=== PATIENT | female | born 1965 | race Caucasian/White ===

== ENCOUNTER 2017-05-29 13:12 | Inpatient (IN) | payer MEDICAID ==
[~2017-05-29] VITALS: Ht 162.6 cm; Wt 69.4 kg
[~2017-05-29 13:12] MED LIST: ALBUTEROL SULF8.5 GM INH; ALBUTEROL0.63 MG/3 INH; AZITHROMYCIN250 MG PO; BACTRIM DS TAB1 EACH PO; BUSPIRONE HCL5 MG PO; IBUPROFEN400 MG PO; LEVAQUIN500 MG PO; LOSARTAN-HCTZ1 EAC2 PO; NICODERM CQ1 EAC1 TOP; NICOTINE PATCH1 EAC5 SUBD; NORCO 10MG-325MG1 EA PO; NORVASC5 MG PO; PANTOPRAZOLE SO40 MG PO; PREDNISONE10 MG PO; PREDNISONE20 MG PO; PREDNISONE5 MG PO; SERTRALINE HCL50 MG PO; THEOPHYLLINE600 MG PO; ULTRAM 50MG50 MG PO
[2017-05-29] MEDS ORDERED: ALBUTEROL SULF 0.083% NEB SOLN 3 ML NEB ONE (13:43)
[2017-05-29] MEDS ORDERED: IPRATROPIUM BROMIDE 0.02% 2.5 ML NEB ONE (13:44)
[2017-05-29] MEDS ORDERED: IPRATROPIUM BROMIDE 0.02% 2.5 ML NEB NEB STA (13:45)
[2017-05-29] MEDS ORDERED: ALBUTEROL/IPRATROPIUM 3 ML NEB NEB ONE (13:45)
[2017-05-29] MEDS ORDERED: ALBUTEROL SULF 0.083% NEB SOLN 3 ML NEB NEB STA (13:45)
[2017-05-29] MEDS ORDERED: CLONIDINE HCL 0.2 MG TAB PO STA (13:45)
[2017-05-29 14:02] LABS: BASOPHILS % 0.2 % (0.0-1.0); EOSINOPHILS % 0.1 % (0.0-6.0); HEMATOCRIT 39.5 % (34.2-44.1); HEMOGLOBIN 11.8 g/dL (12.0-16.0); LYMPHOCYTES # (AUTO) 0.8 (1.0-3.2); LYMPHOCYTES % 4.6 % (18.0-39.1); MEAN CORPUSCULAR HEMOGLOBIN 27.1 pg (28-32); MEAN CORPUSCULAR HGB CONC 29.9 g/dL (31-35); MEAN CORPUSCULAR VOLUME 90.6 fL (81-99); MONOCYTES # (AUTO) 0.2 (0.2-0.8); MONOCYTES % 1.3 % (4.4-11.3); NEUTROPHILS # (AUTO) 15.1 (2.1-6.9); NEUTROPHILS % 92.8 % (38.7-80.0); PLATELET COUNT 388 x10e3/uL (140-360); RED BLOOD COUNT 4.36 x10e6/uL (3.6-5.1)
[2017-05-29 14:06] LABS: INR 0.96; PROTHROMBIN TIME 13.3 seconds (11.9-14.5)
[2017-05-29 14:15] LABS: ALANINE AMINOTRANSFERASE 12 IU/L (0-55); ALBUMIN 3.5 g/dL (3.5-5.0); ALBUMIN/GLOBULIN RATIO 0.8 (0.8-2.0); ALKALINE PHOSPHATASE 103 IU/L (40-150); ANION GAP 12.6 mmol/L (8-16); BLOOD UREA NITROGEN 14 mg/dL (7-26); BUN/CREATININE RATIO 27 (6-25); CALCIUM 9.4 mg/dL (8.4-10.2); CHLORIDE 86 mmol/L (98-107); CREATINE KINASE 32 IU/L (29-168); CREATININE, SERUM 0.51 mg/dL (0.57-1.11); EST GLOMERULAR FILTRATION RATE > 60 ML/MIN (60-); GLUCOSE 161 mg/dL (74-118); POTASSIUM 4.6 mmol/L (3.5-5.1); SODIUM 136 mmol/L (136-145)
[2017-05-29 14:18] LABS: CARBON DIOXIDE 42 mmol/L (22-29)
[2017-05-29 14:20] LABS: TROPONIN I 0.008 ng/mL (0-0.300)
--- NOTE | 2017-05-29 15:17 | Diagnostic Imaging Report ---
PROCEDURE: A single AP view of the chest. COMPARISON: Patients [facility], DX, CHEST 2 VIEWS, 05/02/2016, 18:29. INDICATIONS: COPD, SOB FINDINGS: Lines/tubes: None. Lungs: Mild prominence of the pulmonary vasculature bilaterally. Bibasilar dependent atelectasis. The There is no evidence of pneumonia or pulmonary edema. Pleura: There is no pleural effusion or pneumothorax. Heart and mediastinum: The cardiac silhouette is mildly enlarged. Bones: No acute bony abnormality. IMPRESSION: 1. Mild prominence of the cardiac silhouette and pulmonary vascular bilaterally may be in part related to portable technique. otherwise no acute thoracic abnormality. Anaid Diaz M.D. Dictated by: Anaid Diaz M.D. on 05/29/2017 at 15:25 Electronically approved by: Anaid Diaz M.D. on 05/29/2017 at 15:25
[2017-05-29] MEDS ORDERED: PROPOFOL IV EMULSION 10MG/ML 100 ML ONE ×2 (15:44→23:49)
[2017-05-29] MEDS ORDERED: SODIUM CHLORIDE 0.9% 1000ML 1,000 ML ONE (16:09)
[2017-05-29] MEDS ORDERED: PANTOPRAZOLE INJ 40 MG in SODIUM CHLORIDE 0.9% 50ML 50 ML IV SCH (16:15)
--- NOTE | 2017-05-29 16:20 | Diagnostic Imaging Report ---
PROCEDURE: A single AP view of the chest. COMPARISON: Patients [facility], DX, CHEST SINGLE (PORTABLE), 05/29/2017, 14:42. INDICATIONS: POST INTUBATION FINDINGS: Lines/tubes: ET tube with the distal tip in adequate position well above the stalin at the level of the sternoclavicular junctions. NG/orogastric tube with distal portion extending below the diaphragm, however, with the distal tip not included. Lungs: The lungs are clear. There is no evidence of pneumonia or pulmonary edema. Pleura: There is no pleural effusion or pneumothorax. Heart and mediastinum: The heart and the mediastinum are unremarkable. Bones: No acute bony abnormality. IMPRESSION: 1. ET tube in adequate position. Anaid Diaz M.D. Dictated by: Anaid Diaz M.D. on 05/29/2017 at 16:29 Electronically approved by: Anaid Diaz M.D. on 05/29/2017 at 16:29
[2017-05-29] MEDS: SODIUM CHLORIDE 0.9% 250ML IRRIG IR SCH ×3 (16:30→23:58)
[2017-05-29] MEDS ORDERED: LEVOFLOXACIN 750MG/DEXTROSE PREMIX BAG 150ML IV SCH (17:00)
[2017-05-29] MEDS ORDERED: DEXTROSE 50% SYRINGE 50 ML IV PRN ×3 (17:15→18:00)
[2017-05-29] MEDS: MIDAZOLAM HCL 25 MG in SODIUM CHLORIDE 0.9% 50ML 45 ML IV PRN ×4 (17:20→20:18)
[2017-05-29] MEDS: PANTOPRAZOLE INJ 40 MG in SODIUM CHLORIDE 0.9% 50ML 50 ML IV SCH ×2 (17:22→22:27)
[2017-05-29] MEDS ORDERED: PROPOFOL IV EMULSION 10 MG/ML 20 ML VIAL IV ONE (17:30)
[2017-05-29 17:59] LABS: ABG PH 7.31 (7.31-7.41)
[2017-05-29 18:00] LABS: ABG HCO3 44 mmol/L (23-28); ABG PCO2 87 mmHg (41-51); ABG PO2 85 mmHg (80-105)
[2017-05-29 18:14] LABS: BILIRUBIN,URINE NEGATIVE (NEGATIVE); CLARITY,URINE CLEAR (CLEAR); COLOR,URINE YELLOW (YELLOW); KETONES,URINE TRACE (NEGATIVE); LEUKOCYTE ESTERASE ,URINE NEGATIVE (NEGATIVE); NITRITE,URINE NEGATIVE (NEGATIVE); PROTEIN,URINE DIPSTICK 3+ (NEGATIVE); URINE UROBILINOGEN 0.2 mg/dL (0.2 - 1)
[2017-05-29 18:34] LABS: EPITHELIAL CELLS,URINE FEW /LPF
[2017-05-29] MEDS: NICOTINE 7 MG PATCH TOP SCH (18:34)
[2017-05-29] MEDS: METHYLPREDNISOLONE SOD SUCC 40 MG/ML VIAL IV SCH ×2 (18:34→20:48)
[2017-05-29 18:37] LABS: RBC,URINE 21-50 /HPF (0-5)
[2017-05-29] MEDS: SODIUM CHLORIDE 0.9% 1000ML 1,000 ML IV SCH (18:37)
[2017-05-29 18:41] LABS: BACTERIA,URINE FEW /HPF
--- NOTE | 2017-05-29 18:43 | Consultation ---
DATE OF CONSULTATION: May 29, 2017 The patient is well known to pulmonary service. The patient is an unfortunate 51-year-old woman with a history of end-stage COPD, a long smoking history. She has continued to smoke despite the admonition from physicians. On this occasion, she ran out of her medication. She was admitted through the emergency room with extreme dyspnea. She is awake, but found to have significant CO2 retention in excess of 130. She was in progressive distress and was intubated by . Apparently, this was a difficult intubation, difficult to pass a 7.5 or 7 tube and a 6.5 endotracheal tube was placed. Apparently there was some bleeding at this time. It is uncertain whether it was gastric or from the throat. She has history of chronic pain, history of hypertension. Family history is positive for hypertension and diabetes mellitus. She has had C-sections in the past. She is somewhat Cushingoid. Pulmonary functions in May 2015 revealed very severe obstructive pulmonary disease with an FEV1 of only 0.57 meters, 20% of predicted. FVC of 1.13 liters, 31% of predicted and FEV1/FVC ratio of 57%. There was some improvement. Significant improvement following inhalation of bronchodilators at 12%. PHYSICAL EXAMINATION GENERAL: She is currently intubated and awake. She is intubated orally with a small endotracheal tube 6.5. VITAL SIGNS: Temperature 97, pulse 100, respirations 16, blood pressure 139/95. LUNGS: Diminished breath sounds. HEART: Regular rhythm. ABDOMEN: Obese. EXTREMITIES: Not edematous. . The plan is to begin cortical steroids in moderate doses. Monitor blood sugars. Nebulized bronchodilators. Continue her theophylline. Check theophylline every day. Consider changing endotracheal tube as tube is small size. Obtain sputum cultures. White count was elevated at 16. Monitor blood sugars. Begin cortical steroids. The home medications apparently have included albuterol, amlodipine, Buspar, nicotine patch, Protonix, prednisone 10 mg daily, Sertraline, theophylline and Ultram. Thank you for this kind referral. Job#: [id number]
[2017-05-29 18:52] LABS: RENAL EPITHELIAL CELLS,URINE FEW
[2017-05-29] MEDS ORDERED: SUCCINYLCHOLINE CHLORIDE 20 MG/ML 10ML VIAL ONE (18:59)
[2017-05-29] MEDS ORDERED: ETOMIDATE 2 MG/ML 10 ML INJ IV ONE (18:59)
[2017-05-29] MEDS: LEVOFLOXACIN 750MG/D5W 150ML 150 ML IV SCH (19:27)
[2017-05-29] MEDS: ALBUTEROL/IPRATROPIUM 3 ML NEB NEB SCH ×2 (19:45→23:30)
[2017-05-29] MEDS: HEPARIN SOD (PORCINE) 5,000 UNIT/ML VIAL SC SCH (20:59)
[2017-05-29] MEDS ORDERED: INSULIN REGULAR, HUMAN 100 UNIT/1 ML 3ML VIAL SQ SCH (21:00)
[2017-05-29] MEDS: INSULIN LISPRO 100 UNIT/1 ML 3ML VIAL SQ SCH (21:00)
[2017-05-29 22:10] LABS: CREATINE KINASE MB 3.1 ng/mL (0.00-5.00); TROPONIN I 0.011 ng/mL (0-0.300)
--- NOTE | 2017-05-29 22:30 | History and Physical ---
TIME: 1730 The patient presented to the emergency room short of breath. CO2 was markedly elevated and the patient required intubation. Blood pressure has been labile since arrival. PAST HISTORY: Has included COPD and heavy tobacco use, chronic morbid obesity and hypertension. FAMILY HISTORY: Positive for diabetes in the patient's grandmother. Organic heart disease in the patient's mother. ALLERGIES: THE PATIENT IS ALLERGIC TO PENICILLIN. Patient has not in the past used alcohol according to her past history. Of course, she is intubated and is unable to give a history. History is obtained from review of prior records. Patient was last here 14 months ago, and that is when I last saw this patient. She has not been keeping office supplements to my office. History has included chronic low back pain. The patient has used analgesics in the past. REVIEW OF SYSTEMS: The patient is intubated and on Diprivan, and unable to convey any significant history. Prior to admission meds as above. Patient unable to relate at this time. PHYSICAL EXAMINATION GENERAL: Currently, the patient has an orotracheal and orogastric tube. She is on the ventilator. VITALS: Pulse 98 and regular, respiratory rate 23, blood pressure 136/77 now, and O2 saturation 99%. HEENT: Pupils round and reactive. No icterus or pallor. Throat intubated. NECK: Flexes. Carotids weak. PULMONARY: Auscultation reveals reduced breath sounds, left. CARDIAC: Sounds S1 and S2 soft. ABDOMEN: Morbidly obese and soft. Bowel sounds normal. Some perineal erythema. EXTREMITIES: Without edema. DTRs depressed. Babinski's negative. Pulses dampened. White count 16,280 on arrival with hemoglobin 11.8 and platelet count 388,000. CO2 42, BUN 14, creatinine 0.51, glucose 161. Naturetic peptide 33. Blood cultures pending. ER chest x-ray taken at 1357 today with mild prominence of the cardiac silhouette and pulmonary vascular bilaterally. May be in part related to portable technique. No acute thoracic abnormality otherwise per Dr. Diaz, radiologist. Followup film similar with post intubation study. IMPRESSION 1. Chronic obstructive pulmonary disease. 2. History of asthma. 3. Acute and chronic respiratory failure, now intubated. 4. History of hypertension. 5. Chronic low back pain with morbid chronic obesity and degenerative joint disease, mild. 6. Hyperglycemia at this time. Current plans are to support the patient medically. Continue ventilator as needed. Clinic Lpn has been asked to follow with us. Case discussed with the ER physician and ER nurses. Blood gas is pending. See also initial and followup orders. Orders have been entered under my name, including theophylline and nicotine, but have not given any orders for this patient to date. Appreciate orders per Dr. Mckoy, including steroids. This will elevate her blood sugars further and will need treatment. The patient is on Levaquin here now. Needs to be screened for flu. See initial followup orders. Job#: [id number] [place]
[2017-05-29] MEDS ORDERED: ROCURONIUM BROMIDE 1 ML ONE (23:50)
[2017-05-30] VITALS (20 sets, daily range): BP systolic 114–156; BP diastolic 73–96
[2017-05-30] MEDS ORDERED: ROCURONIUM BROMIDE 10 MG/ML 5ML VIAL IV ONE
[2017-05-30] MEDS: PROPOFOL IV EMULSION 10MG/ML 100 ML IV SCH ×4 (00:52→22:00)
[2017-05-30] MEDS: PANTOPRAZOLE INJ 40 MG in SODIUM CHLORIDE 0.9% 50ML 50 ML IV SCH ×3 (02:06→12:27)
[2017-05-30 02:54] LABS: INFLUENZAE A&B ANTIGEN (RAPID) NEGATIVE (NEGATIVE); STREPTOCOCCUS GRP A ANTIGEN NEGATIVE (NEGATIVE)
[2017-05-30] MEDS: ALBUTEROL/IPRATROPIUM 3 ML NEB NEB SCH ×7 (03:12→23:20)
[2017-05-30] MEDS: SODIUM CHLORIDE 0.9% 250ML IRRIG IR SCH ×5 (04:21→21:00)
[2017-05-30] MEDS: MIDAZOLAM HCL 25 MG in SODIUM CHLORIDE 0.9% 50ML 45 ML IV PRN ×5 (04:30→15:34)
[2017-05-30 06:54] LABS: BASOPHILS % 0.1 % (0.0-1.0); HEMATOCRIT 33.4 % (34.2-44.1); HEMOGLOBIN 10.3 g/dL (12.0-16.0); LYMPHOCYTES # (AUTO) 0.9 (1.0-3.2); LYMPHOCYTES % 6.7 % (18.0-39.1); MEAN CORPUSCULAR HEMOGLOBIN 27.4 pg (28-32); MEAN CORPUSCULAR HGB CONC 30.8 g/dL (31-35); MEAN CORPUSCULAR VOLUME 88.8 fL (81-99); MONOCYTES # (AUTO) 0.8 (0.2-0.8); MONOCYTES % 6.1 % (4.4-11.3); NEUTROPHILS # (AUTO) 11.8 (2.1-6.9); NEUTROPHILS % 86.2 % (38.7-80.0); PLATELET COUNT 344 x10e3/uL (140-360); RED BLOOD COUNT 3.76 x10e6/uL (3.6-5.1)
[2017-05-30 07:09] LABS: ANION GAP 12.1 mmol/L (8-16); BLOOD UREA NITROGEN 12 mg/dL (7-26); BUN/CREATININE RATIO 21 (6-25); CARBON DIOXIDE 39 mmol/L (22-29); CHLORIDE 95 mmol/L (98-107); CREATINE KINASE 82 IU/L (29-168); CREATININE, SERUM 0.56 mg/dL (0.57-1.11); EST GLOMERULAR FILTRATION RATE > 60 ML/MIN (60-); GLUCOSE 120 mg/dL (74-118); POTASSIUM 4.1 mmol/L (3.5-5.1); SODIUM 142 mmol/L (136-145)
--- NOTE | 2017-05-30 07:10 | Diagnostic Imaging Report ---
EXAMINATION: CHEST SINGLE (PORTABLE) INDICATION: Respiratory failure COMPARISON: None FINDINGS: TUBES and LINES: Endotracheal tube and NG tube are in good position. LUNGS: Lungs are well inflated. There are bibasilar atelectasis. There is no evidence of pneumonia or pulmonary edema. PLEURA: No pleural effusion or pneumothorax. HEART AND MEDIASTINUM: The cardiomediastinal silhouette is unremarkable. BONES AND SOFT TISSUES: No acute osseous lesion. Soft tissues are unremarkable. UPPER ABDOMEN: No free air under the diaphragm. IMPRESSION: No acute thoracic abnormality. Signed by: Dr. Jay Miller M.D. on 05/30/2017 7:06 AM
[2017-05-30 07:15] LABS: TROPONIN I 0.004 ng/mL (0-0.300)
[2017-05-30] MEDS: INSULIN LISPRO 100 UNIT/1 ML 3ML VIAL SQ SCH ×3 (07:47→16:30)
[2017-05-30] MEDS ORDERED: THEOPHYLLINE ANHYDROUS 200 MG PO SCH (09:00)
[2017-05-30] MEDS ORDERED: NICOTINE 14 MG/EA PATCH TOP SCH (09:00)
[2017-05-30] MEDS ORDERED: THEOPHYLLINE 200 MG TABCR PO SCH (09:00)
[2017-05-30] MEDS: METHYLPREDNISOLONE SOD SUCC 40 MG/ML VIAL IV SCH ×2 (09:15→22:31)
[2017-05-30] MEDS: NICOTINE 7 MG PATCH TOP SCH (09:15)
[2017-05-30] MEDS: HEPARIN SOD (PORCINE) 5,000 UNIT/ML VIAL SC SCH ×2 (09:15→22:06)
[2017-05-30] MEDS: THEOPHYLLINE 80 MG/15 ML SYRP PO SCH ×2 (10:04→17:00)
[2017-05-30] MEDS ORDERED: FUROSEMIDE INJ 10 MG/ML 4 ML VIAL IV ONE (17:00)
[2017-05-30] MEDS: LEVOFLOXACIN 750MG/D5W 150ML 150 ML IV SCH (17:15)
--- NOTE | 2017-05-30 18:00 | Diagnostic Imaging Report ---
PROCEDURE: A single AP view of the chest. COMPARISON: Patients [facility], DX, CHEST SINGLE (PORTABLE), 05/30/2017, 6:09. INDICATIONS: PICC LINE PLACEMENT FINDINGS: See impression. IMPRESSION: 1. interval placement of right-sided PICC line, with distal tip projecting in the proximal SVC. Other supporting tubes are unchanged. 2. Otherwise, no significant interval change. Bo Hua M.D. Dictated by: Bo Hua M.D. on 05/30/2017 at 18:08 Electronically approved by: Bo Hua M.D. on 05/30/2017 at 18:08
[2017-05-30] MEDS ORDERED: ALBUTEROL SULF 0.083% NEB SOLN 3 ML NEB NEB SCH (19:00)
[2017-05-30] MEDS: ACETYLCYSTEINE 20% INHAL SOLN 30 ML VIAL INH SCH (19:17)
[2017-05-30] MEDS: SODIUM CHLORIDE 0.9% 1000ML 1,000 ML IV SCH (21:00)
[2017-05-31] VITALS (66 sets, daily range): BP systolic 113–203; BP diastolic 65–106
[2017-05-31] MEDS: SODIUM CHLORIDE 0.9% 250ML IRRIG IR SCH ×3 (00:15→08:15)
[2017-05-31] MEDS: INSULIN LISPRO 100 UNIT/1 ML 3ML VIAL SQ SCH ×5 (00:35→21:00)
[2017-05-31] MEDS: PROPOFOL IV EMULSION 10MG/ML 100 ML IV SCH (02:00)
[2017-05-31] MEDS: ALBUTEROL/IPRATROPIUM 3 ML NEB NEB SCH ×5 (02:56→19:06)
[2017-05-31] MEDS ORDERED: PANTOPRAZOLE 40 MG 10ML VIAL ONE ×3 (03:07→08:52)
[2017-05-31] MEDS ORDERED: SODIUM CHLORIDE 0.9% 50ML 0 ML ONE (03:10)
[2017-05-31] MEDS: PANTOPRAZOLE INJ 40 MG in SODIUM CHLORIDE 0.9% 50ML 50 ML IV SCH ×2 (03:13→07:43)
--- NOTE | 2017-05-31 06:54 | Diagnostic Imaging Report ---
EXAMINATION: CHEST SINGLE (PORTABLE) INDICATION: CHF exacerbation COMPARISON: None FINDINGS: TUBES and LINES: Endotracheal tube and NG tube are in good position. Interval placement of right upper extremity PICC line in good position with tip at the level of the atrial caval junction LUNGS: Lungs are well inflated. Right triangular opacity compatible with atelectasis. There is no evidence of pneumonia or pulmonary edema. PLEURA: No pleural effusion or pneumothorax. HEART AND MEDIASTINUM: The cardiomediastinal silhouette is unremarkable. BONES AND SOFT TISSUES: No acute osseous lesion. Soft tissues are unremarkable. UPPER ABDOMEN: No free air under the diaphragm. IMPRESSION: 1. No acute thoracic abnormality. 2. Good position of right PICC line. 3. New right basilar atelectasis Signed by: Dr. Jay Miller M.D. on 05/31/2017 6:51 AM
[2017-05-31] MEDS: ACETYLCYSTEINE 20% INHAL SOLN 30 ML VIAL INH SCH (07:38)
[2017-05-31] MEDS ORDERED: SODIUM CHLORIDE 0.9% 50ML 50 ML ONE ×2 (07:44→11:04)
[2017-05-31] MEDS: NICOTINE 7 MG PATCH TOP SCH (09:00)
[2017-05-31] MEDS: THEOPHYLLINE 80 MG/15 ML SYRP PO SCH ×2 (09:00→17:00)
[2017-05-31] MEDS: HEPARIN SOD (PORCINE) 5,000 UNIT/ML VIAL SC SCH ×2 (09:00→21:07)
[2017-05-31] MEDS: METHYLPREDNISOLONE SOD SUCC 40 MG/ML VIAL IV SCH ×2 (09:06→21:06)
[2017-05-31 11:18] LABS: ABG HCO3 40 mmol/L (23-28); ABG PCO2 58 mmHg (41-51); ABG PH 7.44 (7.31-7.41); ABG PO2 80 mmHg (80-105)
[2017-05-31 13:55] LABS: ABG HCO3 39 mmol/L (23-28); ABG PCO2 57 mmHg (41-51); ABG PH 7.45 (7.31-7.41); ABG PO2 57 mmHg (80-105)
[2017-05-31] MEDS: ACETAMINOPHEN 325 MG TAB PO PRN (16:45)
[2017-05-31] MEDS ORDERED: ACETAMINOPHEN 325 MG TAB ONE (16:48)
[2017-05-31] MEDS ORDERED: VANCOMYCIN 1GM/NS 250 ML 250 ML ONE (16:48)
[2017-05-31] MEDS: LEVOFLOXACIN 750MG/D5W 150ML 150 ML IV SCH (16:57)
[2017-05-31] MEDS ORDERED: VANCOMYCIN 1GM/NS 250 ML 250 ML IV ONE (17:30)
[2017-05-31] MEDS: SODIUM CHLORIDE 0.9% 1000ML 1,000 ML IV SCH (22:16)
[2017-06-01] VITALS (29 sets, daily range): BP systolic 131–161; BP diastolic 70–101
[2017-06-01] MEDS: ACETAMINOPHEN 325 MG TAB PO PRN (02:04)
[2017-06-01] MEDS: ALBUTEROL/IPRATROPIUM 3 ML NEB NEB SCH ×6 (03:20→22:50)
[2017-06-01 05:45] LABS: ALANINE AMINOTRANSFERASE 12 IU/L (0-55); ALBUMIN 3.2 g/dL (3.5-5.0); ALBUMIN/GLOBULIN RATIO 0.9 (0.8-2.0); ALKALINE PHOSPHATASE 70 IU/L (40-150); ANION GAP 12.1 mmol/L (8-16); BLOOD UREA NITROGEN 17 mg/dL (7-26); BUN/CREATININE RATIO 30 (6-25); CARBON DIOXIDE 35 mmol/L (22-29); CHLORIDE 99 mmol/L (98-107); CREATININE, SERUM 0.57 mg/dL (0.57-1.11); EST GLOMERULAR FILTRATION RATE > 60 ML/MIN (60-); GLUCOSE 131 mg/dL (74-118); POTASSIUM 3.1 mmol/L (3.5-5.1); SODIUM 143 mmol/L (136-145)
[2017-06-01] MEDS: INSULIN LISPRO 100 UNIT/1 ML 3ML VIAL SQ SCH (05:54)
[2017-06-01] MEDS: THEOPHYLLINE 80 MG/15 ML SYRP PO SCH ×2 (09:00→17:30)
[2017-06-01] MEDS: METHYLPREDNISOLONE SOD SUCC 40 MG/ML VIAL IV SCH ×2 (09:00→21:12)
[2017-06-01] MEDS: NICOTINE 7 MG PATCH TOP SCH ×2 (09:00→09:42)
[2017-06-01] MEDS: HEPARIN SOD (PORCINE) 5,000 UNIT/ML VIAL SC SCH ×2 (09:00→21:13)
[2017-06-01] MEDS: PANTOPRAZOLE SOD 40 MG TABEC PO SCH (09:15)
[2017-06-01] MEDS: VANCOMYCIN 1GM/NS 250 ML 250 ML IV SCH (13:00)
[2017-06-01] MEDS: LIDOCAINE 5% PATCH TP SCH (15:27)
[2017-06-01] MEDS: LEVOFLOXACIN 750MG/D5W 150ML 150 ML IV SCH (17:30)
[2017-06-02] VITALS (16 sets, daily range): BP systolic 112–178; BP diastolic 72–126
[2017-06-02] MEDS: VANCOMYCIN 1GM/NS 250 ML 250 ML IV SCH ×2 (00:44→12:25)
[2017-06-02] MEDS: ALBUTEROL/IPRATROPIUM 3 ML NEB NEB SCH ×6 (03:00→23:37)
[2017-06-02] MEDS: LIDOCAINE 5% PATCH TP SCH (07:35)
[2017-06-02] MEDS: PANTOPRAZOLE SOD 40 MG TABEC PO SCH (07:35)
[2017-06-02] MEDS: THEOPHYLLINE 80 MG/15 ML SYRP PO SCH ×2 (09:05→17:37)
[2017-06-02] MEDS: METHYLPREDNISOLONE SOD SUCC 40 MG/ML VIAL IV SCH (09:05)
[2017-06-02] MEDS: HEPARIN SOD (PORCINE) 5,000 UNIT/ML VIAL SC SCH ×2 (09:06→20:50)
[2017-06-02] MEDS ORDERED: SODIUM CHLORIDE 0.9% 250ML 250 ML ONE (11:36)
[2017-06-02] MEDS: LEVOFLOXACIN 750MG/D5W 150ML 150 ML IV SCH (17:37)
[2017-06-02] MEDS ORDERED: POTASSIUM CHLORIDE 10 MEQ TABCR PO NR (18:00)
[2017-06-03] VITALS (7 sets, daily range): BP systolic 135–155; BP diastolic 65–76
[2017-06-03] MEDS: ACETAMINOPHEN 325 MG TAB PO PRN ×2 (01:20→20:36)
[2017-06-03] MEDS: VANCOMYCIN 1GM/NS 250 ML 250 ML IV SCH ×2 (02:02→12:57)
[2017-06-03] MEDS: ALBUTEROL/IPRATROPIUM 3 ML NEB NEB SCH ×5 (02:45→19:40)
[2017-06-03 06:08] LABS: BASOPHILS % 0.1 % (0.0-1.0); EOSINOPHILS % 0.3 % (0.0-6.0); HEMATOCRIT 34.4 % (34.2-44.1); LYMPHOCYTES # (AUTO) 2.1 (1.0-3.2); LYMPHOCYTES % 17.4 % (18.0-39.1); MEAN CORPUSCULAR HEMOGLOBIN 26.7 pg (28-32); MEAN CORPUSCULAR HGB CONC 29.1 g/dL (31-35); MEAN CORPUSCULAR VOLUME 91.7 fL (81-99); MONOCYTES # (AUTO) 0.8 (0.2-0.8); MONOCYTES % 6.9 % (4.4-11.3); NEUTROPHILS % 74.6 % (38.7-80.0); PLATELET COUNT 279 x10e3/uL (140-360); RED BLOOD COUNT 3.75 x10e6/uL (3.6-5.1); RED CELL DISTRIBUTION WIDTH 13.2 % (11.7-14.4)
[2017-06-03 06:37] LABS: ANION GAP 10.6 mmol/L (8-16); BLOOD UREA NITROGEN 20 mg/dL (7-26); BUN/CREATININE RATIO 39 (6-25); CALCIUM 8.3 mg/dL (8.4-10.2); CARBON DIOXIDE 37 mmol/L (22-29); CHLORIDE 100 mmol/L (98-107); CREATININE, SERUM 0.51 mg/dL (0.57-1.11); EST GLOMERULAR FILTRATION RATE > 60 ML/MIN (60-); GLUCOSE 108 mg/dL (74-118); POTASSIUM 3.6 mmol/L (3.5-5.1); SODIUM 144 mmol/L (136-145)
[2017-06-03] MEDS: PANTOPRAZOLE SOD 40 MG TABEC PO SCH (08:39)
[2017-06-03] MEDS: HEPARIN SOD (PORCINE) 5,000 UNIT/ML VIAL SC SCH ×2 (08:39→22:14)
[2017-06-03] MEDS: METHYLPREDNISOLONE SOD SUCC 40 MG/ML VIAL IV SCH (08:39)
[2017-06-03] MEDS: NICOTINE 7 MG PATCH TOP SCH (08:54)
[2017-06-03] MEDS: LIDOCAINE 5% PATCH TP SCH (09:00)
[2017-06-03] MEDS: THEOPHYLLINE 80 MG/15 ML SYRP PO SCH ×2 (09:30→17:05)
[2017-06-03] MEDS ORDERED: LEVALBUTEROL HCL SOLN NEBU 0.63 MG/3 ML NEB INH PRN (12:45)
[2017-06-03] MEDS: ACETYLCYSTEINE 20% INHAL SOLN 30 ML VIAL INH SCH ×2 (15:05→19:40)
[2017-06-03] MEDS: LEVOFLOXACIN 750MG/D5W 150ML 150 ML IV SCH (17:05)
[2017-06-04] VITALS (8 sets, daily range): BP systolic 109–139; BP diastolic 51–86
[2017-06-04] MEDS: VANCOMYCIN 1GM/NS 250 ML 250 ML IV SCH ×2 (00:25→12:27)
[2017-06-04] MEDS: ALBUTEROL/IPRATROPIUM 3 ML NEB NEB SCH ×4 (01:07→20:10)
[2017-06-04] MEDS: ACETYLCYSTEINE 20% INHAL SOLN 30 ML VIAL INH SCH ×4 (01:07→20:10)
[2017-06-04] MEDS: PANTOPRAZOLE SOD 40 MG TABEC PO SCH (08:30)
[2017-06-04] MEDS: NICOTINE 7 MG PATCH TOP SCH (09:00)
[2017-06-04] MEDS: METHYLPREDNISOLONE SOD SUCC 40 MG/ML VIAL IV SCH (09:05)
[2017-06-04] MEDS: THEOPHYLLINE 80 MG/15 ML SYRP PO SCH ×2 (09:05→16:16)
[2017-06-04] MEDS: HEPARIN SOD (PORCINE) 5,000 UNIT/ML VIAL SC SCH ×2 (09:05→20:46)
[2017-06-04] MEDS: LIDOCAINE 5% PATCH TP SCH (09:10)
[2017-06-04] MEDS: LEVOFLOXACIN 750MG/D5W 150ML 150 ML IV SCH (16:16)
[2017-06-04] MEDS ORDERED: ALBUTEROL SULFATE HFA 8GM INHALATION AEROSOL INH PRN (19:00)
[2017-06-04] MEDS: ACETAMINOPHEN 325 MG TAB PO PRN (20:46)
[2017-06-05] VITALS: BP 117/65
[2017-06-05] MEDS: ACETYLCYSTEINE 20% INHAL SOLN 30 ML VIAL INH SCH ×3 (00:45→13:00)
[2017-06-05] MEDS: ALBUTEROL/IPRATROPIUM 3 ML NEB NEB SCH ×3 (00:45→13:00)
[2017-06-05 01:09] VITALS: BP 117/65
[2017-06-05] MEDS: VANCOMYCIN 1GM/NS 250 ML 250 ML IV SCH ×2 (01:39→13:26)
[2017-06-05 06:01] VITALS: BP 132/65
[2017-06-05] MEDS: PANTOPRAZOLE SOD 40 MG TABEC PO SCH (08:00)
[2017-06-05] MEDS: NICOTINE 7 MG PATCH TOP SCH (09:00)
[2017-06-05 09:10] VITALS: BP 135/71
[2017-06-05] MEDS: HEPARIN SOD (PORCINE) 5,000 UNIT/ML VIAL SC SCH (09:11)
[2017-06-05] MEDS: METHYLPREDNISOLONE SOD SUCC 40 MG/ML VIAL IV SCH (09:11)
[2017-06-05] MEDS: LIDOCAINE 5% PATCH TP SCH (09:11)
[2017-06-05] MEDS: THEOPHYLLINE 80 MG/15 ML SYRP PO SCH ×2 (09:11→16:37)
[2017-06-05] MEDS: ACETAMINOPHEN 325 MG TAB PO PRN (11:41)
--- NOTE | 2017-06-05 14:24 | Discharge Summary ---
The patient was hospitalized through the emergency room. She presented with respiratory failure. She required intubation and support with ventilator. History includes near end-stage COPD and heavy tobacco use, chronic obesity, hypertension, degenerative joint disease with chronic back pain. See also H\\T\\P and ER notes. The patient was supported with a ventilator. Database was obtained and monitored. The patient was kindly followed by petroleum inspector supervisor while here. See notes. Medicines included antibiotics, bronchodilators, prophylactic low-dose heparin and steroids. Patient had a course of slow improvement. She was extubated and continued to have some improvement thereafter. She was stable on the medical floor for several days prior to discharge. Chemistries were monitored, and transient hypokalemia was replenished. Ultimately the patient was stable for outpatient management. She had told the emergency room nurse on arrival that she had not taken her bronchodilators for several days prior to admission. May 29 white count 16,280 with hemoglobin 11.8, low MCH, low MCHC. Platelets 388,000. Left shift on white cells. White count fell to 12,000 on the . The patient was on high-dose steroids. INR 0.96, PTT 28. Microhematuria on urinalysis, cath specimen. Flu A-B antigens negative. Group A strep screen negative. IgE elevated. Drug levels monitored. The patient had mild hyperglycemia on steroids and transiently. Blood sugars were monitored with administration of low-dose short-acting insulin as needed. Blood gas May 29 revealed pH 7.31, PCO2 87, O2 85, HCO3 44, O2 sat 94%. May 31 pH 7.45, PCO2 57, pO2 57, O2 sat 89. Negative cultures included those of blood, urine and throat. The patient did experience transient fever after arrival, low-grade, and this resolved several days prior to discharge. ER chest x-ray, prominent cardiac silhouette, mild. Pulmonary vascular mild prominence, "may be in part related to portable technique." Serial chest x-rays monitored. The patient required PICC line insertion May 30. Chest x-ray May 31, right area of atelectasis. No pneumonia or pulmonary edema. Brain natriuretic peptide was 33.on. Normal here is 0 to 100. Hemoglobin A1c 5.2. Cardiac enzymes negative for NE. See also consultation per pulmonary medicine/petroleum inspector supervisor. Pulmonary function studies in May 2015 revealed severe obstructive pulmonary disease with FEV1 of 0.57 liters, 20% of predicted. FVC low. FVC 1.13 liters, 31% predicted, and FEV1:FVC ratio 57%. Improvement following inhalation of bronchodilators at 12% vent. FINAL IMPRESSIONS: Chronic obstructive pulmonary disease, acute exacerbation. Hyperglycemia secondary to steroids while here. Acute bronchitis. Past history of asthma. Respiratory failure. Primary hypertension. Monitored while here, and the patient did not need specific treatment while here. Hyperglycemia, intermittent and mild as mentioned. Patient was asked to follow up closely within a week. She has not been seen by myself since she was last here 14 months ago. See prior record. She has not been keeping office appointments. See also medicine reconciliation partial list. She will also continue albuterol handheld 2 inhalations q.4 hours p.r.n. She has a home nebulizer and will continue DuoNebs q.6 hours. Prednisone 20 mg daily for 1 week, then 10 mg daily. Theophylline 200 b.i.d. Cipro 500 b.i.d. for 5 days. The patient was counseled. AIDA ARAUZ MD Job#: [id number] EV
[2017-06-05 15:01] VITALS: BP 135/71
[2017-06-05] MEDS: LEVOFLOXACIN 750MG/D5W 150ML 150 ML IV SCH (16:37)
[2017-06-05 16:44] VITALS: BP 138/65
== END 2017-06-05 20:10 | disposition home or self-care (01) | DRG 208 ==
LOC: ER 13:12 → ERHOLD 17:34 → ICU 05-30 15:59 → MED/SURG2 06-02 10:02
PROVIDERS: ADMIT Internal Medicine; ATTEND Internal Medicine
PROC: 0BH17EZ Insertion of Endotracheal Airway into Trachea, Via Natural or Artificial Opening (ICD-10-PCS; principal; 2017-05-29)
PROC: 5A1945Z Respiratory Ventilation, 24-96 Consecutive Hours (ICD-10-PCS; 2017-05-29)
PROC: 02HV33Z Insertion of Infusion Device into Superior Vena Cava, Percutaneous Approach (ICD-10-PCS; 2017-05-30)
DX: J44.1 Chronic obstructive pulmonary disease with (acute) exacerbation (principal); J96.21 Acute and chronic respiratory failure with hypoxia; J96.22 Acute and chronic respiratory failure with hypercapnia; E24.2 Drug-induced Cushing's syndrome; E11.65 Type 2 diabetes mellitus with hyperglycemia; J44.0 Chronic obstructive pulmonary disease with (acute) lower respiratory infection; J20.9 Acute bronchitis, unspecified; Z87.891 Personal history of nicotine dependence; I10 Essential (primary) hypertension; T38.0X5A Adverse effect of glucocorticoids and synthetic analogues, initial encounter; E66.9 Obesity, unspecified; Z68.26 Body mass index [BMI] 26.0-26.9, adult; E87.6 Hypokalemia; M19.90 Unspecified osteoarthritis, unspecified site; M54.5 Low back pain; G89.29 Other chronic pain; Z91.19 Patient's noncompliance with other medical treatment and regimen; Z88.0 Allergy status to penicillin; Z91.013 Allergy to seafood
CPT/HCPCS: 36415; 36569; 36600; 71010; 80048; 80053; 80198; 80202; 81001; 82550; 82553; 82785; 82805; 82948; 83036; 83518; 83880; 84484; 85025; 85610; 85730; 87040; 87070; 87086; 87400; 93005; 94002; 94640; 96360; 96361; 96365; 96366; 96367; 96376; 97139; 99285; J0330; J1644; J2250; J2920; J3370; J7030; J7050

== ENCOUNTER 2017-10-07 13:48 | Inpatient (IN) | payer SELFPAY ==
[~2017-10-07] VITALS: Ht 162.6 cm; Wt 89.5 kg
[2017-10-07] VITALS (17 sets, daily range): BP systolic 76–134; BP diastolic 32–97
--- OUTSIDE RECORDS SUMMARY | 2017-10-07 13:51 | XMS REPORT ---
Author [facility] Address Unknown Phone Unavailable Care Team Providers Care [place]ble Supervisor Name Role Phone AIDA ARAUZ Unavailable Unavailable Problems This patient has no known problems. Allergies, Adverse Reactions, Alerts This patient has no known allergies or adverse reactions. Medications This patient has no known medications. Results Test Description Test Time Test Comments Text Results Atomic Results Result Comments CHEST SINGLE (PORTABLE) [place] [address] Patient Name: NICOLAS GOMEZ MR #: [id number] : 1965 Age/Sex: 51/F Req #: [id number] Adm Physician: AIDA ARAUZ MD Ordered by: CHAVA QUINN MD Report #: [id number] Location: ICU Room/Bed: ICU [facility] Procedure: [id number] DX/CHEST SINGLE (PORTABLE) Exam Date: Exam Time: 0555 REPORT STATUS: Signed EXAMINATION: CHEST SINGLE (PORTABLE) INDICATION: CHF exacerbation COMPARISON: None FINDINGS: TUBES and LINES: Endotracheal tube and NG tube are in good position. Interval placement of right upper extremity PICC line in good position with tip at the level of the atrial caval junction LUNGS: Lungs are well inflated. Right triangular opacity compatible with atelectasis. There is no evidence of pneumonia or pulmonary edema. PLEURA: No pleural effusion or pneumothorax. HEART AND MEDIASTINUM: The cardiomediastinal silhouette is unremarkable. BONES AND SOFT TISSUES: No acute osseous lesion. Soft tissues are unremarkable. UPPER ABDOMEN: No free air under the diaphragm. IMPRESSION: 1. No acute thoracic abnormality. 2. Good position of right PICC line. 3. New right basilar atelectasis Signed by: Dr. Jay Miller M.D. on 05/31/2017 6:51 AM Dictated By: JAY JEROME MD 0 Transcribed By: ROLANDO on 05/31/17650 COPY TO: CHAVA QUINN MD CHEST XRAY LINE PLACEMENT [place] [address] Patient Name: NICOLAS GOMEZ MR #: [id number] : 1965 Age/Sex: 51/F Req #: [id number] Adm Physician: AIDA ARAUZ MD Ordered by: AIDA ARAUZ MD Report #: [id number] Location: ICU Room/Bed: ICU [facility] Procedure: [id number] DX/CHEST XRAY LINE PLACEMENT Exam Date: 05/30 Exam Time: 1720 REPORT STATUS: Signed PROCEDURE: A single AP view of the chest. COMPARISON: [facility], DX, CHEST SINGLE (PORTABLE), 05/30/2017, 6:09. INDICATIONS: PICC LINE PLACEMENT FINDINGS: See impression. IMPRESSION: 1. interval placement of right-sided PICC line, with distal tip projecting in the proximal SVC. Other supporting tubes are unchanged. 2. Otherwise, no significant interval change. Cris Hua M.D. Dictated by: Cris Hua M.D. on 05/30/2017 at 18:08 Electronically approved by: Cris Hua M.D. on 05/30/2017 at 18:08 Dictated By: CRIS HUA MD 07 Transcribed By: SATNAM on 05/30/171807 COPY TO: AIDA ARAUZ MD CHEST SINGLE (PORTABLE) [place] [address] Patient Name: NICOLAS GOMEZ MR #: [id number] : 1965 Age/Sex: 51/F Req #: [id number] Adm Physician: AIDA ARAUZ MD Ordered by: AIDA ARAUZ MD Report #: [id number] Location: [facility] Room/Bed: [place] [address] Procedure: [id number] DX/CHEST SINGLE (PORTABLE) Exam Date: 05/30 Exam Time: 0609 REPORT STATUS: Signed EXAMINATION: CHEST SINGLE (PORTABLE) INDICATION: Respiratory failure COMPARISON: None FINDINGS: TUBES and LINES: Endotracheal tube and NG tube are in good position. LUNGS: Lungs are well inflated. There are bibasilar atelectasis. There is no evidence of pneumonia or pulmonary edema. PLEURA: No pleural effusion or pneumothorax. HEART AND MEDIASTINUM: The cardiomediastinal silhouette is unremarkable. BONES AND SOFT TISSUES: No acute osseous lesion. Soft tissues are unremarkable. UPPER ABDOMEN: No free air under the diaphragm. IMPRESSION: No acute thoracic abnormality. Signed by: Dr. Jay Miller M.D. on 05/30/2017 7:06 AM Dictated By: JAY JEROME MD 5 COPY TO: AIDA ARAUZ MD CHEST SINGLE (PORTABLE) [place] [address] Patient Name: NICOLAS GOMEZ MR #: [id number] : 1965 Age/Sex: 51/F Req #: [id number] Adm Physician: Ordered by: KELY GILMORE MD Report # : [id number] Location: ER Room/Bed: Procedure: [id number] DX/CHEST SINGLE (PORTABLE) Exam Date: 05/29/17 Exam Time: 1555 REPORT STATUS: Signed PROCEDURE: A single AP view of the chest. COMPARISON: [facility], DX, CHEST SINGLE ( PORTABLE), 05/29/2017, 14:42. INDICATIONS: POST INTUBATION FINDINGS: Lines/tubes: ET tube with the distal tip in adequate position well above the stalin at the level of the sternoclavicular junctions. NG/ orogastric tube with distal portion extending below the diaphragm, however, with the distal tip not included. Lungs: The lungs are clear. There is no evidence of pneumonia or pulmonary edema. Pleura: There is no pleural effusion or pneumothorax. Heart and mediastinum: The heart and the mediastinum are unremarkable. Bones: No acute bony abnormality. IMPRESSION: 1. ET tube in adequate position. Anaid Huynh M.D. Dictated by: Anaid Huynh M.D. on 05/29/2017 at 16: 29 Electronically approved by: Anaid Huynh M.D. on 05/29/2017 at 16:29 Dictated By: COMFORT HUYNH MD, MD 28 Transcribed By: SATNAM on 05/29 COPY TO: KELY GILMORE MD CHEST SINGLE (PORTABLE) [facility] [address] [address] Patient Name: NICOLAS GOMEZ MR #: [id number] : 1965 Age/Sex: 51/F Req #: [id number] Adm Physician: Ordered by: KELY GILMORE MD Report # : [id number] Location: ER Room/Bed: Procedure: [id number] DX/CHEST SINGLE (PORTABLE) Exam Date: 05/29/17 Exam Time: 1434 REPORT STATUS: Signed PROCEDURE: A single AP view of the chest. COMPARISON: [facility], DX, CHEST 2 VIEWS, , 18:29. INDICATIONS: COPD, SOB FINDINGS: Lines/ tubes: None. Lungs: Mild prominence of the pulmonary vasculature bilaterally. Bibasilar dependent atelectasis. The There is no evidence of pneumonia or pulmonary edema. Pleura: There is no pleural effusion or pneumothorax. Heart and mediastinum: The cardiac silhouette is mildly enlarged. Bones: No acute bony abnormality. IMPRESSION: 1. Mild prominence of the cardiac silhouette and pulmonary vascular bilaterally may be in part related to portable technique. otherwise no acute thoracic abnormality. Anaid Huynh M.D. Dictated by: Anaid Huynh M.D. on 05/29/2017 at 15:25 Electronically approved by: Anaid Huynh M.D. on 05/29/2017 at 15:25 Dictated By: COMFORT HUYNH MD, MD 1525 COPY TO: KELY GILMORE MD
[2017-10-07] MEDS ORDERED: ALBUTEROL/IPRATROPIUM 3 ML NEB NEB ONE (14:15)
[2017-10-07 14:32] LABS: BASOPHILS % 0.2 % (0.0-1.0); EOSINOPHILS % 0.1 % (0.0-6.0); HEMATOCRIT 39.3 % (34.2-44.1); HEMOGLOBIN 11.2 g/dL (12.0-16.0); LYMPHOCYTES # (AUTO) 1.3 (1.0-3.2); LYMPHOCYTES % 7.2 % (18.0-39.1); MEAN CORPUSCULAR HEMOGLOBIN 25.9 pg (28-32); MEAN CORPUSCULAR HGB CONC 28.5 g/dL (31-35); MONOCYTES # (AUTO) 0.8 (0.2-0.8); MONOCYTES % 4.4 % (4.4-11.3); NEUTROPHILS # (AUTO) 16.4 (2.1-6.9); NEUTROPHILS % 87.8 % (38.7-80.0); PLATELET COUNT 342 x10e3/uL (140-360); RED BLOOD COUNT 4.32 x10e6/uL (3.6-5.1); RED CELL DISTRIBUTION WIDTH 14.5 % (11.7-14.4)
[2017-10-07 14:51] LABS: ALANINE AMINOTRANSFERASE 13 IU/L (0-55); ALBUMIN 3.2 g/dL (3.5-5.0); ALBUMIN/GLOBULIN RATIO 0.8 (0.8-2.0); ALKALINE PHOSPHATASE 89 IU/L (40-150); ANION GAP 10.2 mmol/L (8-16); BLOOD UREA NITROGEN 22 mg/dL (7-26); BUN/CREATININE RATIO 50 (6-25); CHLORIDE 89 mmol/L (98-107); CREATINE KINASE 25 IU/L (29-168); CREATININE, SERUM 0.44 mg/dL (0.57-1.11); EST GLOMERULAR FILTRATION RATE > 60 ML/MIN (60-); GLUCOSE 143 mg/dL (74-118); POTASSIUM 4.2 mmol/L (3.5-5.1); SODIUM 144 mmol/L (136-145)
[2017-10-07 14:53] LABS: CARBON DIOXIDE 49 mmol/L (22-29)
--- NOTE | 2017-10-07 14:58 | Diagnostic Imaging Report ---
PROCEDURE: A single AP view of the chest. COMPARISON: Patients [facility], , CHEST SINGLE (PORTABLE), 05/31/2017, 6:16. INDICATIONS: SHORT OF BREATH FINDINGS: Lines/tubes: None. Lungs: The lungs are well inflated and grossly clear. There is no evidence of pneumonia or pulmonary edema. Pleura: There is no pleural effusion or pneumothorax. Heart and mediastinum: Stable prominence of the cardiac silhouette, which may partly due to portable AP projection. Pulmonary vasculature is grossly normal. Bones: No acute bony abnormality. IMPRESSION: 1. stable prominence of the cardiac silhouette, which may be partly due to portable AP projection. No acute cardiopulmonary disease. Bo Hua M.D. Dictated by: Bo Hua M.D. on 10/07/2017 at 15:01 Electronically approved by: Bo Hua M.D. on 10/07/2017 at 15:01
[2017-10-07] MEDS ORDERED: PROPOFOL IV EMULSION 10MG/ML 100 ML ONE ×2 (15:30→21:39)
--- NOTE | 2017-10-07 16:37 | Diagnostic Imaging Report ---
PROCEDURE: A single AP view of the chest. COMPARISON: Patients [facility], DX, CHEST SINGLE (PORTABLE), 10/07/2017, 14:37. INDICATIONS: STATUS POST INTUBATION FINDINGS: Lines/tubes: Interval placement of endotracheal tube, which has its distal tip projecting approximately 1 cm above the stalin. Enteric tube is seen under the left hemidiaphragm, with distal tip not visualized. Lungs: The lungs are well inflated and grossly clear. There is no evidence of pneumonia or pulmonary edema. Pleura: There is no pleural effusion or pneumothorax. Heart and mediastinum: Stable minimal prominence of the cardiac silhouette, likely due to portable AP projection.. Pulmonary vasculature is normal. Bones: No acute bony abnormality. IMPRESSION: 1. enteric tube has distal tip approximately 1 cm above the stalin. Enteric tube is noted under the left hemidiaphragm, however, tip is not visualized. 2. No consolidation or effusion. Bo Hua M.D. Dictated by: Bo Hua M.D. on 10/07/2017 at 16:39 Electronically approved by: Bo Hua M.D. on 10/07/2017 at 16:39
[2017-10-07 16:38] LABS: CREATINE KINASE 30 IU/L (29-168)
[2017-10-07 16:49] LABS: MICROCYTOSIS MODERATE; PLATELET ESTIMATE ADEQUATE; PLATELET MORPHOLOGY COMMENT NORMAL; POIKILOCYTOSIS MODERATE; RBC MORPHOLOGY COMMENT ABNORMAL; STOMATOCYTES MODERATE
[2017-10-07 16:55] LABS: ABG PCO2 130 mmHg (41-51); ABG PH 7.21 (7.31-7.41); ABG PO2 155 mmHg (80-105)
[2017-10-07 17:02] LABS: ABG PCO2 103 mmHg (41-51); ABG PH 7.35 (7.31-7.41); ABG PO2 143 mmHg (80-105)
[2017-10-07 17:03] LABS: ABG BASE EXCESS > 30.0 mmol/L (-2 - 3); ABG HCO3 57 mmol/L (23-28)
[2017-10-07] MEDS ORDERED: LEVOFLOXACIN 500MG/D5W 100ML 100 ML IV ONE (17:15)
[2017-10-07 17:16] LABS: CLARITY,URINE CLEAR (CLEAR); COLOR,URINE YELLOW (YELLOW); LEUKOCYTE ESTERASE ,URINE NEGATIVE (NEGATIVE)
[2017-10-07 17:17] LABS: BILIRUBIN,URINE NEGATIVE (NEGATIVE); KETONES,URINE NEGATIVE (NEGATIVE); NITRITE,URINE NEGATIVE (NEGATIVE); PROTEIN,URINE DIPSTICK 2+ (NEGATIVE); URINE UROBILINOGEN 0.2 mg/dL (0.2 - 1)
[2017-10-07 17:24] LABS: BACTERIA,URINE RARE /HPF; EPITHELIAL CELLS,URINE RARE /LPF
[2017-10-07] MEDS ORDERED: DEXTROSE 50% SYRINGE 50 ML IV PRN (17:45)
[2017-10-07] MEDS ORDERED: CLONIDINE HCL 0.1 MG/24 HR 1 EA PATCH TOP PRN (17:45)
[2017-10-07] MEDS ORDERED: ACETAZOLAMIDE SODIUM 500 MG/VIAL IV NR (18:00)
[2017-10-07] MEDS ORDERED: NOREPINEPHRINE 8 MG/D5W 250 ML 250 ML ONE (19:26)
--- NOTE | 2017-10-07 19:39 | History and Physical ---
HISTORY: The patient was brought to the emergency room by ambulance in respiratory failure. This is one of many, many admissions for this patient with near end-stage emphysema. See also similar presentation here in May. In May, the patient required intubation transiently also. Prior to May the patient had not come to my office for several months. She has not come to the office since she left here in May. She has history of heavy smoking. Chronic morbid obesity. Primary hypertension. Chronic degenerative joint disease with chronic back pain. Patient is now intubated and has been appropriately cared for by the ER physician. I have spoken to the pulmonary medicine software sales consultant, who is seeing the patient last admission and this admission. FAMILY HISTORY: Per old charts, positive for diabetes, patient's grandmother. Organic heart disease, patient's mother. ALLERGIES: ALLERGIC TO PENICILLIN. SURGICAL HISTORY: Not known. Patient unable to relate as she is intubated and on sedation with Diprivan. See also as mentioned multiple other prior admits here. EXAM GENERAL: Patient is not now in distress on ventilator. VITALS: Temperature 97.6. Pulse is 100 and regular. Respiratory rate 20. Blood pressure now is 130/88. HEENT: Pupils 2.5 mm, round, reactive. NECK: Flexes. Multiple facial hair over the chin. Carotids weak. No palpable goiter. Orotracheal tube intact. LUNGS: Bilateral breath sounds present. Do not hear rhonchi or rales at this time. Patient is unable to cooperate for exam. CARDIAC: Sounds are not audible. SKIN: Marked tinea corporis under the breasts and in the inguinal regions severe, weeping, bright red. ABDOMEN: Soft, obese. Bowel sounds normal. No palpable organomegaly or mass. EXTREMITIES: Without cyanosis, clubbing or edema, although lower extremities are pulseless. DTRs depressed. Babinski's negative. Patient moves 4 extremities. White count 18.62, hemoglobin 11.2, low MCH, low MCHC. Platelet count 342,000. Left shift on CBC. Patient has a Aguero. Urinalysis 6 to 10 red cells, 6 to 10 white cells per high power field. CO2 49. Glucose 143. Serial cardiac enzymes revealed no evidence of acute OR. Natriuretic peptide 36.5. LABS: Initial blood gas, pH 7.21, pCO2 130, pO2 155 on 100% FiO2. Follow up gases post intubation pH 7.35, CO2 103, O2 143, bicarbonate high at 57, O2 sat 99. Cultures of the urine and blood are pending as are sputum culture and Gram stain. Chest x-ray, prominent cardiac silhouette may be due to AP projection. No acute cardiopulmonary disease. Followup chest x-ray enteric tube under the left hemidiaphragm. Tube is not visualized. Endotracheal tube with distal tip 1 cm above the stalin. No evidence of pneumonia or pulmonary edema. CURRENT IMPRESSIONS 1. Near end-stage emphysema with respiratory failure and chronic respiratory acidosis. 2. Hypertension. 3. Morbid obesity. 4. Hyperglycemia with blood sugar 161 when here previously, on steroids. 5. Tinea corporis. 6. Blood sugar 143 this arrival. CURRENT PLANS 1. Continue to support the patient's ventilation. 2. Control blood pressure with history of primary hypertension. 3. Assure hydration. 4. Evaluate leukemoid reaction as above with cultures. 5. Empiric antibiotics. 6. Steroids. 7. Insulin as needed. 8. Treat tinea corporis. 9. See also initial and followup orders. Job#: [id number]
[2017-10-07] MEDS: CLOTRIMAZOLE 1% CR 15 GM TOP SCH (20:40)
[2017-10-07] MEDS ORDERED: INSULIN LISPRO 100 UNIT/1 ML 3ML VIAL SQ SCH (21:00)
[2017-10-07] MEDS: METHYLPREDNISOLONE SOD SUCC 125 MG/2ML VIAL IV SCH (21:47)
[2017-10-07] MEDS: HEPARIN SOD (PORCINE) 5,000 UNIT/ML VIAL SC SCH (21:49)
[2017-10-07] MEDS: PROPOFOL IV EMULSION 10MG/ML 100 ML IV PRN (22:45)
--- NOTE | 2017-10-07 22:57 | Consultation ---
DATE OF CONSULTATION: October 07, 2017 PULMONARY CONSULTATION HISTORY OF PRESENT ILLNESS: A patient of Dr. Sun, an unfortunate 52-year-old woman with a history of noncompliance, history of end-stage COPD and bronchial asthma on home oxygen. She has continue to smoke but apparently is now using nicotine patches in an attempt to quit. She is currently intubated for respiratory failure with a PaCO2 of 130. Apparently was short of breath for approximately 24 hours. Was unresponsive when found by EMS. She has a history of COPD and asthma, history of smoking. ALLERGIES: ALLERGIC TO PENICILLIN AND IODINE. Her medications have included Norvasc, albuterol, BuSpar, [place] for back pain, theophylline, NicoDerm patch, Protonix, prednisone, tramadol and Zoloft. PHYSICAL EXAMINATION GENERAL: A somewhat cushingoid white female, intubated, sedated. VITAL SIGNS: Temperature 97.6, pulse 95, respirations 20, blood pressure 130/110. HEAD: Normocephalic, atraumatic. She is somewhat hirsute. LUNGS: Markedly diminished breath sounds but equal. HEART: Regular rhythm. ABDOMEN: Obese. EXTREMITIES: Nonedematous. IMPRESSION: One of 1. Respiratory failure. 2. Presumed noncompliance. 3. End-stage chronic obstructive pulmonary disease on home oxygen. [place] is extremely poor. She has had a history of hypertension and diabetes. She has had C-sections in the past. Her pulmonary functions in May 2015 revealed very severe obstructive pulmonary disease with an FEV1 of only 0.57 liters, 20% predicted; FVC of 1.3 liters, 31% of predicted; FEV1:FVC ratio of 57%. Plan is to optimize bronchodilators, continue mechanical ventilator support. One dose of Diamox to improve respiratory drive. Check theophylline level. Anti-smoking help. Wean when more stable. Continue empiric antibiotics. Monitor blood sugar. Prophylactic Protonix. Monitor blood pressure as well. Thank you for this kind referral. Job#: [id number]
[2017-10-07] MEDS: ALBUTEROL/IPRATROPIUM 3 ML NEB NEB SCH (23:00)
[2017-10-07] MEDS: INSULIN LISPRO 100 UNIT/1 ML 3ML VIAL SQ SCH (23:07)
[2017-10-08] VITALS (43 sets, daily range): BP systolic 116–161; BP diastolic 64–113
[2017-10-08] MEDS: PROPOFOL IV EMULSION 10MG/ML 100 ML IV PRN ×6 (00:07→21:57)
[2017-10-08] MEDS: ALBUTEROL/IPRATROPIUM 3 ML NEB NEB SCH ×6 (03:20→22:49)
[2017-10-08 03:56] LABS: BASOPHILS % 0.2 % (0.0-1.0); HEMATOCRIT 36.6 % (34.2-44.1); HEMOGLOBIN 10.5 g/dL (12.0-16.0); LYMPHOCYTES # (AUTO) 0.7 (1.0-3.2); LYMPHOCYTES % 6.3 % (18.0-39.1); MEAN CORPUSCULAR HEMOGLOBIN 25.5 pg (28-32); MEAN CORPUSCULAR HGB CONC 28.7 g/dL (31-35); MEAN CORPUSCULAR VOLUME 88.8 fL (81-99); MONOCYTES # (AUTO) 0.2 (0.2-0.8); MONOCYTES % 1.7 % (4.4-11.3); NEUTROPHILS # (AUTO) 10.8 (2.1-6.9); NEUTROPHILS % 91.2 % (38.7-80.0); PLATELET COUNT 331 x10e3/uL (140-360); RED BLOOD COUNT 4.12 x10e6/uL (3.6-5.1); RED CELL DISTRIBUTION WIDTH 14.1 % (11.7-14.4)
[2017-10-08 04:19] LABS: ANION GAP 14.6 mmol/L (8-16); BLOOD UREA NITROGEN 18 mg/dL (7-26); BUN/CREATININE RATIO 30 (6-25); CALCIUM 10.1 mg/dL (8.4-10.2); CHLORIDE 90 mmol/L (98-107); EST GLOMERULAR FILTRATION RATE > 60 ML/MIN (60-); GLUCOSE 169 mg/dL (74-118); POTASSIUM 3.6 mmol/L (3.5-5.1); SODIUM 143 mmol/L (136-145)
[2017-10-08 04:26] LABS: CARBON DIOXIDE 42 mmol/L (22-29)
[2017-10-08] MEDS: INSULIN LISPRO 100 UNIT/1 ML 3ML VIAL SQ SCH ×3 (05:16→18:00)
[2017-10-08 05:27] LABS: CREATINE KINASE 19 IU/L (29-168)
--- NOTE | 2017-10-08 05:57 | Diagnostic Imaging Report ---
CHEST SINGLE (PORTABLE), 10/08/2017 7:00 AM Technique: CHEST SINGLE (PORTABLE) Comparison: 10/07/2017 Clinical history: Intubated Findings: Stable cardiomediastinal silhouette, bones, soft tissues. Impression: Limited portable view with motion artifact. 1. Lines/Tubes: Retracted ET tube, about 5 cm above the stalin. NG tube is poorly visualized distally. 2. Mild left basilar opacity which may reflect atelectasis, aspiration or infection. Signed by: Dr Ruba Caldwell MD on 10/08/2017 5:54 AM
[2017-10-08] MEDS: METHYLPREDNISOLONE SOD SUCC 125 MG/2ML VIAL IV SCH (09:29)
[2017-10-08] MEDS: PANTOPRAZOLE 40 MG 10ML VIAL IV SCH (09:29)
[2017-10-08] MEDS: CLOTRIMAZOLE 1% CR 15 GM TOP SCH ×2 (09:31→18:00)
[2017-10-08] MEDS: HEPARIN SOD (PORCINE) 5,000 UNIT/ML VIAL SC SCH ×2 (09:33→20:15)
[2017-10-08 12:27] LABS: CREATINE KINASE MB 0.3 ng/mL (0-5.0)
[2017-10-08] MEDS ORDERED: VANCOMYCIN 1GM/NS 250 ML 250 ML IV ONE (13:15)
[2017-10-08] MEDS ORDERED: FLUCONAZOLE 200 MG/100 ML 100 ML IV ONE (13:30)
[2017-10-08] MEDS ORDERED: SUCCINYLCHOLINE CHLORIDE 20 MG/ML 10ML VIAL ONE (15:02)
[2017-10-08] MEDS ORDERED: ETOMIDATE 2 MG/ML 10 ML INJ IV ONE (15:02)
[2017-10-08] MEDS: SODIUM CHLORIDE 0.45% 1,000 ML IV SCH (15:20)
--- NOTE | 2017-10-08 15:21 | Diagnostic Imaging Report ---
PROCEDURE: A single AP view of the chest. COMPARISON: Patients [facility], DX, CHEST SINGLE (PORTABLE), 10/08/2017, 5:17. INDICATIONS: CENTRAL LINE PLACEMENT FINDINGS: Lines/tubes: Interval placement of a right intrajugular central venous catheter with the distal tip in adequate position projected at the cavoatrial junction. ET tube in satisfactory position with distal tip well above the stalin. NG./orogastric tube is present, with distal portion not well-visualized. Lungs: Mild bibasilar subsegmental atelectasis. There is no evidence of pneumonia or pulmonary edema. Pleura: There is no pleural effusion or pneumothorax. Heart and mediastinum: The heart and the mediastinum are unchanged. Bones: No acute bony abnormality. IMPRESSION: 1. Interval placement of a right intrajugular central venous catheter with the distal tip in adequate position projected at the cavoatrial junction. 2. NG tube distal portion not well visualized. Consider KUB for further evaluation Anaid Diaz M.D. Dictated by: Anaid Diaz M.D. on 10/08/2017 at 15:24 Electronically approved by: Anaid Diaz M.D. on 10/08/2017 at 15:24
[2017-10-08] MEDS: LEVOFLOXACIN 500MG/D5W 100ML IV SCH (18:00)
[2017-10-08] MEDS: METHYLPREDNISOLONE SOD SUCC 40 MG/ML VIAL IV SCH (20:15)
[2017-10-08] MEDS ORDERED: METHYLPREDNISOLONE SOD SUCC 125 MG/2ML VIAL IV SCH (21:00)
[2017-10-09] VITALS (89 sets, daily range): BP systolic 103–194; BP diastolic 61–104
[2017-10-09] MEDS: PROPOFOL IV EMULSION 10MG/ML 100 ML IV PRN ×2 (01:19→04:19)
[2017-10-09] MEDS: ALBUTEROL/IPRATROPIUM 3 ML NEB NEB SCH ×6 (03:15→22:37)
[2017-10-09] MEDS: INSULIN LISPRO 100 UNIT/1 ML 3ML VIAL SQ SCH ×4 (05:33→18:45)
[2017-10-09 06:01] LABS: BASOPHILS % 0.1 % (0.0-1.0); HEMATOCRIT 31.5 % (34.2-44.1); HEMOGLOBIN 9.4 g/dL (12.0-16.0); LYMPHOCYTES # (AUTO) 0.7 (1.0-3.2); LYMPHOCYTES % 6.6 % (18.0-39.1); MEAN CORPUSCULAR HEMOGLOBIN 25.3 pg (28-32); MEAN CORPUSCULAR HGB CONC 29.8 g/dL (31-35); MEAN CORPUSCULAR VOLUME 84.7 fL (81-99); MONOCYTES # (AUTO) 0.7 (0.2-0.8); NEUTROPHILS # (AUTO) 9.5 (2.1-6.9); NEUTROPHILS % 86.3 % (38.7-80.0); PLATELET COUNT 306 x10e3/uL (140-360); RED BLOOD COUNT 3.72 x10e6/uL (3.6-5.1); RED CELL DISTRIBUTION WIDTH 14.6 % (11.7-14.4)
--- NOTE | 2017-10-09 06:02 | Diagnostic Imaging Report ---
CHEST SINGLE (PORTABLE), 10/09/2017 5:00 AM Technique: CHEST SINGLE (PORTABLE) Comparison: Previous day Clinical history: Intubated Findings: Stable cardiomediastinal silhouette, bones, soft tissues. Impression: Limited portable view with motion. 1. Lines/Tubes: ET tube about 6.4 cm above the stalin. NG tube is poorly visualized distally. Right IJ CVC near the cavoatrial junction. 2. Mild residual left basilar opacity which may reflect atelectasis or aspiration. Signed by: Dr Ruba Caldwell MD on 10/09/2017 5:59 AM
[2017-10-09 06:29] LABS: ANION GAP 12.9 mmol/L (8-16); BLOOD UREA NITROGEN 24 mg/dL (7-26); BUN/CREATININE RATIO 39 (6-25); CALCIUM 9.2 mg/dL (8.4-10.2); CARBON DIOXIDE 36 mmol/L (22-29); CHLORIDE 97 mmol/L (98-107); CREATININE, SERUM 0.61 mg/dL (0.57-1.11); EST GLOMERULAR FILTRATION RATE > 60 ML/MIN (60-); GLUCOSE 153 mg/dL (74-118); SODIUM 143 mmol/L (136-145)
[2017-10-09 06:32] LABS: POTASSIUM 2.9 mmol/L (3.5-5.1)
[2017-10-09] MEDS ORDERED: POTASSIUM CHLORIDE 20MEQ/100ML 100 ML IV STA (06:44)
[2017-10-09] MEDS ORDERED: POTASSIUM CHLORIDE 20MEQ/100ML 100 ML IV ONE (09:00)
[2017-10-09] MEDS: PANTOPRAZOLE 40 MG 10ML VIAL IV SCH (09:30)
[2017-10-09] MEDS: METHYLPREDNISOLONE SOD SUCC 40 MG/ML VIAL IV SCH ×2 (09:30→20:25)
[2017-10-09] MEDS: CLOTRIMAZOLE 1% CR 15 GM TOP SCH ×2 (09:31→17:00)
[2017-10-09] MEDS: HEPARIN SOD (PORCINE) 5,000 UNIT/ML VIAL SC SCH ×2 (09:32→20:26)
[2017-10-09 10:41] LABS: ANISOCYTOSIS SLIGHT; HYPOCHROMASIA SLIGHT; PLATELET ESTIMATE ADEQUATE; PLATELET MORPHOLOGY COMMENT NORMAL; POIKILOCYTOSIS SLIG; RBC MORPHOLOGY COMMENT NORMAL
[2017-10-09] MEDS: ACETAMINOPHEN/CODEINE 300MG - 30MG TAB PO PRN ×2 (11:56→20:52)
[2017-10-09] MEDS ORDERED: VANCOMYCIN 1GM/NS 250 ML 250 ML IV ONE (13:00)
[2017-10-09 16:12] LABS: ABG HCO3 41 mmol/L (23-28); ABG PCO2 49 mmHg (41-51); ABG PH 7.52 (7.31-7.41); ABG PO2 119 mmHg (80-105)
[2017-10-09] MEDS: SODIUM CHLORIDE 0.45% 1,000 ML IV SCH (19:04)
[2017-10-09] MEDS: LEVOFLOXACIN 500MG/D5W 100ML IV SCH (19:04)
[2017-10-10] VITALS (85 sets, daily range): BP systolic 118–178; BP diastolic 67–96
[2017-10-10] MEDS: ALBUTEROL/IPRATROPIUM 3 ML NEB NEB SCH ×6 (02:10→23:00)
[2017-10-10] MEDS: INSULIN LISPRO 100 UNIT/1 ML 3ML VIAL SQ SCH ×5 (05:47→20:57)
[2017-10-10 06:15] LABS: BASOPHILS % 0.1 % (0.0-1.0); HEMATOCRIT 31.5 % (34.2-44.1); HEMOGLOBIN 9.1 g/dL (12.0-16.0); LYMPHOCYTES # (AUTO) 0.6 (1.0-3.2); LYMPHOCYTES % 5.7 % (18.0-39.1); MEAN CORPUSCULAR HEMOGLOBIN 25.6 pg (28-32); MEAN CORPUSCULAR HGB CONC 28.9 g/dL (31-35); MEAN CORPUSCULAR VOLUME 88.7 fL (81-99); MONOCYTES # (AUTO) 0.5 (0.2-0.8); MONOCYTES % 4.8 % (4.4-11.3); NEUTROPHILS # (AUTO) 8.6 (2.1-6.9); NEUTROPHILS % 88.2 % (38.7-80.0); PLATELET COUNT 252 x10e3/uL (140-360); RED BLOOD COUNT 3.55 x10e6/uL (3.6-5.1); RED CELL DISTRIBUTION WIDTH 14.6 % (11.7-14.4)
[2017-10-10 06:35] LABS: ANION GAP 9.6 mmol/L (8-16); BLOOD UREA NITROGEN 28 mg/dL (7-26); BUN/CREATININE RATIO 61 (6-25); CALCIUM 8.7 mg/dL (8.4-10.2); CARBON DIOXIDE 39 mmol/L (22-29); CHLORIDE 97 mmol/L (98-107); CREATININE, SERUM 0.46 mg/dL (0.57-1.11); EST GLOMERULAR FILTRATION RATE > 60 ML/MIN (60-); GLUCOSE 135 mg/dL (74-118); POTASSIUM 3.6 mmol/L (3.5-5.1); SODIUM 142 mmol/L (136-145)
--- NOTE | 2017-10-10 06:57 | Diagnostic Imaging Report ---
CHEST SINGLE (PORTABLE), 10/10/2017 5:00 AM Technique: CHEST SINGLE (PORTABLE) Comparison: Previous day Clinical history: Follow-up Findings: Stable cardiomediastinal silhouette, bones, soft tissues. Impression: Limited portable view with motion and soft tissue attenuation. 1. Lines/Tubes: Removal of ET tube, NG tube. Stable right IJ CVC near the cavoatrial junction. 2. Suggestion of mild bibasilar opacity. Lung bases are poorly assessed due to the lordotic view and soft tissue attenuation. Signed by: Dr Ruba Caldwell MD on 10/10/2017 6:54 AM
--- NOTE | 2017-10-10 07:33 | Diagnostic Imaging Report ---
Date and Time: 10/08/2017 Procedure: Ultrasound-guided central line placement tool grinder set up operator gear: Dr. Kruse Pre-operative diagnosis: Emphysema, poor IV access Post-operative diagnosis: Emphysema, poor IV access Conscious Sedation: None The patient's heart rate and pulse oximetry were continuously monitored by the ICU nurse. Blood pressure was monitored per ICU protocol. Additional Medications: Lidocaine 1% for local anesthesia Estimated blood loss: Minimal Blood administered: None Specimens: None Implants: 7 [place] 16 cm triple-lumen central venous catheter DISCUSSION: Informed consent was obtained from the next of kin and documented in the medical record. Preliminary sonographic evaluation confirmed patency of the right internal jugular vein, evidenced by compressibility. The right cervical region was then prepped and draped in the standard sterile fashion. 1% lidocaine was infiltrated into the skin and subcutaneous tissues for local anesthesia. Then under continuous sonographic guidance an 18-gauge singlewall needle was used to access the right internal jugular vein. A permanent sonographic image was stored in the medical record. A 0.0 3 5-in. wire was then advanced centrally to a depth of approximately 20 cm with continuous cardiac rhythm monitoring. The needle was removed over the wire and the tract was dilated. Then a 7 [place], 16 cm triple-lumen central venous catheter was advanced over the wire to full depth. The wire was removed. All 3 ports showed adequate bidirectional flow and were flushed with sterile saline. The catheter was secured to the skin with monofilament nylon suture and a sterile dressing was applied. The patient tolerated the procedure well without immediate complication. FINDINGS: Patent right internal jugular vein. IMPRESSION: Successful placement of a 7 [place], 16 cm triple-lumen central venous catheter by a right internal jugular approach under sonographic guidance. Post procedure chest radiograph will be obtained to confirm line positioning prior to use. Signed by: Dr. Jerzy Kruse M.D. on 10/10/2017 7:29 AM
[2017-10-10] MEDS: ACETAMINOPHEN/CODEINE 300MG - 30MG TAB PO PRN ×3 (07:45→21:02)
[2017-10-10] MEDS: PANTOPRAZOLE 40 MG 10ML VIAL IV SCH (07:59)
[2017-10-10] MEDS: METHYLPREDNISOLONE SOD SUCC 40 MG/ML VIAL IV SCH ×2 (07:59→20:46)
[2017-10-10] MEDS: HEPARIN SOD (PORCINE) 5,000 UNIT/ML VIAL SC SCH ×2 (08:00→20:47)
[2017-10-10] MEDS: CLOTRIMAZOLE 1% CR 15 GM TOP SCH ×2 (08:02→17:16)
[2017-10-10] MEDS: SODIUM CHLORIDE 0.45% 1,000 ML IV SCH (13:19)
[2017-10-10] MEDS: LEVOFLOXACIN 500MG/D5W 100ML IV SCH (17:16)
[2017-10-10] MEDS: VANCOMYCIN 1GM/NS 250 ML 250 ML IV SCH (18:17)
[2017-10-11] VITALS (84 sets, daily range): BP systolic 100–198; BP diastolic 65–130
[2017-10-11] MEDS: ALBUTEROL/IPRATROPIUM 3 ML NEB NEB SCH ×6 (02:29→23:22)
[2017-10-11] MEDS: INSULIN LISPRO 100 UNIT/1 ML 3ML VIAL SQ SCH ×4 (07:30→20:49)
[2017-10-11] MEDS: HEPARIN SOD (PORCINE) 5,000 UNIT/ML VIAL SC SCH ×2 (08:38→21:00)
[2017-10-11] MEDS: PANTOPRAZOLE 40 MG 10ML VIAL IV SCH (08:38)
[2017-10-11] MEDS: METHYLPREDNISOLONE SOD SUCC 40 MG/ML VIAL IV SCH ×2 (08:38→20:57)
[2017-10-11] MEDS: CLOTRIMAZOLE 1% CR 15 GM TOP SCH ×2 (08:39→17:32)
[2017-10-11] MEDS ORDERED: FUROSEMIDE INJ 10 MG/ML 4 ML VIAL IV ONE (12:45)
[2017-10-11] MEDS: SODIUM CHLORIDE 0.45% 1,000 ML IV SCH (13:30)
[2017-10-11] MEDS: LEVOFLOXACIN 500MG/D5W 100ML IV SCH (17:32)
[2017-10-11] MEDS: VANCOMYCIN 1GM/NS 250 ML 250 ML IV SCH (17:54)
[2017-10-11] MEDS: LORAZEPAM INJ 2 MG/ML VIAL IV PRN (19:19)
[2017-10-12] VITALS (97 sets, daily range): BP systolic 102–219; BP diastolic 59–121
[2017-10-12] MEDS: ACETAMINOPHEN/CODEINE 300MG - 30MG TAB PO PRN ×2 (00:37→17:39)
[2017-10-12] MEDS: LORAZEPAM INJ 2 MG/ML VIAL IV PRN (02:00)
[2017-10-12] MEDS: ALBUTEROL/IPRATROPIUM 3 ML NEB NEB SCH ×7 (03:15→23:00)
[2017-10-12] MEDS: INSULIN LISPRO 100 UNIT/1 ML 3ML VIAL SQ SCH ×4 (07:30→20:36)
[2017-10-12 08:18] LABS: ABG PCO2 > 130 mmHg (41-51); ABG PH 7.26 (7.31-7.41); ABG PO2 167 mmHg (80-105)
[2017-10-12 08:21] LABS: ABG PCO2 > 130 mmHg (41-51); ABG PH 7.17 (7.31-7.41); ABG PO2 83 mmHg (80-105)
[2017-10-12] MEDS: CLOTRIMAZOLE 1% CR 15 GM TOP SCH ×2 (09:00→16:31)
[2017-10-12] MEDS: METHYLPREDNISOLONE SOD SUCC 40 MG/ML VIAL IV SCH ×2 (09:00→20:41)
[2017-10-12] MEDS: HEPARIN SOD (PORCINE) 5,000 UNIT/ML VIAL SC SCH ×2 (09:00→20:42)
[2017-10-12] MEDS: PANTOPRAZOLE 40 MG 10ML VIAL IV SCH (09:00)
[2017-10-12 09:25] LABS: ABG PH 7.27 (7.31-7.41)
[2017-10-12 09:26] LABS: ABG BASE EXCESS > 30.0 mmol/L (-2 - 3); ABG HCO3 58 mmol/L (23-28); ABG PCO2 128 mmHg (41-51); ABG PO2 96 mmHg (80-105)
[2017-10-12] MEDS: THEOPHYLLINE 200 MG TABCR PO SCH ×3 (11:00→16:32)
[2017-10-12] MEDS: VANCOMYCIN 1GM/NS 250 ML 250 ML IV SCH (17:17)
[2017-10-12] MEDS: LEVOFLOXACIN 500MG/D5W 100ML IV SCH (17:17)
[2017-10-12 23:01] LABS: ABG PH 7.34 (7.31-7.41)
[2017-10-12 23:02] LABS: ABG BASE EXCESS > 30.0 mmol/L (-2 - 3); ABG HCO3 57 mmol/L (23-28); ABG PCO2 106 mmHg (41-51); ABG PO2 111 mmHg (80-105)
[2017-10-13] VITALS (56 sets, daily range): BP systolic 134–188; BP diastolic 66–141
[2017-10-13] MEDS: ALBUTEROL/IPRATROPIUM 3 ML NEB NEB SCH ×6 (02:00→22:35)
[2017-10-13] MEDS: ACETAMINOPHEN/CODEINE 300MG - 30MG TAB PO PRN ×2 (02:01→18:00)
--- NOTE | 2017-10-13 05:10 | Diagnostic Imaging Report ---
CHEST SINGLE (PORTABLE), 10/13/2017 7:00 AM Technique: CHEST SINGLE (PORTABLE) Comparison: 10/10/2017, 05/31/2017 Clinical history: Shortness of breath Findings: Stable cardiomediastinal silhouette, bones, soft tissues. Impression: Limited portable view with motion and soft tissue attenuation. 1. Lines/Tubes: Stable right IJ CVC near the cavoatrial junction. 2. Suggestion of lucent right basilar opacity which could be projectional related lordotic view and prominent pericardial fat pad when correlated with prior CT 05/15/2015. Recommend follow-up upright PA and lateral when feasible. Signed by: Dr Ruba Caldwell MD on 10/13/2017 5:06 AM
[2017-10-13 05:48] LABS: BASOPHILS % 0.1 % (0.0-1.0); HEMATOCRIT 35.6 % (34.2-44.1); HEMOGLOBIN 10.4 g/dL (12.0-16.0); LYMPHOCYTES # (AUTO) 0.8 (1.0-3.2); MEAN CORPUSCULAR HEMOGLOBIN 26.2 pg (28-32); MEAN CORPUSCULAR HGB CONC 29.2 g/dL (31-35); MEAN CORPUSCULAR VOLUME 89.7 fL (81-99); MONOCYTES # (AUTO) 0.6 (0.2-0.8); MONOCYTES % 5.7 % (4.4-11.3); NEUTROPHILS # (AUTO) 9.4 (2.1-6.9); NEUTROPHILS % 86.2 % (38.7-80.0); PLATELET COUNT 265 x10e3/uL (140-360); RED BLOOD COUNT 3.97 x10e6/uL (3.6-5.1); RED CELL DISTRIBUTION WIDTH 14.4 % (11.7-14.4)
[2017-10-13 06:12] LABS: BLOOD UREA NITROGEN 18 mg/dL (7-26); BUN/CREATININE RATIO 39 (6-25); CALCIUM 9.5 mg/dL (8.4-10.2); CHLORIDE 86 mmol/L (98-107); CREATININE, SERUM 0.46 mg/dL (0.57-1.11); EST GLOMERULAR FILTRATION RATE > 60 ML/MIN (60-); GLUCOSE 121 mg/dL (74-118); SODIUM 142 mmol/L (136-145)
[2017-10-13 06:24] LABS: CARBON DIOXIDE > 50 mmol/L (22-29)
[2017-10-13] MEDS: INSULIN LISPRO 100 UNIT/1 ML 3ML VIAL SQ SCH ×4 (07:30→21:00)
[2017-10-13] MEDS: CLOTRIMAZOLE 1% CR 15 GM TOP SCH ×2 (09:00→17:00)
[2017-10-13] MEDS: PANTOPRAZOLE 40 MG 10ML VIAL IV SCH (09:00)
[2017-10-13] MEDS: SERTRALINE HCL 50 MG TAB PO SCH (09:00)
[2017-10-13 09:26] LABS: ABG PH 7.41 (7.31-7.41)
[2017-10-13 09:27] LABS: ABG BASE EXCESS > 30.0 mmol/L (-2 - 3); ABG HCO3 59 mmol/L (23-28); ABG PCO2 92 mmHg (41-51); ABG PO2 50 mmHg (80-105)
[2017-10-13] MEDS: THEOPHYLLINE 200 MG TABCR PO SCH ×2 (09:45→16:50)
[2017-10-13] MEDS: METHYLPREDNISOLONE SOD SUCC 40 MG/ML VIAL IV SCH ×2 (09:45→21:48)
[2017-10-13] MEDS: HEPARIN SOD (PORCINE) 5,000 UNIT/ML VIAL SC SCH ×2 (09:45→21:49)
[2017-10-13] MEDS: LEVOFLOXACIN 500MG/D5W 100ML IV SCH (16:50)
[2017-10-13] MEDS: VANCOMYCIN 1GM/NS 250 ML 250 ML IV SCH (17:15)
[2017-10-13] MEDS ORDERED: SODIUM CHLORIDE 0.9% 250ML 250 ML ONE (18:13)
[2017-10-13] MEDS: SODIUM CHLORIDE 0.9% 250ML 250 ML IV SCH (19:15)
[2017-10-14] VITALS (47 sets, daily range): BP systolic 143–202; BP diastolic 73–111
[2017-10-14] MEDS: ALBUTEROL/IPRATROPIUM 3 ML NEB NEB SCH ×6 (02:34→22:53)
[2017-10-14] MEDS: ACETAMINOPHEN/CODEINE 300MG - 30MG TAB PO PRN ×4 (03:11→17:12)
[2017-10-14] MEDS: INSULIN LISPRO 100 UNIT/1 ML 3ML VIAL SQ SCH ×4 (07:30→20:44)
[2017-10-14] MEDS: HEPARIN SOD (PORCINE) 5,000 UNIT/ML VIAL SC SCH (09:00)
[2017-10-14] MEDS: CLOTRIMAZOLE 1% CR 15 GM TOP SCH ×2 (09:00→16:34)
[2017-10-14] MEDS: SERTRALINE HCL 50 MG TAB PO SCH (09:00)
[2017-10-14] MEDS: PANTOPRAZOLE 40 MG 10ML VIAL IV SCH (09:00)
[2017-10-14] MEDS: METHYLPREDNISOLONE SOD SUCC 40 MG/ML VIAL IV SCH ×2 (09:00→23:08)
[2017-10-14] MEDS: THEOPHYLLINE 200 MG TABCR PO SCH ×2 (09:00→16:34)
[2017-10-14] MEDS: LEVOFLOXACIN 500MG/D5W 100ML IV SCH (17:12)
[2017-10-14] MEDS: VANCOMYCIN 1GM/NS 250 ML 250 ML IV SCH (18:00)
[2017-10-14] MEDS: SODIUM CHLORIDE 0.9% 250ML 250 ML IV SCH (19:15)
[2017-10-15] VITALS (19 sets, daily range): BP systolic 135–193; BP diastolic 77–103
[2017-10-15] MEDS: ACETAMINOPHEN/CODEINE 300MG - 30MG TAB PO PRN ×3 (01:14→20:34)
[2017-10-15] MEDS: ALBUTEROL/IPRATROPIUM 3 ML NEB NEB SCH ×6 (03:00→23:35)
[2017-10-15 05:59] LABS: BASOPHILS % 0.1 % (0.0-1.0); HEMOGLOBIN 11.2 g/dL (12.0-16.0); LYMPHOCYTES # (AUTO) 0.6 (1.0-3.2); LYMPHOCYTES % 4.6 % (18.0-39.1); MEAN CORPUSCULAR HEMOGLOBIN 25.4 pg (28-32); MEAN CORPUSCULAR HGB CONC 29.5 g/dL (31-35); MEAN CORPUSCULAR VOLUME 86.2 fL (81-99); MONOCYTES # (AUTO) 0.6 (0.2-0.8); MONOCYTES % 4.4 % (4.4-11.3); NEUTROPHILS # (AUTO) 12.1 (2.1-6.9); NEUTROPHILS % 90.1 % (38.7-80.0); PLATELET COUNT 281 x10e3/uL (140-360); RED BLOOD COUNT 4.41 x10e6/uL (3.6-5.1); RED CELL DISTRIBUTION WIDTH 14.5 % (11.7-14.4)
[2017-10-15 06:31] LABS: ANION GAP 11.9 mmol/L (8-16); BLOOD UREA NITROGEN 19 mg/dL (7-26); BUN/CREATININE RATIO 37 (6-25); CALCIUM 9.5 mg/dL (8.4-10.2); CHLORIDE 86 mmol/L (98-107); CREATININE, SERUM 0.52 mg/dL (0.57-1.11); EST GLOMERULAR FILTRATION RATE > 60 ML/MIN (60-); GLUCOSE 164 mg/dL (74-118); POTASSIUM 3.9 mmol/L (3.5-5.1); SODIUM 140 mmol/L (136-145)
[2017-10-15 06:41] LABS: CARBON DIOXIDE 46 mmol/L (22-29)
--- NOTE | 2017-10-15 06:50 | Diagnostic Imaging Report ---
EXAMINATION: CHEST SINGLE (PORTABLE) INDICATION: Shortness of breath COMPARISON: 10/13/2017 FINDINGS: TUBES and LINES: Right IJ central line catheter with tip overlying the atriocaval junction. LUNGS: Lungs are not well inflated. Improved right lung base atelectasis. There is mild prominence of the central pulmonary vasculature, consistent with pulmonary venous congestion. PLEURA: No pleural effusion or pneumothorax. HEART AND MEDIASTINUM: The cardiomediastinal silhouette is unremarkable. BONES AND SOFT TISSUES: No acute osseous lesion. Soft tissues are unremarkable. UPPER ABDOMEN: No free air under the diaphragm. IMPRESSION: No acute thoracic abnormality. Signed by: Dr. Jay Miller M.D. on 10/15/2017 6:46 AM
[2017-10-15] MEDS: INSULIN LISPRO 100 UNIT/1 ML 3ML VIAL SQ SCH ×4 (07:30→20:30)
[2017-10-15] MEDS ORDERED: ACETAZOLAMIDE 250 MG TAB PO SCH ×2 (08:00→08:30)
[2017-10-15] MEDS: PANTOPRAZOLE 40 MG 10ML VIAL IV SCH (10:07)
[2017-10-15] MEDS: METHYLPREDNISOLONE SOD SUCC 40 MG/ML VIAL IV SCH ×2 (10:07→20:30)
[2017-10-15] MEDS: SERTRALINE HCL 50 MG TAB PO SCH (10:07)
[2017-10-15] MEDS: THEOPHYLLINE 200 MG TABCR PO SCH ×2 (10:07→17:22)
[2017-10-15] MEDS: VANCOMYCIN 1GM/NS 250 ML 250 ML IV SCH (17:22)
[2017-10-15] MEDS: SODIUM CHLORIDE 0.9% 250ML 250 ML IV SCH (20:30)
[2017-10-16] MEDS: ALBUTEROL/IPRATROPIUM 3 ML NEB NEB SCH ×6 (03:40→23:10)
[2017-10-16] MEDS: ACETAMINOPHEN/CODEINE 300MG - 30MG TAB PO PRN (04:46)
[2017-10-16 04:50] VITALS: BP 163/93
[2017-10-16 07:30] VITALS: BP 149/86
[2017-10-16] MEDS: ACETAMINOPHEN 325 MG/10 ML UDC NG PRN ×3 (08:51→21:26)
[2017-10-16] MEDS: PANTOPRAZOLE 40 MG 10ML VIAL IV SCH (08:51)
[2017-10-16] MEDS: THEOPHYLLINE 200 MG TABCR PO SCH ×2 (08:52→19:16)
[2017-10-16] MEDS: METHYLPREDNISOLONE SOD SUCC 40 MG/ML VIAL IV SCH (08:52)
[2017-10-16] MEDS: SERTRALINE HCL 50 MG TAB PO SCH (08:52)
[2017-10-16] MEDS: INSULIN LISPRO 100 UNIT/1 ML 3ML VIAL SQ SCH ×4 (08:58→20:54)
[2017-10-16 13:30] VITALS: BP 138/88
[2017-10-16 19:00] VITALS: BP 138/88
[2017-10-16] MEDS: SODIUM CHLORIDE 0.9% 250ML 250 ML IV SCH (19:15)
[2017-10-16] MEDS: VANCOMYCIN 1GM/NS 250 ML 250 ML IV SCH (19:16)
[2017-10-16] MEDS ORDERED: METHYLPREDNISOLONE SOD SUCC 40 MG/ML VIAL IV SCH (21:00)
[2017-10-16 23:00] VITALS: BP 158/79
[2017-10-17] VITALS (7 sets, daily range): BP systolic 145–177; BP diastolic 82–96
[2017-10-17] MEDS: ALBUTEROL/IPRATROPIUM 3 ML NEB NEB SCH ×6 (03:05→23:07)
[2017-10-17] MEDS: ACETAMINOPHEN 325 MG/10 ML UDC NG PRN (03:35)
[2017-10-17] MEDS: INSULIN LISPRO 100 UNIT/1 ML 3ML VIAL SQ SCH ×4 (07:30→21:00)
[2017-10-17] MEDS: THEOPHYLLINE 200 MG TABCR PO SCH ×2 (09:28→17:43)
[2017-10-17] MEDS: SERTRALINE HCL 50 MG TAB PO SCH (09:28)
[2017-10-17] MEDS: ACETAMINOPHEN/CODEINE 300MG - 30MG TAB PO PRN ×3 (09:31→22:00)
[2017-10-17 09:47] LABS: BASOPHILS % 0.1 % (0.0-1.0); EOSINOPHILS % 0.2 % (0.0-6.0); HEMATOCRIT 34.6 % (34.2-44.1); HEMOGLOBIN 10.2 g/dL (12.0-16.0); LYMPHOCYTES # (AUTO) 1.4 (1.0-3.2); LYMPHOCYTES % 12.3 % (18.0-39.1); MEAN CORPUSCULAR HGB CONC 29.5 g/dL (31-35); MEAN CORPUSCULAR VOLUME 88.3 fL (81-99); MONOCYTES # (AUTO) 0.6 (0.2-0.8); MONOCYTES % 5.8 % (4.4-11.3); PLATELET COUNT 222 x10e3/uL (140-360); RED BLOOD COUNT 3.92 x10e6/uL (3.6-5.1); RED CELL DISTRIBUTION WIDTH 14.7 % (11.7-14.4)
[2017-10-17 10:06] LABS: BLOOD UREA NITROGEN 18 mg/dL (7-26); BUN/CREATININE RATIO 35 (6-25); CALCIUM 8.8 mg/dL (8.4-10.2); CHLORIDE 92 mmol/L (98-107); CREATININE, SERUM 0.51 mg/dL (0.57-1.11); EST GLOMERULAR FILTRATION RATE > 60 ML/MIN (60-); GLUCOSE 124 mg/dL (74-118); SODIUM 141 mmol/L (136-145)
[2017-10-17 10:10] LABS: CARBON DIOXIDE 44 mmol/L (22-29)
[2017-10-17] MEDS ORDERED: DOCUSATE SODIUM 100 MG CAP PO PRN (12:45)
[2017-10-17] MEDS ORDERED: MAGNESIUM HYDROXIDE 30 ML UDC PO PRN (12:45)
[2017-10-18] VITALS (7 sets, daily range): BP systolic 124–172; BP diastolic 72–99
[2017-10-18] MEDS: ALBUTEROL/IPRATROPIUM 3 ML NEB NEB SCH ×6 (03:15→23:05)
[2017-10-18] MEDS: ACETAMINOPHEN/CODEINE 300MG - 30MG TAB PO PRN ×3 (04:21→18:33)
[2017-10-18] MEDS: INSULIN LISPRO 100 UNIT/1 ML 3ML VIAL SQ SCH ×4 (07:30→21:00)
[2017-10-18] MEDS: METHYLPREDNISOLONE SOD SUCC 40 MG/ML VIAL IV SCH (09:53)
[2017-10-18] MEDS: OMEPRAZOLE 20 MG CAP PO SCH (09:53)
[2017-10-18] MEDS: SERTRALINE HCL 50 MG TAB PO SCH (09:53)
[2017-10-18] MEDS: THEOPHYLLINE 200 MG TABCR PO SCH ×2 (09:54→18:33)
[2017-10-18] MEDS: PREDNISONE 10 MG TAB PO SCH (09:54)
[2017-10-18] MEDS: METOPROLOL TARTRATE 25 MG TAB PO SCH ×2 (11:19→21:08)
[2017-10-18] MEDS ORDERED: POTASSIUM CHLORIDE 10 MEQ TABCR PO ONE (11:30)
[2017-10-18] MEDS ORDERED: FUROSEMIDE INJ 10 MG/ML 4 ML VIAL IV ONE (11:30)
[2017-10-19] MEDS: ACETAMINOPHEN/CODEINE 300MG - 30MG TAB PO PRN ×4 (00:02→19:46)
[2017-10-19] MEDS: ALBUTEROL/IPRATROPIUM 3 ML NEB NEB SCH ×6 (03:15→23:02)
[2017-10-19 04:50] VITALS: BP 132/77
[2017-10-19] MEDS: ACETAMINOPHEN 325 MG/10 ML UDC NG PRN (04:56)
[2017-10-19 07:00] VITALS: BP 146/88
[2017-10-19] MEDS: INSULIN LISPRO 100 UNIT/1 ML 3ML VIAL SQ SCH ×4 (07:30→21:00)
[2017-10-19] MEDS: METHYLPREDNISOLONE SOD SUCC 40 MG/ML VIAL IV SCH (09:34)
[2017-10-19] MEDS: PREDNISONE 10 MG TAB PO SCH (09:35)
[2017-10-19] MEDS: SERTRALINE HCL 50 MG TAB PO SCH (09:35)
[2017-10-19] MEDS: THEOPHYLLINE 200 MG TABCR PO SCH ×2 (09:35→18:54)
[2017-10-19] MEDS: OMEPRAZOLE 20 MG CAP PO SCH (09:35)
[2017-10-19] MEDS: METOPROLOL TARTRATE 25 MG TAB PO SCH ×2 (09:35→21:17)
[2017-10-19 11:17] VITALS: BP 137/73
[2017-10-19 16:23] VITALS: BP 149/77
[2017-10-19 18:30] VITALS: BP 149/77
[2017-10-19 20:00] VITALS: BP 138/73
[2017-10-20] VITALS: BP 145/83
[2017-10-20] MEDS: ACETAMINOPHEN/CODEINE 300MG - 30MG TAB PO PRN ×3 (01:44→17:13)
[2017-10-20] MEDS: ALBUTEROL/IPRATROPIUM 3 ML NEB NEB SCH ×5 (03:05→20:07)
[2017-10-20] MEDS: INSULIN LISPRO 100 UNIT/1 ML 3ML VIAL SQ SCH ×3 (07:30→17:12)
[2017-10-20 07:48] VITALS: BP 154/87
[2017-10-20] MEDS: METHYLPREDNISOLONE SOD SUCC 40 MG/ML VIAL IV SCH (08:25)
[2017-10-20] MEDS: THEOPHYLLINE 200 MG TABCR PO SCH ×2 (08:58→17:12)
[2017-10-20] MEDS: SERTRALINE HCL 50 MG TAB PO SCH (08:58)
[2017-10-20] MEDS: METOPROLOL TARTRATE 25 MG TAB PO SCH (08:58)
[2017-10-20] MEDS: OMEPRAZOLE 20 MG CAP PO SCH (08:58)
[2017-10-20] MEDS: PREDNISONE 10 MG TAB PO SCH (08:58)
[2017-10-20 09:12] VITALS: BP 154/87
[2017-10-20 11:59] VITALS: BP 134/72
[2017-10-20 16:00] VITALS: BP 161/83
[2017-10-20 19:10] VITALS: BP 145/77
--- NOTE | 2017-10-20 20:12 | Discharge Summary ---
Patient was hospitalized through the emergency room with respiratory failure. She required intubation. She required treatment for hypertension and steroid associated hyperglycemia. Patient was gradually weaned from the ventilator. Patient has near end-stage emphysema. She was continued on medical therapy, including bronchodilators and steroids, as well as transient antibiotics. Antihypertensives were required. The patient was counseled regarding the need to avoid tobacco. Aid was offered. She had been on nicotine patches in the past. She was counseled regarding appropriate caloric intake and recommendations for weight reduction. The patient has home O2 already. She was counseled regarding the need for close follow up within the week. Ultimately, she was stable enough for outpatient status, which she had been requesting. See also serial laboratory and imaging studies. See ER note. Patient has severe tinea corporis, Brandi eruption under the breasts and in the inguinal regions, weeping, and acutely reddened. These responded with marked improvement with medical therapy. As mentioned, blood sugars were monitored and treated medically as needed. Chemistries monitored serially. Transient hypokalemia during the stay repleted. MD ruled out with serial admission enzymes. A1c was 5. Natriuretic peptide 36. White count 11,000 on June 11. Admission white count elevated at 18.62. PTT 23. Mild pyuria on UA. Drug levels monitored. Blood cultures times 4 negative. Urine culture negative. Sputum Gram stain with no organisms seen. Admission chest x-ray with prominent cardiac silhouette. Followup film serially monitored. Transiently, orotracheal and NG tubes. Central catheter placed on October 08, 2017. Left basilar opacity transiently while here. See serial films. Improved on followup on October 15, 2016. FINAL IMPRESSIONS: As above. 1. End-stage emphysema with respiratory failure. 2. Chronic tobacco use. 3. Obesity. 4. Hypertension. 5. Degenerative joint disease, chronically with chronic back pain. 6. Hyperglycemia while here associated with steroid use. 7. Hypokalemia, transiently. Improved on medical therapy. 8. Candidal skin eruption and tinea. Severe on arrival. Improved on medical therapy. 9. Noncompliance regarding outpatient appointments. Patient has not been seen in the office since her prior admission here. Prognosis poor. See also final med list, which is her discharge p.o. med list. AIDA DAVONTE, MD Job#: [id number] RI
[2017-10-20] MEDS ORDERED: THEOPHYLLI80 MG/15 M PO (20:30)
[2017-10-20] MEDS ORDERED: METOPROLOL TART25 MG PO (20:35)
[2017-10-20] MEDS ORDERED: ALBUTEROL2.5 MG/0.5 INH (20:35)
[2017-10-20] MEDS ORDERED: PREDNISONE10 MG PO (20:40)
[2017-10-20] MEDS ORDERED: PRILOSEC OTC20 MG PO (20:40)
[2017-10-20] MEDS ORDERED: ZOLOFT50 MG (20:41)
--- NOTE | 2017-10-21 09:25 | Diagnostic Imaging Report ---
Date and Time: 10/08/2017 Procedure: Ultrasound-guided central line placement molding machine operator: Dr. Kruse Pre-operative diagnosis: Emphysema, poor IV access Post-operative diagnosis: Emphysema, poor IV access Conscious Sedation: None The patient's heart rate and pulse oximetry were continuously monitored by the ICU nurse. Blood pressure was monitored per ICU protocol. Additional Medications: Lidocaine 1% for local anesthesia Estimated blood loss: Minimal Blood administered: None Specimens: None Implants: 7 Citizen Of [place] 16 cm triple-lumen central venous catheter DISCUSSION: Informed consent was obtained from the next of kin and documented in the medical record. Preliminary sonographic evaluation confirmed patency of the right internal jugular vein, evidenced by compressibility. The right cervical region was then prepped and draped in the standard sterile fashion. 1% lidocaine was infiltrated into the skin and subcutaneous tissues for local anesthesia. Then under continuous sonographic guidance an 18-gauge singlewall needle was used to access the right internal jugular vein. A permanent sonographic image was stored in the medical record. A 0.0 3 5-in. wire was then advanced centrally to a depth of approximately 20 cm with continuous cardiac rhythm monitoring. The needle was removed over the wire and the tract was dilated. Then a 7 Citizen [place], 16 cm triple-lumen central venous catheter was advanced over the wire to full depth. The wire was removed. All 3 ports showed adequate bidirectional flow and were flushed with sterile saline. The catheter was secured to the skin with monofilament nylon suture and a sterile dressing was applied. The patient tolerated the procedure well without immediate complication. FINDINGS: Patent right internal jugular vein. IMPRESSION: Successful placement of a 7 [place], 16 cm triple-lumen central venous catheter by a right internal jugular approach under sonographic guidance. Post procedure chest radiograph will be obtained to confirm line positioning prior to use. Signed by: Dr. Jezry Kruse M.D. on 10/10/2017 7:29 AM
== END 2017-10-21 08:00 | disposition hospice, home (50) | DRG 208 ==
LOC: ER 13:48 → ERHOLD 17:23 → ICU 18:17 → IMCU 10-15 08:41 → ACU 10-20 11:38
PROVIDERS: ADMIT Internal Medicine; ATTEND Internal Medicine
PROC: 5A1945Z Respiratory Ventilation, 24-96 Consecutive Hours (ICD-10-PCS; 2017-10-07)
PROC: 0BH17EZ Insertion of Endotracheal Airway into Trachea, Via Natural or Artificial Opening (ICD-10-PCS; 2017-10-07)
PROC: 02HV33Z Insertion of Infusion Device into Superior Vena Cava, Percutaneous Approach (ICD-10-PCS; principal; 2017-10-08)
DX: J96.21 Acute and chronic respiratory failure with hypoxia (principal); J44.1 Chronic obstructive pulmonary disease with (acute) exacerbation; J96.22 Acute and chronic respiratory failure with hypercapnia; F17.210 Nicotine dependence, cigarettes, uncomplicated; M19.90 Unspecified osteoarthritis, unspecified site; B37.2 Candidiasis of skin and nail; E66.01 Morbid (severe) obesity due to excess calories; M47.9 Spondylosis, unspecified; G89.29 Other chronic pain; E11.65 Type 2 diabetes mellitus with hyperglycemia; Z79.4 Long term (current) use of insulin; G47.33 Obstructive sleep apnea (adult) (pediatric); Z68.36 Body mass index [BMI] 36.0-36.9, adult; Z91.19 Patient's noncompliance with other medical treatment and regimen; Z99.81 Dependence on supplemental oxygen
CPT/HCPCS: 36415; 36556; 36600; 51700; 71045; 74470; 76937; 80048; 80053; 80198; 80202; 81001; 82550; 82553; 82805; 82948; 83036; 83605; 83735; 83880; 84484; 85025; 85730; 87040; 87070; 87086; 87205; 93005; 94002; 94640; 94660; 96361; 96365; 96367; 96372; 96375; 96376; 97139; 99285; C1751; J0330; J1450; J1644; J1940; J1956; J2060; J2920; J2930; J3370; J3480; J7050

== ENCOUNTER 2017-11-12 23:27 | Inpatient (IN) | payer SELFPAY ==
[~2017-11-12] VITALS: Ht 160 cm; Wt 93.0 kg
[~2017-11-12 23:27] MED LIST changes: +ALBUTEROL2.5 MG/0.5 INH; +METOPROLOL TART25 MG PO; +PRILOSEC OTC20 MG PO; +THEOPHYLLI80 MG/15 M PO; +ZOLOFT50 MG
[2017-11-12] MEDS ORDERED: SUCCINYLCHOLINE CHLORIDE 20 MG/ML 10ML VIAL ONE (23:38)
[2017-11-12] MEDS ORDERED: ETOMIDATE 2 MG/ML 10 ML INJ IV ONE (23:38)
[2017-11-12] MEDS ORDERED: PROPOFOL IV EMULSION 10MG/ML 100 ML ONE (23:49)
[2017-11-12] MEDS ORDERED: SODIUM CHLORIDE 0.9% 1000ML 1,000 ML ONE (23:50)
[2017-11-12] MEDS ORDERED: VANCOMYCIN 1GM/NS 250 ML 250 ML IV STA (23:51)
[2017-11-13] VITALS (61 sets, daily range): BP systolic 38–171; BP diastolic 23–134
[2017-11-13 00:11] LABS: BASOPHILS # (AUTO) 0.1 (0.0-0.1); BASOPHILS % 0.2 % (0.0-1.0); HEMATOCRIT 41.2 % (34.2-44.1); HEMOGLOBIN 11.5 g/dL (12.0-16.0); LYMPHOCYTES # (AUTO) 1.4 (1.0-3.2); LYMPHOCYTES % 6.6 % (18.0-39.1); MEAN CORPUSCULAR HEMOGLOBIN 25.4 pg (28-32); MEAN CORPUSCULAR HGB CONC 27.9 g/dL (31-35); MEAN CORPUSCULAR VOLUME 91.2 fL (81-99); MONOCYTES % 4.9 % (4.4-11.3); NEUTROPHILS # (AUTO) 17.9 (2.1-6.9); NEUTROPHILS % 87.3 % (38.7-80.0); PLATELET COUNT 422 x10e3/uL (140-360); RED BLOOD COUNT 4.52 x10e6/uL (3.6-5.1); RED CELL DISTRIBUTION WIDTH 14.2 % (11.7-14.4)
[2017-11-13 00:15] LABS: INR 1.1; PARTIAL THROMBOPLASTIN TIME 25.9 seconds (23.8-35.5); PROTHROMBIN TIME 13.4 seconds (11.9-14.5)
[2017-11-13 00:24] LABS: ALANINE AMINOTRANSFERASE 18 IU/L (0-55); ALBUMIN 3.4 g/dL (3.5-5.0); ALBUMIN/GLOBULIN RATIO 0.9 (0.8-2.0); ALKALINE PHOSPHATASE 108 IU/L (40-150); ANION GAP 10.3 mmol/L (8-16); BLOOD UREA NITROGEN 17 mg/dL (7-26); BUN/CREATININE RATIO 31 (6-25); CALCIUM 9.9 mg/dL (8.4-10.2); CHLORIDE 88 mmol/L (98-107); CREATINE KINASE 23 IU/L (29-168); CREATININE, SERUM 0.54 mg/dL (0.57-1.11); EST GLOMERULAR FILTRATION RATE > 60 ML/MIN (60-); GLUCOSE 181 mg/dL (74-118); MAGNESIUM 2.2 MG/DL (1.3-2.1); POTASSIUM 4.3 mmol/L (3.5-5.1); SODIUM 143 mmol/L (136-145)
[2017-11-13 00:32] LABS: CARBON DIOXIDE 49 mmol/L (22-29)
[2017-11-13 00:49] LABS: CLARITY,URINE CLEAR (CLEAR); COLOR,URINE YELLOW (YELLOW); LEUKOCYTE ESTERASE ,URINE NEGATIVE (NEGATIVE); NITRITE,URINE NEGATIVE (NEGATIVE)
[2017-11-13 00:50] LABS: BILIRUBIN,URINE NEGATIVE (NEGATIVE); KETONES,URINE NEGATIVE (NEGATIVE); PROTEIN,URINE DIPSTICK 2+ (NEGATIVE); URINE UROBILINOGEN 0.2 mg/dL (0.2 - 1)
[2017-11-13 00:59] LABS: B-TYPE NATRIURETIC PEPTIDE2 69.3 pg/mL (0-100)
[2017-11-13] MEDS ORDERED: SODIUM CHLORIDE 0.9% 500ML 500 ML IV ONE (01:00)
[2017-11-13] MEDS ORDERED: PROPOFOL IV EMULSION 10 MG/ML 20 ML VIAL IV PRN (01:00)
[2017-11-13 01:07] LABS: BACTERIA,URINE RARE /HPF; EPITHELIAL CELLS,URINE RARE /LPF; RBC,URINE 0-5 /HPF (0-5); WBC,URINE (MAN) 0-5 /HPF (0-5)
--- NOTE | 2017-11-13 01:28 | Diagnostic Imaging Report ---
EXAM: CHEST SINGLE (PORTABLE), AP 1 view INDICATION: Status post intubation COMPARISON: AP view of the chest October 15, 2017 FINDINGS: LINES/TUBES: The endotracheal tube terminates approximately 5 cm above the stalin. Interval removal of right internal jugular vein central line. LUNGS: Bibasilar airspace opacities. PLEURA: No effusions or pneumothorax. HEART AND MEDIASTINUM: Normal size and contour. BONES AND SOFT TISSUES: No acute findings. IMPRESSION: The endotracheal tube terminates approximately 5 cm above the stalin. Bibasilar airspace opacities, could represent atelectasis or pneumonia. Signed by: Dr. Luisa Lott M.D. on 11/13/2017 1:24 AM
--- NOTE | 2017-11-13 01:28 | Diagnostic Imaging Report ---
ADDENDUM #1 Dose modulation, iterative reconstruction, and/or weight based adjustment of the mA/kV was utilized to reduce the radiation dose to as low as reasonably achievable. Signed by: Dr. Tari Khan M.D. on 01/01/2018 2:24 AM ORIGINAL REPORT EXAMINATION: Head CT without contrast. HISTORY:Altered mental status. COMPARISON:None. TECHNIQUE: Multidetector axial images were obtained from the foramen magnum to the vertex without contrast. The images were reconstructed using brain and bone algorithms. Thin section brain images were reformatted into coronal and sagittal planes. Intravenous contrast: None IMAGE QUALITY: Acceptable. FINDINGS: Skull/scalp: No lytic or blastic. lesions. No surgical changes. Parenchyma: No abnormal density. No acute hemorrhage, mass or acute major vascular territorial infarct. Arteries: No density suggestive of thrombosis. Dural sinuses: No abnormal density suggestive of thrombosis. Ventricles: No hydrocephalus or displacement. Extra-axial spaces: No abnormal density. Brain volume: Normal for age. Craniocervical junction: No mass, Chiari malformation, or basilar invagination. Sella: Mildly enlarged partial empty sella. Paranasal/mastoid sinuses: Imaged portions unremarkable. IMPRESSION: No acute intracranial abnormality. Signed by: Dr. Tari Khan M.D. on 11/13/2017 1:24 AM
[2017-11-13] MEDS: CEFEPIME HCL 2 GM VIAL IV SCH ×3 (01:45→23:15)
[2017-11-13] MEDS ORDERED: METHYLPREDNISOLONE SOD SUCC 125 MG/2ML VIAL IV STA (02:04)
[2017-11-13] MEDS: SODIUM CHLORIDE 0.9% 1000ML 1,000 ML IV SCH ×3 (02:06→14:50)
[2017-11-13 02:14] LABS: AMPHETAMINES SCREEN,URINE NEGATIVE (NEGATIVE); BENZODIAZEPINES SCREEN,URINE NEGATIVE (NEGATIVE); PHENCYCLIDINE SCREEN,URINE NEGATIVE (NEGATIVE)
[2017-11-13] MEDS: VANCOMYCIN HCL 1GM/NS 250 ML BAG IV SCH (02:41)
[2017-11-13 03:18] LABS: HYPOCHROMASIA SLIGHT; PLATELET ESTIMATE SLIGHTLY INCREASED; PLATELET MORPHOLOGY COMMENT NORMAL; RBC MORPHOLOGY COMMENT NORMAL
[2017-11-13] MEDS: AZITHROMYCIN 500MG/NS 250 ML 250 ML IV SCH ×2 (03:30→22:30)
[2017-11-13 04:38] LABS: CREATINE KINASE MB 2.3 ng/mL (0-5.0)
[2017-11-13 05:38] LABS: ABG PCO2 127 mmHg (41-51)
[2017-11-13 05:39] LABS: ABG HCO3 50 mmol/L (23-28); ABG PO2 31 mmHg (80-105)
[2017-11-13] MEDS: METHYLPREDNISOLONE SOD SUCC 125 MG/2ML VIAL IV SCH ×3 (06:00→22:30)
[2017-11-13] MEDS ORDERED: PROPOFOL IV EMULSION 10MG/ML 100 ML ONE (06:28)
[2017-11-13] MEDS: PROPOFOL IV EMULSION 10MG/ML 100 ML IV PRN ×6 (07:40→23:55)
[2017-11-13] MEDS: ALBUTEROL SULF 0.083% NEB SOLN 3 ML NEB NEB SCH ×5 (07:58→22:40)
[2017-11-13] MEDS: IPRATROPIUM BROMIDE 0.02% 2.5 ML NEB NEB SCH ×5 (07:58→22:40)
[2017-11-13] MEDS: ENOXAPARIN SOD INJ 40 MG/0.4 ML SYR SC SCH (08:56)
[2017-11-13 12:22] LABS: CREATINE KINASE 10 IU/L (29-168)
[2017-11-13] MEDS ORDERED: DEXTROSE 50% SYRINGE 50 ML IV PRN (13:45)
--- NOTE | 2017-11-13 14:25 | History and Physical ---
HISTORY OF PRESENT ILLNESS: The patient was hospitalized through the emergency room with increasing shortness of breath of approximately 2 days' duration. The patient was experiencing hypercapnia and respiratory acidosis and required emergency room intubation. She is now sedated and on a ventilator. This is one of many, many similar episodes for this patient. See also record from admission here on October 07 and discharge October 20 with similar difficulties. Other similar visits have included May 29, April 28, 2016, and October 2015. Patient does not come to my office. I was called by the emergency room physician to see the patient this admission again. The patient's course is complicated by morbid obesity, primary hypertension, chronic degenerative joint disease with chronic back pain. The patient is unable to relate review of systems, family history, past history. Personal history regarding chronic use of tobacco or alcohol is not known at this time. THE CHART INDICATES THE PATIENT IS ALLERGIC TO PENICILLIN. Past family history has included, per old records, family history of diabetes in the patient's grandmother. Organic heart disease in the patient's mother. Unable at this time to obtain surgical history. PHYSICAL EXAMINATION VITALS: Pulse is 82 and regular. Respiratory rate on ventilator 22. Blood pressure 112/69. O2 saturation 100%. O2 flow rate 22. GENERAL: Patient is arousable. HEENT: Pupils round and reactive. No icterus or pallor. Intubated. Breath sounds are generally reduced. HEART: Cardiac sounds are soft. ABDOMEN: Morbidly obese. Soft. Bowel sounds normal. SKIN: Patient has tinea cruris and tinea under the breasts with some macular, erythematous, moist eruption. EXTREMITIES: Dampened pulses and generalized 1+ edema. NEURO: DTRs depressed. Patient is unable to cooperate for strength or sensory testing at this time. PULSES: Dampened. LABS: White count 20,470, hemoglobin 11.5, low, with MCH 25.4, trace low. MCHC 27.9, low. Platelet count 422,000, left shift. INR 1.1, PTT 25.9. Urinalysis shows 2+ protein. Cardiac enzymes negative for [place]. Natriuretic peptide 69. Admission glucose 181. Chemistries otherwise essentially normal. Cultures of urine and blood pending. ER chest x-ray today: Bibasilar airspace opacities "could represent atelectasis or pneumonia," per Dr. Luisa Lott, radiologist here. ER requested a head CT with no acute intracranial abnormality. Mildly enlarged, partially empty sella per Dr. Tari Khan, radiologist here. IMPRESSION 1. Respiratory failure. End-stage emphysema. 2. Primary hypertension. 3. Hyperglycemia. 4. Tinea corporis. 5. History of degenerative joint disease with chronic back pain. 6. Noncompliance with outpatient followup. The patient does not come to the office. 7. Generalized edema. Natriuretic peptide normal. Admission renal parameters within normal range. Admission transaminases, alkaline phosphatase and bilirubin normal. See also initial and followup orders to continue on ventilator, wean when able. Assure hydration and renal perfusion. Control blood pressure. Treat skin wounds. Job#: [id number]
[2017-11-13 14:44] LABS: ABG HCO3 39 mmol/L (23-28); ABG PCO2 43 mmHg (41-51); ABG PH 7.57 (7.31-7.41); ABG PO2 114 mmHg (80-105)
[2017-11-13] MEDS: NYSTATIN 15 GM POWDER UD BTL TOP SCH ×2 (14:49→22:30)
--- NOTE | 2017-11-13 15:02 | Consultation ---
DATE OF CONSULTATION: November 13, 2017 PULMONARY CONSULTATION This unfortunate, 52-year-old woman with a history of end-stage COPD, patient of Dr. Sun, well known to the pulmonary service, was admitted with progressive shortness of breath, wheezing, and sweats. No fever. She has a history of asthma and emphysema. She has had chronic pain. SHE HAS ALLERGIES TO PENICILLIN AND IODINE. She has been chronically depressed. She continues to smoke despite the admonition of her physicians. She has been on home oxygen. She was intubated in the emergency room but is awake and alert. HOME MEDICATIONS: Include Vicodin, albuterol, amlodipine, BuSpar, metoprolol, nicotine patch, Protonix, prednisone, Zoloft, tramadol, theophylline. PHYSICAL EXAMINATION GENERAL: Obese white female, intubated but awake and alert. VITALS: Temperature 97.8, pulse 82, respirations 22, blood pressure 112/69. HEENT: Head is normocephalic and atraumatic. NECK: Trachea is midline. LUNGS: Diminished breath sounds. HEART: Regular rhythm. ABDOMEN: Obese. EXTREMITIES: Not edematous. She is somewhat hirsute. IMPRESSION 1. Acute exacerbation of chronic obstructive pulmonary disease. 2. Respiratory failure. 3. Cigarette smoking addiction. 4. Depression. PLAN: Continue empiric antibiotics. Moderate-dose corticosteroids. Theophylline, continue that drug. Continue mechanical ventilation tonight and possibly wean in a.m. Check ABGs. Culture sputum. Thank you for this kind referral. Job#: [id number]
[2017-11-13] MEDS ORDERED: THEOPHYLLINE ANHYDROUS 200 MG PO SCH (17:00)
[2017-11-13] MEDS ORDERED: FENTANYL CITRATE INJ 2,000 MCG in SODIUM CHLORIDE 0.9% 250ML 210 ML IV PRN (18:00)
[2017-11-13] MEDS: INSULIN LISPRO 100 UNIT/1 ML 3ML VIAL SQ SCH ×2 (18:43→21:00)
[2017-11-13] MEDS: THEOPHYLLINE 80 MG/15 ML SYRP GT SCH (21:00)
[2017-11-14] VITALS (61 sets, daily range): BP systolic 130–205; BP diastolic 62–107
[2017-11-14] MEDS: INSULIN LISPRO 100 UNIT/1 ML 3ML VIAL SQ SCH ×4 (00:15→17:00)
[2017-11-14] MEDS: ALBUTEROL SULF 0.083% NEB SOLN 3 ML NEB NEB SCH ×5 (02:05→19:25)
[2017-11-14] MEDS: IPRATROPIUM BROMIDE 0.02% 2.5 ML NEB NEB SCH ×5 (02:05→19:25)
[2017-11-14] MEDS: PROPOFOL IV EMULSION 10MG/ML 100 ML IV PRN ×3 (02:10→07:05)
[2017-11-14] MEDS: VANCOMYCIN HCL 1GM/NS 250 ML BAG IV SCH (02:15)
[2017-11-14 04:38] LABS: BASOPHILS % 0.1 % (0.0-1.0); HEMATOCRIT 30.3 % (34.2-44.1); HEMOGLOBIN 9.1 g/dL (12.0-16.0); LYMPHOCYTES # (AUTO) 0.7 (1.0-3.2); LYMPHOCYTES % 6.7 % (18.0-39.1); MEAN CORPUSCULAR HEMOGLOBIN 26.1 pg (28-32); MEAN CORPUSCULAR VOLUME 86.8 fL (81-99); MONOCYTES # (AUTO) 0.2 (0.2-0.8); MONOCYTES % 1.6 % (4.4-11.3); NEUTROPHILS % 90.6 % (38.7-80.0); PLATELET COUNT 276 x10e3/uL (140-360); RED BLOOD COUNT 3.49 x10e6/uL (3.6-5.1); RED CELL DISTRIBUTION WIDTH 14.6 % (11.7-14.4)
[2017-11-14 05:02] LABS: ALANINE AMINOTRANSFERASE 13 IU/L (0-55); ALBUMIN 2.5 g/dL (3.5-5.0); ALKALINE PHOSPHATASE 72 IU/L (40-150); ANION GAP 13.2 mmol/L (8-16); BLOOD UREA NITROGEN 19 mg/dL (7-26); BUN/CREATININE RATIO 35 (6-25); CALCIUM 8.6 mg/dL (8.4-10.2); CARBON DIOXIDE 34 mmol/L (22-29); CHLORIDE 98 mmol/L (98-107); CREATININE, SERUM 0.55 mg/dL (0.57-1.11); EST GLOMERULAR FILTRATION RATE > 60 ML/MIN (60-); GLUCOSE 183 mg/dL (74-118); POTASSIUM 3.2 mmol/L (3.5-5.1); SODIUM 142 mmol/L (136-145)
[2017-11-14] MEDS: NYSTATIN 15 GM POWDER UD BTL TOP SCH ×3 (05:30→21:23)
[2017-11-14] MEDS: METHYLPREDNISOLONE SOD SUCC 125 MG/2ML VIAL IV SCH (05:33)
--- NOTE | 2017-11-14 06:58 | Diagnostic Imaging Report ---
EXAM: CHEST SINGLE (PORTABLE), AP 1 view INDICATION: Respiratory failure COMPARISON: AP view of the chest November 13, 2017 FINDINGS: LINES/TUBES: The endotracheal tube terminates 4 cm above the stalin. The nasal/orogastric tube courses below the diaphragm out of field of view. LUNGS: Interval improved aeration of the lung bases. PLEURA: No effusions or pneumothorax. HEART AND MEDIASTINUM: Stable appearance. BONES AND SOFT TISSUES: No acute findings. IMPRESSION: Interval improved aeration of the lung bases. Signed by: Dr. Luisa Lott M.D. on 11/14/2017 6:54 AM
[2017-11-14] MEDS: SODIUM CHLORIDE 0.9% 1000ML 1,000 ML IV SCH (08:06)
[2017-11-14] MEDS ORDERED: NICOTINE 7 MG SUBD SCH (09:00)
[2017-11-14] MEDS ORDERED: PANTOPRAZOLE SOD 40 MG TABEC PO SCH (09:00)
[2017-11-14] MEDS ORDERED: POTASSIUM CHLORIDE 20MEQ/15ML UDC NG NR (09:30)
[2017-11-14 10:17] LABS: ABG PCO2 56 mmHg (41-51); ABG PO2 91 mmHg (80-105)
[2017-11-14 10:18] LABS: ABG HCO3 43 mmol/L (23-28)
[2017-11-14] MEDS: SERTRALINE HCL 50 MG TAB GT SCH (11:00)
[2017-11-14] MEDS: THEOPHYLLINE 80 MG/15 ML SYRP GT SCH ×2 (11:00→17:06)
[2017-11-14] MEDS: PANTOPRAZOLE SODIUM 40 MG SUSPDR.PKT PO SCH (11:00)
[2017-11-14] MEDS: ENOXAPARIN SOD INJ 40 MG/0.4 ML SYR SC SCH (11:01)
[2017-11-14] MEDS: NICOTINE 7 MG PATCH TOP SCH (11:01)
[2017-11-14] MEDS: CEFEPIME HCL 2 GM VIAL IV SCH (12:36)
[2017-11-14] MEDS: METHYLPREDNISOLONE SOD SUCC 40 MG/ML VIAL IV SCH ×2 (12:48→21:23)
[2017-11-14] MEDS ORDERED: METHYLPREDNISOLONE SOD SUCC 125 MG/2ML VIAL IV SCH (14:00)
--- NOTE | 2017-11-14 14:12 | Progress Note ---
DATE: November 14, 2017 INTERNAL MEDICINE PROGRESS NOTE The patient was examined. Electronic medical record and chart reviewed. Case discussed with the patient's nurse. I was paged this morning regarding hypokalemia. Potassium repletion was ordered. At approximately 11 a.m. today, the patient was able to be extubated and remains extubated. The patient was hospitalized with respiratory failure. She has marked generalized reduction in breath sounds. Bilateral pulmonary opacities on admission improving. Blood culture 1 of 2 with gram-positive barbara. The patient will continue on antibiotics, steroids, pulmonary therapy with bronchodilators, supplemental O2. Continue ICU care at this time. Primary hypertension. Blood pressures are elevated. Amlodipine is being initiated. To taper steroids as able. Tinea under the breasts and inguinal regions. Trace improved on medical therapy. Morbid obesity. The patient's nurse is anxious for initiation of oral feeding, which is authorized. Hyperglycemia secondary to steroids. FBS 183. To follow up on sliding scale. Taper steroids as able as mentioned. Degenerative joint disease. No symptoms at this time. Trace edema. Decrease IV fluids. Urine output has been normal. Renal parameters normal. See also initial and followup orders. Follow up data in a.m. on regimen. Job#: [id number] EV
[2017-11-14] MEDS ORDERED: PROMETHAZINE HCL 25 MG SUPP PR PRN (14:15)
[2017-11-14] MEDS: ACETAMINOPHEN 325 MG TAB PO PRN ×2 (14:18→20:32)
[2017-11-14] MEDS: BALSAM PERU/CASTOR OIL 60 GM OINT...G. TP SCH (16:57)
[2017-11-14] MEDS: METOPROLOL TARTRATE 25 MG TAB PO SCH (17:00)
[2017-11-14] MEDS: AZITHROMYCIN 500MG/NS 250 ML 250 ML IV SCH (21:23)
[2017-11-15] VITALS (25 sets, daily range): BP systolic 142–187; BP diastolic 71–96
[2017-11-15] MEDS: CEFEPIME HCL 2 GM VIAL IV SCH ×2 (00:34→12:00)
[2017-11-15] MEDS: INSULIN LISPRO 100 UNIT/1 ML 3ML VIAL SQ SCH ×4 (00:36→17:00)
[2017-11-15] MEDS: IPRATROPIUM BROMIDE 0.02% 2.5 ML NEB NEB SCH ×6 (02:44→23:30)
[2017-11-15] MEDS: ALBUTEROL SULF 0.083% NEB SOLN 3 ML NEB NEB SCH ×6 (02:44→23:30)
[2017-11-15] MEDS: VANCOMYCIN HCL 1GM/NS 250 ML BAG IV SCH (03:14)
[2017-11-15 05:00] LABS: HEMATOCRIT 36.5 % (34.2-44.1); HEMOGLOBIN 10.5 g/dL (12.0-16.0); MEAN CORPUSCULAR HEMOGLOBIN 25.4 pg (28-32); MEAN CORPUSCULAR HGB CONC 28.8 g/dL (31-35); MEAN CORPUSCULAR VOLUME 88.2 fL (81-99); PLATELET COUNT 341 x10e3/uL (140-360); RED BLOOD COUNT 4.14 x10e6/uL (3.6-5.1); RED CELL DISTRIBUTION WIDTH 14.8 % (11.7-14.4)
[2017-11-15] MEDS: METHYLPREDNISOLONE SOD SUCC 40 MG/ML VIAL IV SCH ×3 (05:16→14:59)
[2017-11-15 05:22] LABS: ANION GAP 15.3 mmol/L (8-16); BLOOD UREA NITROGEN 23 mg/dL (7-26); BUN/CREATININE RATIO 38 (6-25); CALCIUM 9.2 mg/dL (8.4-10.2); CARBON DIOXIDE 34 mmol/L (22-29); CHLORIDE 99 mmol/L (98-107); EST GLOMERULAR FILTRATION RATE > 60 ML/MIN (60-); GLUCOSE 136 mg/dL (74-118); POTASSIUM 3.3 mmol/L (3.5-5.1); SODIUM 145 mmol/L (136-145)
[2017-11-15] MEDS: NYSTATIN 15 GM POWDER UD BTL TOP SCH ×3 (05:22→15:42)
[2017-11-15] MEDS: ACETAMINOPHEN 325 MG TAB PO PRN ×2 (06:21→18:24)
[2017-11-15 06:31] LABS: HYPOCHROMASIA SLIGHT; LYMPHOCYTES % (MANUAL) 6 % (19-48); MONOCYTES % (MANUAL) 13 % (3.4-9.0); NEUTROPHILS % (MANUAL) 81 % (40-74); PLATELET ESTIMATE ADEQUATE; PLATELET MORPHOLOGY COMMENT NORMAL; RBC MORPHOLOGY COMMENT NORMAL
--- NOTE | 2017-11-15 06:37 | Diagnostic Imaging Report ---
EXAM: CHEST SINGLE (PORTABLE), AP 1 view INDICATION: Pneumonia, COPD COMPARISON: AP view of the chest November 14, 2017 FINDINGS: LINES/TUBES: Interval removal of endotracheal tube and nasal/orogastric tube. LUNGS: Continued improved aeration of the lung bases. PLEURA: No effusions or pneumothorax. HEART AND MEDIASTINUM: Stable appearance. BONES AND SOFT TISSUES: No acute findings. IMPRESSION: Continued improved aeration of the lung bases. Signed by: Dr. Luisa Lott M.D. on 11/15/2017 6:33 AM
[2017-11-15] MEDS: THEOPHYLLINE 80 MG/15 ML SYRP GT SCH ×2 (08:29→18:13)
[2017-11-15] MEDS: PANTOPRAZOLE SODIUM 40 MG SUSPDR.PKT PO SCH (08:29)
[2017-11-15] MEDS: SERTRALINE HCL 50 MG TAB GT SCH (08:29)
[2017-11-15] MEDS: ENOXAPARIN SOD INJ 40 MG/0.4 ML SYR SC SCH (08:30)
[2017-11-15] MEDS: METOPROLOL TARTRATE 25 MG TAB PO SCH ×2 (08:30→17:30)
[2017-11-15] MEDS: NICOTINE 7 MG PATCH TOP SCH (08:31)
[2017-11-15] MEDS: BALSAM PERU/CASTOR OIL 60 GM OINT...G. TP SCH ×2 (08:32→18:13)
[2017-11-15] MEDS ORDERED: AMLODIPINE BESYLATE 5 MG TAB PO SCH (09:00)
[2017-11-15] MEDS ORDERED: POTASSIUM CHLORIDE 10 MEQ TABCR PO ONE (17:00)
--- NOTE | 2017-11-15 17:11 | Progress Note ---
DATE: November 15, 2017 INTERNAL MEDICINE PROGRESS NOTE This patient was examined. Electronic medical records were reviewed. Chart was reviewed. Case discussed with the patient's nurse today. I was called by a different nurse last night, who expressed his desire that the patient be sedated. I explained to the gentleman that the patient has end-stage emphysema and could not be sedated, that this would be much too dangerous at that time. The nurse's note indicates that I declined to address the problem. That is not entirely the case. This situation was discussed with the patient previously and again today. This was again explained to the ICU. The patient denies shortness of breath at rest. She has been sedentary. Generalized reduction in breath sounds. Cardiac sounds S1/S2 soft. The patient does have persistent sinus rhythm with a rate of 110. Current plans are to continue steroids and antibiotics as well as pulmonary therapy and supplemental oxygen, ICU care. The patient has developed a stage 1 bedsore over the buttocks on the right side 7 cm in length. The patient was advised to stay off of the bedsore, to move from side to side. This was explained to the ICU. I had no calls previously about this bedsore although there is an order in the record to have a wound care nurse see the patient. The patient has had a fever today. No calls regarding the fever. She notes occasional diaphoresis. No hypotension. White count had been normal yesterday and is markedly elevated today. Urine culture reveals bacteruria sensitive to current cephalosporin, which will be continued. To culture blood again. Chest x-ray is improved today. Potassium 3.3 today, to replete. Primary hypertension, pressure levels adequate today on amlodipine. Tinea under breasts and in inguinal regions. Continue topical therapy. Hyperglycemia secondary to steroids. Blood sugars observed. Continue care and sliding scale. Degenerative joint disease. No significant symptoms. I was called regarding headache last night. No headache now. The patient was nauseous last night. See orders. Neck is supple. No focal neurological signs to examination. Appreciate also input and recommendations, care per pulmonary medicine consultants. Printer unavailable for printing daily progress note. Job#: [id number] EV
[2017-11-15] MEDS: AZITHROMYCIN 500MG/NS 250 ML 250 ML IV SCH (20:10)
[2017-11-15] MEDS ORDERED: INSULIN LISPRO 100 UNIT/1 ML 3ML VIAL SQ SCH (21:00)
[2017-11-16] VITALS: BP 173/78
[2017-11-16] MEDS: CEFEPIME HCL 2 GM VIAL IV SCH ×2 (00:14→13:08)
[2017-11-16] MEDS: VANCOMYCIN HCL 1GM/NS 250 ML BAG IV SCH (02:26)
[2017-11-16] MEDS: ACETAMINOPHEN 325 MG TAB PO PRN ×2 (02:26→17:51)
[2017-11-16] MEDS: IPRATROPIUM BROMIDE 0.02% 2.5 ML NEB NEB SCH ×6 (03:00→23:20)
[2017-11-16] MEDS: ALBUTEROL SULF 0.083% NEB SOLN 3 ML NEB NEB SCH ×6 (03:00→23:20)
[2017-11-16 04:00] VITALS: BP 168/79
[2017-11-16 06:04] LABS: BASOPHILS % 0.2 % (0.0-1.0); HEMATOCRIT 34.9 % (34.2-44.1); HEMOGLOBIN 10.1 g/dL (12.0-16.0); LYMPHOCYTES # (AUTO) 0.5 (1.0-3.2); LYMPHOCYTES % 4.8 % (18.0-39.1); MEAN CORPUSCULAR HEMOGLOBIN 25.4 pg (28-32); MEAN CORPUSCULAR HGB CONC 28.9 g/dL (31-35); MEAN CORPUSCULAR VOLUME 87.9 fL (81-99); MONOCYTES # (AUTO) 0.4 (0.2-0.8); MONOCYTES % 3.4 % (4.4-11.3); NEUTROPHILS % 89.9 % (38.7-80.0); PLATELET COUNT 285 x10e3/uL (140-360); RED BLOOD COUNT 3.97 x10e6/uL (3.6-5.1); RED CELL DISTRIBUTION WIDTH 14.6 % (11.7-14.4)
[2017-11-16] MEDS: NYSTATIN 15 GM POWDER UD BTL TOP SCH ×3 (06:10→20:55)
[2017-11-16] MEDS: METHYLPREDNISOLONE SOD SUCC 40 MG/ML VIAL IV SCH ×3 (06:10→20:55)
[2017-11-16 06:23] LABS: ANION GAP 10.8 mmol/L (8-16); BLOOD UREA NITROGEN 21 mg/dL (7-26); BUN/CREATININE RATIO 39 (6-25); CALCIUM 8.9 mg/dL (8.4-10.2); CARBON DIOXIDE 39 mmol/L (22-29); CHLORIDE 96 mmol/L (98-107); CREATININE, SERUM 0.54 mg/dL (0.57-1.11); EST GLOMERULAR FILTRATION RATE > 60 ML/MIN (60-); GLUCOSE 151 mg/dL (74-118); POTASSIUM 3.8 mmol/L (3.5-5.1); SODIUM 142 mmol/L (136-145)
[2017-11-16] MEDS: PANTOPRAZOLE SODIUM 40 MG SUSPDR.PKT PO SCH (07:30)
[2017-11-16] MEDS: THEOPHYLLINE 80 MG/15 ML SYRP GT SCH ×2 (08:16→17:14)
[2017-11-16 08:20] LABS: BAND NEUTROPHILS % (MANUAL) 1 %; LYMPHOCYTES % (MANUAL) 4 % (19-48); MONOCYTES % (MANUAL) 3 % (3.4-9.0); NEUTROPHILS % (MANUAL) 92 % (40-74); PLATELET ESTIMATE ADEQUATE; PLATELET MORPHOLOGY COMMENT NORMAL; RBC MORPHOLOGY COMMENT NORMAL
[2017-11-16] MEDS: NICOTINE 7 MG PATCH TOP SCH (09:00)
[2017-11-16] MEDS: SERTRALINE HCL 50 MG TAB GT SCH (09:00)
[2017-11-16] MEDS: METOPROLOL TARTRATE 25 MG TAB PO SCH ×2 (09:00→17:14)
[2017-11-16] MEDS: BALSAM PERU/CASTOR OIL 60 GM OINT...G. TP SCH ×2 (09:00→17:14)
[2017-11-16] MEDS: ENOXAPARIN SOD INJ 40 MG/0.4 ML SYR SC SCH (09:00)
[2017-11-16 09:45] VITALS: BP 194/95
--- NOTE | 2017-11-16 10:36 | Progress Note ---
DATE: November 16, 2017 INTERNAL MEDICINE PROGRESS NOTE The patient was examined. Record was reviewed. Electronic medical record observed. The patient relates difficulty sleeping. Dyspnea with activity. Continued productive cough, mucus green. No headache or visual change. Denies GI symptoms. Aguero. Denies leg or calf pain. Problems reviewed. No pallor or icterus. Throat clear. Markedly reduced generalized breath sounds (chronically). Cardiac sounds soft. Abdomen soft. Bowel sounds normal. Extremities with 2+ edema. Homans sign negative. No calf tenderness. Peripheral pulses dampened. Strength 4. The patient is up in a chair, and sensorium is baseline. Fasting blood sugar 151. Recent sugars have been maximum 158. To hold sliding scale. No fever today. The patient still has some intermittent diaphoresis. No chest pain. Stage 1 bedsore persists. The patient was counseled regarding pressure avoidance. Tinea corporis mildly improved. To continue topical treatment. O2 saturations on O2 adequate. Blood pressure remains elevated. To increase amlodipine. The patient is currently off of intravenous fluids. To update orders. See same. Job#: [id number] EV
[2017-11-16 12:47] VITALS: BP 151/86
[2017-11-16 16:54] VITALS: BP 136/69
[2017-11-16 20:26] VITALS: BP 146/70
[2017-11-16] MEDS: AZITHROMYCIN 500MG/NS 250 ML 250 ML IV SCH (20:55)
[2017-11-16] MEDS ORDERED: SODIUM CHLORIDE 0.9% 250ML 250 ML ONE (20:58)
[2017-11-17] VITALS (8 sets, daily range): BP systolic 128–183; BP diastolic 69–96
[2017-11-17] MEDS: CEFEPIME HCL 2 GM VIAL IV SCH ×2 (00:07→12:18)
[2017-11-17] MEDS: VANCOMYCIN HCL 1GM/NS 250 ML BAG IV SCH (02:09)
[2017-11-17] MEDS: ALBUTEROL SULF 0.083% NEB SOLN 3 ML NEB NEB SCH ×6 (03:05→23:05)
[2017-11-17] MEDS: IPRATROPIUM BROMIDE 0.02% 2.5 ML NEB NEB SCH ×6 (03:05→23:05)
[2017-11-17 05:17] LABS: BASOPHILS % 0.2 % (0.0-1.0); HEMATOCRIT 34.4 % (34.2-44.1); HEMOGLOBIN 9.8 g/dL (12.0-16.0); LYMPHOCYTES # (AUTO) 0.6 (1.0-3.2); LYMPHOCYTES % 5.6 % (18.0-39.1); MEAN CORPUSCULAR HEMOGLOBIN 25.3 pg (28-32); MEAN CORPUSCULAR HGB CONC 28.5 g/dL (31-35); MEAN CORPUSCULAR VOLUME 88.7 fL (81-99); MONOCYTES # (AUTO) 0.6 (0.2-0.8); MONOCYTES % 5.3 % (4.4-11.3); NEUTROPHILS % 85.6 % (38.7-80.0); PLATELET COUNT 269 x10e3/uL (140-360); RED BLOOD COUNT 3.88 x10e6/uL (3.6-5.1); RED CELL DISTRIBUTION WIDTH 14.2 % (11.7-14.4)
[2017-11-17] MEDS: NYSTATIN 15 GM POWDER UD BTL TOP SCH ×3 (05:44→22:10)
[2017-11-17] MEDS: METHYLPREDNISOLONE SOD SUCC 40 MG/ML VIAL IV SCH ×3 (05:44→22:09)
[2017-11-17 06:39] LABS: ANION GAP 10.1 mmol/L (8-16); BLOOD UREA NITROGEN 21 mg/dL (7-26); BUN/CREATININE RATIO 42 (6-25); CALCIUM 8.8 mg/dL (8.4-10.2); CARBON DIOXIDE 40 mmol/L (22-29); CHLORIDE 95 mmol/L (98-107); EST GLOMERULAR FILTRATION RATE > 60 ML/MIN (60-); GLUCOSE 140 mg/dL (74-118); POTASSIUM 4.1 mmol/L (3.5-5.1); SODIUM 141 mmol/L (136-145)
[2017-11-17 07:22] LABS: BAND NEUTROPHILS % (MANUAL) 7 %; LYMPHOCYTES % (MANUAL) 5 % (19-48); MONOCYTES % (MANUAL) 3 % (3.4-9.0); NEUTROPHILS % (MANUAL) 83 % (40-74)
[2017-11-17 07:23] LABS: HYPOCHROMASIA SLIGHT; RBC MORPHOLOGY COMMENT NORMAL
[2017-11-17 07:24] LABS: ANISOCYTOSIS SLIGHT; PLATELET ESTIMATE ADEQUATE; PLATELET MORPHOLOGY COMMENT NORMAL; POIKILOCYTOSIS SLIGHT
[2017-11-17] MEDS: PANTOPRAZOLE SODIUM 40 MG SUSPDR.PKT PO SCH (07:30)
[2017-11-17] MEDS: NICOTINE 7 MG PATCH TOP SCH (09:00)
[2017-11-17] MEDS: AMLODIPINE BESYLATE 5 MG TAB PO SCH (09:19)
[2017-11-17] MEDS: SERTRALINE HCL 50 MG TAB GT SCH (09:19)
[2017-11-17] MEDS: BALSAM PERU/CASTOR OIL 60 GM OINT...G. TP SCH ×2 (09:19→16:41)
[2017-11-17] MEDS: THEOPHYLLINE 80 MG/15 ML SYRP GT SCH ×2 (09:19→16:41)
[2017-11-17] MEDS: ENOXAPARIN SOD INJ 40 MG/0.4 ML SYR SC SCH (09:19)
[2017-11-17] MEDS: METOPROLOL TARTRATE 25 MG TAB PO SCH ×2 (09:19→16:41)
[2017-11-17] MEDS: ACETAMINOPHEN 325 MG TAB PO PRN ×2 (12:02→20:39)
[2017-11-17] MEDS ORDERED: FUROSEMIDE INJ 10 MG/ML 4 ML VIAL IV NR (12:30)
--- NOTE | 2017-11-17 13:07 | Diagnostic Imaging Report ---
PROCEDURE: A single AP view of the chest. COMPARISON: 11/15/17 INDICATIONS: SOB, COPD, PNEUMONIA FINDINGS: Lines/tubes: None. Lungs: The lungs are well inflated. Central vascular congestion and mild interstitial edema. Pleura: There is no significant pleural effusion or pneumothorax. Heart and mediastinum: The heart and the mediastinum are unremarkable. Bones: No acute bony abnormality. IMPRESSION: Central vascular congestion and mild interstitial edema. Dictated by: Roland Cantu M.D. on 11/17/2017 at 13:10 Electronically approved by: Roland Cantu M.D. on 11/17/2017 at 13:10
[2017-11-17] MEDS: AZITHROMYCIN 500MG/NS 250 ML 250 ML IV SCH (20:34)
[2017-11-17] MEDS ORDERED: LISINOPRIL 2.5 MG TAB PO SCH (21:00)
[2017-11-18] VITALS (7 sets, daily range): BP systolic 166–180; BP diastolic 74–86
[2017-11-18] MEDS: CEFEPIME HCL 2 GM VIAL IV SCH ×2 (01:05→12:57)
[2017-11-18] MEDS: VANCOMYCIN HCL 1GM/NS 250 ML BAG IV SCH (02:46)
[2017-11-18] MEDS: ALBUTEROL SULF 0.083% NEB SOLN 3 ML NEB NEB SCH ×6 (03:15→23:20)
[2017-11-18] MEDS: IPRATROPIUM BROMIDE 0.02% 2.5 ML NEB NEB SCH ×6 (03:15→23:20)
[2017-11-18] MEDS: METHYLPREDNISOLONE SOD SUCC 40 MG/ML VIAL IV SCH ×2 (05:04→14:24)
[2017-11-18] MEDS: NYSTATIN 15 GM POWDER UD BTL TOP SCH ×2 (07:14→14:24)
[2017-11-18] MEDS: PANTOPRAZOLE SODIUM 40 MG SUSPDR.PKT PO SCH (07:30)
[2017-11-18] MEDS: ENOXAPARIN SOD INJ 40 MG/0.4 ML SYR SC SCH (09:00)
[2017-11-18] MEDS: NICOTINE 7 MG PATCH TOP SCH (09:00)
[2017-11-18] MEDS: THEOPHYLLINE 80 MG/15 ML SYRP GT SCH ×2 (09:00→17:33)
[2017-11-18] MEDS: AMLODIPINE BESYLATE 5 MG TAB PO SCH (09:00)
[2017-11-18] MEDS: SERTRALINE HCL 50 MG TAB GT SCH (09:00)
[2017-11-18] MEDS: METOPROLOL TARTRATE 25 MG TAB PO SCH ×2 (09:00→17:09)
[2017-11-18] MEDS: BALSAM PERU/CASTOR OIL 60 GM OINT...G. TP SCH ×2 (09:32→17:09)
[2017-11-18] MEDS ORDERED: FUROSEMIDE INJ 10 MG/ML 4 ML VIAL IV ONE (18:25)
[2017-11-18] MEDS: ACETAMINOPHEN 325 MG TAB PO PRN (18:45)
--- NOTE | 2017-11-18 20:08 | Progress Note ---
DATE: The patient has improved after Lasix. Chest x-ray was showing increased congestion, no pleural effusion. She is doing well. She denies any complaints. PHYSICAL EXAMINATION VITAL SIGNS: Temperature 98, pulse 98, blood pressure 163/74. CHEST: Reduced air entry bilaterally. HEART: S1 and S2 audible. ABDOMEN: Soft. EXTREMITIES: Trace pedal edema. NEUROLOGIC: Awake, alert. LABS: Reviewed. ASSESSMENT/PLAN: Ms. Weaver is a 52-year-old female with eikzd-yy-rximynr respiratory failure and chronic obstructive pulmonary disease. The patient was intubated, now extubated, doing well. Continue the patient on oxygen and nebulizer treatments. Diuretic, Lasix, was given. One dose of Lasix was given again. Continue the Solu-Medrol 20 mg IV q.8 h. The patient is on antibiotic for possible pneumonia. Sputum is finalized as usual interstitial trish. Blood cultures have been negative. I will discontinue vancomycin. Job#: [id number]
[2017-11-18] MEDS: LISINOPRIL 10 MG TAB PO SCH (21:32)
[2017-11-18] MEDS: AZITHROMYCIN 500MG/NS 250 ML 250 ML IV SCH (22:30)
[2017-11-19] MEDS: NYSTATIN 15 GM POWDER UD BTL TOP SCH ×4 (00:02→22:31)
[2017-11-19] MEDS: METHYLPREDNISOLONE SOD SUCC 40 MG/ML VIAL IV SCH ×3 (00:02→21:50)
[2017-11-19 00:16] VITALS: BP 134/61
[2017-11-19] MEDS: CEFEPIME HCL 2 GM VIAL IV SCH ×3 (01:11→23:49)
[2017-11-19] MEDS: ACETAMINOPHEN 325 MG TAB PO PRN ×2 (01:50→17:10)
[2017-11-19] MEDS: IPRATROPIUM BROMIDE 0.02% 2.5 ML NEB NEB SCH ×6 (03:10→23:15)
[2017-11-19] MEDS: ALBUTEROL SULF 0.083% NEB SOLN 3 ML NEB NEB SCH ×6 (03:10→23:15)
[2017-11-19 05:22] LABS: ANION GAP 10.2 mmol/L (8-16); BLOOD UREA NITROGEN 22 mg/dL (7-26); BUN/CREATININE RATIO 36 (6-25); CALCIUM 9.2 mg/dL (8.4-10.2); CHLORIDE 89 mmol/L (98-107); CREATININE, SERUM 0.61 mg/dL (0.57-1.11); EST GLOMERULAR FILTRATION RATE > 60 ML/MIN (60-); GLUCOSE 217 mg/dL (74-118); POTASSIUM 4.2 mmol/L (3.5-5.1); SODIUM 141 mmol/L (136-145)
[2017-11-19 05:23] LABS: CARBON DIOXIDE 46 mmol/L (22-29)
[2017-11-19 06:01] VITALS: BP 179/84
[2017-11-19 08:00] VITALS: BP 184/85
[2017-11-19 08:45] VITALS: BP 184/85
[2017-11-19] MEDS: THEOPHYLLINE 80 MG/15 ML SYRP GT SCH ×2 (08:45→17:06)
[2017-11-19] MEDS: PANTOPRAZOLE SODIUM 40 MG SUSPDR.PKT PO SCH (08:45)
[2017-11-19] MEDS: SERTRALINE HCL 50 MG TAB GT SCH (08:46)
[2017-11-19] MEDS: AMLODIPINE BESYLATE 10 MG TAB PO SCH (08:49)
[2017-11-19] MEDS: NICOTINE 7 MG PATCH TOP SCH (08:49)
[2017-11-19] MEDS: METOPROLOL TARTRATE 25 MG TAB PO SCH ×2 (08:49→17:06)
[2017-11-19] MEDS: ENOXAPARIN SOD INJ 40 MG/0.4 ML SYR SC SCH (08:49)
[2017-11-19] MEDS: BALSAM PERU/CASTOR OIL 60 GM OINT...G. TP SCH ×2 (08:49→17:06)
[2017-11-19] MEDS ORDERED: ACETAZOLAMIDE SODIUM 500 MG/VIAL IV ONE (10:15)
[2017-11-19 16:00] VITALS: BP 148/69
[2017-11-19] MEDS ORDERED: FUROSEMIDE INJ 10 MG/ML 4 ML VIAL IV ONE (18:30)
[2017-11-19 20:00] VITALS: BP 144/67
[2017-11-19] MEDS: AZITHROMYCIN 500MG/NS 250 ML 250 ML IV SCH (21:50)
[2017-11-19] MEDS: LISINOPRIL 10 MG TAB PO SCH (21:51)
[2017-11-20] VITALS (13 sets, daily range): BP systolic 127–167; BP diastolic 63–118
[2017-11-20] MEDS: IPRATROPIUM BROMIDE 0.02% 2.5 ML NEB NEB SCH ×5 (03:30→23:00)
[2017-11-20] MEDS: ALBUTEROL SULF 0.083% NEB SOLN 3 ML NEB NEB SCH ×5 (03:30→23:00)
[2017-11-20] MEDS: ACETAMINOPHEN 325 MG TAB PO PRN (04:59)
[2017-11-20] MEDS: NYSTATIN 15 GM POWDER UD BTL TOP SCH (06:39)
[2017-11-20] MEDS: SERTRALINE HCL 50 MG TAB GT SCH (09:00)
[2017-11-20] MEDS: THEOPHYLLINE 80 MG/15 ML SYRP GT SCH ×2 (09:00→17:39)
[2017-11-20] MEDS: PANTOPRAZOLE SODIUM 40 MG SUSPDR.PKT PO SCH (09:00)
[2017-11-20] MEDS: METHYLPREDNISOLONE SOD SUCC 40 MG/ML VIAL IV SCH (09:00)
[2017-11-20] MEDS: BUMETANIDE 1 MG TAB PO SCH (09:00)
[2017-11-20] MEDS: METOPROLOL TARTRATE 25 MG TAB PO SCH ×2 (09:00→17:39)
[2017-11-20] MEDS: NICOTINE 7 MG PATCH TOP SCH (09:00)
[2017-11-20] MEDS: BALSAM PERU/CASTOR OIL 60 GM OINT...G. TP SCH ×2 (09:01→17:38)
[2017-11-20] MEDS: AMLODIPINE BESYLATE 10 MG TAB PO SCH (09:01)
[2017-11-20] MEDS ORDERED: GENTAMICIN 80MG/NS 100 ML 0 ML IV ONE (11:16)
[2017-11-20] MEDS ORDERED: ACETYLCYSTEINE 20% INHAL SOLN 30 ML VIAL INH SCH (18:00)
[2017-11-20] MEDS: ACETYLCYSTEINE 200 MG/ML 4ML VIAL INH SCH (19:15)
[2017-11-20] MEDS: LISINOPRIL 10 MG TAB PO SCH (21:00)
[2017-11-20 21:34] LABS: ABG HCO3 46 mmol/L (23-28); ABG PCO2 114 mmHg (41-51); ABG PH 7.21 (7.31-7.41); ABG PO2 72 mmHg (80-105)
[2017-11-21] VITALS (51 sets, daily range): BP systolic 90–158; BP diastolic 36–101
[2017-11-21 00:51] LABS: ABG PH 7.37 (7.31-7.41)
[2017-11-21 00:52] LABS: ABG HCO3 47 mmol/L (23-28); ABG PCO2 82 mmHg (41-51); ABG PO2 91 mmHg (80-105)
[2017-11-21] MEDS: ACETYLCYSTEINE 200 MG/ML 4ML VIAL INH SCH ×2 (01:00→07:00)
[2017-11-21] MEDS: ACETAMINOPHEN 325 MG TAB PO PRN ×4 (02:16→21:37)
[2017-11-21] MEDS: ALBUTEROL SULF 0.083% NEB SOLN 3 ML NEB NEB SCH ×6 (03:00→23:15)
[2017-11-21] MEDS: IPRATROPIUM BROMIDE 0.02% 2.5 ML NEB NEB SCH ×6 (03:35→23:15)
[2017-11-21 05:42] LABS: ANION GAP 12.9 mmol/L (8-16); BLOOD UREA NITROGEN 23 mg/dL (7-26); BUN/CREATININE RATIO 42 (6-25); CALCIUM 9.2 mg/dL (8.4-10.2); CHLORIDE 87 mmol/L (98-107); CREATININE, SERUM 0.55 mg/dL (0.57-1.11); EST GLOMERULAR FILTRATION RATE > 60 ML/MIN (60-); GLUCOSE 112 mg/dL (74-118); POTASSIUM 3.9 mmol/L (3.5-5.1); SODIUM 139 mmol/L (136-145)
[2017-11-21 05:47] LABS: CARBON DIOXIDE 43 mmol/L (22-29)
[2017-11-21] MEDS: AMLODIPINE BESYLATE 10 MG TAB PO SCH (09:00)
[2017-11-21] MEDS ORDERED: PREDNISONE 10 MG TAB PO SCH (09:00)
[2017-11-21] MEDS: BUMETANIDE 1 MG TAB PO SCH (09:31)
[2017-11-21] MEDS: SERTRALINE HCL 50 MG TAB GT SCH (09:31)
[2017-11-21] MEDS: METOPROLOL TARTRATE 25 MG TAB PO SCH ×2 (09:31→17:31)
[2017-11-21] MEDS: THEOPHYLLINE 80 MG/15 ML SYRP GT SCH ×3 (09:31→21:29)
[2017-11-21] MEDS: PANTOPRAZOLE SODIUM 40 MG SUSPDR.PKT PO SCH (09:31)
[2017-11-21] MEDS: BALSAM PERU/CASTOR OIL 60 GM OINT...G. TP SCH ×2 (09:31→17:26)
[2017-11-21] MEDS: PREDNISONE 20 MG TAB PO SCH (09:31)
[2017-11-21] MEDS ORDERED: PANTOPRAZOLE SOD 40 MG TABEC ONE (09:34)
--- NOTE | 2017-11-21 10:24 | Diagnostic Imaging Report ---
PROCEDURE: CHEST SINGLE (PORTABLE) COMPARISON: Patients [facility], DX, CHEST SINGLE (PORTABLE), 11/17/2017, 12:37. INDICATIONS: SHORTNESS OF BREATH FINDINGS: LUNGS: Mild pulmonary vascular congestion persists. PLEURA: No effusions or pneumothorax. HEART \T\ MEDIASTINUM: The heart is within normal size-limits. BONES \T\ SOFT TISSUES: No acute findings. CONCLUSION: Mild pulmonary vascular congestion. Jaime Ewing D.O. Dictated by: Jaime Ewing D.O. on 11/21/2017 at 10:28 Electronically approved by: Jaime Ewing D.O. on 11/21/2017 at 10:28
[2017-11-21] MEDS: ENOXAPARIN SOD INJ 40 MG/0.4 ML SYR SC SCH (17:26)
[2017-11-21] MEDS ORDERED: HYDROCORTISONE SOD SUCCINATE 100 MG VIAL IV ONE (17:45)
[2017-11-21] MEDS ORDERED: GUAIFENESIN 200 MG/10 ML UDC PO PRN (17:45)
[2017-11-21] MEDS ORDERED: HYDROCORTISONE SOD SUCCINATE 100 MG VIAL ONE (18:13)
[2017-11-21] MEDS: LISINOPRIL 10 MG TAB PO SCH (21:29)
[2017-11-22] VITALS (35 sets, daily range): BP systolic 77–155; BP diastolic 52–89
[2017-11-22] MEDS: IPRATROPIUM BROMIDE 0.02% 2.5 ML NEB NEB SCH ×6 (02:35→22:15)
[2017-11-22] MEDS: ALBUTEROL SULF 0.083% NEB SOLN 3 ML NEB NEB SCH ×6 (02:35→22:15)
[2017-11-22 04:31] LABS: BASOPHILS % 0.1 % (0.0-1.0); EOSINOPHILS % 0.1 % (0.0-6.0); HEMATOCRIT 37.6 % (34.2-44.1); HEMOGLOBIN 11.1 g/dL (12.0-16.0); LYMPHOCYTES # (AUTO) 2.1 (1.0-3.2); LYMPHOCYTES % 12.3 % (18.0-39.1); MEAN CORPUSCULAR HEMOGLOBIN 25.6 pg (28-32); MEAN CORPUSCULAR HGB CONC 29.5 g/dL (31-35); MEAN CORPUSCULAR VOLUME 86.6 fL (81-99); MONOCYTES # (AUTO) 1.1 (0.2-0.8); MONOCYTES % 6.5 % (4.4-11.3); NEUTROPHILS # (AUTO) 13.3 (2.1-6.9); PLATELET COUNT 289 x10e3/uL (140-360); RED BLOOD COUNT 4.34 x10e6/uL (3.6-5.1); RED CELL DISTRIBUTION WIDTH 14.6 % (11.7-14.4)
[2017-11-22 04:52] LABS: ANION GAP 13.5 mmol/L (8-16); BLOOD UREA NITROGEN 25 mg/dL (7-26); BUN/CREATININE RATIO 53 (6-25); CARBON DIOXIDE 40 mmol/L (22-29); CHLORIDE 93 mmol/L (98-107); CREATININE, SERUM 0.47 mg/dL (0.57-1.11); EST GLOMERULAR FILTRATION RATE > 60 ML/MIN (60-); GLUCOSE 103 mg/dL (74-118); POTASSIUM 3.5 mmol/L (3.5-5.1); SODIUM 143 mmol/L (136-145)
[2017-11-22] MEDS: THEOPHYLLINE 80 MG/15 ML SYRP GT SCH ×3 (05:28→20:32)
--- NOTE | 2017-11-22 06:29 | Diagnostic Imaging Report ---
CHEST SINGLE (PORTABLE), 11/22/2017 7:00 AM Technique: CHEST SINGLE (PORTABLE) Comparison: 11/21/2017 Clinical history: Dyspnea Findings: See Impression. Several healed rib fractures. Impression: 1. Stable cardiomediastinal silhouette. 2. Minimal bibasilar vascular crowding or atelectasis. 3. No significant effusion. Signed by: Dr Ruba Caldwell MD on 11/22/2017 6:26 AM
[2017-11-22] MEDS: ACETAMINOPHEN 325 MG TAB PO PRN (07:43)
[2017-11-22] MEDS: PANTOPRAZOLE SOD 40 MG TABEC PO SCH (07:44)
[2017-11-22] MEDS: METOPROLOL TARTRATE 25 MG TAB PO SCH ×2 (08:04→16:52)
[2017-11-22] MEDS: SERTRALINE HCL 50 MG TAB GT SCH (08:04)
[2017-11-22] MEDS: BALSAM PERU/CASTOR OIL 60 GM OINT...G. TP SCH ×2 (08:04→16:51)
[2017-11-22] MEDS: BUMETANIDE 1 MG TAB PO SCH ×2 (08:04→16:51)
[2017-11-22] MEDS: PREDNISONE 20 MG TAB PO SCH (08:04)
[2017-11-22] MEDS: AMLODIPINE BESYLATE 10 MG TAB PO SCH (08:04)
--- NOTE | 2017-11-22 12:06 | Progress Note ---
DATE: NO DICTATION, LENGTH 0:4 Job#: [id number] RI
--- NOTE | 2017-11-22 12:22 | Progress Note ---
DATE: The patient is still in the ICU on BiPAP. Reports that breathing is a little better. Denies any chest pain. Denies shortness of breath. PHYSICAL EXAMINATION VITAL SIGNS: Temperature 97.7, pulse 120, blood pressure 148/88, respiratory rate 18-20. CHEST: Better air entry bilaterally. Crackles at the bases and reduced at the bases. HEART: S1 and S2 audible. ABDOMEN: Soft and nontender. EXTREMITIES: No pedal edema. LABS: Reviewed. BNP is 60 which was done on November 22, 2017. ASSESSMENT AND PLAN: Ms. Weaver is a 52-year-old female with severe chronic obstructive pulmonary disease and obstructive sleep apnea became hypercapnic. Again, the patient has a history of afdql-[id number] hypercapnic respiratory failure. PROBLEMS 1. Lcafh-cc-xepqaiw hypercapnic respiratory failure responding well to BiPAP: Will continue the patient on BiPAP. 2. Chest x-ray films reviewed: Some congestion. Brain natriuretic peptide is normal. Could possibly be new pneumonia. I will start the patient on intravenous Zosyn again. Change the steroids to intravenously. 3. The patient is already on Bumex, which will be continued for now: BiPAP as needed to keep the O2 sat more than or equal to 90%. Job#: [id number] MOHINDER
[2017-11-22] MEDS: MEROPENEM 1 GM VIAL IV SCH ×2 (13:17→21:12)
[2017-11-22] MEDS: METHYLPREDNISOLONE SOD SUCC 40 MG/ML VIAL IV SCH ×2 (13:17→21:12)
[2017-11-22] MEDS ORDERED: MEROPENEM 1GM 100 ML IV SCH (14:00)
[2017-11-22] MEDS ORDERED: THEOPHYLLINE 200 MG TABCR PO SCH (14:00)
[2017-11-22] MEDS ORDERED: PIPER-TAZ 3.375 GM 50 ML IV SCH (14:00)
[2017-11-22] MEDS: DEXMEDETOMIDINE HCL 200 MCG in SODIUM CHLORIDE 0.9% 50ML 48 ML IV PRN ×2 (14:40→20:30)
[2017-11-22] MEDS: ENOXAPARIN SOD INJ 40 MG/0.4 ML SYR SC SCH (16:51)
[2017-11-22] MEDS: LISINOPRIL 10 MG TAB PO SCH (21:00)
[2017-11-23] VITALS (32 sets, daily range): BP systolic 93–141; BP diastolic 49–84
[2017-11-23] MEDS: ALBUTEROL SULF 0.083% NEB SOLN 3 ML NEB NEB SCH ×6 (02:30→23:00)
[2017-11-23] MEDS: IPRATROPIUM BROMIDE 0.02% 2.5 ML NEB NEB SCH ×6 (02:30→23:00)
[2017-11-23 04:25] LABS: BASOPHILS % 0.1 % (0.0-1.0); HEMOGLOBIN 10.5 g/dL (12.0-16.0); LYMPHOCYTES # (AUTO) 0.6 (1.0-3.2); LYMPHOCYTES % 5.6 % (18.0-39.1); MEAN CORPUSCULAR HEMOGLOBIN 25.5 pg (28-32); MEAN CORPUSCULAR HGB CONC 29.2 g/dL (31-35); MEAN CORPUSCULAR VOLUME 87.6 fL (81-99); MONOCYTES # (AUTO) 0.4 (0.2-0.8); MONOCYTES % 3.4 % (4.4-11.3); NEUTROPHILS # (AUTO) 9.5 (2.1-6.9); NEUTROPHILS % 89.9 % (38.7-80.0); PLATELET COUNT 234 x10e3/uL (140-360); RED BLOOD COUNT 4.11 x10e6/uL (3.6-5.1); RED CELL DISTRIBUTION WIDTH 14.5 % (11.7-14.4)
[2017-11-23 04:47] LABS: ANION GAP 11.2 mmol/L (8-16); BLOOD UREA NITROGEN 23 mg/dL (7-26); BUN/CREATININE RATIO 43 (6-25); CALCIUM 9.4 mg/dL (8.4-10.2); CARBON DIOXIDE 40 mmol/L (22-29); CHLORIDE 92 mmol/L (98-107); CREATININE, SERUM 0.53 mg/dL (0.57-1.11); EST GLOMERULAR FILTRATION RATE > 60 ML/MIN (60-); GLUCOSE 174 mg/dL (74-118); POTASSIUM 4.2 mmol/L (3.5-5.1); SODIUM 139 mmol/L (136-145)
[2017-11-23] MEDS: THEOPHYLLINE 80 MG/15 ML SYRP GT SCH ×3 (05:24→22:01)
[2017-11-23] MEDS: MEROPENEM 1 GM VIAL IV SCH ×3 (05:24→22:01)
[2017-11-23] MEDS: METHYLPREDNISOLONE SOD SUCC 40 MG/ML VIAL IV SCH ×3 (05:24→22:01)
--- NOTE | 2017-11-23 06:28 | Diagnostic Imaging Report ---
CHEST SINGLE (PORTABLE), 11/23/2017 5:00 AM Technique: CHEST SINGLE (PORTABLE) Comparison: Previous day Clinical history: Follow-up pneumonia Findings: See Impression. Several healed rib fractures. Impression: 1. Stable cardiomediastinal silhouette. 2. Stable mild bibasilar opacity, which could reflect atelectasis, or aspiration/infection in the proper clinical context. 3. No significant effusion. Signed by: Dr Ruba Caldwell MD on 11/23/2017 6:25 AM
[2017-11-23] MEDS: DEXMEDETOMIDINE HCL 200 MCG in SODIUM CHLORIDE 0.9% 50ML 48 ML IV PRN ×4 (07:15→20:59)
[2017-11-23] MEDS: SERTRALINE HCL 50 MG TAB GT SCH (08:19)
[2017-11-23] MEDS: BUMETANIDE 1 MG TAB PO SCH ×2 (08:19→17:37)
[2017-11-23] MEDS: METOPROLOL TARTRATE 25 MG TAB PO SCH ×2 (08:19→17:37)
[2017-11-23] MEDS: PANTOPRAZOLE SOD 40 MG TABEC PO SCH (08:19)
[2017-11-23] MEDS: BALSAM PERU/CASTOR OIL 60 GM OINT...G. TP SCH ×2 (08:20→17:35)
[2017-11-23] MEDS: AMLODIPINE BESYLATE 10 MG TAB PO SCH (08:20)
[2017-11-23] MEDS ORDERED: DEXTROSE 50% SYRINGE 50 ML IV PRN (10:15)
[2017-11-23] MEDS: INSULIN LISPRO 100 UNIT/1 ML 3ML VIAL SQ SCH ×3 (10:54→22:02)
[2017-11-23] MEDS: ENOXAPARIN SOD INJ 40 MG/0.4 ML SYR SC SCH (17:37)
[2017-11-23] MEDS: ACETAMINOPHEN 325 MG TAB PO PRN ×2 (17:42→20:52)
[2017-11-23] MEDS: LISINOPRIL 10 MG TAB PO SCH (20:52)
[2017-11-24] VITALS (26 sets, daily range): BP systolic 99–164; BP diastolic 57–109
[2017-11-24] MEDS: IPRATROPIUM BROMIDE 0.02% 2.5 ML NEB NEB SCH ×6 (03:00→23:05)
[2017-11-24] MEDS: ALBUTEROL SULF 0.083% NEB SOLN 3 ML NEB NEB SCH ×6 (03:00→23:05)
[2017-11-24 04:40] LABS: BASOPHILS % 0.1 % (0.0-1.0); HEMATOCRIT 35.3 % (34.2-44.1); HEMOGLOBIN 10.9 g/dL (12.0-16.0); LYMPHOCYTES # (AUTO) 0.5 (1.0-3.2); MEAN CORPUSCULAR HEMOGLOBIN 26.1 pg (28-32); MEAN CORPUSCULAR HGB CONC 30.9 g/dL (31-35); MEAN CORPUSCULAR VOLUME 84.7 fL (81-99); MONOCYTES # (AUTO) 0.3 (0.2-0.8); MONOCYTES % 2.7 % (4.4-11.3); NEUTROPHILS # (AUTO) 10.7 (2.1-6.9); NEUTROPHILS % 92.3 % (38.7-80.0); PLATELET COUNT 231 x10e3/uL (140-360); RED BLOOD COUNT 4.17 x10e6/uL (3.6-5.1); RED CELL DISTRIBUTION WIDTH 14.5 % (11.7-14.4)
[2017-11-24 05:03] LABS: ANION GAP 15.3 mmol/L (8-16); BLOOD UREA NITROGEN 25 mg/dL (7-26); BUN/CREATININE RATIO 45 (6-25); CALCIUM 9.4 mg/dL (8.4-10.2); CARBON DIOXIDE 39 mmol/L (22-29); CHLORIDE 90 mmol/L (98-107); CREATININE, SERUM 0.55 mg/dL (0.57-1.11); EST GLOMERULAR FILTRATION RATE > 60 ML/MIN (60-); GLUCOSE 186 mg/dL (74-118); POTASSIUM 4.3 mmol/L (3.5-5.1); SODIUM 140 mmol/L (136-145)
[2017-11-24] MEDS: METHYLPREDNISOLONE SOD SUCC 40 MG/ML VIAL IV SCH ×2 (06:28→16:06)
[2017-11-24] MEDS: THEOPHYLLINE 80 MG/15 ML SYRP GT SCH (06:28)
[2017-11-24] MEDS: MEROPENEM 1 GM VIAL IV SCH ×3 (06:28→23:04)
--- NOTE | 2017-11-24 06:48 | Diagnostic Imaging Report ---
CHEST SINGLE (PORTABLE), 11/24/2017 5:00 AM Technique: CHEST SINGLE (PORTABLE) Comparison: Previous day Clinical history: Pneumonia, COPD Findings: See Impression. Several healed rib fractures. Impression: 1. Stable cardiomediastinal silhouette. 2. Stable mild bibasilar opacity, which could reflect atelectasis, or aspiration/infection in the proper clinical context. 3. No significant effusion. Signed by: Dr Ruba Caldwell MD on 11/24/2017 6:45 AM
[2017-11-24] MEDS: INSULIN LISPRO 100 UNIT/1 ML 3ML VIAL SQ SCH ×4 (09:22→21:00)
[2017-11-24] MEDS: PANTOPRAZOLE SOD 40 MG TABEC PO SCH (09:30)
[2017-11-24] MEDS: BUMETANIDE 1 MG TAB PO SCH ×2 (09:30→16:06)
[2017-11-24] MEDS: METOPROLOL TARTRATE 25 MG TAB PO SCH ×2 (09:30→16:47)
[2017-11-24] MEDS: SERTRALINE HCL 50 MG TAB GT SCH (09:30)
[2017-11-24] MEDS: AMLODIPINE BESYLATE 10 MG TAB PO SCH (09:30)
[2017-11-24] MEDS: BALSAM PERU/CASTOR OIL 60 GM OINT...G. TP SCH ×2 (10:12→16:06)
[2017-11-24] MEDS: QUETIAPINE FUMARATE 25 MG TAB PO SCH (14:05)
[2017-11-24] MEDS: ENOXAPARIN SOD INJ 40 MG/0.4 ML SYR SC SCH (16:06)
[2017-11-24] MEDS ORDERED: THEOPHYLLINE 80 MG/15 ML SYRP PO SCH (17:00)
[2017-11-24] MEDS ORDERED: THEOPHYLLINE 200 MG TABCR PO SCH (17:00)
[2017-11-24] MEDS: ACETAMINOPHEN 325 MG TAB PO PRN (19:03)
[2017-11-24] MEDS: LISINOPRIL 10 MG TAB PO SCH (20:59)
[2017-11-25] VITALS (21 sets, daily range): BP systolic 98–166; BP diastolic 64–101
[2017-11-25] MEDS: IPRATROPIUM BROMIDE 0.02% 2.5 ML NEB NEB SCH ×6 (03:45→22:45)
[2017-11-25] MEDS: ALBUTEROL SULF 0.083% NEB SOLN 3 ML NEB NEB SCH ×6 (03:45→22:45)
[2017-11-25] MEDS: MEROPENEM 1 GM VIAL IV SCH ×3 (05:59→22:58)
[2017-11-25] MEDS: PANTOPRAZOLE SOD 40 MG TABEC PO SCH (07:30)
[2017-11-25] MEDS: INSULIN LISPRO 100 UNIT/1 ML 3ML VIAL SQ SCH ×4 (07:30→21:00)
[2017-11-25] MEDS: SERTRALINE HCL 50 MG TAB GT SCH (08:39)
[2017-11-25] MEDS: BUMETANIDE 1 MG TAB PO SCH ×2 (08:40→17:00)
[2017-11-25] MEDS: METHYLPREDNISOLONE SOD SUCC 40 MG/ML VIAL IV SCH (08:40)
[2017-11-25] MEDS: METOPROLOL TARTRATE 25 MG TAB PO SCH ×2 (08:40→17:00)
[2017-11-25] MEDS: BALSAM PERU/CASTOR OIL 60 GM OINT...G. TP SCH ×2 (08:41→17:00)
[2017-11-25] MEDS: QUETIAPINE FUMARATE 25 MG TAB PO SCH ×2 (08:41→17:00)
[2017-11-25] MEDS: AMLODIPINE BESYLATE 10 MG TAB PO SCH (08:41)
[2017-11-25] MEDS: THEOPHYLLINE 200 MG TABCR PO SCH (08:41)
[2017-11-25] MEDS: ACETAMINOPHEN 325 MG TAB PO PRN ×2 (14:58→22:58)
[2017-11-25] MEDS: ENOXAPARIN SOD INJ 40 MG/0.4 ML SYR SC SCH (17:00)
[2017-11-25] MEDS: LISINOPRIL 10 MG TAB PO SCH (21:47)
[2017-11-26] VITALS (8 sets, daily range): BP systolic 125–161; BP diastolic 73–86
[2017-11-26] MEDS: ALBUTEROL SULF 0.083% NEB SOLN 3 ML NEB NEB SCH ×2 (02:35→07:20)
[2017-11-26] MEDS: IPRATROPIUM BROMIDE 0.02% 2.5 ML NEB NEB SCH ×6 (02:35→22:20)
[2017-11-26] MEDS: INSULIN LISPRO 100 UNIT/1 ML 3ML VIAL SQ SCH ×4 (07:30→20:42)
[2017-11-26] MEDS: PANTOPRAZOLE SOD 40 MG TABEC PO SCH (08:30)
[2017-11-26] MEDS: AMLODIPINE BESYLATE 10 MG TAB PO SCH (08:43)
[2017-11-26] MEDS: METHYLPREDNISOLONE SOD SUCC 40 MG/ML VIAL IV SCH (08:43)
[2017-11-26] MEDS: BUMETANIDE 1 MG TAB PO SCH ×2 (08:43→16:42)
[2017-11-26] MEDS: SERTRALINE HCL 50 MG TAB GT SCH (08:43)
[2017-11-26] MEDS: METOPROLOL TARTRATE 25 MG TAB PO SCH ×2 (08:43→16:42)
[2017-11-26] MEDS: QUETIAPINE FUMARATE 25 MG TAB PO SCH ×2 (08:44→16:42)
[2017-11-26] MEDS: THEOPHYLLINE 200 MG TABCR PO SCH (08:44)
[2017-11-26] MEDS: BALSAM PERU/CASTOR OIL 60 GM OINT...G. TP SCH ×2 (08:44→16:42)
[2017-11-26] MEDS: ACETAMINOPHEN 325 MG TAB PO PRN ×3 (08:53→21:57)
[2017-11-26] MEDS: LEVALBUTEROL HCL SOLN NEBU 1.25 MG/3 ML NEB INH SCH ×4 (10:35→22:20)
[2017-11-26] MEDS: MEROPENEM 1 GM VIAL IV SCH ×2 (14:00→21:25)
[2017-11-26] MEDS: ENOXAPARIN SOD INJ 40 MG/0.4 ML SYR SC SCH (16:42)
[2017-11-26] MEDS: LISINOPRIL 10 MG TAB PO SCH (20:42)
[2017-11-27] VITALS (8 sets, daily range): BP systolic 99–143; BP diastolic 65–80
[2017-11-27] MEDS: LEVALBUTEROL HCL SOLN NEBU 1.25 MG/3 ML NEB INH SCH ×6 (02:25→23:15)
[2017-11-27] MEDS: IPRATROPIUM BROMIDE 0.02% 2.5 ML NEB NEB SCH ×6 (02:25→23:10)
[2017-11-27] MEDS: MEROPENEM 1 GM VIAL IV SCH ×3 (05:02→21:13)
[2017-11-27] MEDS: ACETAMINOPHEN 325 MG TAB PO PRN ×3 (07:15→19:50)
[2017-11-27] MEDS: INSULIN LISPRO 100 UNIT/1 ML 3ML VIAL SQ SCH ×4 (07:30→21:13)
[2017-11-27] MEDS: THEOPHYLLINE 200 MG TABCR PO SCH (08:30)
[2017-11-27] MEDS: PANTOPRAZOLE SOD 40 MG TABEC PO SCH (08:30)
[2017-11-27] MEDS: METOPROLOL TARTRATE 25 MG TAB PO SCH ×2 (08:30→17:31)
[2017-11-27] MEDS: METHYLPREDNISOLONE SOD SUCC 40 MG/ML VIAL IV SCH (08:30)
[2017-11-27] MEDS: AMLODIPINE BESYLATE 10 MG TAB PO SCH (08:30)
[2017-11-27] MEDS: SERTRALINE HCL 50 MG TAB GT SCH (08:30)
[2017-11-27] MEDS: BUMETANIDE 1 MG TAB PO SCH ×2 (08:30→17:31)
[2017-11-27] MEDS: QUETIAPINE FUMARATE 25 MG TAB PO SCH ×2 (08:30→17:31)
[2017-11-27] MEDS: BALSAM PERU/CASTOR OIL 60 GM OINT...G. TP SCH ×2 (09:32→17:31)
[2017-11-27] MEDS: ENOXAPARIN SOD INJ 40 MG/0.4 ML SYR SC SCH (17:31)
[2017-11-27] MEDS: LISINOPRIL 10 MG TAB PO SCH (21:13)
[2017-11-28] MEDS: ACETAMINOPHEN 325 MG TAB PO PRN ×3 (02:45→16:17)
[2017-11-28] MEDS: LEVALBUTEROL HCL SOLN NEBU 1.25 MG/3 ML NEB INH SCH ×6 (03:20→23:10)
[2017-11-28] MEDS: IPRATROPIUM BROMIDE 0.02% 2.5 ML NEB NEB SCH ×6 (03:20→23:02)
[2017-11-28 04:42] VITALS: BP 103/75
[2017-11-28] MEDS: MEROPENEM 1 GM VIAL IV SCH ×3 (05:21→21:19)
[2017-11-28 07:30] VITALS: BP 124/92
[2017-11-28] MEDS: INSULIN LISPRO 100 UNIT/1 ML 3ML VIAL SQ SCH ×4 (07:30→21:00)
[2017-11-28] MEDS: PANTOPRAZOLE SOD 40 MG TABEC PO SCH (08:32)
[2017-11-28] MEDS: BUMETANIDE 1 MG TAB PO SCH ×2 (08:32→16:17)
[2017-11-28] MEDS: SERTRALINE HCL 50 MG TAB GT SCH (08:32)
[2017-11-28] MEDS: METHYLPREDNISOLONE SOD SUCC 40 MG/ML VIAL IV SCH (08:32)
[2017-11-28] MEDS: QUETIAPINE FUMARATE 25 MG TAB PO SCH ×2 (08:33→16:17)
[2017-11-28] MEDS: THEOPHYLLINE 200 MG TABCR PO SCH (08:33)
[2017-11-28] MEDS: METOPROLOL TARTRATE 25 MG TAB PO SCH ×2 (08:33→17:37)
[2017-11-28] MEDS: BALSAM PERU/CASTOR OIL 60 GM OINT...G. TP SCH ×2 (08:33→16:17)
[2017-11-28] MEDS: AMLODIPINE BESYLATE 10 MG TAB PO SCH (08:33)
[2017-11-28 11:30] VITALS: BP 103/62
[2017-11-28 17:05] VITALS: BP 121/70
[2017-11-28] MEDS: GUAIFENESIN 200 MG/10 ML UDC PO SCH ×2 (18:27→23:57)
[2017-11-28 19:00] VITALS: BP 118/74
[2017-11-28] MEDS: LISINOPRIL 10 MG TAB PO SCH (21:19)
[2017-11-28 23:00] VITALS: BP 124/78
[2017-11-29] MEDS: IPRATROPIUM BROMIDE 0.02% 2.5 ML NEB NEB SCH ×6 (03:26→23:20)
[2017-11-29] MEDS: LEVALBUTEROL HCL SOLN NEBU 1.25 MG/3 ML NEB INH SCH ×6 (03:26→23:20)
[2017-11-29 04:23] VITALS: BP 130/70
[2017-11-29 05:18] LABS: ANION GAP 12.7 mmol/L (8-16); BLOOD UREA NITROGEN 23 mg/dL (7-26); BUN/CREATININE RATIO 42 (6-25); CALCIUM 9.1 mg/dL (8.4-10.2); CARBON DIOXIDE 39 mmol/L (22-29); CHLORIDE 91 mmol/L (98-107); CREATININE, SERUM 0.55 mg/dL (0.57-1.11); EST GLOMERULAR FILTRATION RATE > 60 ML/MIN (60-); GLUCOSE 150 mg/dL (74-118); POTASSIUM 3.7 mmol/L (3.5-5.1); SODIUM 139 mmol/L (136-145)
[2017-11-29] MEDS: GUAIFENESIN 200 MG/10 ML UDC PO SCH ×3 (05:51→18:21)
[2017-11-29] MEDS: MEROPENEM 1 GM VIAL IV SCH (05:51)
[2017-11-29] MEDS: ACETAMINOPHEN 325 MG TAB PO PRN ×2 (05:51→18:22)
[2017-11-29] MEDS: INSULIN LISPRO 100 UNIT/1 ML 3ML VIAL SQ SCH ×4 (07:30→21:00)
[2017-11-29 08:00] VITALS: BP 115/69
[2017-11-29] MEDS: SERTRALINE HCL 50 MG TAB GT SCH (08:26)
[2017-11-29] MEDS: THEOPHYLLINE 200 MG TABCR PO SCH (08:26)
[2017-11-29] MEDS: METHYLPREDNISOLONE SOD SUCC 40 MG/ML VIAL IV SCH (08:26)
[2017-11-29] MEDS: METOPROLOL TARTRATE 25 MG TAB PO SCH ×2 (08:26→17:45)
[2017-11-29] MEDS: BUMETANIDE 1 MG TAB PO SCH ×2 (08:26→17:45)
[2017-11-29] MEDS: PANTOPRAZOLE SOD 40 MG TABEC PO SCH (08:26)
[2017-11-29] MEDS: BALSAM PERU/CASTOR OIL 60 GM OINT...G. TP SCH ×2 (08:26→18:21)
[2017-11-29] MEDS: QUETIAPINE FUMARATE 25 MG TAB PO SCH ×2 (08:26→17:45)
[2017-11-29] MEDS: AMLODIPINE BESYLATE 10 MG TAB PO SCH (08:26)
[2017-11-29 11:30] VITALS: BP 112/66
[2017-11-29 16:00] VITALS: BP 141/88
[2017-11-29 20:00] VITALS: BP_SYST 138; BP_SYST 141; BP_DIAS 80; BP_DIAS 88
[2017-11-29] MEDS: LISINOPRIL 10 MG TAB PO SCH (22:52)
[2017-11-30 00:18] VITALS: BP 109/52
[2017-11-30] MEDS: GUAIFENESIN 200 MG/10 ML UDC PO SCH ×4 (00:23→17:03)
[2017-11-30] MEDS: LEVALBUTEROL HCL SOLN NEBU 1.25 MG/3 ML NEB INH SCH ×6 (03:01→23:02)
[2017-11-30] MEDS: IPRATROPIUM BROMIDE 0.02% 2.5 ML NEB NEB SCH ×6 (03:01→23:02)
[2017-11-30 06:00] VITALS: BP_SYST 112; BP_SYST 131; BP_DIAS 76; BP_DIAS 79
[2017-11-30] MEDS: INSULIN LISPRO 100 UNIT/1 ML 3ML VIAL SQ SCH ×4 (07:30→19:57)
[2017-11-30 08:00] VITALS: BP 119/68
[2017-11-30] MEDS: PANTOPRAZOLE SOD 40 MG TABEC PO SCH (08:30)
[2017-11-30] MEDS: BUMETANIDE 1 MG TAB PO SCH ×2 (08:45→17:03)
[2017-11-30] MEDS: SERTRALINE HCL 50 MG TAB GT SCH (08:45)
[2017-11-30] MEDS: THEOPHYLLINE 200 MG TABCR PO SCH (08:46)
[2017-11-30] MEDS: AMLODIPINE BESYLATE 10 MG TAB PO SCH (08:46)
[2017-11-30] MEDS: BALSAM PERU/CASTOR OIL 60 GM OINT...G. TP SCH ×2 (08:46→17:03)
[2017-11-30] MEDS: PREDNISONE 10 MG TAB PO SCH (08:46)
[2017-11-30] MEDS: QUETIAPINE FUMARATE 25 MG TAB PO SCH ×2 (08:46→17:03)
[2017-11-30] MEDS: METOPROLOL TARTRATE 25 MG TAB PO SCH ×2 (08:46→17:03)
[2017-11-30 12:00] VITALS: BP 108/85
[2017-11-30 16:00] VITALS: BP_SYST 108; BP_SYST 113; BP_DIAS 60; BP_DIAS 85
[2017-11-30] MEDS: LISINOPRIL 10 MG TAB PO SCH (19:58)
[2017-11-30 20:00] VITALS: BP 113/79
[2017-12-01] VITALS (8 sets, daily range): BP systolic 109–149; BP diastolic 46–84
[2017-12-01] MEDS: ACETAMINOPHEN 325 MG TAB PO PRN ×3 (02:45→19:35)
[2017-12-01] MEDS: LEVALBUTEROL HCL SOLN NEBU 1.25 MG/3 ML NEB INH SCH ×6 (02:50→22:56)
[2017-12-01] MEDS: IPRATROPIUM BROMIDE 0.02% 2.5 ML NEB NEB SCH ×6 (02:50→22:56)
[2017-12-01] MEDS: GUAIFENESIN 200 MG/10 ML UDC PO SCH ×5 (07:03→23:44)
[2017-12-01] MEDS: INSULIN LISPRO 100 UNIT/1 ML 3ML VIAL SQ SCH ×3 (07:30→16:30)
[2017-12-01] MEDS: PANTOPRAZOLE SOD 40 MG TABEC PO SCH (08:30)
[2017-12-01] MEDS: BUMETANIDE 1 MG TAB PO SCH ×2 (09:10→17:17)
[2017-12-01] MEDS: SERTRALINE HCL 50 MG TAB GT SCH (09:10)
[2017-12-01] MEDS: THEOPHYLLINE 200 MG TABCR PO SCH (09:11)
[2017-12-01] MEDS: PREDNISONE 10 MG TAB PO SCH (09:11)
[2017-12-01] MEDS: AMLODIPINE BESYLATE 10 MG TAB PO SCH (09:11)
[2017-12-01] MEDS: METOPROLOL TARTRATE 25 MG TAB PO SCH ×2 (09:11→17:17)
[2017-12-01] MEDS: QUETIAPINE FUMARATE 25 MG TAB PO SCH ×2 (09:11→17:17)
[2017-12-01] MEDS: BALSAM PERU/CASTOR OIL 60 GM OINT...G. TP SCH ×2 (10:22→17:18)
[2017-12-01 10:47] LABS: ABG HCO3 41 mmol/L (23-28); ABG PCO2 58 mmHg (41-51); ABG PH 7.46 (7.31-7.41); ABG PO2 94 mmHg (80-105)
[2017-12-01] MEDS: LISINOPRIL 10 MG TAB PO SCH (20:39)
[2017-12-02] VITALS (8 sets, daily range): BP systolic 104–126; BP diastolic 61–74
[2017-12-02] MEDS: LEVALBUTEROL HCL SOLN NEBU 1.25 MG/3 ML NEB INH SCH ×7 (02:50→23:40)
[2017-12-02] MEDS: IPRATROPIUM BROMIDE 0.02% 2.5 ML NEB NEB SCH ×7 (02:50→23:40)
[2017-12-02] MEDS: PANTOPRAZOLE SOD 40 MG TABEC PO SCH (08:37)
[2017-12-02] MEDS: THEOPHYLLINE 200 MG TABCR PO SCH (08:37)
[2017-12-02] MEDS: PREDNISONE 10 MG TAB PO SCH (08:37)
[2017-12-02] MEDS: SERTRALINE HCL 50 MG TAB GT SCH (08:37)
[2017-12-02] MEDS: BALSAM PERU/CASTOR OIL 60 GM OINT...G. TP SCH ×2 (08:37→18:17)
[2017-12-02] MEDS: QUETIAPINE FUMARATE 25 MG TAB PO SCH ×2 (08:37→18:16)
[2017-12-02] MEDS: METOPROLOL TARTRATE 25 MG TAB PO SCH ×2 (08:37→17:00)
[2017-12-02] MEDS: AMLODIPINE BESYLATE 10 MG TAB PO SCH (08:37)
[2017-12-02] MEDS: BUMETANIDE 1 MG TAB PO SCH ×2 (08:37→18:16)
[2017-12-02] MEDS: ACETAMINOPHEN 325 MG TAB PO PRN ×3 (08:42→18:21)
[2017-12-02] MEDS ORDERED: ACETAZOLAMIDE 250 MG TAB PO SCH (09:45)
[2017-12-02] MEDS: GUAIFENESIN 200 MG/10 ML UDC PO SCH ×2 (13:00→18:15)
[2017-12-02] MEDS ORDERED: DEXTROSE 50% SYRINGE 50 ML IV PRN (18:15)
--- NOTE | 2017-12-02 18:23 | Diagnostic Imaging Report ---
PROCEDURE: A single AP view of the chest. COMPARISON: Patients [facility], , CHEST SINGLE (PORTABLE), 11/24/2017, 5:40. INDICATIONS: SHORTNESS OF BREATH FINDINGS: Lines/tubes: None. Lungs: The lungs are well inflated and clear. There is no evidence of pneumonia or pulmonary edema. Pleura: There is no pleural effusion or pneumothorax. Heart and mediastinum: The heart and the mediastinum are unremarkable. Bones: No acute bony abnormality. IMPRESSION: 1. No acute cardiopulmonary abnormalities. Bo Hua M.D. Dictated by: Bo Hua M.D. on 12/02/2017 at 18:28 Electronically approved by: Bo Hua M.D. on 12/02/2017 at 18:28
[2017-12-02] MEDS: LISINOPRIL 10 MG TAB PO SCH (21:00)
[2017-12-02] MEDS: INSULIN LISPRO 100 UNIT/1 ML 3ML VIAL SQ SCH (21:00)
[2017-12-02] MEDS: METHYLPREDNISOLONE SOD SUCC 40 MG/ML VIAL IV SCH (21:10)
[2017-12-03] MEDS: GUAIFENESIN 200 MG/10 ML UDC PO SCH ×4 (00:23→17:20)
[2017-12-03] MEDS: LEVALBUTEROL HCL SOLN NEBU 1.25 MG/3 ML NEB INH SCH ×6 (03:16→23:02)
[2017-12-03] MEDS: IPRATROPIUM BROMIDE 0.02% 2.5 ML NEB NEB SCH ×6 (03:16→23:02)
[2017-12-03 04:40] VITALS: BP 128/83
[2017-12-03 05:34] LABS: ANION GAP 12.2 mmol/L (8-16); BLOOD UREA NITROGEN 25 mg/dL (7-26); BUN/CREATININE RATIO 40 (6-25); CALCIUM 9.6 mg/dL (8.4-10.2); CARBON DIOXIDE 31 mmol/L (22-29); CHLORIDE 97 mmol/L (98-107); CREATININE, SERUM 0.62 mg/dL (0.57-1.11); EST GLOMERULAR FILTRATION RATE > 60 ML/MIN (60-); GLUCOSE 171 mg/dL (74-118); POTASSIUM 4.2 mmol/L (3.5-5.1); SODIUM 136 mmol/L (136-145)
[2017-12-03] MEDS: METHYLPREDNISOLONE SOD SUCC 40 MG/ML VIAL IV SCH ×2 (06:24→20:27)
[2017-12-03 08:00] VITALS: BP 145/81
[2017-12-03 08:17] VITALS: BP 145/81
[2017-12-03] MEDS: INSULIN LISPRO 100 UNIT/1 ML 3ML VIAL SQ SCH ×4 (08:33→20:28)
[2017-12-03] MEDS: PANTOPRAZOLE SOD 40 MG TABEC PO SCH (08:37)
[2017-12-03] MEDS: SERTRALINE HCL 50 MG TAB GT SCH (08:37)
[2017-12-03] MEDS: BUMETANIDE 1 MG TAB PO SCH ×2 (08:38→17:20)
[2017-12-03] MEDS: METOPROLOL TARTRATE 25 MG TAB PO SCH ×2 (08:39→17:20)
[2017-12-03] MEDS: PREDNISONE 10 MG TAB PO SCH (08:39)
[2017-12-03] MEDS: BALSAM PERU/CASTOR OIL 60 GM OINT...G. TP SCH ×2 (08:39→17:20)
[2017-12-03] MEDS: THEOPHYLLINE 200 MG TABCR PO SCH (08:39)
[2017-12-03] MEDS: QUETIAPINE FUMARATE 25 MG TAB PO SCH ×2 (08:39→17:20)
[2017-12-03] MEDS: AMLODIPINE BESYLATE 10 MG TAB PO SCH (08:39)
[2017-12-03 09:20] LABS: ANION GAP 12.3 mmol/L (8-16); BLOOD UREA NITROGEN 26 mg/dL (7-26); BUN/CREATININE RATIO 41 (6-25); CALCIUM 9.6 mg/dL (8.4-10.2); CARBON DIOXIDE 30 mmol/L (22-29); CHLORIDE 98 mmol/L (98-107); CREATININE, SERUM 0.63 mg/dL (0.57-1.11); EST GLOMERULAR FILTRATION RATE > 60 ML/MIN (60-); GLUCOSE 245 mg/dL (74-118); POTASSIUM 4.3 mmol/L (3.5-5.1); SODIUM 136 mmol/L (136-145)
[2017-12-03] MEDS: ACETAMINOPHEN 325 MG TAB PO PRN ×3 (09:26→20:28)
[2017-12-03 11:39] VITALS: BP 127/77
[2017-12-03 16:30] VITALS: BP 132/83
[2017-12-03 20:06] VITALS: BP 127/69
[2017-12-03] MEDS: LISINOPRIL 10 MG TAB PO SCH (20:28)
[2017-12-04 00:02] VITALS: BP 119/56
[2017-12-04] MEDS: GUAIFENESIN 200 MG/10 ML UDC PO SCH ×4 (00:02→18:28)
[2017-12-04 00:03] VITALS: BP 119/56
[2017-12-04] MEDS: IPRATROPIUM BROMIDE 0.02% 2.5 ML NEB NEB SCH ×6 (03:10→22:40)
[2017-12-04] MEDS: LEVALBUTEROL HCL SOLN NEBU 1.25 MG/3 ML NEB INH SCH ×6 (03:10→22:40)
[2017-12-04] MEDS: INSULIN LISPRO 100 UNIT/1 ML 3ML VIAL SQ SCH ×4 (08:00→21:00)
[2017-12-04 08:02] VITALS: BP 126/77
[2017-12-04] MEDS: METHYLPREDNISOLONE SOD SUCC 40 MG/ML VIAL IV SCH ×2 (08:39→21:37)
[2017-12-04] MEDS: AMLODIPINE BESYLATE 10 MG TAB PO SCH (08:39)
[2017-12-04] MEDS: METOPROLOL TARTRATE 25 MG TAB PO SCH ×2 (08:39→16:41)
[2017-12-04] MEDS: SERTRALINE HCL 50 MG TAB GT SCH (08:39)
[2017-12-04] MEDS: BUMETANIDE 1 MG TAB PO SCH ×2 (08:39→16:41)
[2017-12-04] MEDS: QUETIAPINE FUMARATE 25 MG TAB PO SCH ×2 (08:40→16:41)
[2017-12-04] MEDS: PREDNISONE 10 MG TAB PO SCH (08:40)
[2017-12-04] MEDS: THEOPHYLLINE 200 MG TABCR PO SCH (08:40)
[2017-12-04] MEDS: BALSAM PERU/CASTOR OIL 60 GM OINT...G. TP SCH ×2 (08:40→16:41)
[2017-12-04] MEDS: PANTOPRAZOLE SOD 40 MG TABEC PO SCH (08:41)
[2017-12-04] MEDS: ACETAMINOPHEN 325 MG TAB PO PRN ×2 (09:47→19:45)
[2017-12-04 16:00] VITALS: BP_DIAS 122
[2017-12-04 20:00] VITALS: BP_SYST 114; BP_SYST 122; BP_DIAS 69; BP_DIAS 73
[2017-12-04] MEDS: LISINOPRIL 10 MG TAB PO SCH (21:00)
[2017-12-05] VITALS (8 sets, daily range): BP systolic 101–160; BP diastolic 62–95
[2017-12-05] MEDS: GUAIFENESIN 200 MG/10 ML UDC PO SCH ×5 (00:52→23:28)
[2017-12-05] MEDS: LEVALBUTEROL HCL SOLN NEBU 1.25 MG/3 ML NEB INH SCH ×6 (02:15→23:00)
[2017-12-05] MEDS: IPRATROPIUM BROMIDE 0.02% 2.5 ML NEB NEB SCH ×6 (02:15→23:00)
[2017-12-05] MEDS: INSULIN LISPRO 100 UNIT/1 ML 3ML VIAL SQ SCH ×4 (07:30→20:57)
[2017-12-05] MEDS: PANTOPRAZOLE SOD 40 MG TABEC PO SCH (08:30)
[2017-12-05] MEDS: SERTRALINE HCL 50 MG TAB GT SCH (08:49)
[2017-12-05] MEDS: BUMETANIDE 1 MG TAB PO SCH ×2 (08:49→17:51)
[2017-12-05] MEDS: METHYLPREDNISOLONE SOD SUCC 40 MG/ML VIAL IV SCH (08:49)
[2017-12-05] MEDS: METOPROLOL TARTRATE 25 MG TAB PO SCH ×2 (08:50→17:51)
[2017-12-05] MEDS: THEOPHYLLINE 200 MG TABCR PO SCH (08:50)
[2017-12-05] MEDS: AMLODIPINE BESYLATE 10 MG TAB PO SCH (08:50)
[2017-12-05] MEDS: PREDNISONE 10 MG TAB PO SCH (08:50)
[2017-12-05] MEDS: BALSAM PERU/CASTOR OIL 60 GM OINT...G. TP SCH ×2 (08:50→17:52)
[2017-12-05] MEDS: QUETIAPINE FUMARATE 25 MG TAB PO SCH ×2 (08:50→17:51)
[2017-12-05] MEDS: ACETAMINOPHEN 325 MG TAB PO PRN ×3 (10:05→23:28)
[2017-12-05 10:21] LABS: BASOPHILS % 0.2 % (0.0-1.0); HEMATOCRIT 37.7 % (34.2-44.1); HEMOGLOBIN 11.9 g/dL (12.0-16.0); LYMPHOCYTES # (AUTO) 0.8 (1.0-3.2); LYMPHOCYTES % 4.7 % (18.0-39.1); MEAN CORPUSCULAR HGB CONC 31.6 g/dL (31-35); MEAN CORPUSCULAR VOLUME 82.5 fL (81-99); MONOCYTES # (AUTO) 0.7 (0.2-0.8); MONOCYTES % 3.9 % (4.4-11.3); NEUTROPHILS # (AUTO) 15.2 (2.1-6.9); NEUTROPHILS % 90.1 % (38.7-80.0); PLATELET COUNT 346 x10e3/uL (140-360); RED BLOOD COUNT 4.57 x10e6/uL (3.6-5.1); RED CELL DISTRIBUTION WIDTH 14.2 % (11.7-14.4)
[2017-12-05] MEDS: LISINOPRIL 10 MG TAB PO SCH (20:57)
[2017-12-06] MEDS: IPRATROPIUM BROMIDE 0.02% 2.5 ML NEB NEB SCH ×6 (00:45→20:40)
[2017-12-06] MEDS: LEVALBUTEROL HCL SOLN NEBU 1.25 MG/3 ML NEB INH SCH ×6 (00:45→20:40)
[2017-12-06 04:55] VITALS: BP 104/66
[2017-12-06 05:19] LABS: BASOPHILS % 0.1 % (0.0-1.0); EOSINOPHILS % 0.1 % (0.0-6.0); HEMATOCRIT 36.4 % (34.2-44.1); HEMOGLOBIN 11.4 g/dL (12.0-16.0); LYMPHOCYTES # (AUTO) 2.9 (1.0-3.2); LYMPHOCYTES % 24.5 % (18.0-39.1); MEAN CORPUSCULAR HEMOGLOBIN 26.2 pg (28-32); MEAN CORPUSCULAR HGB CONC 31.3 g/dL (31-35); MEAN CORPUSCULAR VOLUME 83.7 fL (81-99); MONOCYTES # (AUTO) 0.8 (0.2-0.8); MONOCYTES % 6.7 % (4.4-11.3); NEUTROPHILS % 67.4 % (38.7-80.0); PLATELET COUNT 279 x10e3/uL (140-360); RED BLOOD COUNT 4.35 x10e6/uL (3.6-5.1); RED CELL DISTRIBUTION WIDTH 14.5 % (11.7-14.4)
[2017-12-06 05:42] LABS: ANION GAP 15.3 mmol/L (8-16); BLOOD UREA NITROGEN 26 mg/dL (7-26); BUN/CREATININE RATIO 42 (6-25); CALCIUM 9.3 mg/dL (8.4-10.2); CARBON DIOXIDE 40 mmol/L (22-29); CHLORIDE 91 mmol/L (98-107); CREATININE, SERUM 0.62 mg/dL (0.57-1.11); EST GLOMERULAR FILTRATION RATE > 60 ML/MIN (60-); GLUCOSE 116 mg/dL (74-118); POTASSIUM 3.3 mmol/L (3.5-5.1); SODIUM 143 mmol/L (136-145)
[2017-12-06] MEDS: GUAIFENESIN 200 MG/10 ML UDC PO SCH ×4 (06:27→23:49)
[2017-12-06] MEDS ORDERED: POTASSIUM CHLORIDE 10 MEQ TABCR PO ONE (06:45)
[2017-12-06 07:00] VITALS: BP 116/68
[2017-12-06] MEDS: INSULIN LISPRO 100 UNIT/1 ML 3ML VIAL SQ SCH ×4 (07:16→21:00)
[2017-12-06] MEDS: BUMETANIDE 1 MG TAB PO SCH (08:16)
[2017-12-06] MEDS: PANTOPRAZOLE SOD 40 MG TABEC PO SCH (08:16)
[2017-12-06] MEDS: QUETIAPINE FUMARATE 25 MG TAB PO SCH ×2 (08:16→16:41)
[2017-12-06] MEDS: THEOPHYLLINE 200 MG TABCR PO SCH (08:16)
[2017-12-06] MEDS: METOPROLOL TARTRATE 25 MG TAB PO SCH ×2 (08:16→16:41)
[2017-12-06] MEDS: METHYLPREDNISOLONE SOD SUCC 40 MG/ML VIAL IV SCH (08:16)
[2017-12-06] MEDS: SERTRALINE HCL 50 MG TAB GT SCH (08:16)
[2017-12-06] MEDS: BALSAM PERU/CASTOR OIL 60 GM OINT...G. TP SCH ×2 (08:17→16:41)
[2017-12-06] MEDS: AMLODIPINE BESYLATE 10 MG TAB PO SCH (08:17)
[2017-12-06 11:30] VITALS: BP 118/63
[2017-12-06] MEDS: ACETAMINOPHEN 325 MG TAB PO PRN ×2 (12:14→21:20)
[2017-12-06 20:05] VITALS: BP 101/56
[2017-12-06] MEDS: LISINOPRIL 10 MG TAB PO SCH (21:00)
[2017-12-07] VITALS (7 sets, daily range): BP systolic 113–141; BP diastolic 62–78
[2017-12-07] MEDS: IPRATROPIUM BROMIDE 0.02% 2.5 ML NEB NEB SCH ×6 (03:45→22:45)
[2017-12-07] MEDS: LEVALBUTEROL HCL SOLN NEBU 1.25 MG/3 ML NEB INH SCH ×6 (03:45→22:45)
[2017-12-07] MEDS: GUAIFENESIN 200 MG/10 ML UDC PO SCH ×3 (06:25→17:20)
[2017-12-07] MEDS: ACETAMINOPHEN 325 MG TAB PO PRN ×2 (06:40→21:00)
[2017-12-07] MEDS: METHYLPREDNISOLONE SOD SUCC 40 MG/ML VIAL IV SCH (08:00)
[2017-12-07] MEDS: PANTOPRAZOLE SOD 40 MG TABEC PO SCH (08:00)
[2017-12-07] MEDS: INSULIN LISPRO 100 UNIT/1 ML 3ML VIAL SQ SCH ×4 (08:00→21:00)
[2017-12-07] MEDS: THEOPHYLLINE 200 MG TABCR PO SCH (08:46)
[2017-12-07] MEDS: METOPROLOL TARTRATE 25 MG TAB PO SCH ×2 (08:46→17:20)
[2017-12-07] MEDS: BALSAM PERU/CASTOR OIL 60 GM OINT...G. TP SCH ×2 (08:46→17:20)
[2017-12-07] MEDS: QUETIAPINE FUMARATE 25 MG TAB PO SCH ×2 (08:46→17:20)
[2017-12-07] MEDS: AMLODIPINE BESYLATE 10 MG TAB PO SCH (08:46)
[2017-12-07] MEDS: SERTRALINE HCL 50 MG TAB GT SCH (08:46)
[2017-12-07] MEDS: BUMETANIDE 1 MG TAB PO SCH (08:46)
[2017-12-07] MEDS: LISINOPRIL 10 MG TAB PO SCH (21:00)
[2017-12-08] VITALS (9 sets, daily range): BP systolic 94–134; BP diastolic 57–81
[2017-12-08] MEDS: GUAIFENESIN 200 MG/10 ML UDC PO SCH ×5 (00:10→23:38)
[2017-12-08] MEDS: LEVALBUTEROL HCL SOLN NEBU 1.25 MG/3 ML NEB INH SCH ×6 (02:40→22:50)
[2017-12-08] MEDS: IPRATROPIUM BROMIDE 0.02% 2.5 ML NEB NEB SCH ×6 (02:40→22:50)
[2017-12-08] MEDS: PANTOPRAZOLE SOD 40 MG TABEC PO SCH (07:30)
[2017-12-08] MEDS: INSULIN LISPRO 100 UNIT/1 ML 3ML VIAL SQ SCH ×4 (07:30→20:26)
[2017-12-08] MEDS: METHYLPREDNISOLONE SOD SUCC 40 MG/ML VIAL IV SCH (07:30)
[2017-12-08] MEDS: ACETAMINOPHEN 325 MG TAB PO PRN ×3 (08:00→19:13)
[2017-12-08] MEDS: SERTRALINE HCL 50 MG TAB GT SCH (08:51)
[2017-12-08] MEDS: METOPROLOL TARTRATE 25 MG TAB PO SCH ×2 (08:51→17:23)
[2017-12-08] MEDS: AMLODIPINE BESYLATE 10 MG TAB PO SCH (08:51)
[2017-12-08] MEDS: BUMETANIDE 1 MG TAB PO SCH (08:51)
[2017-12-08] MEDS: BALSAM PERU/CASTOR OIL 60 GM OINT...G. TP SCH ×2 (08:51→17:23)
[2017-12-08] MEDS: QUETIAPINE FUMARATE 25 MG TAB PO SCH ×2 (08:51→17:23)
[2017-12-08] MEDS: THEOPHYLLINE 200 MG TABCR PO SCH (08:51)
[2017-12-08] MEDS: DOXYCYCLINE HYCLATE TABLET 100 MG TAB PO SCH ×2 (10:27→20:25)
[2017-12-08] MEDS: LISINOPRIL 10 MG TAB PO SCH (20:25)
--- NOTE | 2017-12-08 21:33 | Diagnostic Imaging Report ---
CHEST 2 VIEWS, Technique: CHEST 2 VIEWS Comparison: 11/24/2017, 05/02/2016 Clinical history: Cough DISCUSSION: Stable mildly enlarged cardiomediastinal silhouette. Unchanged right middle lobe scarring and prominent epicardial fat. There is no consolidation or edema. No pleural effusion or pneumothorax. IMPRESSION: No acute abnormality Signed by: Dr Ruba Caldwell MD on 12/08/2017 9:30 PM
[2017-12-09] VITALS (7 sets, daily range): BP systolic 123–170; BP diastolic 72–88
[2017-12-09] MEDS: LEVALBUTEROL HCL SOLN NEBU 1.25 MG/3 ML NEB INH SCH ×6 (03:02→23:55)
[2017-12-09] MEDS: IPRATROPIUM BROMIDE 0.02% 2.5 ML NEB NEB SCH ×6 (03:02→23:55)
[2017-12-09] MEDS: GUAIFENESIN 200 MG/10 ML UDC PO SCH ×3 (05:53→18:46)
[2017-12-09] MEDS: INSULIN LISPRO 100 UNIT/1 ML 3ML VIAL SQ SCH ×4 (07:30→20:45)
[2017-12-09] MEDS: METHYLPREDNISOLONE SOD SUCC 40 MG/ML VIAL IV SCH (07:38)
[2017-12-09] MEDS: PANTOPRAZOLE SOD 40 MG TABEC PO SCH (07:38)
[2017-12-09] MEDS: BUMETANIDE 1 MG TAB PO SCH (07:57)
[2017-12-09] MEDS: QUETIAPINE FUMARATE 25 MG TAB PO SCH ×2 (07:57→17:57)
[2017-12-09] MEDS: DOXYCYCLINE HYCLATE TABLET 100 MG TAB PO SCH ×2 (07:57→20:39)
[2017-12-09] MEDS: THEOPHYLLINE 200 MG TABCR PO SCH (07:58)
[2017-12-09] MEDS: SERTRALINE HCL 50 MG TAB GT SCH (07:58)
[2017-12-09] MEDS: AMLODIPINE BESYLATE 10 MG TAB PO SCH (08:06)
[2017-12-09] MEDS: METOPROLOL TARTRATE 25 MG TAB PO SCH ×2 (08:06→17:58)
[2017-12-09] MEDS: BALSAM PERU/CASTOR OIL 60 GM OINT...G. TP SCH ×2 (08:36→17:57)
[2017-12-09] MEDS: ACETAMINOPHEN 325 MG TAB PO PRN ×2 (08:36→15:46)
[2017-12-09] MEDS: LISINOPRIL 10 MG TAB PO SCH (20:39)
[2017-12-10] VITALS (8 sets, daily range): BP systolic 115–165; BP diastolic 59–95
[2017-12-10] MEDS: GUAIFENESIN 200 MG/10 ML UDC PO SCH ×4 (00:28→23:17)
[2017-12-10] MEDS: LEVALBUTEROL HCL SOLN NEBU 1.25 MG/3 ML NEB INH SCH ×6 (03:30→22:50)
[2017-12-10] MEDS: IPRATROPIUM BROMIDE 0.02% 2.5 ML NEB NEB SCH ×6 (03:30→22:50)
[2017-12-10] MEDS: INSULIN LISPRO 100 UNIT/1 ML 3ML VIAL SQ SCH ×4 (07:30→20:33)
[2017-12-10] MEDS: BALSAM PERU/CASTOR OIL 60 GM OINT...G. TP SCH ×2 (11:05→18:12)
[2017-12-10] MEDS: METHYLPREDNISOLONE SOD SUCC 40 MG/ML VIAL IV SCH (11:14)
[2017-12-10] MEDS: BUMETANIDE 1 MG TAB PO SCH (11:14)
[2017-12-10] MEDS: PANTOPRAZOLE SOD 40 MG TABEC PO SCH (11:14)
[2017-12-10] MEDS: SERTRALINE HCL 50 MG TAB GT SCH (11:14)
[2017-12-10] MEDS: AMLODIPINE BESYLATE 10 MG TAB PO SCH (11:15)
[2017-12-10] MEDS: THEOPHYLLINE 200 MG TABCR PO SCH (11:15)
[2017-12-10] MEDS: DOXYCYCLINE HYCLATE TABLET 100 MG TAB PO SCH ×2 (11:15→20:33)
[2017-12-10] MEDS: QUETIAPINE FUMARATE 25 MG TAB PO SCH ×2 (11:15→18:12)
[2017-12-10] MEDS: METOPROLOL TARTRATE 25 MG TAB PO SCH ×2 (11:16→18:13)
[2017-12-10] MEDS: ACETAMINOPHEN 325 MG TAB PO PRN (11:21)
[2017-12-10] MEDS: LISINOPRIL 10 MG TAB PO SCH (20:33)
[2017-12-11] VITALS (10 sets, daily range): BP systolic 115–168; BP diastolic 72–99
[2017-12-11] MEDS: LEVALBUTEROL HCL SOLN NEBU 1.25 MG/3 ML NEB INH SCH ×6 (02:55→22:40)
[2017-12-11] MEDS: IPRATROPIUM BROMIDE 0.02% 2.5 ML NEB NEB SCH ×6 (02:55→22:40)
[2017-12-11] MEDS: GUAIFENESIN 200 MG/10 ML UDC PO SCH ×4 (05:50→23:18)
[2017-12-11] MEDS: INSULIN LISPRO 100 UNIT/1 ML 3ML VIAL SQ SCH ×4 (07:30→21:42)
[2017-12-11] MEDS: METHYLPREDNISOLONE SOD SUCC 40 MG/ML VIAL IV SCH (07:59)
[2017-12-11] MEDS: PANTOPRAZOLE SOD 40 MG TABEC PO SCH (07:59)
[2017-12-11] MEDS: BUMETANIDE 1 MG TAB PO SCH (08:03)
[2017-12-11] MEDS: SERTRALINE HCL 50 MG TAB GT SCH (08:03)
[2017-12-11] MEDS: METOPROLOL TARTRATE 25 MG TAB PO SCH ×2 (08:04→17:19)
[2017-12-11] MEDS: THEOPHYLLINE 200 MG TABCR PO SCH (08:05)
[2017-12-11] MEDS: AMLODIPINE BESYLATE 10 MG TAB PO SCH (08:05)
[2017-12-11] MEDS: BALSAM PERU/CASTOR OIL 60 GM OINT...G. TP SCH ×2 (08:05→17:19)
[2017-12-11] MEDS: DOXYCYCLINE HYCLATE TABLET 100 MG TAB PO SCH ×2 (08:05→21:48)
[2017-12-11] MEDS: QUETIAPINE FUMARATE 25 MG TAB PO SCH ×2 (08:05→17:19)
[2017-12-11] MEDS: ACETAMINOPHEN 325 MG TAB PO PRN ×2 (08:05→17:19)
--- NOTE | 2017-12-11 16:18 | Progress Note ---
DATE: December 11, 2017 INTERNAL MEDICINE PROGRESS NOTE The patient has required BiPAP today. She continues to experience intermittent respiratory insufficiency and shortness of breath at rest. After minimal activity she experience marked shortness of breath. Intermittent purulent sputum, yellow. Recently restarted on antibiotics. Electronic medical record reviewed. Chart reviewed. Patient reassessed by examination. Blood pressure labile. To continue followup and adjust treatment if necessary. Hyperglycemia on steroids. Sugars reviewed. To continue p.r.n. insulin. Tinea corporis markedly improved. Degenerative joint disease with chronic back pain. Continue p.r.n. meds. access manager's notes reviewed. Case discussed with [employer] i[employer] consultant in pulmonary medicine yesterday. See also serial orders clarified. IM has been asked to take blood pressures with a large blood pressure cuff as the patient has significant obesity. Awaits discharge planning. Transfer/discharge authorized when arrangements can be made. Job#: [id number] MOISÉS
[2017-12-11] MEDS: LISINOPRIL 10 MG TAB PO SCH (21:00)
[2017-12-12] VITALS (7 sets, daily range): BP systolic 124–168; BP diastolic 86–99
[2017-12-12] MEDS: GUAIFENESIN 200 MG/10 ML UDC PO SCH ×4 (00:16→18:00)
[2017-12-12] MEDS: ACETAMINOPHEN 325 MG TAB PO PRN (02:40)
[2017-12-12] MEDS: IPRATROPIUM BROMIDE 0.02% 2.5 ML NEB NEB SCH ×6 (02:50→23:02)
[2017-12-12] MEDS: LEVALBUTEROL HCL SOLN NEBU 1.25 MG/3 ML NEB INH SCH ×7 (02:50→23:02)
[2017-12-12] MEDS: INSULIN LISPRO 100 UNIT/1 ML 3ML VIAL SQ SCH ×4 (07:30→20:30)
[2017-12-12] MEDS: METHYLPREDNISOLONE SOD SUCC 40 MG/ML VIAL IV SCH ×2 (07:40→20:11)
[2017-12-12] MEDS: PANTOPRAZOLE SOD 40 MG TABEC PO SCH (07:40)
[2017-12-12] MEDS: SERTRALINE HCL 50 MG TAB GT SCH (08:23)
[2017-12-12] MEDS: BUMETANIDE 1 MG TAB PO SCH (08:23)
[2017-12-12] MEDS: BALSAM PERU/CASTOR OIL 60 GM OINT...G. TP SCH ×2 (08:24→18:00)
[2017-12-12] MEDS: THEOPHYLLINE 200 MG TABCR PO SCH (08:24)
[2017-12-12] MEDS: AMLODIPINE BESYLATE 10 MG TAB PO SCH (08:24)
[2017-12-12] MEDS: QUETIAPINE FUMARATE 25 MG TAB PO SCH ×2 (08:24→18:00)
[2017-12-12] MEDS: DOXYCYCLINE HYCLATE TABLET 100 MG TAB PO SCH ×2 (08:24→20:10)
[2017-12-12] MEDS: METOPROLOL TARTRATE 25 MG TAB PO SCH ×2 (08:24→18:00)
[2017-12-12 12:59] LABS: ABG PH 7.44 (7.31-7.41)
[2017-12-12 13:00] LABS: ABG HCO3 50 mmol/L (23-28); ABG PCO2 74 mmHg (41-51); ABG PO2 193 mmHg (80-105)
[2017-12-12] MEDS: BUSPIRONE HCL 5 MG TAB PO SCH (18:00)
[2017-12-12] MEDS: LISINOPRIL 10 MG TAB PO SCH (18:24)
[2017-12-12] MEDS: HEPARIN SOD (PORCINE) 5,000 UNIT/ML VIAL SC SCH (20:09)
[2017-12-13] MEDS: GUAIFENESIN 200 MG/10 ML UDC PO SCH ×4 (00:42→17:21)
[2017-12-13] MEDS: LEVALBUTEROL HCL SOLN NEBU 1.25 MG/3 ML NEB INH SCH ×6 (03:10→23:10)
[2017-12-13 04:15] VITALS: BP 144/91
[2017-12-13 05:47] LABS: BASOPHILS % 0.2 % (0.0-1.0); HEMATOCRIT 37.7 % (34.2-44.1); HEMOGLOBIN 11.8 g/dL (12.0-16.0); LYMPHOCYTES # (AUTO) 0.5 (1.0-3.2); LYMPHOCYTES % 6.1 % (18.0-39.1); MEAN CORPUSCULAR HEMOGLOBIN 26.3 pg (28-32); MEAN CORPUSCULAR HGB CONC 31.3 g/dL (31-35); MONOCYTES # (AUTO) 0.6 (0.2-0.8); MONOCYTES % 6.8 % (4.4-11.3); NEUTROPHILS # (AUTO) 7.3 (2.1-6.9); NEUTROPHILS % 84.8 % (38.7-80.0); PLATELET COUNT 248 x10e3/uL (140-360); RED BLOOD COUNT 4.49 x10e6/uL (3.6-5.1); RED CELL DISTRIBUTION WIDTH 13.8 % (11.7-14.4)
[2017-12-13 06:12] LABS: ALANINE AMINOTRANSFERASE 21 IU/L (0-55); ALBUMIN 3.5 g/dL (3.5-5.0); ALBUMIN/GLOBULIN RATIO 1.3 (0.8-2.0); ALKALINE PHOSPHATASE 73 IU/L (40-150); ANION GAP 11.8 mmol/L (8-16); BLOOD UREA NITROGEN 25 mg/dL (7-26); BUN/CREATININE RATIO 45 (6-25); CALCIUM 9.9 mg/dL (8.4-10.2); CHLORIDE 86 mmol/L (98-107); CREATININE, SERUM 0.55 mg/dL (0.57-1.11); EST GLOMERULAR FILTRATION RATE > 60 ML/MIN (60-); GLUCOSE 209 mg/dL (74-118); POTASSIUM 3.8 mmol/L (3.5-5.1); SODIUM 136 mmol/L (136-145)
[2017-12-13 06:14] LABS: CARBON DIOXIDE 42 mmol/L (22-29)
[2017-12-13] MEDS: INSULIN LISPRO 100 UNIT/1 ML 3ML VIAL SQ SCH ×4 (07:30→21:00)
[2017-12-13 08:00] VITALS: BP 137/87
[2017-12-13] MEDS: PANTOPRAZOLE SOD 40 MG TABEC PO SCH (08:25)
[2017-12-13] MEDS: METHYLPREDNISOLONE SOD SUCC 40 MG/ML VIAL IV SCH ×2 (08:25→21:26)
[2017-12-13] MEDS: BUMETANIDE 1 MG TAB PO SCH (08:25)
[2017-12-13] MEDS: SERTRALINE HCL 50 MG TAB GT SCH (08:25)
[2017-12-13] MEDS: THEOPHYLLINE 200 MG TABCR PO SCH (08:26)
[2017-12-13] MEDS: AMLODIPINE BESYLATE 10 MG TAB PO SCH (08:26)
[2017-12-13] MEDS: BUSPIRONE HCL 5 MG TAB PO SCH ×2 (08:26→17:20)
[2017-12-13] MEDS: DOXYCYCLINE HYCLATE TABLET 100 MG TAB PO SCH ×2 (08:26→21:26)
[2017-12-13] MEDS: QUETIAPINE FUMARATE 25 MG TAB PO SCH ×2 (08:26→17:21)
[2017-12-13] MEDS: METOPROLOL TARTRATE 25 MG TAB PO SCH ×2 (08:26→17:21)
[2017-12-13] MEDS: BALSAM PERU/CASTOR OIL 60 GM OINT...G. TP SCH ×2 (08:26→17:21)
[2017-12-13] MEDS: LISINOPRIL 10 MG TAB PO SCH ×2 (08:26→17:00)
[2017-12-13] MEDS: HEPARIN SOD (PORCINE) 5,000 UNIT/ML VIAL SC SCH ×2 (08:27→21:26)
--- NOTE | 2017-12-13 11:52 | Diagnostic Imaging Report ---
Portable chest x-ray INDICATION: COPD exacerbation COMPARISON: 12/08/2017 FINDINGS: Frontal view of the chest obtained at 1136 hours. The cardiac silhouette is normal. The pulmonary vascular markings are normal. No mediastinal air. The lungs demonstrate diffuse hyperinflation. There is mild chronic atelectasis or scar of the right lung base. Left lung is clear. Pulmonary vasculature is normal. The costophrenic angles are sharp. There is no pneumothorax. The osseous structures are intact and normal in morphology. IMPRESSION: 1. Stable pulmonary hyperinflation. No pneumothorax or pneumomediastinum. 2. Stable chronic atelectasis/scar in the right lung base. Signed by: Dr. Randy Virk MD on 12/13/2017 11:49 AM
[2017-12-13 12:00] VITALS: BP 118/50
[2017-12-13 16:00] VITALS: BP 103/86
[2017-12-13 20:30] VITALS: BP 118/67
[2017-12-14] VITALS (7 sets, daily range): BP systolic 94–123; BP diastolic 57–74
[2017-12-14] MEDS: LEVALBUTEROL HCL SOLN NEBU 1.25 MG/3 ML NEB INH SCH ×6 (02:40→23:12)
[2017-12-14] MEDS: GUAIFENESIN 200 MG/10 ML UDC PO SCH ×4 (06:00→18:18)
[2017-12-14] MEDS: INSULIN LISPRO 100 UNIT/1 ML 3ML VIAL SQ SCH ×4 (07:30→21:00)
--- NOTE | 2017-12-14 07:51 | Diagnostic Imaging Report ---
EXAMINATION: CHEST SINGLE (PORTABLE) COMPARISON: 12/13/2017 INDICATION: COPD, shortness of breath DISCUSSION: Frontal view of the chest obtained at 0730 hours. HEART AND MEDIASTINUM: The cardiomediastinal silhouette is unremarkable. LINES: None. LUNGS: Diffuse pulmonary hyperinflation. There is increasing right basilar airspace opacity. Left lung is clear. Vascular markings are normal PLEURA: No pleural effusion or pneumothorax. BONES AND SOFT TISSUES: No focal osseous lesion. The soft tissues are normal. IMPRESSION: Increasing right basilar airspace opacity may be the result of atelectasis or infiltrate. Recommend correlation with PA and lateral chest x-ray when clinically feasible. Signed by: Dr. Randy Virk MD on 12/14/2017 7:48 AM
[2017-12-14] MEDS: METHYLPREDNISOLONE SOD SUCC 40 MG/ML VIAL IV SCH ×2 (08:22→21:54)
[2017-12-14] MEDS: SERTRALINE HCL 50 MG TAB GT SCH (08:22)
[2017-12-14] MEDS: BUSPIRONE HCL 5 MG TAB PO SCH ×2 (08:22→16:30)
[2017-12-14] MEDS: BUMETANIDE 1 MG TAB PO SCH (08:22)
[2017-12-14] MEDS: AMLODIPINE BESYLATE 10 MG TAB PO SCH (08:22)
[2017-12-14] MEDS: METOPROLOL TARTRATE 25 MG TAB PO SCH (08:22)
[2017-12-14] MEDS: BALSAM PERU/CASTOR OIL 60 GM OINT...G. TP SCH (08:23)
[2017-12-14] MEDS: QUETIAPINE FUMARATE 25 MG TAB PO SCH ×2 (08:23→16:31)
[2017-12-14] MEDS: DOXYCYCLINE HYCLATE TABLET 100 MG TAB PO SCH ×2 (08:23→21:54)
[2017-12-14] MEDS: THEOPHYLLINE 200 MG TABCR PO SCH (08:23)
[2017-12-14] MEDS: LISINOPRIL 10 MG TAB PO SCH ×2 (08:23→16:31)
[2017-12-14] MEDS: HEPARIN SOD (PORCINE) 5,000 UNIT/ML VIAL SC SCH ×2 (09:27→21:54)
[2017-12-15] VITALS (8 sets, daily range): BP systolic 106–142; BP diastolic 51–83
[2017-12-15] MEDS: GUAIFENESIN 200 MG/10 ML UDC PO SCH ×4 (01:11→18:01)
[2017-12-15] MEDS: LEVALBUTEROL HCL SOLN NEBU 1.25 MG/3 ML NEB INH SCH ×6 (03:20→23:10)
[2017-12-15] MEDS: INSULIN LISPRO 100 UNIT/1 ML 3ML VIAL SQ SCH ×4 (08:16→20:21)
[2017-12-15] MEDS: LISINOPRIL 10 MG TAB PO SCH ×2 (08:17→16:51)
[2017-12-15] MEDS: DOXYCYCLINE HYCLATE TABLET 100 MG TAB PO SCH (08:17)
[2017-12-15] MEDS: BUMETANIDE 1 MG TAB PO SCH (08:17)
[2017-12-15] MEDS: QUETIAPINE FUMARATE 25 MG TAB PO SCH ×2 (08:17→16:51)
[2017-12-15] MEDS: THEOPHYLLINE 200 MG TABCR PO SCH (08:17)
[2017-12-15] MEDS: SERTRALINE HCL 50 MG TAB GT SCH (08:17)
[2017-12-15] MEDS: AMLODIPINE BESYLATE 10 MG TAB PO SCH (08:17)
[2017-12-15] MEDS: BUSPIRONE HCL 5 MG TAB PO SCH ×2 (08:17→16:51)
[2017-12-15] MEDS: HEPARIN SOD (PORCINE) 5,000 UNIT/ML VIAL SC SCH ×2 (08:28→20:35)
[2017-12-15] MEDS: METHYLPREDNISOLONE SOD SUCC 40 MG/ML VIAL IV SCH ×2 (09:18→20:34)
[2017-12-15] MEDS: ACETAMINOPHEN 325 MG TAB PO PRN (16:51)
[2017-12-16] VITALS (7 sets, daily range): BP systolic 113–129; BP diastolic 68–91
[2017-12-16] MEDS: LEVALBUTEROL HCL SOLN NEBU 1.25 MG/3 ML NEB INH SCH ×6 (02:50→22:50)
[2017-12-16] MEDS: GUAIFENESIN 200 MG/10 ML UDC PO SCH ×4 (05:06→17:01)
[2017-12-16] MEDS: BUSPIRONE HCL 5 MG TAB PO SCH ×2 (08:08→16:59)
[2017-12-16] MEDS: SERTRALINE HCL 50 MG TAB GT SCH (08:08)
[2017-12-16] MEDS: METHYLPREDNISOLONE SOD SUCC 40 MG/ML VIAL IV SCH ×2 (08:08→20:47)
[2017-12-16] MEDS: BUMETANIDE 1 MG TAB PO SCH (08:08)
[2017-12-16] MEDS: AMLODIPINE BESYLATE 10 MG TAB PO SCH (08:09)
[2017-12-16] MEDS: QUETIAPINE FUMARATE 25 MG TAB PO SCH ×2 (08:09→16:59)
[2017-12-16] MEDS: HEPARIN SOD (PORCINE) 5,000 UNIT/ML VIAL SC SCH ×2 (08:09→20:46)
[2017-12-16] MEDS: THEOPHYLLINE 200 MG TABCR PO SCH (08:09)
[2017-12-16] MEDS: LISINOPRIL 10 MG TAB PO SCH ×2 (08:09→16:59)
[2017-12-16] MEDS: INSULIN LISPRO 100 UNIT/1 ML 3ML VIAL SQ SCH ×4 (08:09→20:47)
[2017-12-16] MEDS: ACETAMINOPHEN 325 MG TAB PO PRN (08:19)
[2017-12-17] MEDS: GUAIFENESIN 200 MG/10 ML UDC PO SCH ×4 (00:22→17:23)
[2017-12-17] MEDS: LEVALBUTEROL HCL SOLN NEBU 1.25 MG/3 ML NEB INH SCH ×5 (02:50→19:45)
[2017-12-17 04:33] VITALS: BP 149/83
[2017-12-17 08:25] VITALS: BP 138/82
[2017-12-17 08:27] VITALS: BP 138/82
[2017-12-17] MEDS: INSULIN LISPRO 100 UNIT/1 ML 3ML VIAL SQ SCH ×4 (08:29→21:00)
[2017-12-17] MEDS: LISINOPRIL 10 MG TAB PO SCH ×2 (08:36→17:19)
[2017-12-17] MEDS: BUSPIRONE HCL 5 MG TAB PO SCH ×2 (08:36→17:14)
[2017-12-17] MEDS: AMLODIPINE BESYLATE 10 MG TAB PO SCH (08:37)
[2017-12-17] MEDS: ACETAMINOPHEN 325 MG TAB PO PRN ×2 (08:37→16:46)
[2017-12-17] MEDS: BUMETANIDE 1 MG TAB PO SCH (08:38)
[2017-12-17] MEDS: METHYLPREDNISOLONE SOD SUCC 40 MG/ML VIAL IV SCH ×2 (08:38→21:00)
[2017-12-17] MEDS: SERTRALINE HCL 50 MG TAB GT SCH (08:38)
[2017-12-17] MEDS: THEOPHYLLINE 200 MG TABCR PO SCH (08:38)
[2017-12-17] MEDS: QUETIAPINE FUMARATE 25 MG TAB PO SCH ×2 (08:38→17:14)
[2017-12-17] MEDS: HEPARIN SOD (PORCINE) 5,000 UNIT/ML VIAL SC SCH ×2 (08:56→21:00)
[2017-12-17 11:03] VITALS: BP 138/82
[2017-12-17 16:48] VITALS: BP 118/80
[2017-12-17 20:00] VITALS: BP 125/70
[2017-12-18] VITALS: BP 143/89
[2017-12-18] MEDS: LEVALBUTEROL HCL SOLN NEBU 1.25 MG/3 ML NEB INH SCH ×7 (03:30→23:00)
[2017-12-18 04:00] VITALS: BP 140/80
[2017-12-18] MEDS: GUAIFENESIN 200 MG/10 ML UDC PO SCH ×4 (06:00→19:25)
[2017-12-18 07:05] VITALS: BP 127/81
[2017-12-18] MEDS: INSULIN LISPRO 100 UNIT/1 ML 3ML VIAL SQ SCH ×4 (07:30→21:00)
[2017-12-18] MEDS: ACETAMINOPHEN 325 MG TAB PO PRN ×2 (08:01→12:35)
[2017-12-18] MEDS: SERTRALINE HCL 50 MG TAB GT SCH (08:21)
[2017-12-18] MEDS: METHYLPREDNISOLONE SOD SUCC 40 MG/ML VIAL IV SCH ×2 (08:22→21:00)
[2017-12-18] MEDS: BUMETANIDE 1 MG TAB PO SCH (08:22)
[2017-12-18] MEDS: BUSPIRONE HCL 5 MG TAB PO SCH ×2 (08:22→16:41)
[2017-12-18] MEDS: QUETIAPINE FUMARATE 25 MG TAB PO SCH ×2 (08:23→16:41)
[2017-12-18] MEDS: THEOPHYLLINE 200 MG TABCR PO SCH (08:23)
[2017-12-18] MEDS: HEPARIN SOD (PORCINE) 5,000 UNIT/ML VIAL SC SCH ×2 (08:24→21:00)
[2017-12-18] MEDS: LISINOPRIL 10 MG TAB PO SCH ×2 (08:48→16:42)
--- NOTE | 2017-12-18 14:26 | Discharge Summary ---
See also history and physical, ER notes and consultations. The patient was hospitalized through the emergency room with respiratory failure. This was one of many similar admissions. Course was complicated by primary hypertension, degenerative joint disease, obesity. The patient required intubation in the emergency room. She was admitted to the intensive care unit and supported with ventilator. Database was monitored closely. Treatment included pulmonary therapy, bronchodilators, steroids, empiric antibiotics. The patient was able to be extubated but required intermittent BiPAP, which was being used on a daily basis. The patient refused recommended LTAC or a retirement facility. She has home O2 and home nebulizer. She does not fill her medications when home, however. She does not attend outpatient office visits and has not done so for over a year. The patient experienced hyperglycemia on steroids, and this was treated medically. She also required treatment for significant tinea corporis in the inguinal folds and under the breasts. This improved on medical care here. Antihypertensives were adjusted serially. The patient had a lengthy stay because of her end-stage COPD and her limitations placed by herself regarding discharge planning. See also serial laboratory and imaging studies per electronic medical record. Reinitiation of higher dose steroids was required intermittently as was reinitiation of antibiotics. The patient was treated with DVT prophylaxis mechanically and medically. Admission white count November 12, 20,470 with hemoglobin 11.5, platelet count 422,000. November 14, white count 9.9. White count 16,670 on November 15. November 22, white count 16,600. December 13, white count 8.6. Pro time 13.4, PTT 25. Urinalysis clear. Drug levels on drug screen negative. Theophylline, vancomycin levels monitored and not toxic. Blood sugars monitored and treated serially on steroids. See also serial chemistries per EMR. Admission CO2, 49 on chemistry profile with admission glucose 181. ER cardiac enzymes revealed no evidence of acute WA. Natriuretic peptide was normal at 69. Intermittent hypokalemia repleted. The patient's course was complicated by intermittent edema, which responded to adjustment in administration of fluids and intermittent diuretics. No DVT clinically. Prior A1c's had been normal. Patient was counseled regarding appropriate diet and advantages to outpatient office visits. She stated she had not been smoking. Blood cultures negative. Urine culture with E. coli, treated. One of two admission blood cultures with bacillus, treated. Followup cultures, multiple, negative. Admission chest x-ray, bibasilar air-space opacities. Endotracheal tube. ER ordered head CT, no acute intracranial abnormality. Partial empty sella. See also serial chest x-rays with intermittent atelectatic changes, treated. Chest percussion and drainage undertaken. Expectorants administered. Right basilar air-space opacity on chest x-ray December 13 "may be the result of atelectasis or infiltrate." Clinically not pneumonia at that time with normal white counts, absence of fever. See also discharge med list. Prognosis remains poor. The patient requires outpatient O2. BiPAP outpatient arranging. FINAL IMPRESSIONS: As above. End-stage chronic obstructive pulmonary disease with recurrent respiratory failure. Marked leukemoid reaction. Hyperglycemia secondary to steroids. Primary hypertension. Obesity. Degenerative joint disease. Tinea corporis. AIDA ARAUZ MD Job#: [id number] EV
[2017-12-18] MEDS: AMLODIPINE BESYLATE 10 MG TAB PO SCH (16:41)
[2017-12-18 20:03] VITALS: BP 176/87
[2017-12-19] VITALS: BP 119/62
[2017-12-19] MEDS: LEVALBUTEROL HCL SOLN NEBU 1.25 MG/3 ML NEB INH SCH ×4 (03:00→15:14)
[2017-12-19] MEDS: ACETAMINOPHEN 325 MG TAB PO PRN (03:27)
[2017-12-19 04:00] VITALS: BP_SYST 119; BP_SYST 125; BP_DIAS 62; BP_DIAS 81
[2017-12-19] MEDS: GUAIFENESIN 200 MG/10 ML UDC PO SCH ×3 (05:54→17:49)
[2017-12-19 08:00] VITALS: BP 128/81
[2017-12-19] MEDS: INSULIN LISPRO 100 UNIT/1 ML 3ML VIAL SQ SCH (08:45)
[2017-12-19] MEDS: LISINOPRIL 10 MG TAB PO SCH ×2 (08:46→17:50)
[2017-12-19] MEDS: METHYLPREDNISOLONE SOD SUCC 40 MG/ML VIAL IV SCH (08:46)
[2017-12-19] MEDS: SERTRALINE HCL 50 MG TAB GT SCH (08:46)
[2017-12-19] MEDS: QUETIAPINE FUMARATE 25 MG TAB PO SCH ×2 (08:46→17:50)
[2017-12-19] MEDS: BUSPIRONE HCL 5 MG TAB PO SCH ×2 (08:46→17:49)
[2017-12-19] MEDS: THEOPHYLLINE 200 MG TABCR PO SCH (08:46)
[2017-12-19] MEDS: AMLODIPINE BESYLATE 10 MG TAB PO SCH (08:46)
[2017-12-19] MEDS: BUMETANIDE 1 MG TAB PO SCH (08:46)
[2017-12-19] MEDS: HEPARIN SOD (PORCINE) 5,000 UNIT/ML VIAL SC SCH (08:47)
[2017-12-19 09:09] VITALS: BP 128/81
[2017-12-19 16:30] VITALS: BP 121/79
== END 2017-12-19 18:31 | disposition home or self-care (01) | DRG 208 ==
LOC: ER 23:27 → ERHOLD 11-13 02:17 → ICU 11-13 03:10 → MED/SURG2 11-15 21:09 → ICU 11-20 20:51 → IMCU 11-25 20:46
PROVIDERS: ADMIT Internal Medicine; ATTEND Internal Medicine
PROC: 5A1945Z Respiratory Ventilation, 24-96 Consecutive Hours (ICD-10-PCS; principal; 2017-11-13)
PROC: 0BH18EZ Insertion of Endotracheal Airway into Trachea, Via Natural or Artificial Opening Endoscopic (ICD-10-PCS; 2017-11-13)
DX: J96.22 Acute and chronic respiratory failure with hypercapnia (principal); J18.9 Pneumonia, unspecified organism; G93.49 Other encephalopathy; J44.1 Chronic obstructive pulmonary disease with (acute) exacerbation; Z88.0 Allergy status to penicillin; Z91.013 Allergy to seafood; I10 Essential (primary) hypertension; R73.9 Hyperglycemia, unspecified; B35.4 Tinea corporis; M19.90 Unspecified osteoarthritis, unspecified site; G89.29 Other chronic pain; Z91.19 Patient's noncompliance with other medical treatment and regimen; E66.01 Morbid (severe) obesity due to excess calories; L89.321 Pressure ulcer of left buttock, stage 1; F17.210 Nicotine dependence, cigarettes, uncomplicated; F32.9 Major depressive disorder, single episode, unspecified; E87.6 Hypokalemia; T38.0X5A Adverse effect of glucocorticoids and synthetic analogues, initial encounter; G47.33 Obstructive sleep apnea (adult) (pediatric); Z68.38 Body mass index [BMI] 38.0-38.9, adult; F41.9 Anxiety disorder, unspecified; R00.0 Tachycardia, unspecified; D72.823 Leukemoid reaction; B96.20 Unspecified Escherichia coli [E. coli] as the cause of diseases classified elsewhere
CPT/HCPCS: 36415; 36600; 51700; 70450; 71045; 71046; 80048; 80053; 80198; 80202; 80307; 81001; 82550; 82553; 82805; 82948; 83605; 83735; 83880; 84484; 85007; 85025; 85027; 85610; 85730; 87040; 87070; 87071; 87086; 87186; 87205; 93005; 94002; 94003; 94640; 94660; 94667; 94668; 96360; 96372; 96376; 97139; 99285; J0330; J0456; J0692; J1580; J1644; J1650; J1720; J1940; J2185; J2920; J2930; J3370; J7030; J7050

== ENCOUNTER 2018-09-13 13:18 | Inpatient (IN) | payer SELFPAY ==
[~2018-09-13] VITALS: Ht 157.5 cm; Wt 86.6 kg
[2018-09-13] MEDS: ALBUTEROL SULF 0.083% NEB SOLN 3 ML NEB NEB SCH ×2 (02:10→20:00)
[2018-09-13] MEDS ORDERED: ALBUTEROL SULF 0.083% NEB SOLN 3 ML NEB NEB NR (13:30)
[2018-09-13] MEDS ORDERED: SODIUM CHLORIDE 0.9% 1000ML 1,000 ML IV STA (13:37)
[2018-09-13] MEDS ORDERED: IPRATROPIUM BROMIDE 0.02% 2.5 ML NEB NEB ONE (13:45)
[2018-09-13 14:17] LABS: BASOPHILS % 0.4 % (0.0-1.0); EOSINOPHILS # (AUTO) 0.4 (0.0-0.4); EOSINOPHILS % 3.3 % (0.0-6.0); HEMATOCRIT 41.2 % (34.2-44.1); HEMOGLOBIN 12.7 g/dL (12.0-16.0); LYMPHOCYTES # (AUTO) 1.6 (1.0-3.2); LYMPHOCYTES % 14.9 % (18.0-39.1); MEAN CORPUSCULAR HEMOGLOBIN 27.3 pg (28-32); MEAN CORPUSCULAR HGB CONC 30.8 g/dL (31-35); MEAN CORPUSCULAR VOLUME 88.4 fL (81-99); MONOCYTES # (AUTO) 0.6 (0.2-0.8); MONOCYTES % 5.7 % (4.4-11.3); NEUTROPHILS # (AUTO) 8.1 (2.1-6.9); NEUTROPHILS % 75.5 % (38.7-80.0); PLATELET COUNT 344 x10e3/uL (140-360); RED BLOOD COUNT 4.66 x10e6/uL (3.6-5.1); RED CELL DISTRIBUTION WIDTH 13.8 % (11.7-14.4)
[2018-09-13 14:23] LABS: INR 0.96; PARTIAL THROMBOPLASTIN TIME 29.1 seconds (23.8-35.5); PROTHROMBIN TIME 13.3 seconds (11.9-14.5)
[2018-09-13 14:32] LABS: ALANINE AMINOTRANSFERASE 13 IU/L (0-55); ALBUMIN 3.6 g/dL (3.5-5.0); ALBUMIN/GLOBULIN RATIO 0.8 (0.8-2.0); ALKALINE PHOSPHATASE 100 IU/L (40-150); ANION GAP 16.7 mmol/L (8-16); BLOOD UREA NITROGEN 14 mg/dL (7-26); BUN/CREATININE RATIO 25 (6-25); CALCIUM 10.1 mg/dL (8.4-10.2); CHLORIDE 91 mmol/L (98-107); CREATINE KINASE 22 IU/L (29-168); CREATININE, SERUM 0.57 mg/dL (0.57-1.11); EST GLOMERULAR FILTRATION RATE > 60 ML/MIN (60-); GLUCOSE 147 mg/dL (74-118); MAGNESIUM 2.1 MG/DL (1.3-2.1); POTASSIUM 3.7 mmol/L (3.5-5.1); SODIUM 145 mmol/L (136-145)
--- NOTE | 2018-09-13 14:33 | Diagnostic Imaging Report ---
A single frontal view of the chest. HISTORY: cough sob COMPARISON: Chest radiograph December 14, 2017 and October 24, 2017. DISCUSSION: Portable technique, limits sensitivity of the exam. Soft tissue attenuation partially limits sensitivity of the exam. Overlying tubing. Tubes/Lines: None Lungs and pleura: The lungs are well inflated. No evidence of a consolidative pneumonia or pulmonary alveolar edema. No definite pleural effusion or pneumothorax is identified. Heart and mediastinum: The cardiomediastinal silhouette appears unremarkable. Bones and soft tissues: Appear unremarkable, given this limited exam. IMPRESSION: 1. No acute radiographic abnormality. 2. No significant interval change. Signed by: Dr. Chris Garcia D.O., M.M.M. on 09/13/2018 2:30 PM
[2018-09-13 14:39] LABS: B-TYPE NATRIURETIC PEPTIDE2 18.3 pg/mL (0-100)
[2018-09-13 14:40] LABS: CARBON DIOXIDE 41 mmol/L (22-29)
[2018-09-13] MEDS: CEFTRIAXONE SOD 1 GM/NS 50 ML 50 ML IV SCH (14:41)
[2018-09-13] MEDS: AZITHROMYCIN 500MG/NS 250 ML 250 ML IV SCH (14:45)
[2018-09-13 14:46] LABS: INFLUENZAE A&B ANTIGEN (RAPID) NEGATIVE (NEGATIVE); STREPTOCOCCUS GRP A ANTIGEN NEGATIVE (NEGATIVE)
[2018-09-13 15:02] LABS: ABG HCO3 42 mmol/L (23-28); ABG PCO2 80 mmHg (41-51); ABG PH 7.33 (7.31-7.41); ABG PO2 93 mmHg (80-105)
[2018-09-13] MEDS ORDERED: ONDANSETRON HCL INJ 2MG/ML 2ML 2 MG/ML VIAL IV PRN (16:00)
--- NOTE | 2018-09-13 16:03 | NUR ---
PT UPDATED ON PENDING ADMIT. BIPAP ORDERED, BUT PT DOES NOT WANT TO BE PUT ON 'TIL THIS EVENING. DR. ALMONTE SPOKE WITH THE PATEINT AT LENGTH. UP TO [facility] AT THIS TIME TO PROVIDE URINE
[2018-09-13] MEDS ORDERED: DEXTROSE 50% SYRINGE 50 ML IV PRN (16:30)
--- NOTE | 2018-09-13 16:45 | NUR ---
DR. BERNARD MADE ROUNDS ON THIS PATIENT
[2018-09-13] MEDS ORDERED: FUROSEMIDE INJ 10 MG/ML 4 ML VIAL IV NR (17:00)
--- NOTE | 2018-09-13 17:12 | NUR ---
REPORT CALLED TO OSMEL HODGES FOR THIS PT. TO GO TO RM [id number]
[2018-09-13 17:14] LABS: COLOR,URINE YELLOW (YELLOW)
[2018-09-13 17:15] LABS: CLARITY,URINE CLOUDY (CLEAR); KETONES,URINE NEGATIVE (NEGATIVE); LEUKOCYTE ESTERASE ,URINE TRACE (NEGATIVE); NITRITE,URINE POSITIVE (NEGATIVE); PROTEIN,URINE DIPSTICK 2+ (NEGATIVE)
[2018-09-13 17:16] LABS: BILIRUBIN,URINE NEGATIVE (NEGATIVE); URINE UROBILINOGEN 0.2 mg/dL (0.2 - 1)
[2018-09-13 17:23] LABS: BACTERIA,URINE MANY /HPF; EPITHELIAL CELLS,URINE RARE /LPF
[2018-09-13] MEDS: METHYLPREDNISOLONE SOD SUCC 40 MG/ML VIAL 1ML IV SCH ×2 (17:53→23:12)
[2018-09-13] MEDS: ENOXAPARIN SOD INJ 40 MG/0.4 ML SYR SC SCH (17:53)
[2018-09-13] MEDS: FAMOTIDINE 20 MG/2 ML VIAL IV SCH (17:53)
[2018-09-13 17:54] VITALS: BP 100/82
[2018-09-13 17:59] VITALS: BP 100/82
--- NOTE | 2018-09-13 18:06 | NUR ---
patient received via stretcher. see admit assess. oriented to environment. vitals stable with nop distress. O2 5l via nc.
--- NOTE | 2018-09-13 19:00 | NUR ---
Received patient from day nurse, patient is stable.
[2018-09-13 20:00] VITALS: BP 137/86
[2018-09-13] MEDS: IPRATROPIUM BROMIDE 0.02% 2.5 ML NEB NEB SCH (20:00)
[2018-09-13] MEDS: GUAIFENESIN/CODEINE 10 ML CUP PO PRN (21:45)
[2018-09-13] MEDS: HYDROCODONE/APAP 5MG-325MG TAB PO PRN (21:45)
[2018-09-13] MEDS ORDERED: METHYLPREDNISOLONE SOD SUCC 125 MG/2ML VIAL IV SCH (22:00)
[2018-09-14] VITALS (11 sets, daily range): BP systolic 128–160; BP diastolic 61–98
--- NOTE | 2018-09-14 00:14 | History and Physical ---
CHIEF COMPLAINT: Shortness of breath. HISTORY OF PRESENT ILLNESS: This is 52-year-old female with history of COPD, medical noncompliance, who comes into the ED with complaints of shortness of breath. The patient has a known history of COPD and has been here several times. The patient does not have a primary care physician, very noncompliant with followup with any physician. Apparently has oxygen, but her cousin purchases oxygen for her. She is currently on neb treatments at home, but ran out. She has not signed up with the primary care physician or in the county to have continuous care. The patient was seen and evaluated at bedside on the medical floor, currently doing much better after given some treatment in the ER. She is currently on nasal cannula. The patient reports that her shortness of breath began over the last several days after she ran out of her nebulizing treatments. REVIEW OF SYSTEMS: 1. Pertinent positives: Shortness of breath, cough, congestion. 2. Pertinent negatives: Denies any chest pain, palpitation, nausea, vomiting, diarrhea, dysuria, hematuria, frequency, urgency, lightheadedness, dizziness, abdominal pain, or any fever. 3. The rest of 14-point review of systems are reviewed with the patient and are negative. ALLERGIES: TO FISH CONTAINING PRODUCTS, PENICILLINS, SHELLFISH. HOME MEDICATIONS: She is only on albuterol neb treatments. No other medications. PAST MEDICAL HISTORY: COPD, medical noncompliance, morbid obesity. PAST SURGICAL HISTORY: Reports none. FAMILY HISTORY: Hypertension, diabetes. SOCIAL HISTORY: No drugs. No alcohol. Does not smoke. Good social support. She used to be a former smoker many years ago, but quit about 4 years ago as well she reports. LAB FINDINGS: Show white count is 10.7, hemoglobin 12.7, hematocrit is 41, and platelets of 344. Coagulation; PT 13, INR 0.96, PTT 29. Chemistry; sodium 145, potassium 3.7, chloride 91, bicarb 29, anion gap is 16, BUN is 14, creatinine 0.57, glucose is 147. Lactic acid is 8.7, which is normal. Calcium is 7.1, magnesium 2.1. LFTs were normal. CK 22. Troponins 0.008. BNP 18, total protein is 8.1. ABG shows pH of 7.3, pCO2 of 80, pO2 of 93, bicarb is 42, FiO2 40. Serologies, flu negative. Group B strep negative. MICROBIOLOGY: Blood cultures pending. Urine cultures pending. IMAGING STUDIES: Chest x-ray shows to be negative. PHYSICAL EXAMINATION: VITAL SIGNS: Temperature is 98.3, pulse is 108, respiratory rate is 20, blood pressure is 132/63, and pulse ox 95% on 5 L nasal cannula. GENERAL: She has foul smelling odor, disheveled, has facial hair, not in acute distress, alert and oriented x3. Cooperative on examination. HEENT: Head is atraumatic and normocephalic. Eyes; pupils are equal, round, and reactive to light bilaterally. Extraocular movements intact bilaterally. NECK: Supple. Good range of motion. Throat, no evidence of erythema or exudate in the posterior pharynx. Has poor dentition. PULMONARY: She has decreased breath sounds bilaterally. Expiratory wheezing appreciated. Fine crackles appreciated, but good inspiratory effort as well. CARDIOVASCULAR: Positive S1, S2. No murmurs, rubs, or gallops appreciated. ABDOMEN: Soft, nontender, nontender to palpation. Bowel sounds present. MUSCULOSKELETAL: Strength is 5/5 throughout. No evidence of any muscle deficits on examination. No weakness appreciated. NEUROLOGICAL: Cranial nerves II through XII grossly intact. No evidence of any neurological deficits on exam. SKIN: Intact, warm to touch. Good cap refill. PSYCHIATRIC: Normal affect and mood. EXTREMITIES: No edema. Good range of motion throughout. IMPRESSION: 1. Acute exacerbation of chronic obstructive pulmonary disease. 2. Medical noncompliance. 3. Morbid obesity. 4. Chronic smoker, quit many years ago. PLAN: At this time, continue with IV steroids, neb treatments, and antibiotics. Continue with nasal cannula oxygen. We are going to get BiPAP at bedtime. ABG reviewed with the patient is very stable, though her pCO2 was 80. I am going to get a repeat ABG in the morning. Resume same home medications. Put on Lovenox for DVT prophylaxis. Continue with same plan of care, monitor very closely. If her respiratory status gets worse, but currently she is stable, we will get a Pulmonary consultation to further evaluate. We will also need to get home O2 arranged for her. Case Management discussed this with the patient as well. We will continue with same plan of care, monitor very closely. She will be on neb treatments scheduled as well. MD GERMAIN Joe/JACQUE /[id number]
[2018-09-14] MEDS: CEFTRIAXONE SOD 1 GM/NS 50 ML 50 ML IV SCH ×2 (02:00→12:49)
[2018-09-14] MEDS: ALBUTEROL SULF 0.083% NEB SOLN 3 ML NEB NEB SCH ×7 (04:00→23:00)
[2018-09-14] MEDS: IPRATROPIUM BROMIDE 0.02% 2.5 ML NEB NEB SCH ×7 (04:00→23:00)
[2018-09-14] MEDS: FAMOTIDINE 20 MG/2 ML VIAL IV SCH ×2 (04:05→16:53)
[2018-09-14] MEDS: GUAIFENESIN/CODEINE 10 ML CUP PO PRN ×3 (04:11→17:47)
[2018-09-14 05:30] LABS: BASOPHILS % 0.1 % (0.0-1.0); HEMATOCRIT 37.7 % (34.2-44.1); HEMOGLOBIN 11.2 g/dL (12.0-16.0); LYMPHOCYTES # (AUTO) 0.5 (1.0-3.2); LYMPHOCYTES % 5.8 % (18.0-39.1); MEAN CORPUSCULAR HEMOGLOBIN 26.8 pg (28-32); MEAN CORPUSCULAR HGB CONC 29.7 g/dL (31-35); MEAN CORPUSCULAR VOLUME 90.2 fL (81-99); MONOCYTES # (AUTO) 0.1 (0.2-0.8); MONOCYTES % 1.1 % (4.4-11.3); NEUTROPHILS # (AUTO) 8.2 (2.1-6.9); NEUTROPHILS % 92.5 % (38.7-80.0); PLATELET COUNT 316 x10e3/uL (140-360); RED BLOOD COUNT 4.18 x10e6/uL (3.6-5.1); RED CELL DISTRIBUTION WIDTH 13.6 % (11.7-14.4)
[2018-09-14] MEDS: METHYLPREDNISOLONE SOD SUCC 40 MG/ML VIAL 1ML IV SCH ×3 (05:30→22:01)
--- NOTE | 2018-09-14 05:43 | Diagnostic Imaging Report ---
EXAMINATION: CHEST SINGLE (PORTABLE) INDICATION: ^COPD EXAC ^[id number] ^[id number] COMPARISON: 09/13/2018 FINDINGS: AP view TUBES and LINES: None. LUNGS: Limited by body habitus. Lungs are well inflated. Central vascular congestion. Special PLEURA: No pleural effusion or pneumothorax. HEART AND MEDIASTINUM: The cardiomediastinal silhouette is prominent. BONES AND SOFT TISSUES: No acute osseous lesion. Soft tissues are unremarkable. UPPER ABDOMEN: No free air under the diaphragm. IMPRESSION: Unchanged prominent cardiomediastinal silhouette and central vascular congestion. Signed by: Dr. Roland Cantu MD on 09/14/2018 5:40 AM
[2018-09-14 05:59] LABS: CREATINE KINASE 29 IU/L (29-168)
[2018-09-14 06:32] LABS: ALANINE AMINOTRANSFERASE 12 IU/L (0-55); ALBUMIN 3.2 g/dL (3.5-5.0); ALBUMIN/GLOBULIN RATIO 0.8 (0.8-2.0); ALKALINE PHOSPHATASE 93 IU/L (40-150); ANION GAP 11.5 mmol/L (8-16); BLOOD UREA NITROGEN 18 mg/dL (7-26); BUN/CREATININE RATIO 32 (6-25); CALCIUM 9.7 mg/dL (8.4-10.2); CARBON DIOXIDE 40 mmol/L (22-29); CHLORIDE 94 mmol/L (98-107); CREATININE, SERUM 0.56 mg/dL (0.57-1.11); EST GLOMERULAR FILTRATION RATE > 60 ML/MIN (60-); GLUCOSE 155 mg/dL (74-118); POTASSIUM 4.5 mmol/L (3.5-5.1); SODIUM 141 mmol/L (136-145)
--- NOTE | 2018-09-14 07:03 | NUR ---
patient endorsed to next shift for continuity of care.
[2018-09-14] MEDS: BENZONATATE 100 MG CAP PO PRN ×2 (07:59→23:01)
[2018-09-14] MEDS: ASPIRIN 81 MG ENTERIC COATED PO SCH (08:00)
[2018-09-14] MEDS: AZITHROMYCIN 500MG/NS 250 ML 250 ML IV SCH (10:01)
--- NOTE | 2018-09-14 12:00 | NUR ---
Notified DR. Sharma of blood culture results gram + in rods no new orders received made MD aware patient is on Azithromycin 500mg IVPB and Rocephin 1G IVPB
--- NOTE | 2018-09-14 13:18 | NUR ---
GAVE PACKET OF INFORMATION WITH [facility] [employer] FOR ASSISTANCE WITH LOW TO NO INCOME TO PATIENT. RESOURCES THAT PATIENT MAY BE ABLE TO FOLLOW UP UPON DISCHARGE. PT EDUCATED ON EACH RESOURCE AND UNDERSTANDING HOW TO FOLLOW UP TO SEE IF QUALIFIED FOR EACH RESOURCE.
[2018-09-14 13:35] LABS: CREATINE KINASE MB 2.4 ng/mL (0-5.0)
[2018-09-14 13:54] LABS: ABG HCO3 45 mmol/L (23-28); ABG PCO2 101 mmHg (41-51); ABG PH 7.26 (7.31-7.41); ABG PO2 91 mmHg (80-105)
[2018-09-14 14:56] LABS: ABG PH 7.29 (7.31-7.41)
[2018-09-14 14:57] LABS: ABG HCO3 44 mmol/L (23-28); ABG PCO2 90 mmHg (41-51); ABG PO2 53 mmHg (80-105)
[2018-09-14] MEDS ORDERED: DEXTROSE 50% SYRINGE 50 ML IV PRN (17:30)
[2018-09-14] MEDS ORDERED: SODIUM CHLORIDE 0.9% 250ML 250 ML ONE (17:53)
[2018-09-14] MEDS: ENOXAPARIN SOD INJ 40 MG/0.4 ML SYR SC SCH (17:55)
[2018-09-14] MEDS: FUROSEMIDE INJ 10 MG/ML 4 ML VIAL IV SCH ×2 (17:55→22:27)
[2018-09-14] MEDS: CEFEPIME 1GM/NS 0.9% 50 ML 50 ML IV SCH (17:55)
[2018-09-14] MEDS: HYDROCODONE/APAP 5MG-325MG TAB PO PRN (19:26)
--- NOTE | 2018-09-14 19:53 | Progress Note ---
DATE: 09/14/2018 Medicine Progress Note SUBJECTIVE: The patient is on BiPAP. She states she is feeling well and she is alert and oriented on examination. PCO2 is elevated through. Pulmonary has been consulted. PHYSICAL EXAMINATION: VITAL SIGNS: Temperature is 98.1, pulse 91, respiratory rate 22, blood pressure 140/61, and pulse ox 95%. She is on BiPAP currently. GENERAL: Not in acute distress, alert and oriented x3. Cooperative on examination. HEENT: Head is atraumatic and normocephalic. Eyes; pupils are equal, round, and reactive to light bilaterally. Extraocular movements intact bilaterally. NECK: Supple. Good range of motion. Throat, no evidence of erythema or exudate in the posterior pharynx. Has poor dentition. PULMONARY: Clear to auscultation bilaterally. No wheezing, rales, or rhonchi. No crackles appreciated. CARDIOVASCULAR: Positive S1, S2. No murmurs, rubs, or gallops appreciated. ABDOMEN: Soft, nontender, nontender to palpation. Bowel sounds present. MUSCULOSKELETAL: Strength is 5/5 throughout. No evidence of any muscle deficits on examination. No weakness appreciated. NEUROLOGICAL: Cranial nerves II through XII grossly intact. No evidence of any neurological deficits on exam. SKIN: Intact, warm to touch. Good cap refill. PSYCHIATRIC: Normal affect and mood. EXTREMITIES: No edema. Good range of motion throughout. LABORATORY DATA: Lab findings show white count 8.8, hemoglobin 11.3, hematocrit 37, and platelets of 316. Chemistries are noted to be stable. MICROBIOLOGY: Urine cultures positive for gram-negative bacilli. Blood cultures so far no growth. IMPRESSION: 1. She has a history of chronic obstructive pulmonary disease. 2. Medical noncompliance. 3. Morbidly obese. 4. Chronic smoker. 5. Elevated pCO2. PLAN: At this time continue with steroids, neb treatments, antibiotics. Start on IV Lasix. Get Pulmonary consultation. PCO2 is elevated in the 90s. She is alert and oriented on exam. Continue with BiPAP for now. Discussed case with nursing staff. Appreciate Pulmonary recommendations on this case. MD GERMAIN Joe/JACQUE /[id number]
[2018-09-14] MEDS: INSULIN LISPRO 100 UNIT/1 ML 3ML VIAL SQ SCH ×2 (20:30→22:01)
[2018-09-14] MEDS: FAMOTIDINE 20 MG TAB PO SCH (22:01)
--- NOTE | 2018-09-15 00:44 | Consultation ---
DATE OF CONSULTATION: Pulmonary Consultation Ms. Weaver has not been hospitalized for approximately four months. She was admitted with shortness of breath and fever, but no chills, intermittent dysuria. Cough productive of green sputum. ALLERGIES: SHE IS ALLERGIC TO PENICILLIN AND IODINE, BUT APPARENTLY NOT CEPHALOSPORINS. MEDICATIONS: Albuterol and oxygen. She ran out of the albuterol. She was taken by ambulance. She has had 3 transfusions in the past. Denies other surgical history. She has quit smoking. FAMILY HISTORY: Positive for coronary artery disease. PHYSICAL EXAMINATION: GENERAL: Well-developed, moderately obese, white female, anxious, but in no acute distress. Eating her supper. VITAL SIGNS: Temperature 98, blood pressure 140/80, respirations 22. HEENT: Head, normocephalic and atraumatic. Eyes, extraocular movements intact. LUNGS: Bilateral rhonchi, right greater than left, rales in breath. ABDOMEN: Nontender. EXTREMITIES: Nonedematous. She has an evidence of urinary tract infection, gram-negative sepsis with pneumonia, apparent community-acquired due to multiple trips to the hospital. We will BiPAP as tolerated. The patient is a full code and agrees to intubation if necessary. Thank you for this kind referral. MD CANDACE Diaz/JACQUE /[id number]
[2018-09-15] MEDS: IPRATROPIUM BROMIDE 0.02% 2.5 ML NEB NEB SCH ×6 (03:00→23:45)
[2018-09-15] MEDS: ALBUTEROL SULF 0.083% NEB SOLN 3 ML NEB NEB SCH ×6 (03:00→23:45)
[2018-09-15 04:15] VITALS: BP 140/70
[2018-09-15] MEDS: FAMOTIDINE 20 MG/2 ML VIAL IV SCH (04:15)
[2018-09-15] MEDS: CEFEPIME 1GM/NS 0.9% 50 ML 50 ML IV SCH ×2 (05:19→17:51)
[2018-09-15 05:25] LABS: BASOPHILS % 0.1 % (0.0-1.0); HEMOGLOBIN 10.9 g/dL (12.0-16.0); LYMPHOCYTES # (AUTO) 1.5 (1.0-3.2); LYMPHOCYTES % 12.1 % (18.0-39.1); MEAN CORPUSCULAR HGB CONC 29.5 g/dL (31-35); MEAN CORPUSCULAR VOLUME 91.6 fL (81-99); MONOCYTES # (AUTO) 0.8 (0.2-0.8); MONOCYTES % 6.2 % (4.4-11.3); NEUTROPHILS # (AUTO) 9.9 (2.1-6.9); NEUTROPHILS % 81.2 % (38.7-80.0); PLATELET COUNT 286 x10e3/uL (140-360); RED BLOOD COUNT 4.04 x10e6/uL (3.6-5.1); RED CELL DISTRIBUTION WIDTH 13.6 % (11.7-14.4)
[2018-09-15 06:05] LABS: ANION GAP 8.6 mmol/L (8-16); BLOOD UREA NITROGEN 27 mg/dL (7-26); BUN/CREATININE RATIO 44 (6-25); CALCIUM 9.7 mg/dL (8.4-10.2); CHLORIDE 87 mmol/L (98-107); CREATININE, SERUM 0.61 mg/dL (0.57-1.11); EST GLOMERULAR FILTRATION RATE > 60 ML/MIN (60-); GLUCOSE 113 mg/dL (74-118); POTASSIUM 3.6 mmol/L (3.5-5.1); SODIUM 140 mmol/L (136-145)
[2018-09-15] MEDS: GUAIFENESIN/CODEINE 10 ML CUP PO PRN ×3 (06:06→18:08)
[2018-09-15] MEDS: FUROSEMIDE INJ 10 MG/ML 4 ML VIAL IV SCH (06:06)
[2018-09-15 06:12] LABS: CARBON DIOXIDE 48 mmol/L (22-29)
--- NOTE | 2018-09-15 06:20 | NUR ---
called and spoke with dr Lee, made the MD aware that patient's CO2 this morning is 48. no new order received.
[2018-09-15] MEDS: INSULIN LISPRO 100 UNIT/1 ML 3ML VIAL SQ SCH ×3 (07:30→15:56)
--- NOTE | 2018-09-15 07:44 | Diagnostic Imaging Report ---
EXAMINATION: CHEST SINGLE (PORTABLE) INDICATION: Pneumonia. COMPARISON: Chest radiograph 09/14/2018. FINDINGS: Exam is limited by portable technique and soft tissue attenuation. TUBES and LINES: None. LUNGS: Lungs are well inflated. Mild patchy right basilar opacity. No evidence of lobar consolidation pulmonary edema. PLEURA: No pleural effusion or pneumothorax. HEART AND MEDIASTINUM: The cardiomediastinal silhouette is unremarkable. BONES AND SOFT TISSUES: No acute osseous abnormality. UPPER ABDOMEN: No free air under the diaphragm. IMPRESSION: Mild patchy right basilar opacity, which may reflect atelectasis or early pneumonia in the appropriate clinical setting. Signed by: Dr. Florin Awad MD on 09/15/2018 7:41 AM
[2018-09-15] MEDS: ASPIRIN 81 MG ENTERIC COATED PO SCH (07:56)
[2018-09-15] MEDS: HYDROCODONE/APAP 5MG-325MG TAB PO PRN ×2 (07:57→15:26)
[2018-09-15 09:00] VITALS: BP 128/72
[2018-09-15] MEDS: AZITHROMYCIN 500MG/NS 250 ML 250 ML IV SCH (10:17)
[2018-09-15] MEDS: METHYLPREDNISOLONE SOD SUCC 40 MG/ML VIAL 1ML IV SCH (10:17)
[2018-09-15 12:00] VITALS: BP 130/76
[2018-09-15] MEDS ORDERED: ONDANSETRON HCL 4 MG ORAL DISINTEGRATING TAB PO PRN (12:00)
--- NOTE | 2018-09-15 12:00 | NUR ---
Made Dr. Sharma aware of aerobic bottle + Cocci in chains, no new orders received, made aware patient is on Azithromycin and cefepime IV antibiotics.
[2018-09-15] MEDS: ENOXAPARIN SOD INJ 40 MG/0.4 ML SYR SC SCH (17:51)
[2018-09-15 18:00] VITALS: BP 146/65
[2018-09-15] MEDS: BENZONATATE 100 MG CAP PO PRN (18:08)
[2018-09-15] MEDS: VANCOMYCIN 1GM/NS 250 ML 250 ML IV SCH (18:44)
--- NOTE | 2018-09-15 19:27 | Progress Note ---
DATE: 09/15/2018 Medicine Progress Note SUBJECTIVE: The patient is doing much better today with nasal cannula. She is off BiPAP . Her blood cultures were positive /. ID consulted. Started on IV vancomycin. PHYSICAL EXAMINATION: VITAL SIGNS: Temperature 98.6, pulse 106, respiratory rate is 20, blood pressure 130/76, pulse ox 92% on 5 L nasal cannula. GENERAL: In no acute distress, alert and oriented x3. Cooperative on examination. HEENT: Head is normocephalic and atraumatic. Eyes, pupils are equal, round, and reactive to light bilaterally. Extraocular movements are intact bilaterally. Throat, no evidence of any erythema or exudates in the posterior pharynx. Has poor dentition. NECK: Supple. Good range of motion. PULMONARY: Clear to auscultation bilaterally. No wheezing. No rales. No rhonchi. No crackles appreciated. CARDIOVASCULAR: Positive S1, S2. No murmurs, rubs, or gallops appreciated. ABDOMEN: Soft, nondistended, nontender to palpation. Bowel sounds present. MUSCULOSKELETAL: Strength is 5/5 throughout. No evidence of any muscle deficits on examination. NEUROLOGIC: Cranial nerves II through XII grossly intact. No evidence of any neurological deficits on exam. SKIN: Intact, warm to touch. Good cap refill. PSYCHIATRIC: Normal affect and mood. EXTREMITIES: No edema. Good range of motion throughout. LABORATORY FINDINGS: Show white count is 12, hemoglobin 10.9, hematocrit 37, platelets of 286. Chemistries reviewed shows sodium 140, potassium 3.6, chloride 87, bicarb is 48, BUN 27, creatinine is 0.61, calcium 9.7. Microbiology; urine cultures positive for E coli. Throat cultures negative. Blood culture 1/2 shows Strep species . IMAGING STUDIES: Chest x-ray shows patchy right basilar opacity, may represent atelectasis or pneumonia, appropriate clinical setting. IMPRESSION: 1. Chronic obstructive pulmonary disease exacerbation. 2. Medical noncompliance. 3. Morbid obesity. 4. Chronic smoker. 5. Bacteremia likely to be contaminant. PLAN: At this time, continue with steroids, neb treatments, and antibiotics. Start on IV vancomycin for underlying questionable bacteremia, which could be secondary to contamination. ID is consulted. Pulmonary is following as well. Continue with nasal cannula. The patient will need to bring her home O2 prior to being discharged for home. I have discussed this with the patient. MD GERMAIN Joe/MODL /[id number]
[2018-09-15 20:00] VITALS: BP 141/76
[2018-09-16] VITALS (8 sets, daily range): BP systolic 134–158; BP diastolic 69–87
[2018-09-16] MEDS: IPRATROPIUM BROMIDE 0.02% 2.5 ML NEB NEB SCH ×6 (03:45→22:50)
[2018-09-16] MEDS: ALBUTEROL SULF 0.083% NEB SOLN 3 ML NEB NEB SCH ×6 (03:45→22:50)
[2018-09-16] MEDS: CEFEPIME 1GM/NS 0.9% 50 ML 50 ML IV SCH ×2 (05:47→17:18)
[2018-09-16] MEDS: VANCOMYCIN 1GM/NS 250 ML 250 ML IV SCH ×2 (07:15→18:17)
[2018-09-16] MEDS: MORPHINE SULFATE INJ 4 MG/ML INJ 1ML IV PRN ×4 (07:15→21:23)
--- NOTE | 2018-09-16 07:24 | NUR ---
pt resting in bed, alert and oriented, no c/o pain or s/s distress. will continue to monitor
[2018-09-16] MEDS: INSULIN LISPRO 100 UNIT/1 ML 3ML VIAL SQ SCH ×4 (07:30→21:00)
[2018-09-16] MEDS: METHYLPREDNISOLONE SOD SUCC 40 MG/ML VIAL 1ML IV SCH ×2 (10:14→21:00)
[2018-09-16] MEDS: FAMOTIDINE 20 MG TAB PO SCH ×2 (10:14→21:00)
[2018-09-16] MEDS: ASPIRIN 81 MG ENTERIC COATED PO SCH (10:14)
[2018-09-16] MEDS: AZITHROMYCIN 500MG/NS 250 ML 250 ML IV SCH (10:14)
[2018-09-16] MEDS ORDERED: ACETAZOLAMIDE SODIUM 500 MG/VIAL IV SCH (10:45)
[2018-09-16 11:21] LABS: BASOPHILS % 0.1 % (0.0-1.0); HEMATOCRIT 37.2 % (34.2-44.1); HEMOGLOBIN 11.5 g/dL (12.0-16.0); LYMPHOCYTES # (AUTO) 1.1 (1.0-3.2); LYMPHOCYTES % 9.8 % (18.0-39.1); MEAN CORPUSCULAR HEMOGLOBIN 27.4 pg (28-32); MEAN CORPUSCULAR HGB CONC 30.9 g/dL (31-35); MEAN CORPUSCULAR VOLUME 88.8 fL (81-99); MONOCYTES # (AUTO) 0.6 (0.2-0.8); MONOCYTES % 5.3 % (4.4-11.3); NEUTROPHILS # (AUTO) 9.5 (2.1-6.9); NEUTROPHILS % 84.1 % (38.7-80.0); PLATELET COUNT 294 x10e3/uL (140-360); RED BLOOD COUNT 4.19 x10e6/uL (3.6-5.1); RED CELL DISTRIBUTION WIDTH 13.7 % (11.7-14.4)
[2018-09-16 11:42] LABS: ANION GAP 9.8 mmol/L (8-16); BLOOD UREA NITROGEN 21 mg/dL (7-26); BUN/CREATININE RATIO 40 (6-25); CALCIUM 10.3 mg/dL (8.4-10.2); CHLORIDE 92 mmol/L (98-107); CREATININE, SERUM 0.53 mg/dL (0.57-1.11); EST GLOMERULAR FILTRATION RATE > 60 ML/MIN (60-); GLUCOSE 134 mg/dL (74-118); POTASSIUM 3.8 mmol/L (3.5-5.1); SODIUM 139 mmol/L (136-145)
[2018-09-16 11:49] LABS: CARBON DIOXIDE 41 mmol/L (22-29)
--- NOTE | 2018-09-16 12:06 | Progress Note ---
DATE: 09/16/2018 Medicine Progress Note SUBJECTIVE: The patient is doing much better today on nasal cannula. She is going to bring her home O2 tank. Bicarb is 48 though not ready for discharge today. OBJECTIVE: VITAL SIGNS: She is afebrile. Normotensive. GENERAL: Not in acute distress. Alert and oriented x3. Cooperative on examination. HEENT: Head is normocephalic and atraumatic. Eyes; pupils are equal, round, and reactive to light bilaterally. Extraocular movements are intact bilaterally. Throat, no evidence of erythema or exudates in the posterior pharynx. Has poor dentition. NECK: Supple. Good range of motion. PULMONARY: Clear to auscultation bilaterally. No wheezing, no rales, no rhonchi, no crackles appreciated. CARDIOVASCULAR: Positive S1, S2. No murmurs, rubs, or gallops appreciated. ABDOMEN: Soft, nondistended, and nontender to palpation. Bowel sounds present. MUSCULOSKELETAL: Strength is 5/5 throughout. No evidence of any muscle deficits on examination. No weakness appreciated. NEUROLOGICAL: Cranial nerves II through XII grossly intact. No evidence of any neurological deficits on exam. SKIN: Intact. Warm to touch. Good cap refill. PSYCHIATRIC: Normal affect and mood. EXTREMITIES: No edema. Good range of motion throughout. LABS: Reviewed and stable. White count slightly elevated at 11.2 due to steroids. Chemistries are pending. MICROBIOLOGY: Urine culture shows E coli. Blood culture shows Streptococcus viridans, one of two. IMPRESSION: 1. Chronic obstructive pulmonary disease exacerbation. 2. Medical noncompliance. 3. Morbid obesity. 4. Chronic smoker. 5. Bacteremia with underlying urinary tract infection. PLAN: At this time, continue with steroids, neb treatments, and antibiotics. Pulmonary is following closely. She does have UTI and underlying bacteremia for which I consulted with ID and we will manage accordingly. Pulmonary and ID are following closely. She is on nasal cannula. The patient is going to bring her home O2 from home prior to discharge. Her bicarb is elevated likely due to chronic respiratory failure for which I will go and start her on Diamox IV t.i.d. and get a.m. labs. MD GERMAIN Joe/JACQUE /[id number]
--- NOTE | 2018-09-16 12:26 | NUR ---
dr gagnon aware of pt labs, pt sam.
--- NOTE | 2018-09-16 16:55 | NUR ---
pt states she is not diabetic, aware BS elevate with steroids, refused insulin
[2018-09-16] MEDS: ENOXAPARIN SOD INJ 40 MG/0.4 ML SYR SC SCH (17:18)
--- NOTE | 2018-09-16 19:00 | NUR ---
patient received awake, alert, lying quietly in bed. no c/o pain noted. pm assessment complete. patient instructed to call for assistance when needed.
[2018-09-16] MEDS: ACETAZOLAMIDE SODIUM 500 MG/VIAL IV SCH (20:00)
--- NOTE | 2018-09-16 21:23 | NUR ---
patient medicated with morphine 2 mg ivp for c/o generalized/lower back pain 11/18 at this time.
[2018-09-17] VITALS (8 sets, daily range): BP systolic 140–161; BP diastolic 66–80
[2018-09-17] MEDS ORDERED: SODIUM CHLORIDE 0.9% 250ML 250 ML ONE ×2 (00:24→13:25)
[2018-09-17] MEDS: MORPHINE SULFATE INJ 4 MG/ML INJ 1ML IV PRN ×3 (00:58→09:34)
--- NOTE | 2018-09-17 00:58 | NUR ---
patient medicated with morphine 2 mg ivp for c/o lower back pain 11/18 at this time.
[2018-09-17] MEDS: ALBUTEROL SULF 0.083% NEB SOLN 3 ML NEB NEB SCH ×6 (03:00→22:40)
[2018-09-17] MEDS: IPRATROPIUM BROMIDE 0.02% 2.5 ML NEB NEB SCH ×6 (03:00→22:40)
[2018-09-17] MEDS: ACETAZOLAMIDE SODIUM 500 MG/VIAL IV SCH (04:00)
--- NOTE | 2018-09-17 04:00 | NUR ---
patient appears to be resting quietly. bipap in place. no distress noted. no c/o pain noted.
[2018-09-17] MEDS: CEFEPIME 1GM/NS 0.9% 50 ML 50 ML IV SCH (04:52)
--- NOTE | 2018-09-17 04:59 | NUR ---
patient oob to bsc. patient voids without difficulty. patient medicated with morphine 2 mg ivp for c/o lower back pain 10/19 at this time.
[2018-09-17] MEDS: INSULIN LISPRO 100 UNIT/1 ML 3ML VIAL SQ SCH ×4 (07:30→20:34)
[2018-09-17] MEDS: VANCOMYCIN 1GM/NS 250 ML 250 ML IV SCH (09:34)
[2018-09-17] MEDS: ASPIRIN 81 MG ENTERIC COATED PO SCH (09:34)
[2018-09-17] MEDS: METHYLPREDNISOLONE SOD SUCC 40 MG/ML VIAL 1ML IV SCH ×2 (09:34→20:34)
[2018-09-17] MEDS: FAMOTIDINE 20 MG TAB PO SCH ×2 (09:34→20:34)
[2018-09-17] MEDS: AZITHROMYCIN 500MG/NS 250 ML 250 ML IV SCH (09:34)
--- NOTE | 2018-09-17 09:34 | NUR ---
VANC GIVEN LATE DT PENDING TROUGH.
[2018-09-17] MEDS: CEFTRIAXONE SOD 1 GM/NS 50 ML 50 ML IV SCH ×2 (12:11→22:06)
[2018-09-17] MEDS: HYDROCODONE/APAP 5MG-325MG TAB PO PRN ×2 (13:28→19:46)
[2018-09-17] MEDS: ENOXAPARIN SOD INJ 40 MG/0.4 ML SYR SC SCH (17:43)
[2018-09-17] MEDS: DIPHENHYDRAMINE HCL 25 MG CAP PO PRN (20:59)
--- NOTE | 2018-09-17 21:05 | History and Physical ---
REASON FOR CONSULTATION: Recommendation of antibiotic. HISTORY OF PRESENT ILLNESS: She is a 52-year-old white female, history COPD, noncompliance, came to the emergency room with shortness of breath. The patient has multiple admissions to the hospital for worsening COPD and pneumonia. Apparently, she is on oxygen, but apparently her cousin buys the oxygen for her. She is currently on nebulizer treatment, ran out of treatment, comes into the emergency room for shortness of breath and cough, and congestion. The patient is being admitted. ALLERGIES: PENICILLIN AND SULFAS. SOCIAL HISTORY: Currently, there is no smoking, drug abuse, or alcohol abuse. FAMILY HISTORY: Hypertension. PAST MEDICAL HISTORY: COPD, noncompliance, morbidly obese patient. PAST SURGICAL HISTORY: None. FAMILY HISTORY: Hypertension and diabetes. SOCIAL HISTORY: No smoking, drug abuse, or alcohol abuse. HOME MEDICATIONS: As mentioned above. LABORATORY DATA: White count is 10.7, hemoglobin 12, and hematocrit 41. Potassium 3.7, creatinine of , and bicarb of 29. The patient was admitted with acute exacerbation of COPD and obesity. The patient has history of smoking, but quit several years ago. The patient is currently lying in bed, feeling a little better. Infectious Disease was asked to see the patient. Her lab data reviewed. Her urine showed E coli. Her blood showed strep Viridans and coagulase-negative Staph. Her E coli was resistant only to ampicillin and Cipro. Her white count when admission 10.7, today is 11.62. Sodium 139, potassium 3.8, and creatinine 0.53. PHYSICAL EXAMINATION: GENERAL: She is currently alert, oriented, does not seem acute distress. VITAL SIGNS: Stable, currently afebrile. HEENT: Normocephalic, not appear icteric. NECK: Supple. CHEST: Few crackles overall. HEART: S1-S2. No murmur. ABDOMEN: Soft. Bowel sounds present. No tenderness. EXTREMITIES: No edema. SKIN: No rash. IMPRESSION: 1. Sepsis on admission with Streptococci Viridans. 2. Coagulase-negative Staph bacteremia contamination. 3. Urinary tract infection with Escherichia coli. 4. Pneumonia, community acquired. 5. Obesity. 6. Acute exacerbation of chronic obstructive pulmonary disease. 7. Noncompliance. PLAN: I would recommend change Rocephin 1 g q.12 hours. She will need two weeks of antibiotic. We will keep her IV for now. Continue supportive care. We will follow with you. MD TATE Cruz/JACQUE /[id number]
[2018-09-18] VITALS (9 sets, daily range): BP systolic 127–174; BP diastolic 63–83
[2018-09-18] MEDS: IPRATROPIUM BROMIDE 0.02% 2.5 ML NEB NEB SCH ×6 (02:10→23:14)
[2018-09-18] MEDS: ALBUTEROL SULF 0.083% NEB SOLN 3 ML NEB NEB SCH ×7 (03:00→23:14)
[2018-09-18] MEDS: HYDROCODONE/APAP 5MG-325MG TAB PO PRN ×4 (05:20→23:41)
[2018-09-18 05:28] LABS: BASOPHILS % 0.2 % (0.0-1.0); HEMATOCRIT 38.4 % (34.2-44.1); HEMOGLOBIN 11.3 g/dL (12.0-16.0); LYMPHOCYTES % 8.7 % (18.0-39.1); MEAN CORPUSCULAR HEMOGLOBIN 26.8 pg (28-32); MEAN CORPUSCULAR HGB CONC 29.4 g/dL (31-35); MONOCYTES # (AUTO) 0.5 (0.2-0.8); MONOCYTES % 3.9 % (4.4-11.3); NEUTROPHILS # (AUTO) 10.3 (2.1-6.9); NEUTROPHILS % 86.4 % (38.7-80.0); PLATELET COUNT 342 x10e3/uL (140-360); RED BLOOD COUNT 4.22 x10e6/uL (3.6-5.1); RED CELL DISTRIBUTION WIDTH 13.7 % (11.7-14.4)
[2018-09-18 05:50] LABS: ANION GAP 8.7 mmol/L (8-16); BLOOD UREA NITROGEN 24 mg/dL (7-26); BUN/CREATININE RATIO 43 (6-25); CALCIUM 9.5 mg/dL (8.4-10.2); CARBON DIOXIDE 35 mmol/L (22-29); CHLORIDE 101 mmol/L (98-107); CREATININE, SERUM 0.56 mg/dL (0.57-1.11); EST GLOMERULAR FILTRATION RATE > 60 ML/MIN (60-); GLUCOSE 137 mg/dL (74-118); POTASSIUM 4.7 mmol/L (3.5-5.1); SODIUM 140 mmol/L (136-145)
--- NOTE | 2018-09-18 07:03 | NUR ---
Report given to oncoming nurse. No issued noted.
--- NOTE | 2018-09-18 07:25 | NUR ---
Pt received resting in bed with BIPAP at bedside. Alert and oriented x4. Oriented to staff and surroundings, encouraged to press call arambula if help needed. Pt verbalized understanding of teaching. Will monitor
[2018-09-18] MEDS: INSULIN LISPRO 100 UNIT/1 ML 3ML VIAL SQ SCH ×4 (07:30→21:38)
[2018-09-18] MEDS ORDERED: SODIUM CHLORIDE 0.9% 250ML 250 ML ONE (08:29)
[2018-09-18] MEDS: METHYLPREDNISOLONE SOD SUCC 40 MG/ML VIAL 1ML IV SCH ×2 (08:39→21:38)
[2018-09-18] MEDS: ASPIRIN 81 MG ENTERIC COATED PO SCH (08:39)
[2018-09-18] MEDS: FAMOTIDINE 20 MG TAB PO SCH ×2 (08:39→21:38)
--- NOTE | 2018-09-18 08:39 | NUR ---
All meds given as ordered. Pt encouraged to call if help needed. Emotional support given. Will monitor
[2018-09-18] MEDS: CEFTRIAXONE SOD 1 GM/NS 50 ML 50 ML IV SCH ×2 (09:45→22:24)
[2018-09-18] MEDS: DIPHENHYDRAMINE HCL 25 MG CAP PO PRN (09:58)
[2018-09-18] MEDS: GUAIFENESIN/CODEINE 10 ML CUP PO PRN ×2 (11:31→17:23)
[2018-09-18] MEDS: BENZONATATE 100 MG CAP PO PRN ×2 (11:31→17:23)
--- NOTE | 2018-09-18 14:33 | Progress Note ---
DATE: 09/18/2018 Medicine Progress Note SUBJECTIVE: The patient is breathing much better today with no complaints. We are awaiting on final recommendations by ID antibiotics. She is otherwise stable with no issues. OBJECTIVE: VITAL SIGNS: Temperature is 97.4, pulse 98, respiratory rate is 18, blood pressure is 168/83, pulse ox is 98% on 5 L nasal cannula. GENERAL: Not in acute distress. Alert and oriented x3. Cooperative on examination. HEENT: Head is normocephalic and atraumatic. Eyes; pupils are equal, round, and reactive to light bilaterally. Extraocular movements are intact bilaterally. Throat, no evidence of erythema or exudates in the posterior pharynx. Has poor dentition. NECK: Supple. Good range of motion. PULMONARY: Clear to auscultation bilaterally. No wheezing, no rales, no rhonchi, no crackles appreciated. CARDIOVASCULAR: Positive S1, S2. No murmurs, rubs, or gallops appreciated. ABDOMEN: Soft, nondistended, and nontender to palpation. Bowel sounds present. MUSCULOSKELETAL: Strength is 5/5 throughout. No evidence of any muscle deficits on examination. No weakness appreciated. NEUROLOGICAL: Cranial nerves 2 through 12 grossly intact. No evidence of any neurological deficits on exam. SKIN: Intact. Warm to touch. Good cap refill. PSYCHIATRIC: Normal affect and mood. EXTREMITIES: No edema. Good range of motion throughout. LABORATORY DATA: Labs show white count 11.9, hemoglobin 11.3, hematocrit is 38, platelets of 342. Chemistry; sodium 140, potassium 4.7, chloride 101, bicarb 35, anion gap of 8.7, BUN 24, creatinine is 0.56, glucose is 137. MICROBIOLOGY: Noted. IMPRESSION: 1. Chronic obstructive pulmonary disease exacerbation. 2. Medical noncompliance. 3. Morbid obesity. 4. Chronic smoker. 5. Bacteremia. 6. Urinary tract infection. PLAN: Continue with steroids, neb treatments, and antibiotics. Pulmonary is following very closely. In relation to her bacteremia UTI, ID has been consulted, antibiotics are adjusted accordingly based on then. She continues to be on nasal cannula. She already has all the equipment at home which was arranged prior to this hospital stay at [facility]. The patient has equipment available. We will continue same plan of care and monitor very closely. She is not ready for discharge until we get the final recommendations from ID for antibiotic therapy. Repeat blood cultures were performed earlier today according to the nurse. MD GERMAIN Joe/JACQUE /[id number]
--- NOTE | 2018-09-18 14:59 | NUR ---
Nutrition Screen Note RD Recommendation for Physician: -Continue current diet as ordered Plan of Care: RD following, monitoring for tolerance and adequacy Nutrition reason for involvement: LOS Primary Diagnose(s): Chronic obstructive pulmonary disease exacerbation. PMH: COPD, medical noncompliance, morbid obesity. Ht: 62in Wt: 190.5lb BMI: 34.8kg/m2 IBW: 110lb RD Assessment: (09/18) Chart reviewed. Labs and meds reviewed. 52yo F, who was admitted for SOB. Currently on Solu-Medrol with BG 137. Visited pt in the room. Pt reported good appetite with 100% observed lunch intake. No complains of nausea or vomiting. LBM 5 days ago, given prune juice and notified RN. Pt denied any chewing or swallowing difficulty. 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 Stable weight ~190 200lbs. Will continue to monitor and follow. Current Diet: cardiac diet Malnutrition Evaluation (09/18) The patient does not meet criteria for a specified degree of malnutrition at this time. Will re-evaluate at follow-up as appropriate. Diet Education Needs Assessment: Diet education not indicated. Nutrition Care Level: low Signed: Carly Monge, MS, RD, LD
[2018-09-18] MEDS: ENOXAPARIN SOD INJ 40 MG/0.4 ML SYR SC SCH (17:23)
[2018-09-19] MEDS: ALBUTEROL SULF 0.083% NEB SOLN 3 ML NEB NEB SCH ×6 (03:10→22:50)
[2018-09-19] MEDS: IPRATROPIUM BROMIDE 0.02% 2.5 ML NEB NEB SCH ×6 (03:10→22:50)
[2018-09-19] MEDS: HYDROCODONE/APAP 5MG-325MG TAB PO PRN ×3 (05:59→18:04)
[2018-09-19 06:02] VITALS: BP 140/69
--- NOTE | 2018-09-19 06:55 | NUR ---
Report given to oncoming nurse.
[2018-09-19 07:15] VITALS: BP 145/72
--- NOTE | 2018-09-19 07:15 | NUR ---
Pt received resting in bed. Report received from outgoing nurse. Will monitor
[2018-09-19] MEDS: INSULIN LISPRO 100 UNIT/1 ML 3ML VIAL SQ SCH ×4 (07:30→20:21)
[2018-09-19] MEDS: ASPIRIN 81 MG ENTERIC COATED PO SCH (08:19)
[2018-09-19] MEDS: METHYLPREDNISOLONE SOD SUCC 40 MG/ML VIAL 1ML IV SCH ×2 (08:19→20:49)
[2018-09-19] MEDS: BENZONATATE 100 MG CAP PO PRN ×2 (08:19→17:21)
[2018-09-19] MEDS: DIPHENHYDRAMINE HCL 25 MG CAP PO PRN ×2 (08:19→17:21)
[2018-09-19] MEDS: GUAIFENESIN/CODEINE 10 ML CUP PO PRN ×3 (08:19→22:53)
[2018-09-19] MEDS: FAMOTIDINE 20 MG TAB PO SCH ×2 (08:19→20:49)
--- NOTE | 2018-09-19 08:19 | NUR ---
All meds given as ordered. Call arambula within reach. No s/s of SOB noted or voiced. Will monitor
[2018-09-19] MEDS: CEFTRIAXONE SOD 1 GM/NS 50 ML 50 ML IV SCH ×2 (09:50→22:50)
[2018-09-19 11:15] VITALS: BP 137/88
--- NOTE | 2018-09-19 13:58 | Progress Note ---
DATE: 09/19/2018 Medicine Progress Note SUBJECTIVE: The patient is doing much better today with no complaints. She still has not brought her home tank oxygen for discharge. I have told her to please bring the tank in order for us to discharge her home. OBJECTIVE: VITAL SIGNS: Temperature is 96.5, pulse 85, respiratory rate is 19, blood pressure 145/72, and pulse ox 99% on 5 L cannula. GENERAL: Not in acute distress. Alert and oriented x3. Cooperative on examination. HEENT: Head is normocephalic and atraumatic. Eyes; pupils are equal, round, and reactive to light bilaterally. Extraocular movements are intact bilaterally. Throat, no evidence of erythema or exudates in the posterior pharynx. Has poor dentition. NECK: Supple. Good range of motion. PULMONARY: Decreased breath sounds bilaterally with expiratory wheezing. CARDIOVASCULAR: Positive S1, S2. No murmurs, rubs, or gallops appreciated. ABDOMEN: Soft, nondistended, and nontender to palpation. Bowel sounds present. MUSCULOSKELETAL: Strength is 5/5 throughout. No evidence of any muscle deficits on examination. No weakness appreciated. NEUROLOGICAL: Cranial nerves II through XII grossly intact. No evidence of any neurological deficits on exam. SKIN: Intact. Warm to touch. Good cap refill. PSYCHIATRIC: Normal affect and mood. EXTREMITIES: No edema. Good range of motion throughout. LAB FINDINGS: Show white count 11.9, hemoglobin 11.3, hematocrit of 38, and platelets of 342. Chemistries reviewed, stable. Labs shows E coli in the urine. Repeat blood cultures are pending. Initial blood culture showed coag-negative Staph and Streptococcus viridans. IMPRESSION: 1. Acute exacerbation of chronic obstructive pulmonary disease. 2. Medical noncompliance. 3. Morbid obesity. 4. Chronic smoker. 5. Streptococcus viridans bacteremia. 6. Escherichia coli urinary tract infection. PLAN: She is on steroids, neb treatments, and antibiotics. Pulmonary is following closely. ID is monitoring and evaluating the UTI bacteremia. I have discussed with her on several occasions to please bring her home O2 for discharge. She keeps giving me the same story all time that the family is in the process of bringing it and still have not brought it. Once that is all arranged and oxygen is here, she will be discharged home. Awaiting for repeat blood cultures to be negative. MD GERMAIN Joe/JACQUE /[id number]
[2018-09-19 16:30] VITALS: BP 143/79
[2018-09-19] MEDS: ENOXAPARIN SOD INJ 40 MG/0.4 ML SYR SC SCH (17:20)
[2018-09-19 19:47] VITALS: BP 148/74
[2018-09-19 21:05] VITALS: BP 123/80
[2018-09-20 00:03] VITALS: BP 159/69
[2018-09-20] MEDS: HYDROCODONE/APAP 5MG-325MG TAB PO PRN ×3 (00:03→12:30)
[2018-09-20 00:11] VITALS: BP 159/69
[2018-09-20] MEDS: ALBUTEROL SULF 0.083% NEB SOLN 3 ML NEB NEB SCH ×4 (04:10→15:30)
[2018-09-20] MEDS: IPRATROPIUM BROMIDE 0.02% 2.5 ML NEB NEB SCH ×4 (04:10→15:30)
[2018-09-20 04:54] VITALS: BP 161/78
[2018-09-20] MEDS: GUAIFENESIN/CODEINE 10 ML CUP PO PRN ×2 (04:58→12:30)
--- NOTE | 2018-09-20 05:06 | NUR ---
sent sputum sample to lab Addendum: 09/20/18 at 0507 by Cecy Bach RN wrong patient.
[2018-09-20 07:20] VITALS: BP 164/71
--- NOTE | 2018-09-20 07:20 | NUR ---
Pt received resting in bed. No s/s of respiratory distress noted or voiced. Vitals stable. Will monitor
[2018-09-20] MEDS: INSULIN LISPRO 100 UNIT/1 ML 3ML VIAL SQ SCH ×2 (07:30→11:30)
[2018-09-20 07:46] LABS: BASOPHILS % 0.1 % (0.0-1.0); HEMATOCRIT 39.7 % (34.2-44.1); HEMOGLOBIN 12.2 g/dL (12.0-16.0); LYMPHOCYTES # (AUTO) 1.1 (1.0-3.2); LYMPHOCYTES % 7.7 % (18.0-39.1); MEAN CORPUSCULAR HEMOGLOBIN 27.5 pg (28-32); MEAN CORPUSCULAR HGB CONC 30.7 g/dL (31-35); MEAN CORPUSCULAR VOLUME 89.6 fL (81-99); MONOCYTES # (AUTO) 0.7 (0.2-0.8); MONOCYTES % 4.9 % (4.4-11.3); NEUTROPHILS # (AUTO) 11.9 (2.1-6.9); PLATELET COUNT 348 x10e3/uL (140-360); RED BLOOD COUNT 4.43 x10e6/uL (3.6-5.1); RED CELL DISTRIBUTION WIDTH 13.6 % (11.7-14.4)
[2018-09-20 08:08] LABS: ANION GAP 10.9 mmol/L (8-16); BLOOD UREA NITROGEN 20 mg/dL (7-26); BUN/CREATININE RATIO 36 (6-25); CALCIUM 9.5 mg/dL (8.4-10.2); CHLORIDE 92 mmol/L (98-107); CREATININE, SERUM 0.55 mg/dL (0.57-1.11); EST GLOMERULAR FILTRATION RATE > 60 ML/MIN (60-); GLUCOSE 129 mg/dL (74-118); MAGNESIUM 2.4 MG/DL (1.3-2.1); POTASSIUM 4.9 mmol/L (3.5-5.1); SODIUM 140 mmol/L (136-145)
[2018-09-20 08:10] VITALS: BP 164/71
[2018-09-20] MEDS: METHYLPREDNISOLONE SOD SUCC 40 MG/ML VIAL 1ML IV SCH (08:10)
[2018-09-20] MEDS: ASPIRIN 81 MG ENTERIC COATED PO SCH (08:10)
[2018-09-20] MEDS: FAMOTIDINE 20 MG TAB PO SCH (08:11)
[2018-09-20] MEDS: DIPHENHYDRAMINE HCL 25 MG CAP PO PRN (08:11)
[2018-09-20] MEDS: CEFTRIAXONE SOD 1 GM/NS 50 ML 50 ML IV SCH (08:11)
[2018-09-20] MEDS: BENZONATATE 100 MG CAP PO PRN (08:11)
[2018-09-20 08:18] LABS: CARBON DIOXIDE 42 mmol/L (22-29)
[2018-09-20] MEDS ORDERED: ALBUTEROL2.5 MG/3 M NEB (11:26)
[2018-09-20 11:30] VITALS: BP 179/79
[2018-09-20] MEDS ORDERED: CEFDINIR300 MG PO (15:14)
[2018-09-20] MEDS ORDERED: ALBUTEROL2.5 MG/0.5 (15:16)
[2018-09-20] MEDS ORDERED: ALBUTEROL2.5 MG/3 M INH (15:16)
[2018-09-20] MEDS ORDERED: PREDNISONE10 MG PO (15:17)
--- NOTE | 2018-09-20 15:37 | NUR ---
pt given discharge instructions regarding meds, diet, activities, and follow up appointment with ID, PCP, and pulmo. Pt also STRONGLY encouraged to follow up with insurance purposes. Pt stated her "ex- isn't picking up the phone anymore" . supervisor residential notified. Will monitor
--- NOTE | 2018-09-20 16:26 | NUR ---
Pt left via ambulance service. Charge nurse & plating and point assembly supervisor aware. Pt left with all belongings
--- NOTE | 2018-09-20 21:38 | Discharge Summary ---
FINAL DISCHARGE DIAGNOSES: 1. Acute exacerbation of chronic obstructive pulmonary disease. 2. Morbid obesity. 3. Streptococcus viridans bacteremia. 4. Escherichia coli urinary tract infection. 5. Medical noncompliance. CONSULTANTS: Pulmonary and ID. PHYSICAL EXAMINATION: VITAL SIGNS: Temperature is 97, pulse 85, respiratory rate is 18, blood pressure is 164/71, pulse ox 99% on 5 L nasal cannula. LAB FINDINGS: Showed a white count of 13, hemoglobin 12, hematocrit is 39, and platelets of 348. Coagulation is normal. Chemistry, sodium 140, potassium 4.9, chloride 92, bicarb 42, BUN 20, creatinine is 0.55, glucose is 129, magnesium 2.4, calcium 9.5. LFTs were normal. CK was 30. Troponins were negative. Albumin 3.2. Urinalysis is concerning for UTI. Urine culture was positive for E. coli. Flu negative. Group B strep negative. Microbiology, urine culture positive for E. coli, sensitive to Rocephin, discharged on Omnicef. Blood culture is negative. Repeat blood culture is negative. Sputum culture is negative. One blood culture shows Streptococcus viridans, coag-negative staph likely contaminant. Chest x-ray shows mild patchy bibasilar atelectasis HOSPITAL COURSE: A 52-year-old female with history of COPD, very noncompliant with her care, does not follow up with her PCP, has home O2, comes in with shortness of breath and treated for underlying acute exacerbation of COPD. Pulmonary was consulted. The patient was on steroids, neb treatments, and antibiotics. The patient had Streptococcus viridans on blood culture and positive UTI E. coli requiring ID consultation. The patient maintained on IV Rocephin while here in the hospital stay with much improvement. She was discharged on oral Omnicef for 10 more days per ID recommendations. The patient has been cleared by ID and Pulmonary for discharge home. The patient brought her home O2 already for discharge. She is now ready for discharge home back to normal baseline with no other complaints. On the day of discharge, vital signs stable, labs reviewed and stable. The patient was seen, evaluated, examined thoroughly on the day of discharge. No other complaints. The patient verbalized understanding and agrees to plan of care to follow up as an outpatient with the primary care physician in 1 week, Pulmonary and ID in 2 weeks' time. MEDICATIONS: See med reconciliation form including steroid taper for 12 days, albuterol neb treatments with refills given as well as Omnicef 300 mg capsules one tab b.i.d. x10 days. DISPOSITION: Home. CONDITION: Stable. DIET: Heart healthy. In the event of any worsening symptoms, the patient advised to come back to the ED for further evaluation. Discharge summary took greater than 35 minutes. MD GERMAIN Joe/MODL /[id number]
== END 2018-09-20 16:25 | disposition home or self-care (01) | DRG 871 ==
LOC: ER 13:26 → ERHOLD 16:01 → IMCU 17:40
PROVIDERS: ADMIT Internal Medicine; ATTEND Internal Medicine
PROC: 5A09357 Assistance with Respiratory Ventilation, Less than 24 Consecutive Hours, Continuous Positive Airway Pressure (ICD-10-PCS; principal; 2018-09-14)
DX: A40.8 Other streptococcal sepsis (principal); J18.9 Pneumonia, unspecified organism; J44.0 Chronic obstructive pulmonary disease with (acute) lower respiratory infection; J96.12 Chronic respiratory failure with hypercapnia; J96.11 Chronic respiratory failure with hypoxia; N39.0 Urinary tract infection, site not specified; J44.1 Chronic obstructive pulmonary disease with (acute) exacerbation; J20.9 Acute bronchitis, unspecified; Z87.891 Personal history of nicotine dependence; Z88.0 Allergy status to penicillin; Z91.013 Allergy to seafood; M19.90 Unspecified osteoarthritis, unspecified site; M54.9 Dorsalgia, unspecified; Z99.81 Dependence on supplemental oxygen; Z91.19 Patient's noncompliance with other medical treatment and regimen; E66.01 Morbid (severe) obesity due to excess calories; Z68.37 Body mass index [BMI] 37.0-37.9, adult; B96.20 Unspecified Escherichia coli [E. coli] as the cause of diseases classified elsewhere; R53.81 Other malaise; G47.33 Obstructive sleep apnea (adult) (pediatric)
CPT/HCPCS: 36415; 36600; 71045; 80048; 80053; 80202; 81001; 82550; 82553; 82805; 82948; 83518; 83605; 83735; 83880; 84484; 85025; 85610; 85730; 87040; 87070; 87071; 87086; 87186; 87205; 87400; 93005; 93306; 94640; 94660; 99284; J0456; J0692; J0696; J1650; J1940; J2270; J2920; J3370; J7030; J7050

== ENCOUNTER 2018-12-16 07:02 | Inpatient (IN) | payer SELFPAY ==
[2018-12-16] VITALS (9 sets, daily range): BP systolic 106–136; BP diastolic 66–95
[~2018-12-16] VITALS: Ht 157.5 cm; Wt 77.1 kg
[~2018-12-16 07:02] MED LIST changes: +ALBUTEROL2.5 MG/0.5; +ALBUTEROL2.5 MG/3 M INH; +ALBUTEROL2.5 MG/3 M NEB; +CEFDINIR300 MG PO
[2018-12-16] MEDS ORDERED: ONDANSETRON HCL INJ 2MG/ML 2ML 2 MG/ML VIAL IV STA (07:20)
[2018-12-16] MEDS ORDERED: SODIUM CHLORIDE 0.9% 1000ML 1,000 ML IV STA (07:20)
[2018-12-16] MEDS ORDERED: MORPHINE SULFATE 2 MG/ML SYR 1ML IV STA (07:20)
[2018-12-16] MEDS ORDERED: IPRATROPIUM BROMIDE 0.02% 2.5 ML NEB NEB ONE (07:30)
[2018-12-16] MEDS ORDERED: LEVALBUTEROL HCL SOLN NEBU 1.25 MG/3 ML NEB INH ONE (07:30)
[2018-12-16 07:41] LABS: BASOPHILS % 0.2 % (0.0-1.0); EOSINOPHILS # (AUTO) 0.2 (0.0-0.4); EOSINOPHILS % 1.1 % (0.0-6.0); HEMATOCRIT 43.8 % (34.2-44.1); HEMOGLOBIN 12.6 g/dL (12.0-16.0); LYMPHOCYTES % 14.6 % (18.0-39.1); MEAN CORPUSCULAR HEMOGLOBIN 26.9 pg (28-32); MEAN CORPUSCULAR HGB CONC 28.8 g/dL (31-35); MEAN CORPUSCULAR VOLUME 93.4 fL (81-99); MONOCYTES # (AUTO) 0.8 (0.2-0.8); MONOCYTES % 5.5 % (4.4-11.3); NEUTROPHILS # (AUTO) 10.7 (2.1-6.9); NEUTROPHILS % 78.2 % (38.7-80.0); PLATELET COUNT 365 x10e3/uL (140-360); RED BLOOD COUNT 4.69 x10e6/uL (3.6-5.1); RED CELL DISTRIBUTION WIDTH 13.9 % (11.7-14.4)
[2018-12-16 07:57] LABS: INR 0.98; PARTIAL THROMBOPLASTIN TIME 29.4 seconds (23.8-35.5); PROTHROMBIN TIME 13.5 seconds (11.9-14.5)
[2018-12-16] MEDS ORDERED: VANCOMYCIN 1GM/NS 250 ML 250 ML IV ONE (08:00)
[2018-12-16] MEDS ORDERED: ONDANSETRON HCL INJ 2MG/ML 2ML 2 MG/ML VIAL IV PRN (08:00)
[2018-12-16] MEDS ORDERED: MORPHINE SULFATE 2 MG/ML SYR 1ML IV PRN (08:00)
[2018-12-16 08:13] LABS: ALANINE AMINOTRANSFERASE 15 IU/L (0-55); ALBUMIN 3.5 g/dL (3.5-5.0); ALBUMIN/GLOBULIN RATIO 0.7 (0.8-2.0); ALKALINE PHOSPHATASE 96 IU/L (40-150); ANION GAP 15.4 mmol/L (8-16); BLOOD UREA NITROGEN 13 mg/dL (7-26); BUN/CREATININE RATIO 22 (6-25); CALCIUM 10.1 mg/dL (8.4-10.2); CARBON DIOXIDE 39 mmol/L (22-29); CHLORIDE 91 mmol/L (98-107); CREATINE KINASE 25 IU/L (29-168); CREATININE, SERUM 0.59 mg/dL (0.57-1.11); EST GLOMERULAR FILTRATION RATE > 60 ML/MIN (60-); GLUCOSE 166 mg/dL (74-118); POTASSIUM 4.4 mmol/L (3.5-5.1); SODIUM 141 mmol/L (136-145)
[2018-12-16 08:17] LABS: BILIRUBIN,URINE NEGATIVE (NEGATIVE); CLARITY,URINE CLEAR (CLEAR); COLOR,URINE YELLOW (YELLOW); KETONES,URINE NEGATIVE (NEGATIVE); LEUKOCYTE ESTERASE ,URINE NEGATIVE (NEGATIVE); NITRITE,URINE NEGATIVE (NEGATIVE); PROTEIN,URINE DIPSTICK 1+ (NEGATIVE); URINE UROBILINOGEN 0.2 mg/dL (0.2 - 1)
[2018-12-16 08:20] LABS: BACTERIA,URINE FEW /HPF; EPITHELIAL CELLS,URINE FEW /LPF; RBC,URINE 0-5 /HPF (0-5); WBC,URINE (MAN) 0-5 /HPF (0-5)
--- NOTE | 2018-12-16 08:20 | NUR ---
DR ALMONTE INFORMED PT OF NEED FOR INTUBATION AND BENEFITS OF SUCH AND PT REFUSED INTUBATION AT THIS TIME; PT WISHES TO CONTINUE ON BIPAP
[2018-12-16 08:23] LABS: ABG HCO3 47 mmol/L (23-28); ABG PCO2 99 mmHg (41-51); ABG PH 7.28 (7.31-7.41); ABG PO2 208 mmHg (80-105)
--- NOTE | 2018-12-16 08:28 | NUR ---
DR POST AT PT BEDSIDE
--- NOTE | 2018-12-16 08:41 | Diagnostic Imaging Report ---
EXAMINATION: CHEST SINGLE (PORTABLE) INDICATION: Respiratory distress, shortness of breath COMPARISON: Multiple prior chest radiograph, most recently of 09/15/2018 FINDINGS: LINES/TUBES:EKG leads overlie the chest. LUNGS:The lungs are well-inflated. There is perihilar fullness and indistinctness of the pulmonary vasculature. PLEURA:No pleural effusion or pneumothorax. MEDIASTINUM:The heart size is at the upper limits of normal. BONES/SOFT TISSUES:No acute osseous injury. ABDOMEN:No free air under the diaphragm. IMPRESSION: Mild pulmonary interstitial edema. Signed by: Dianelys Feldman MD on 12/16/2018 8:37 AM
[2018-12-16] MEDS ORDERED: DEXTROSE 50% SYRINGE 50 ML IV PRN (08:45)
[2018-12-16] MEDS ORDERED: SERTRALINE HCL 50 MG TAB PO SCH (09:00)
[2018-12-16] MEDS ORDERED: THEOPHYLLINE 200 MG TABCR PO SCH (09:00)
[2018-12-16 09:02] LABS: BAND NEUTROPHILS % (MANUAL) 7 %; EOSINOPHILS % (MANUAL) 1 % (0-7); MONOCYTES % (MANUAL) 14 % (3.4-9.0); NEUTROPHILS % (MANUAL) 60 % (40-74)
[2018-12-16 09:03] LABS: LYMPHOCYTES % (MANUAL) 15 % (19-48)
[2018-12-16 09:04] LABS: ANISOCYTOSIS SLIG; HYPOCHROMASIA SLIGHT; PLATELET ESTIMATE SLIGHTLY INCREASED; PLATELET MORPHOLOGY COMMENT NORMAL; RBC MORPHOLOGY COMMENT ABNORMAL
[2018-12-16 09:05] LABS: POIKILOCYTOSIS SLIGHT
[2018-12-16] MEDS ORDERED: ETOMIDATE 2 MG/ML 10 ML INJ IV STA (09:44)
[2018-12-16] MEDS: SODIUM CHLORIDE 0.9% 1000ML 1,000 ML IV SCH ×2 (09:45→18:00)
[2018-12-16] MEDS: CEFEPIME 2 GM/NS 0.9% 100 ML 100 ML IV SCH ×2 (09:45→19:50)
[2018-12-16] MEDS ORDERED: SUCCINYLCHOLINE 200 MG/10 ML SYR IV STA (09:45)
[2018-12-16] MEDS ORDERED: MIDAZOLAM HCL 2 MG/2 ML VIAL IV STA (09:57)
[2018-12-16] MEDS ORDERED: IPRATROPIUM BROMIDE 0.02% 2.5 ML NEB NEB SCH (10:00)
[2018-12-16] MEDS ORDERED: MIDAZOLAM HCL 25 MG in DEXTROSE 5% 50ML 45 ML IV PRN (10:00)
--- NOTE | 2018-12-16 10:30 | Diagnostic Imaging Report ---
EXAMINATION: CHEST SINGLE (PORTABLE) INDICATION: Post intubation. COMPARISON: Multiple prior chest radiographs, most recently 12/16/2018 FINDINGS: Exam is limited by portable technique, motion artifact, and patient body habitus. LINES/TUBES:Interval intubation. Endotracheal tube terminates approximately 2 cm above the stalin. Enteric tube projects below the diaphragm with tip in the stomach EKG leads overlie the chest. LUNGS:The lungs are moderately inflated. No focal consolidation. Pulmonary edema is difficult to evaluate given motion artifact and underpenetrated study. PLEURA:No pleural effusion or pneumothorax. MEDIASTINUM:The cardiomediastinal silhouette appears normal in size and shape. BONES/SOFT TISSUES:No acute osseous injury. ABDOMEN:No free air under the diaphragm. IMPRESSION: Interval intubation. ET tube terminates 2 cm above the stalin. Enteric tube in the stomach. Otherwise, no significant interval change. Signed by: Dianelys Feldman MD on 12/16/2018 10:27 AM
[2018-12-16] MEDS: IPRATROPIUM BROMIDE 0.02% 2.5 ML NEB NEB SCH ×4 (11:00→23:00)
[2018-12-16] MEDS: LEVALBUTEROL HCL SOLN NEBU 0.63 MG/3 ML NEB INH SCH ×4 (11:00→23:00)
[2018-12-16] MEDS: AZITHROMYCIN 500MG/NS 250 ML 250 ML IV SCH (11:08)
[2018-12-16] MEDS: INSULIN LISPRO 100 UNIT/1 ML 3ML VIAL SQ SCH ×3 (11:37→20:53)
[2018-12-16 12:02] LABS: ABG HCO3 39 mmol/L (23-28); ABG PCO2 64 mmHg (41-51); ABG PH 7.39 (7.31-7.41); ABG PO2 212 mmHg (80-105)
--- NOTE | 2018-12-16 12:14 | Consultation ---
DATE OF CONSULTATION: Pulmonary consultation HISTORY OF PRESENT ILLNESS: The patient of maren Elizondo, but unfortunate 53-year-old woman, lifelong smoker, claims to quit smoking, lives at home with her daughter. She has supplemental oxygen at home. She has had BiPAP at home. She is allergic to penicillin, codeine, and iodine, but not cephalosporins. Admitted in extremis, short of breath, placed on BiPAP and is now lucid and wishes to defer intubation unless absolutely necessary, who has been on theophylline at home as well as prednisone, albuterol and Atrovent. According to record, she is still on nicotine patches. She has been depressed and has been taking Zoloft, Vicodin, albuterol, amlodipine, BuSpar, metoprolol, Protonix, and tramadol. Recently on Omnicef, nicotine patch. PHYSICAL EXAMINATION: GENERAL: She is a cushingoid white female, anxious and lucid on BiPAP. VITAL SIGNS: Blood pressure 146/60, pulse 109, respirations 18, temperature 98.2. HEAD: Normocephalic and atraumatic. Cushingoid facies. LUNGS: Markedly diminished breath sounds bilaterally. HEART: Regular rhythm. ABDOMEN: Obese, nontender. EXTREMITIES: Nonedematous. IMPRESSION: Respiratory failure, acute on chronic. PLAN: To avoid sedation if possible. BiPAP intubated, the patient declines. Full code status confirmed. Continue broad-spectrum antibiotics, therapy of atypical infections. The patient discussed with Dr. Nugent. Thank you for this kind referral. MD CANDACE Diaz/JACQUE /[id number]
[2018-12-16] MEDS ORDERED: MIDAZOLAM HCL 25 MG in SODIUM CHLORIDE 0.9% 50ML 45 ML IV PRN (12:30)
[2018-12-16] MEDS ORDERED: METHYLPREDNISOLONE SOD SUCC 125 MG/2ML VIAL IV SCH (14:00)
[2018-12-16 14:31] LABS: ABG HCO3 40 mmol/L (23-28); ABG PCO2 40 mmHg (41-51); ABG PH 7.61 (7.31-7.41); ABG PO2 201 mmHg (80-105)
[2018-12-16] MEDS ORDERED: ETOMIDATE 2 MG/ML 10 ML INJ IV ONE (14:32)
[2018-12-16] MEDS ORDERED: MIDAZOLAM HCL 2 MG/2 ML VIAL ONE (14:32)
[2018-12-16] MEDS ORDERED: SUCCINYLCHOLINE CHLORIDE 20 MG/ML 10ML VIAL ONE (14:32)
--- NOTE | 2018-12-16 15:30 | NUR ---
Rec'd patient to Room 194, mechanically ventilated on Versed gtt, but opens eyes and nods head to communicate.
[2018-12-16] MEDS ORDERED: METHYLPREDNISOLONE SOD SUCC 40 MG/ML VIAL 1ML IV SCH (17:00)
[2018-12-16 17:23] LABS: CREATINE KINASE MB 1.4 ng/mL (0-5.0)
--- NOTE | 2018-12-16 18:58 | Diagnostic Imaging Report ---
EXAM: Abdomen 1 View INDICATION: ^OGT placement ^[id number] ^[id number] COMPARISON: None FINDINGS: Distal tip of orogastric tube is visualized projecting over gastric fundus. Nonobstructive bowel gas pattern. No signs of pneumoperitoneum. No acute osseous abnormality. IMPRESSION: Distal tip of the orogastric tube is visualized projecting over gastric fundus. The side-port is close to the gastroesophageal junction. Recommend advancement. Signed by: Dr. Roland Cantu MD on 12/16/2018 6:54 PM
--- NOTE | 2018-12-16 20:11 | Diagnostic Imaging Report ---
EXAM: Abdomen 1 View INDICATION: ^OG tube placement ^[id number] ^1939 COMPARISON: Same day abdominal x-ray. FINDINGS: See impression. IMPRESSION: Slight advancement of orogastric tube with tip projecting over the gastric body. Signed by: Dr. Roland Cantu MD on 12/16/2018 8:06 PM
--- NOTE | 2018-12-16 20:20 | NUR ---
OG tube placement verified with Radiology, tube feedings started
[2018-12-16] MEDS: MIDAZOLAM HCL 25 MG in SODIUM CHLORIDE 0.9% 50ML 45 ML IV PRN (22:14)
[2018-12-16 23:58] LABS: CREATINE KINASE MB 0.8 ng/mL (0-5.0)
[2018-12-17] VITALS (25 sets, daily range): BP systolic 100–164; BP diastolic 57–85
[2018-12-17] MEDS: MIDAZOLAM HCL 25 MG in SODIUM CHLORIDE 0.9% 50ML 45 ML IV PRN ×4 (01:15→23:35)
--- NOTE | 2018-12-17 02:02 | History and Physical ---
CHIEF COMPLAINT: This is a 53-year-old female who comes in with COPD exacerbation, hypoxia. The patient is currently intubated. Most of the history is obtained from previous admissions and also from the chart as per ER. HISTORY OF PRESENT ILLNESS: Ms. Miranda Weaver with a history of COPD, current smoker, was usual state of health until two days ago. The patient started to have some shortness of breath and increased hypoxia. The patient had tachypnea and also was not able to ambulate short distances. The patient came in, was found to be in acute respiratory failure and the patient is intubated and is admitted to the hospital. PAST MEDICAL HISTORY: History of depression, history of multiple COPD exacerbation, history of smoking, history of anxiety and history of chronic depression. FAMILY HISTORY: Positive for coronary artery disease in father, diabetes mellitus in father, hypertension, father and mother with acute myocardial infarction. The patient also has a history of chronic osteoarthritis and chronic pain too. 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 ALLERGIES: ALLERGIC TO FISH CONTAINING PRODUCTS, PENICILLIN, SHELLFISH DERIVED. REVIEW OF SYSTEMS: Unable to obtain. The patient is intubated. SOCIAL HISTORY: History of smoking as per chart. No EtOH. No IV drug abuse. PHYSICAL EXAMINATION: GENERAL: The patient is intubated. VITAL SIGNS: Temperature is 98.7, pulse of 100, respirations of 14, blood pressure is 120/76, she is on mechanical ventilator at this time. HEENT: Normocephalic, atraumatic. Morbidly obese. CVS: S1 and S2 distant. Slight tachycardia noted. ABDOMEN: Nontender, nondistended. EXTREMITIES: No clubbing, no cyanosis, no edema. Lines noted. Aguero catheter noted. The patient has no G-tube. LABORATORY [place]: [place] [address], hemoglobin of 12.6, hematocrit 43.8, neutrophil count 78.2. Chemistry, sodium of 141, potassium 4.4, BUN of 13 and creatinine 0.59. Toxicology, theophylline level is pending. Coags were normal. MICROBIOLOGY: Blood cultures are taken. IMAGING STUDIES: Abdominal chest x-ray shows distal tip of orogastric tube is visualized projecting over the gastric fundus. Chest x-ray, no free air under the diaphragm. The ET tube terminates 2 cm above the stalin. ASSESSMENT: 1. Acute respiratory failure. 2. Chronic obstructive pulmonary disease exacerbation. 3. Leukocytosis. 4. History of nicotine dependency. 5. History of depression. 6. Morbid obesity. The patient currently lavonne Solu-Medrol 60 mg twice a day. She is on levalbuterol and ipratropium bromide nebulization q.4 hours, azithromycin has been started. The patient is also on cefepime q.12 hours. Protonix for GI prophylaxis and morphine sulfate for pain. The patient is on Versed at this time. We will continue to monitor the patient. Dr. Mckoy has been consulted for further recommendation and clinical course. We will continue to monitor the patient along with hr shared services consultant, Dr. Mckoy. MD KIRK Hurley/ANABELL /[id number]
[2018-12-17] MEDS: LEVALBUTEROL HCL SOLN NEBU 0.63 MG/3 ML NEB INH SCH ×6 (02:30→23:15)
[2018-12-17] MEDS: IPRATROPIUM BROMIDE 0.02% 2.5 ML NEB NEB SCH ×6 (02:30→23:15)
[2018-12-17] MEDS: SODIUM CHLORIDE 0.9% 1000ML 1,000 ML IV SCH ×2 (04:57→16:32)
[2018-12-17 05:07] LABS: BASOPHILS % 0.1 % (0.0-1.0); HEMATOCRIT 30.7 % (34.2-44.1); LYMPHOCYTES # (AUTO) 1.2 (1.0-3.2); MEAN CORPUSCULAR HEMOGLOBIN 26.8 pg (28-32); MEAN CORPUSCULAR HGB CONC 29.3 g/dL (31-35); MEAN CORPUSCULAR VOLUME 91.4 fL (81-99); MONOCYTES # (AUTO) 0.5 (0.2-0.8); MONOCYTES % 6.7 % (4.4-11.3); NEUTROPHILS # (AUTO) 5.8 (2.1-6.9); NEUTROPHILS % 76.8 % (38.7-80.0); PLATELET COUNT 266 x10e3/uL (140-360); RED BLOOD COUNT 3.36 x10e6/uL (3.6-5.1); RED CELL DISTRIBUTION WIDTH 13.9 % (11.7-14.4)
[2018-12-17 05:29] LABS: ALANINE AMINOTRANSFERASE 12 IU/L (0-55); ALBUMIN 2.6 g/dL (3.5-5.0); ALBUMIN/GLOBULIN RATIO 0.8 (0.8-2.0); ALKALINE PHOSPHATASE 59 IU/L (40-150); ANION GAP 11.8 mmol/L (8-16); BLOOD UREA NITROGEN 19 mg/dL (7-26); BUN/CREATININE RATIO 36 (6-25); CALCIUM 8.9 mg/dL (8.4-10.2); CARBON DIOXIDE 33 mmol/L (22-29); CHLORIDE 100 mmol/L (98-107); CREATININE, SERUM 0.53 mg/dL (0.57-1.11); EST GLOMERULAR FILTRATION RATE > 60 ML/MIN (60-); GLUCOSE 115 mg/dL (74-118); POTASSIUM 3.8 mmol/L (3.5-5.1); SODIUM 141 mmol/L (136-145)
--- NOTE | 2018-12-17 06:26 | Diagnostic Imaging Report ---
EXAM: ABDOMEN-1VIEW (KUB), DATE: 12/17/2018 5:00 AM INDICATION: OG-tube advancement. COMPARISON: 12/16/2018 at 1841 hours. FINDINGS: LINES/TUBES: Orogastric tube has been advanced with distal tip projected on the expected location of the gastric antrum. BOWEL PATTERN: No evidence for obstruction on limited exam. SOFT TISSUES: No abnormal calcifications. No mass effect. LUNG BASES: Clear. BONES: No acute findings. IMPRESSION: Orogastric tube has been advanced with distal tip projected on the expected location of the gastric antrum. Signed by: Dr. Anaid Diaz M.D. on 12/17/2018 6:22 AM
--- NOTE | 2018-12-17 06:40 | Diagnostic Imaging Report ---
EXAMINATION: CHEST SINGLE (PORTABLE) INDICATION: Bronchitis. COPD exacerbation. Shortness of breath. COMPARISON: Multiple prior chest radiographs, most recently 12/16/2018 FINDINGS: LINES/TUBES:Endotracheal tube with distal tip well above the stalin. Enteric tube projects extends below the diaphragm with distal tip not included. LUNGS:The lungs are moderately inflated. No focal consolidation. Mild prominence of the pulmonary vasculature. Bibasilar subsegmental atelectasis. PLEURA:No pleural effusion or pneumothorax. MEDIASTINUM:The cardiomediastinal silhouette appears normal in size and shape. BONES/SOFT TISSUES:No acute osseous injury. ABDOMEN:No free air under the diaphragm. IMPRESSION: Stable examination. Mild pulmonary venous congestion. Signed by: Dr. Anaid Diaz M.D. on 12/17/2018 6:36 AM
[2018-12-17] MEDS: INSULIN LISPRO 100 UNIT/1 ML 3ML VIAL SQ SCH ×4 (07:30→22:13)
[2018-12-17] MEDS: CEFEPIME 2 GM/NS 0.9% 100 ML 100 ML IV SCH ×2 (08:00→19:40)
[2018-12-17 08:01] LABS: CREATINE KINASE MB 0.7 ng/mL (0-5.0)
[2018-12-17] MEDS ORDERED: NICOTINE 7 MG SUBD SCH (09:00)
[2018-12-17] MEDS ORDERED: OMEPRAZOLE 20 MG CAP PO SCH (09:00)
[2018-12-17] MEDS: THEOPHYLLINE 200 MG TABCR PO SCH ×2 (10:00→16:33)
[2018-12-17] MEDS: PANTOPRAZOLE 40 MG 10ML VIAL IV SCH (10:18)
[2018-12-17] MEDS: AZITHROMYCIN 500MG/NS 250 ML 250 ML IV SCH (10:18)
[2018-12-17] MEDS: NICOTINE 7 MG PATCH TOP SCH (10:18)
[2018-12-17] MEDS: SERTRALINE HCL 50 MG TAB PO SCH (10:18)
--- NOTE | 2018-12-17 13:46 | NUR ---
PT IS INTUBATED AND I AM UNABLE TO PREFORM DISCHARGE ASSESSMENT AT THIS TIME
--- NOTE | 2018-12-17 14:39 | NUR ---
WOUND CARE CONSULTATION: THIS IS A 53 YEAR OLD FEMALE PATIENT ADMITTED TO [facility] FOR BRONCHITIS, COPD EXACERBATION, AND RESPIRATORY FAILURE. HEAD TO TOE SKIN ASSESSMENT PERFORMED. PATIENT HAS AN AREA OF 100% BLANCHABLE REDNESS NOTED TO THE RIGHT HEEL MEASURING 1X2CM. PATIENT HAS AN AREA OF 100% BLANCHABLE REDNESS NOTED TO THE SACRAL CREASE MEASURING 4.5X3CM. PATIENT HAS A STAGE 1 PRESSURE ULCER TO THE LEFT HEEL MEASURING [id number], 100% NONBLANCHABLE REDNESS. LABS: WBC7.57 ALB2.6 BLOOD CULTURE - NEGATIVE SPUTUM CULTURE - PENDING MEDICATIONS: CEFEPIME AZITHROMYCIN RECOMMENDATION: -CONTINUE ALTERNATING PRESSURE RELIEF MATTRESS. -CONTINUE BILATERAL HEEL PROTECTORS WITH PILLOW SUSPENSION. -TURN EVERY 2 HOURS AND PRN. -NURSING TO CLEAN RIGHT HEEL AND SACRAL CREASE AREAS OF BLANCHABLE REDNESS WITH NORMAL SALINE, PAT DRY, APPLY VENELEX THEN ALLEVYN FOAM DRESSING; CHANGE DAILY AND PRN. -NURSING TO CLEAN LEFT HEEL STAGE 1 PRESSURE ULCER WITH NORMAL SALINE, PAT DRY, APPLY VENELEX THEN ALLEVYN FOAM DRESSING; CHANGE DAILY AND PRN. THANK YOU FOR THIS WOUND CARE CONSULT. Addendum: 12/17/18 at 1451 by Analy Villanueva RN Amended: Links added.
--- NOTE | 2018-12-17 16:06 | NUR ---
Nutrition Intervention Note RD Recommendation(s) for Physician: -Rec increasing Glucerna 1.5 to goal rate of 35ml/hr with 2 pkts beneprotein, providing 1260kcal, 81g protein, and 638mL water -Water flushes per MD -Check labs, GI tolerance and weight daily Plan of Care: RD following, monitoring for tolerance and adequacy, TF rec Nutrition reason for involvement: Nutrition risk trigger MST, new TF RD Assessment 12/17 53yo F, who was admitted for acute respiratory failure. Currently intubated and ventilated. No pressor meds or sedation noted. Unable to obtained hx from pt. No family on bedside. Glucerna 1.5 was running at 20mL/hr at time of visit- tolerating well so far. Will continue to monitor and follow. Principal Problems/Diagnoses: Acute respiratory failure PMH: depression, multiple COPD exacerbation, smoking, anxiety, chronic depression, HTN, partial gastrectomy in 2001 GI: abdomen soft, non-tender, +OGT Skin: stage 1 pressure ulcer to the left heel Labs: (12/17) Creatinine 0.53 L Meds: (12/17) protonix, abx, NaCl Ht: 62in Wt: 166lb BMI: 30.4kg/m2 IBW: 110lb +/- 10% Malnutrition Evaluation (12/17/2018) Unable to evaluate at this time. Nutrition Prescription (Diet Order): Glucerna 1.5 @30Ml/hr Estimated Nutritional Needs: Calories: 1210 1375kcal(22-25kcal/kg/d) Weight used : IBW Protein: 83 - 138 (1.5-2.5g/kg/d) Weight used: IBW Diet Adequacy: Not meeting calorie needs, Not meeting protein needs Diet Education Needs Assessment: Diet education not indicated. Nutrition Care Level: mod Nutrition Diagnosis: Inadequate oral intake related to current medical status as evidenced by pt requiring EN as main source of nutrition. Goal: Patient will meet 75-100% of estimated needs by follow up Progress: Progressing Interventions: Composition, Rate, Route Monitoring/Evaluation: Total energy intake, Total protein intake, Formula/Solution, Weight change Signed: Carly Monge, MS, RD, LD
[2018-12-17] MEDS: METHYLPREDNISOLONE SOD SUCC 40 MG/ML VIAL 1ML IV SCH (16:33)
--- NOTE | 2018-12-17 16:55 | Diagnostic Imaging Report ---
EXAMINATION: CHEST SINGLE (PORTABLE) INDICATION: Line placement COMPARISON: None FINDINGS: LINES/TUBES:Endotracheal tube terminates approximately 2.5 cm above the stalin. Right PICC line terminates in the superior vena cava. NG tube projects below the diaphragm with tip not seen. LUNGS:The lungs are well-inflated. Mild patchy opacity at the left lung base. PLEURA:Small right pleural effusion. No pneumothorax. MEDIASTINUM:The cardiomediastinal silhouette appears normal in size and shape. BONES/SOFT TISSUES:No acute osseous injury. ABDOMEN:No free air under the diaphragm. IMPRESSION: Right PICC line terminates in the superior vena cava. Endotracheal tube terminates 2.5 cm above the stalin. Mild patchy opacity at the left lung base, likely subsegmental atelectasis. Signed by: Dianelys Feldman MD on 12/17/2018 4:51 PM
--- NOTE | 2018-12-17 18:43 | Progress Note ---
DATE: SUBJECTIVE: The patient is a 53-year-old lady, who comes in with acute respiratory failure, was intubated yesterday. Trial of extubation done today, the patient was unsuccessful, back on ventilator. Currently, afebrile. No problems noted from the nursing staff. OBJECTIVE: VITAL SIGNS: Temperature is 98.4, pulse of 94, respirations of 14, blood pressure is 124/63, on mechanical ventilator. HEENT: Normocephalic. The patient has a ventilator in. CVS: S1, S2 distant. LUNGS: Decreased air entry. ABDOMEN: Nontender, nondistended. EXTREMITIES: Positive for trace edema. IMAGING STUDIES: Done this morning shows stable examination, mild pulmonary venous congestion. LABORATORY VALUES: Hemoglobin was 9.0, hematocrit of 30.07. Chemistries show a sodium of 141, potassium of 3.8, BUN of 19, creatinine 0.53. Toxicology, theophylline less than 0.87. ASSESSMENT: 1. Acute respiratory failure. 2. Chronic obstructive pulmonary disease with exacerbation. 3. Leukocytosis. 4. Nicotine dependency. 5. Depression. 6. Morbid obesity and possible obstructive sleep apnea. PLAN: Continue with current plan. Medications and Solu-Medrol has been decreased by Pulmonary. Weaning protocol tomorrow again. Further recommendation per clinical course. We will continue to monitor the patient. Continue on Solu-Medrol and decrease the dose. The patient is also on IV antibiotics. MD KIRK Hurley/MODL /[id number]
[2018-12-18] VITALS (28 sets, daily range): BP systolic 122–187; BP diastolic 57–89
[2018-12-18] MEDS: SODIUM CHLORIDE 0.9% 1000ML 1,000 ML IV SCH ×3 (00:51→21:16)
[2018-12-18] MEDS: IPRATROPIUM BROMIDE 0.02% 2.5 ML NEB NEB SCH ×6 (03:15→23:45)
[2018-12-18] MEDS: LEVALBUTEROL HCL SOLN NEBU 0.63 MG/3 ML NEB INH SCH ×6 (03:15→23:45)
[2018-12-18] MEDS: MIDAZOLAM HCL 25 MG in SODIUM CHLORIDE 0.9% 50ML 45 ML IV PRN (03:32)
[2018-12-18 05:01] LABS: BASOPHILS % 0.1 % (0.0-1.0); HEMATOCRIT 28.6 % (34.2-44.1); HEMOGLOBIN 8.9 g/dL (12.0-16.0); LYMPHOCYTES # (AUTO) 0.8 (1.0-3.2); LYMPHOCYTES % 11.4 % (18.0-39.1); MEAN CORPUSCULAR HEMOGLOBIN 27.7 pg (28-32); MEAN CORPUSCULAR HGB CONC 31.1 g/dL (31-35); MEAN CORPUSCULAR VOLUME 89.1 fL (81-99); MONOCYTES # (AUTO) 0.3 (0.2-0.8); MONOCYTES % 4.6 % (4.4-11.3); NEUTROPHILS # (AUTO) 5.8 (2.1-6.9); NEUTROPHILS % 83.3 % (38.7-80.0); PLATELET COUNT 228 x10e3/uL (140-360); RED BLOOD COUNT 3.21 x10e6/uL (3.6-5.1); RED CELL DISTRIBUTION WIDTH 13.9 % (11.7-14.4)
[2018-12-18 05:49] LABS: ANION GAP 9.5 mmol/L (8-16); BLOOD UREA NITROGEN 15 mg/dL (7-26); BUN/CREATININE RATIO 32 (6-25); CALCIUM 8.7 mg/dL (8.4-10.2); CARBON DIOXIDE 34 mmol/L (22-29); CHLORIDE 99 mmol/L (98-107); CREATININE, SERUM 0.47 mg/dL (0.57-1.11); EST GLOMERULAR FILTRATION RATE > 60 ML/MIN (60-); GLUCOSE 128 mg/dL (74-118); POTASSIUM 3.5 mmol/L (3.5-5.1); SODIUM 139 mmol/L (136-145)
--- NOTE | 2018-12-18 06:16 | Diagnostic Imaging Report ---
EXAMINATION: CHEST SINGLE (PORTABLE) INDICATION: COPD exacerbation. Intubated. COMPARISON: 12/17/2018 at 6:12 AM hours. FINDINGS: LINES/TUBES:Endotracheal tube terminates distal tip wall above above the stalin. Right upper extremity PICC terminates in cavoatrial junction.. NG tube extends below the diaphragm with tip not included. LUNGS:The lungs are adequately inflated. Mild bibasilar subsegmental atelectasis. PLEURA:No significant pleural effusion. No pneumothorax. MEDIASTINUM:The cardiomediastinal silhouette appears normal in size and shape. BONES/SOFT TISSUES:No acute osseous injury. ABDOMEN:No free air under the diaphragm. IMPRESSION: Stable tubes and right PICC. Bibasilar subsegmental atelectasis. Signed by: Dr. Anaid Diaz M.D. on 12/18/2018 6:12 AM
[2018-12-18] MEDS: INSULIN LISPRO 100 UNIT/1 ML 3ML VIAL SQ SCH ×4 (07:30→20:59)
[2018-12-18] MEDS: METHYLPREDNISOLONE SOD SUCC 40 MG/ML VIAL 1ML IV SCH (08:05)
[2018-12-18] MEDS: BALSAM PERU/CASTOR OIL 5 GM OINT...G. TP SCH (08:05)
[2018-12-18] MEDS: THEOPHYLLINE 200 MG TABCR PO SCH ×2 (08:05→16:53)
[2018-12-18] MEDS: NICOTINE 7 MG PATCH TOP SCH (08:05)
[2018-12-18] MEDS: SERTRALINE HCL 50 MG TAB PO SCH (08:05)
[2018-12-18] MEDS: CEFEPIME 2 GM/NS 0.9% 100 ML 100 ML IV SCH ×2 (08:05→20:41)
[2018-12-18] MEDS: PANTOPRAZOLE 40 MG 10ML VIAL IV SCH (08:05)
--- NOTE | 2018-12-18 08:05 | Progress Note ---
DATE: SUBJECTIVE: The patient is a 53-year-old female, who comes with acute respiratory failure, intubated secondary to COPD exacerbation. Currently, the patient is on cefepime, azithromycin, insulin for diabetes. The patient is also on Solu-Medrol, which has been tapered down and continued on her home medication. Awake, arousable, intubated. OBJECTIVE: VITAL SIGNS: Temperature afebrile, pulse 81, respirations of 14, blood pressure is 140/80. HEENT: Atraumatic. The patient has NG tube and also intubated. CVS: S1 and S2 distant. Regular rate and rhythm. LUNGS: Decreased air entry. ABDOMEN: Tender in the left lower quadrant. EXTREMITIES: No clubbing. No cyanosis. Decreased pulses. LABORATORY VALUES: White count is 6.95, hemoglobin is 8.9, hematocrit 28.6. Chemistry; sodium of 139, potassium 3.5. IMAGING STUDIES: Today's chest x-ray shows bibasilar segmental atelectasis, stable tubes and right PICC line. ASSESSMENT: 1. Acute respiratory failure, intubated. 2. Chronic obstructive pulmonary disease with exacerbation. 3. Leukocytosis. 4. Nicotine dependency. 5. Depression. 6. Morbid obesity with sleep apnea. PLAN: Extubation today. We will continue with T-piece at this time. Continue with IV antibiotics. Solu-Medrol will be decreased. Continue to monitor the patient. We will continue monitoring the patient along with consultants. Further recommendation per clinical course. MD KIRK Hurley/MODL /[id number]
[2018-12-18] MEDS: AZITHROMYCIN 500MG/NS 250 ML 250 ML IV SCH (09:26)
[2018-12-18] MEDS: METOPROLOL TARTRATE 25 MG TAB PO SCH ×2 (12:30→20:41)
[2018-12-18] MEDS: AMLODIPINE BESYLATE 5 MG TAB PO SCH (12:30)
[2018-12-18] MEDS: ACETAMINOPHEN/CODEINE 300MG - 30MG TAB PO PRN ×3 (12:30→20:55)
[2018-12-18 15:28] LABS: ABG HCO3 34 mmol/L (23-28); ABG PCO2 62 mmHg (41-51); ABG PH 7.35 (7.31-7.41); ABG PO2 93 mmHg (80-105)
[2018-12-18] MEDS ORDERED: METHYLPREDNISOLONE SOD SUCC 40 MG/ML VIAL 1ML IV SCH (17:00)
--- NOTE | 2018-12-18 17:22 | NUR ---
0715- Versed turned off for rapid weaning protocol. 0950- Patient was extubated and placed on 5L NC. 1030- Patient began desaturating on 5L NC, patient then placed on 10L high flow and is tolerating well. 1215- Patient becoming tachycardic (HR 120's) and hypertensive (systolic 160's-170's). Patient also complaining of 10/[address] Mckoy informed and ordered tylenol #3 prn for pain and to continue patients home BP regime. Will continue to monitor. Swallow study ordered. 1400- Swallow study performed by speech therapist, Regular diet recommended.
[2018-12-19] VITALS (27 sets, daily range): BP systolic 93–177; BP diastolic 58–91
[2018-12-19] MEDS: LEVALBUTEROL HCL SOLN NEBU 0.63 MG/3 ML NEB INH SCH ×6 (03:30→23:00)
[2018-12-19] MEDS: IPRATROPIUM BROMIDE 0.02% 2.5 ML NEB NEB SCH ×6 (03:30→23:00)
[2018-12-19] MEDS: ACETAMINOPHEN/CODEINE 300MG - 30MG TAB PO PRN ×3 (04:30→21:20)
[2018-12-19] MEDS ORDERED: GUAIFENESIN 600 MG TAB PO PRN (06:45)
[2018-12-19 07:24] LABS: BASOPHILS % 0.1 % (0.0-1.0); HEMATOCRIT 28.8 % (34.2-44.1); HEMOGLOBIN 8.4 g/dL (12.0-16.0); LYMPHOCYTES % 13.8 % (18.0-39.1); MEAN CORPUSCULAR HEMOGLOBIN 27.1 pg (28-32); MEAN CORPUSCULAR HGB CONC 29.2 g/dL (31-35); MEAN CORPUSCULAR VOLUME 92.9 fL (81-99); MONOCYTES # (AUTO) 0.5 (0.2-0.8); MONOCYTES % 7.2 % (4.4-11.3); NEUTROPHILS # (AUTO) 5.7 (2.1-6.9); NEUTROPHILS % 78.2 % (38.7-80.0); PLATELET COUNT 220 x10e3/uL (140-360); RED CELL DISTRIBUTION WIDTH 13.9 % (11.7-14.4)
[2018-12-19] MEDS: INSULIN LISPRO 100 UNIT/1 ML 3ML VIAL SQ SCH ×4 (07:30→21:00)
[2018-12-19 07:33] LABS: ALANINE AMINOTRANSFERASE 19 IU/L (0-55); ALBUMIN 2.4 g/dL (3.5-5.0); ALBUMIN/GLOBULIN RATIO 0.8 (0.8-2.0); ALKALINE PHOSPHATASE 56 IU/L (40-150); ANION GAP 6.2 mmol/L (8-16); BLOOD UREA NITROGEN 12 mg/dL (7-26); BUN/CREATININE RATIO 27 (6-25); CALCIUM 7.8 mg/dL (8.4-10.2); CARBON DIOXIDE 38 mmol/L (22-29); CHLORIDE 104 mmol/L (98-107); CREATININE, SERUM 0.44 mg/dL (0.57-1.11); EST GLOMERULAR FILTRATION RATE > 60 ML/MIN (60-); GLUCOSE 132 mg/dL (74-118); POTASSIUM 3.2 mmol/L (3.5-5.1); SODIUM 145 mmol/L (136-145)
[2018-12-19] MEDS: AZITHROMYCIN 500MG/NS 250 ML 250 ML IV SCH (08:18)
[2018-12-19] MEDS: CEFEPIME 2 GM/NS 0.9% 100 ML 100 ML IV SCH ×2 (08:18→21:00)
[2018-12-19] MEDS: PANTOPRAZOLE 40 MG 10ML VIAL IV SCH (08:18)
[2018-12-19] MEDS: METOPROLOL TARTRATE 25 MG TAB PO SCH ×2 (08:19→17:19)
[2018-12-19] MEDS: NICOTINE 7 MG PATCH TOP SCH ×2 (08:19→08:43)
[2018-12-19] MEDS: SERTRALINE HCL 50 MG TAB PO SCH (08:19)
[2018-12-19] MEDS: THEOPHYLLINE 200 MG TABCR PO SCH ×2 (08:19→17:19)
[2018-12-19] MEDS: AMLODIPINE BESYLATE 5 MG TAB PO SCH (08:19)
[2018-12-19] MEDS: BALSAM PERU/CASTOR OIL 5 GM OINT...G. TP SCH (08:19)
--- NOTE | 2018-12-19 08:43 | NUR ---
pt states she quit smoking 3 yrs ago and "i dont need that thing" regarding nicotine patch. refused.
--- NOTE | 2018-12-19 09:06 | Progress Note ---
DATE: SUBJECTIVE: The patient was extubated yesterday. Complains of shortness of breath. She is on 5 L of oxygen and also complains of coughing and apparently, cannot bring out the expectorant. No other complaints. No chest pain. No shortness of breath. Had an okay night. MEDICATIONS: , cefepime, guaifenesin, insulin, , metoprolol, nicotine patch, sertraline, and theophylline. OBJECTIVE: GENERAL: Alert and oriented x3, on 6 L of oxygen, pulse ox 100%, respiration of 19, pulse of 75, and blood pressure is 131/68. HEENT: Normocephalic, atraumatic. Pupils reactive. CVS: S1 and S2 normal. LUNGS: Sounds decreased and positive for rhonchi. ABDOMEN: Nontender, nondistended. EXTREMITIES: No clubbing, no cyanosis, no edema. LABORATORY VALUES: Pending today. Yesterday's hemoglobin was 8.9, hematocrit 28.6. Chemistries; blood sugars running in the 130s to 200s. BUN and creatinine 15 and 0.47 yesterday. ASSESSMENT: A 53-year-old female with: 1. Acute respiratory failure, status post extubation. 2. Chronic obstructive pulmonary disease with exacerbation. 3. Leukocytosis. 4. Diabetes. 5. Depression. 6. Morbid obesity. 7. Sleep apnea. PLAN: Continue with antibiotics at this time. The patient can be transferred out of the ICU. Continue to monitor the patient. Discharge planning 1-2 days. Will be discharged on albuterol, Atrovent, and also diabetic medications. MD ZAC HurleyJ/MODL /[id number]
[2018-12-19] MEDS ORDERED: POTASSIUM CHLORIDE 20 MEQ TAB CR PO NR (09:21)
[2018-12-19] MEDS ORDERED: GUAIFENESIN 200 MG/10 ML UDC PO PRN (09:30)
[2018-12-19] MEDS: SODIUM CHLORIDE 0.9% 1000ML 1,000 ML IV SCH (10:04)
[2018-12-19] MEDS ORDERED: POTASSIUM CHLORIDE 20MEQ/15ML UDC NG PRN (10:15)
--- NOTE | 2018-12-19 11:14 | NUR ---
pt began to c/o of sob. RT came to admin [facility]. notified . arcadio orders.
[2018-12-19] MEDS: METHYLPREDNISOLONE SOD SUCC 40 MG/ML VIAL 1ML IV SCH ×2 (11:46→21:21)
[2018-12-19 12:26] LABS: ABG HCO3 39 mmol/L (23-28); ABG PCO2 83 mmHg (41-51); ABG PH 7.28 (7.31-7.41); ABG PO2 77 mmHg (80-105)
--- NOTE | 2018-12-19 13:10 | Diagnostic Imaging Report ---
EXAMINATION: CHEST SINGLE (PORTABLE) INDICATION: ^sob ^[id number] ^[id number] COMPARISON: 12/18/2018 FINDINGS: AP view TUBES and LINES: Interval extubation and removal of nasogastric tube. Stable right PICC. LUNGS: Lungs are well inflated. Mild vascular congestion and interstitial edema. PLEURA: No significant pleural effusion or pneumothorax. HEART AND MEDIASTINUM: The cardiomediastinal silhouette is unremarkable. BONES AND SOFT TISSUES: No acute osseous lesion. Soft tissues are unremarkable. UPPER ABDOMEN: No free air under the diaphragm. IMPRESSION: Mild vascular congestion and interstitial edema, not significantly changed from prior exam. Interval extubation and removal of nasogastric tube. Signed by: Dr. Roland Cantu MD on 12/19/2018 1:06 PM
[2018-12-20] VITALS (18 sets, daily range): BP systolic 121–172; BP diastolic 60–88
[2018-12-20] MEDS: LEVALBUTEROL HCL SOLN NEBU 0.63 MG/3 ML NEB INH SCH ×6 (03:30→23:10)
[2018-12-20] MEDS: IPRATROPIUM BROMIDE 0.02% 2.5 ML NEB NEB SCH ×6 (03:30→23:10)
[2018-12-20] MEDS: ACETAMINOPHEN/CODEINE 300MG - 30MG TAB PO PRN ×2 (04:49→13:19)
[2018-12-20 05:16] LABS: HEMATOCRIT 32.9 % (34.2-44.1); HEMOGLOBIN 9.6 g/dL (12.0-16.0); LYMPHOCYTES # (AUTO) 0.5 (1.0-3.2); MEAN CORPUSCULAR HEMOGLOBIN 26.8 pg (28-32); MEAN CORPUSCULAR HGB CONC 29.2 g/dL (31-35); MEAN CORPUSCULAR VOLUME 91.9 fL (81-99); MONOCYTES # (AUTO) 0.2 (0.2-0.8); NEUTROPHILS # (AUTO) 7.1 (2.1-6.9); NEUTROPHILS % 90.6 % (38.7-80.0); PLATELET COUNT 266 x10e3/uL (140-360); RED BLOOD COUNT 3.58 x10e6/uL (3.6-5.1); RED CELL DISTRIBUTION WIDTH 13.7 % (11.7-14.4)
[2018-12-20 06:41] LABS: BLOOD UREA NITROGEN 13 mg/dL (7-26); BUN/CREATININE RATIO 25 (6-25); CALCIUM 9.2 mg/dL (8.4-10.2); CARBON DIOXIDE 36 mmol/L (22-29); CHLORIDE 94 mmol/L (98-107); CREATININE, SERUM 0.53 mg/dL (0.57-1.11); EST GLOMERULAR FILTRATION RATE > 60 ML/MIN (60-); GLUCOSE 160 mg/dL (74-118); SODIUM 141 mmol/L (136-145)
[2018-12-20] MEDS: INSULIN LISPRO 100 UNIT/1 ML 3ML VIAL SQ SCH ×4 (07:52→21:49)
[2018-12-20] MEDS: CEFEPIME 2 GM/NS 0.9% 100 ML 100 ML IV SCH ×2 (07:58→20:59)
[2018-12-20] MEDS: NICOTINE 7 MG PATCH TOP SCH (07:58)
[2018-12-20] MEDS: PANTOPRAZOLE 40 MG 10ML VIAL IV SCH (08:02)
[2018-12-20] MEDS: AMLODIPINE BESYLATE 5 MG TAB PO SCH (08:02)
[2018-12-20] MEDS: METOPROLOL TARTRATE 25 MG TAB PO SCH ×2 (08:02→16:43)
[2018-12-20] MEDS: BALSAM PERU/CASTOR OIL 5 GM OINT...G. TP SCH (08:02)
[2018-12-20] MEDS: METHYLPREDNISOLONE SOD SUCC 40 MG/ML VIAL 1ML IV SCH (08:02)
[2018-12-20] MEDS: SERTRALINE HCL 50 MG TAB PO SCH (08:02)
[2018-12-20] MEDS: THEOPHYLLINE 200 MG TABCR PO SCH ×2 (08:02→16:43)
--- NOTE | 2018-12-20 08:11 | Progress Note ---
DATE: SUBJECTIVE: The patient came in with acute respiratory failure, is in the ICU, was intubated, status post extubation. The patient is currently feeling no chest pain, shortness of breath and tightness in the chest. Guaifenesin did help loosen up her mucus she says, otherwise doing well. No complaints and no chest pains. OBJECTIVE: VITAL SIGNS: Temperature is 97.4, pulse is 77, respirations of 18, blood pressure is 154/71, and pulse oximetry 100%. HEENT: Normocephalic, atraumatic. CVS: S1, S2 normal. Regular rate and rhythm. LUNGS: There is decreased air entry into all lung woo. ABDOMEN: Nontender, nondistended. EXTREMITIES: No clubbing, no cyanosis, and trace edema. LABORATORY VALUES: Hemoglobin of 9.6, hematocrit of 32.9. Chemistries; sodium 141, potassium of 4, BUN 13, creatinine 0.53, glucose is 160. MEDICATIONS: The patient is on levalbuterol, Solu-Medrol 40 mg q.12 hours, cefepime q.12, metoprolol twice a day, theophylline 200 mg twice a day, pantoprazole 40 mg daily, and Zofran as needed. ASSESSMENT: 1. Acute respiratory failure, status post extubation. 2. Chronic obstructive pulmonary disease exacerbation. 3. Leukocytosis. 4. Morbid obesity. 5. Depression. 6. Sleep apnea, obstructive. PLAN: The patient can be transferred out of ICU. Continue with Xopenex treatment. The patient can be discharged in 1 to 2 days depending on the clinical course. Further recommendation per clinical course, and we will follow the patient along with Dr. Mckoy. MD ZAC HurleyJ/MODL /[id number]
[2018-12-20 12:42] LABS: BAND NEUTROPHILS % (MANUAL) 2 %; LYMPHOCYTES % (MANUAL) 7 % (19-48); MONOCYTES % (MANUAL) 2 % (3.4-9.0); NEUTROPHILS % (MANUAL) 89 % (40-74)
[2018-12-20 12:43] LABS: PLATELET ESTIMATE ADEQUATE; PLATELET MORPHOLOGY COMMENT NORMAL; RBC MORPHOLOGY COMMENT NORMAL
[2018-12-20] MEDS ORDERED: METHYLPREDNISOLONE SOD SUCC 40 MG/ML VIAL 1ML IV SCH (21:00)
[2018-12-20] MEDS ORDERED: DIPHENHYDRAMINE HCL 25 MG CAP PO STA (22:10)
[2018-12-21] VITALS (7 sets, daily range): BP systolic 130–166; BP diastolic 66–87
[2018-12-21] MEDS: LEVALBUTEROL HCL SOLN NEBU 0.63 MG/3 ML NEB INH SCH ×5 (02:35→23:07)
[2018-12-21] MEDS: IPRATROPIUM BROMIDE 0.02% 2.5 ML NEB NEB SCH ×5 (02:35→23:07)
[2018-12-21] MEDS: ACETAMINOPHEN/CODEINE 300MG - 30MG TAB PO PRN ×3 (02:52→16:45)
[2018-12-21 06:44] LABS: ANION GAP 7.9 mmol/L (8-16); BLOOD UREA NITROGEN 15 mg/dL (7-26); BUN/CREATININE RATIO 31 (6-25); CALCIUM 8.8 mg/dL (8.4-10.2); CARBON DIOXIDE 40 mmol/L (22-29); CHLORIDE 92 mmol/L (98-107); CREATININE, SERUM 0.48 mg/dL (0.57-1.11); EST GLOMERULAR FILTRATION RATE > 60 ML/MIN (60-); GLUCOSE 177 mg/dL (74-118); POTASSIUM 3.9 mmol/L (3.5-5.1); SODIUM 136 mmol/L (136-145)
[2018-12-21 06:50] LABS: HEMATOCRIT 32.7 % (34.2-44.1); HEMOGLOBIN 9.8 g/dL (12.0-16.0); LYMPHOCYTES # (AUTO) 0.5 (1.0-3.2); LYMPHOCYTES % 5.7 % (18.0-39.1); MEAN CORPUSCULAR HEMOGLOBIN 27.1 pg (28-32); MEAN CORPUSCULAR VOLUME 90.3 fL (81-99); MONOCYTES # (AUTO) 0.3 (0.2-0.8); MONOCYTES % 4.2 % (4.4-11.3); NEUTROPHILS # (AUTO) 7.3 (2.1-6.9); NEUTROPHILS % 89.5 % (38.7-80.0); PLATELET COUNT 293 x10e3/uL (140-360); RED BLOOD COUNT 3.62 x10e6/uL (3.6-5.1); RED CELL DISTRIBUTION WIDTH 13.9 % (11.7-14.4)
[2018-12-21] MEDS: INSULIN LISPRO 100 UNIT/1 ML 3ML VIAL SQ SCH ×4 (07:30→21:00)
--- NOTE | 2018-12-21 07:36 | Progress Note ---
DATE: SUBJECTIVE: The patient is a 53-year-old lady, who comes in with acute respiratory failure, status post intubation and extubation, still complains of shortness of breath. No chest pain. No orthopnea. No PND. Short of breath on exertion too. MEDICATIONS: The patient is currently on insulin, cefepime, amlodipine, methylprednisone, metoprolol, and Protonix. Regular medicines include sertraline and theophylline. OBJECTIVE: VITAL SIGNS: Temperature is 98.4, pulse of 80, respirations of 18, blood pressure is 144/80, pulse oximetry of 98% on 3 L of oxygen. The patient did use BiPAP yesterday last night. HEENT: Normocephalic, atraumatic. Pupils are reactive to light and accommodation. LUNGS: Decreased air entry into all lung woo. Very tight lung. ABDOMEN: Nontender, nondistended. EXTREMITIES: No clubbing, no cyanosis, no edema. LABORATORY VALUES: Today's chemistries and CBCs are pending. Yesterday's hemoglobin and hematocrit were 9.6 and 32.9. Chemistries again pending. Glucoses have been running in the 224 with [employer]. ASSESSMENT: 1. Acute respiratory failure, status post extubation. 2. Chronic obstructive pulmonary disorder with exacerbation. Continue antibiotics and continue on BiPAP as needed. 3. Leukocytosis. We will wait for labs, but trending down. 4. Morbid obesity. Nutritional consult and also given nutritional education. 5. Depression. Continue antidepressants. 6. Sleep apnea. We will continue monitoring. DISPOSITION: Possible discharge in 1 to 2 days depending on the patient's respiratory progression. MD KIRK Hurley/MODL /[id number]
[2018-12-21 07:56] LABS: BAND NEUTROPHILS % (MANUAL) 5 %; LYMPHOCYTES % (MANUAL) 7 % (19-48); MONOCYTES % (MANUAL) 7 % (3.4-9.0); NEUTROPHILS % (MANUAL) 81 % (40-74)
[2018-12-21 07:57] LABS: ANISOCYTOSIS SLIG; OVALOCYTES FEW; POIKILOCYTOSIS MODERATE
[2018-12-21 07:58] LABS: PLATELET ESTIMATE ADEQUATE; PLATELET MORPHOLOGY COMMENT NORMAL; RBC MORPHOLOGY COMMENT ABNORMAL
[2018-12-21] MEDS ORDERED: ONDANSETRON HCL 4 MG ORAL DISINTEGRATING TAB PO PRN (08:30)
[2018-12-21] MEDS: CEFEPIME 2 GM/NS 0.9% 100 ML 100 ML IV SCH ×2 (08:32→20:45)
[2018-12-21] MEDS ORDERED: SODIUM CHLORIDE 0.9% 250ML 250 ML ONE (08:38)
[2018-12-21] MEDS: BALSAM PERU/CASTOR OIL 5 GM OINT...G. TP SCH (09:00)
[2018-12-21] MEDS: NICOTINE 7 MG PATCH TOP SCH (09:00)
[2018-12-21] MEDS: AMLODIPINE BESYLATE 5 MG TAB PO SCH (09:55)
[2018-12-21] MEDS: METHYLPREDNISOLONE SOD SUCC 40 MG/ML VIAL 1ML IV SCH ×2 (09:55→21:53)
[2018-12-21] MEDS: PANTOPRAZOLE 40 MG 10ML VIAL IV SCH (09:55)
[2018-12-21] MEDS: SERTRALINE HCL 50 MG TAB PO SCH (09:55)
[2018-12-21] MEDS: THEOPHYLLINE 200 MG TABCR PO SCH ×2 (09:55→16:45)
[2018-12-21] MEDS: METOPROLOL TARTRATE 25 MG TAB PO SCH ×2 (10:10→19:06)
[2018-12-21] MEDS: DIPHENHYDRAMINE HCL 25 MG CAP PO PRN (21:53)
[2018-12-22] VITALS (9 sets, daily range): BP systolic 127–159; BP diastolic 65–75
[2018-12-22] MEDS: LEVALBUTEROL HCL SOLN NEBU 0.63 MG/3 ML NEB INH SCH ×6 (02:40→23:00)
[2018-12-22] MEDS: IPRATROPIUM BROMIDE 0.02% 2.5 ML NEB NEB SCH ×6 (02:40→23:00)
[2018-12-22] MEDS: ACETAMINOPHEN/CODEINE 300MG - 30MG TAB PO PRN ×3 (03:39→17:31)
[2018-12-22] MEDS: INSULIN LISPRO 100 UNIT/1 ML 3ML VIAL SQ SCH ×5 (07:30→21:00)
[2018-12-22] MEDS: NICOTINE 7 MG PATCH TOP SCH (08:36)
[2018-12-22] MEDS: SERTRALINE HCL 50 MG TAB PO SCH (08:48)
[2018-12-22] MEDS: THEOPHYLLINE 200 MG TABCR PO SCH ×2 (08:48→17:31)
[2018-12-22] MEDS: BALSAM PERU/CASTOR OIL 5 GM OINT...G. TP SCH (08:48)
[2018-12-22] MEDS: AMLODIPINE BESYLATE 5 MG TAB PO SCH (08:48)
[2018-12-22] MEDS: CEFEPIME 2 GM/NS 0.9% 100 ML 100 ML IV SCH ×2 (08:48→20:50)
[2018-12-22] MEDS: METHYLPREDNISOLONE SOD SUCC 40 MG/ML VIAL 1ML IV SCH ×2 (08:48→20:50)
[2018-12-22] MEDS: PANTOPRAZOLE 40 MG 10ML VIAL IV SCH (08:48)
[2018-12-22] MEDS: METOPROLOL TARTRATE 25 MG TAB PO SCH ×2 (09:10→17:31)
--- NOTE | 2018-12-22 09:43 | Progress Note ---
DATE: SUBJECTIVE: The patient is in here for COPD exacerbation, status post intubation for acute respiratory failure. Currently, the patient is using BiPAP last night and she did not use BiPAP. She is on 5 L of oxygen. Still complaining of tightness in the chest. No shortness of breath on exertion. The patient has been ambulated a bit. OBJECTIVE: VITAL SIGNS: Temperature is 97.0, pulse of 103, respirations of 19, blood pressure is 159/75, and pulse oximeter of 95% O2 at 6 L. HEENT: Normocephalic and atraumatic. Pupils are reactive to light and accommodation. CVS: S1 and S2 normal. Regular rate and rhythm. LUNGS: Decreased air entry. Positive for some inspiratory wheezes. EXTREMITIES: No clubbing. No cyanosis. Positive for trace edema. LABORATORY VALUES: Hemoglobin is 9.8 and 32.7 hematocrit. Chemistries all within normal limits. BUN of 15 and creatinine 0.48. MEDICATIONS: The patient is on levalbuterol, Solu-Medrol, cefepime, amlodipine, metoprolol 25 mg twice a day, and theophylline. ASSESSMENT AND PLAN: 1. Acute respiratory failure, status post intubation. 2. Chronic obstructive pulmonary disorder with exacerbation. Continue with antibiotics. Continue on BiPAP. Continue on continuous O2 and continue on IV Solu-Medrol. 3. Leukocytosis, better. 4. Morbid obesity. Continue with nutritional support. 5. Depression. Continue with antidepressants. 6. Sleep apnea. Continue monitoring. 7. Further recommendation per clinical course. The patient can be discharged tomorrow and again depending on severity of the disease. MD KIRK Hurley/MODL /[id number]
--- NOTE | 2018-12-22 13:15 | NUR ---
Visit made by the Spiritual Care Department Pastoral Visitor, Keshia Gayle. PV provided pastoral presence, prayer, hospitality, and supportive listening. Pastoral Visitor informed pt/family of the scope of Litigation Coordinator Services and availability. HOLLY [employer] Accountant Spiritual Care Department O: [phone] Pager: [phone] ([phone] calling from)
--- NOTE | 2018-12-22 15:39 | NUR ---
Nutrition Follow-up Note RD Recommendation(s) for Physician: - Continue diet as ordered Plan of Care: RD following, monitoring for tolerance and adequacy Nutrition reason for involvement: Follow up RD Assessment 12/22 Visited pt in the room. Pt reported good appetite. No GI complains noted. Pt denied any chewing or swallowing difficulty. Pt has no nutrition related question at this time. Current diet is appropriate and adequate. 12/17 53yo F, who was admitted for acute respiratory failure. Currently intubated and ventilated. No pressor meds or sedation noted. Unable to obtained hx from pt. No family on bedside. Glucerna 1.5 was running at 20mL/hr at time of visit- tolerating well so far. Will continue to monitor and follow. Principal Problems/Diagnoses: Acute respiratory failure PMH: depression, multiple COPD exacerbation, smoking, anxiety, chronic depression, HTN, partial gastrectomy in 2001 GI: abdomen soft, non-tender, round, flatus present Skin: stage 1 pressure ulcer to the left heel Labs: (12/22) Glucose 167 H (12/17) Creatinine 0.53 L Meds: solu-medrol, abx Ht: 62in Wt: 166lb; 170lb BMI: 30.4kg/m2 IBW: 110lb +/- 10% Malnutrition Evaluation (12/22/2018) The patient does not meet criteria for a specified degree of malnutrition at this time. Will re-evaluate at follow-up as appropriate. Nutrition Prescription (Diet Order): Regular diet Estimated Nutritional Needs: Calories: 1210 1375kcal (22-25kcal/kg/d) Weight used: IBW Protein: 83 - 138 (1.5-2.5g/kg/d) Weight used: IBW Diet Adequacy: meeting calorie needs, meeting protein needs Diet Education Needs Assessment: Diet education not indicated. Nutrition Care Level: low Nutrition Diagnosis: No nutrition diagnosis at this time. Goal: Patient will meet 75-100% of estimated needs by follow up Progress: Goal met Interventions: General healthful diet Monitoring/Evaluation: Total energy intake, Total protein intake, Diet, Weight change Signed: Carly Monge MS, RD, LD
[2018-12-22] MEDS: DIPHENHYDRAMINE HCL 25 MG CAP PO PRN (17:31)
--- NOTE | 2018-12-22 19:00 | NUR ---
Handoff report to oncoming nurse, patient sitting in bed, verbalizing needs, no s/s of distress, belongings and call light within reach.
[2018-12-23] VITALS: BP 140/76
[2018-12-23] MEDS: DIPHENHYDRAMINE HCL 25 MG CAP PO PRN (01:35)
[2018-12-23] MEDS: ACETAMINOPHEN/CODEINE 300MG - 30MG TAB PO PRN (01:35)
[2018-12-23] MEDS: LEVALBUTEROL HCL SOLN NEBU 0.63 MG/3 ML NEB INH SCH ×2 (03:00→08:03)
[2018-12-23] MEDS: IPRATROPIUM BROMIDE 0.02% 2.5 ML NEB NEB SCH ×2 (03:00→08:03)
[2018-12-23 04:00] VITALS: BP 136/78
[2018-12-23 07:00] VITALS: BP 156/78
[2018-12-23] MEDS: INSULIN LISPRO 100 UNIT/1 ML 3ML VIAL SQ SCH (07:30)
[2018-12-23] MEDS ORDERED: PANTOPRAZOLE SOD 40 MG TABEC PO SCH (07:30)
--- NOTE | 2018-12-23 07:39 | Progress Note ---
DATE: SUBJECTIVE: This is a 53-year-old female, who comes in with end-stage COPD and exacerbation of COPD, status post extubation, feeling better, walked around little bit, did not use BiPAP yesterday, O2 at 5 L and this is baseline for her. The patient is currently on steroids and IV antibiotics and Phil-Dur. No complaints today. OBJECTIVE: VITAL SIGNS: Temperature is 98.1, afebrile, respirations of 19, blood pressure is 136/78, pulse oximetry of 98% on 6 L of oxygen. HEENT: Normocephalic and atraumatic. Pupils are reactive to light and accommodation. CVS: S1 and S2 distant. LUNGS: Decreased air entry. Decreased wheezes. Positive for inspiratory wheezes. ABDOMEN: Nontender and nondistended. EXTREMITIES: Trace edema. LABORATORY VALUES: Laboratory values done on the , hemoglobin is 9.8, hematocrit of 32.7, so the glucoses have been running within 118s to 120s. MICROBIOLOGY: Urine culture, blood cultures with sputum cultures positive for Gram-positive cocci in chain. Otherwise, blood cultures, no growth and urine culture no growth. ASSESSMENT: 1. This is a 53-year-old lady with end-stage chronic obstructive pulmonary disease. 2. Acute respiratory failure, status post intubation and extubation. 3. Hypertension. 4. Morbid obesity. 5. Depression. PLAN: Discharge the patient today on prednisone and also albuterol Atrovent treatments. The patient is to follow up with her primary care physician. Final diagnosis again is end-stage COPD, acute respiratory failure, hypertension, and depression. For further information, look in the chart and the patient will be discharged today. MD ZAC HurleyJ/MODL /[id number]
[2018-12-23] MEDS: SERTRALINE HCL 50 MG TAB PO SCH (07:53)
[2018-12-23] MEDS: METOPROLOL TARTRATE 25 MG TAB PO SCH (07:54)
[2018-12-23] MEDS: AMLODIPINE BESYLATE 5 MG TAB PO SCH (07:54)
[2018-12-23] MEDS: THEOPHYLLINE 200 MG TABCR PO SCH (07:54)
[2018-12-23] MEDS: CEFEPIME 2 GM/NS 0.9% 100 ML 100 ML IV SCH (07:54)
[2018-12-23] MEDS: METHYLPREDNISOLONE SOD SUCC 40 MG/ML VIAL 1ML IV SCH (07:54)
[2018-12-23] MEDS: NICOTINE 7 MG PATCH TOP SCH (07:56)
[2018-12-23] MEDS: BALSAM PERU/CASTOR OIL 5 GM OINT...G. TP SCH (07:56)
[2018-12-23 11:00] VITALS: BP 141/67
--- NOTE | 2018-12-23 11:45 | NUR ---
Patient to be discharged per Dr. Ramachandran. RN asked patient if family can come get her and bring her oxygen. Pt stated she lives with sister but she works and cannot come get her until after 5pm. merchandise team manager and house painting instructor notified. [facility] to come to transport patient. PICC line removed prior to transport. Patient does not appear to be in any s/s of distress at this time. Patient remains on 6L HIGH FLOW NC.
[2018-12-24] MEDS ORDERED: PREDNISONE 20 MG TAB PO SCH (09:00)
[2019-01-22 10:37] LABS: ABG HCO3 43 mmol/L (23-28); ABG PCO2 127 mmHg (41-51); ABG PH 7.14 (7.31-7.41); ABG PO2 78 mmHg (80-105)
== END 2018-12-23 11:50 | disposition home or self-care (01) | DRG 208 ==
LOC: ER 07:02 → ERHOLD 08:00 → ICU 15:30 → IMCU 12-20 09:56
PROVIDERS: ADMIT Family Medicine; ATTEND Family Medicine
PROC: 5A1945Z Respiratory Ventilation, 24-96 Consecutive Hours (ICD-10-PCS; 2018-12-16)
PROC: 0BH17EZ Insertion of Endotracheal Airway into Trachea, Via Natural or Artificial Opening (ICD-10-PCS; 2018-12-16)
PROC: 02HV33Z Insertion of Infusion Device into Superior Vena Cava, Percutaneous Approach (ICD-10-PCS; principal; 2018-12-17)
DX: J96.01 Acute respiratory failure with hypoxia (principal); J44.1 Chronic obstructive pulmonary disease with (acute) exacerbation; E66.01 Morbid (severe) obesity due to excess calories; Z68.31 Body mass index [BMI] 31.0-31.9, adult; F17.200 Nicotine dependence, unspecified, uncomplicated; G47.33 Obstructive sleep apnea (adult) (pediatric); F32.9 Major depressive disorder, single episode, unspecified; Z53.29 Procedure and treatment not carried out because of patient's decision for other reasons
CPT/HCPCS: 31500; 36415; 36569; 36600; 51700; 71045; 74018; 80048; 80053; 80198; 81001; 82550; 82553; 82805; 82947; 82948; 83605; 83735; 83880; 84484; 85025; 85610; 85730; 87040; 87070; 87086; 87205; 93005; 94002; 94003; 94640; 94660; 96372; 97139; 99285; J0330; J0456; J2250; J2270; J2405; J2920; J2930; J3370; J7030; J7050

== ENCOUNTER 2019-02-19 13:02 | Inpatient (IN) | payer SELFPAY ==
[~2019-02-19] VITALS: Ht 162.6 cm; Wt 86.2 kg
[2019-02-19 00:44] VITALS: BP 122/70
[2019-02-19] MEDS ORDERED: IPRATROPIUM BROMIDE 0.02% 2.5 ML NEB NEB STA (13:36)
[2019-02-19] MEDS ORDERED: ALBUTEROL SULF 0.083% NEB SOLN 3 ML NEB NEB STA (13:36)
[2019-02-19] MEDS ORDERED: SODIUM CHLORIDE 0.9% 1000ML 1,000 ML IV SCH ×2 (13:45→15:00)
[2019-02-19] MEDS ORDERED: ASPIRIN 81 MG CHEW TAB PO ONE (13:45)
[2019-02-19] MEDS ORDERED: METHYLPREDNISOLONE SOD SUCC 125 MG/2ML VIAL IV ONE (14:00)
[2019-02-19] MEDS ORDERED: MORPHINE SULFATE 2 MG/ML SYR 1ML IV STA (14:25)
[2019-02-19 14:31] LABS: BASOPHILS % 0.2 % (0.0-1.0); EOSINOPHILS # (AUTO) 0.1 (0.0-0.4); EOSINOPHILS % 0.7 % (0.0-6.0); HEMATOCRIT 42.8 % (34.2-44.1); HEMOGLOBIN 12.6 g/dL (12.0-16.0); LYMPHOCYTES # (AUTO) 1.5 (1.0-3.2); LYMPHOCYTES % 13.6 % (18.0-39.1); MEAN CORPUSCULAR HEMOGLOBIN 26.9 pg (28-32); MEAN CORPUSCULAR HGB CONC 29.4 g/dL (31-35); MEAN CORPUSCULAR VOLUME 91.3 fL (81-99); MONOCYTES # (AUTO) 0.6 (0.2-0.8); MONOCYTES % 5.1 % (4.4-11.3); NEUTROPHILS # (AUTO) 8.6 (2.1-6.9); NEUTROPHILS % 80.2 % (38.7-80.0); PLATELET COUNT 348 x10e3/uL (140-360); RED BLOOD COUNT 4.69 x10e6/uL (3.6-5.1); RED CELL DISTRIBUTION WIDTH 13.5 % (11.7-14.4)
[2019-02-19 14:53] LABS: ALANINE AMINOTRANSFERASE 13 IU/L (0-55); ALBUMIN 3.4 g/dL (3.5-5.0); ALBUMIN/GLOBULIN RATIO 0.7 (0.8-2.0); ALKALINE PHOSPHATASE 104 IU/L (40-150); ANION GAP 13.7 mmol/L (8-16); BLOOD UREA NITROGEN 19 mg/dL (7-26); BUN/CREATININE RATIO 32 (6-25); CALCIUM 10.1 mg/dL (8.4-10.2); CHLORIDE 88 mmol/L (98-107); CREATINE KINASE 13 IU/L (29-168); CREATININE, SERUM 0.59 mg/dL (0.57-1.11); EST GLOMERULAR FILTRATION RATE > 60 ML/MIN (60-); GLUCOSE 151 mg/dL (74-118); POTASSIUM 3.7 mmol/L (3.5-5.1); SODIUM 142 mmol/L (136-145)
[2019-02-19 14:54] LABS: CARBON DIOXIDE 44 mmol/L (22-29)
[2019-02-19] MEDS ORDERED: CEFTRIAXONE SOD 1 GM VIAL IV SCH ×2 (15:00→17:15)
[2019-02-19] MEDS ORDERED: CEFTRIAXONE SOD 1 GM/NS 50 ML 50 ML IV SCH (15:00)
--- NOTE | 2019-02-19 15:19 | Diagnostic Imaging Report ---
EXAMINATION: CHEST SINGLE (PORTABLE) INDICATION: Shortness of breath COMPARISON: None FINDINGS: LINES/TUBES:EKG leads overlie the chest. LUNGS:The lungs are well-inflated. No focal consolidation or pulmonary edema. PLEURA:No pleural effusion or pneumothorax. MEDIASTINUM:The cardiomediastinal silhouette appears normal in size and shape. BONES/SOFT TISSUES:No acute osseous injury. ABDOMEN:No free air under the diaphragm. IMPRESSION: No focal pneumonia or pulmonary edema. Signed by: Dianelys Feldman MD on 02/19/2019 3:15 PM
[2019-02-19 15:43] LABS: ABG HCO3 44 mmol/L (23-28); ABG PCO2 63 mmHg (41-51); ABG PH 7.45 (7.31-7.41); ABG PO2 80 mmHg (80-105)
[2019-02-19] MEDS ORDERED: AZITHROMYCIN 500MG/SOD CHL 0.9% 250ML BAG IV SCH (17:15)
[2019-02-19] MEDS: AZITHROMYCIN 500MG/NS 250 ML 250 ML IV SCH (17:58)
[2019-02-19] MEDS ORDERED: ALBUTEROL/IPRATROPIUM 3 ML NEB NEB PRN (20:00)
[2019-02-19] MEDS: ONDANSETRON HCL INJ 2MG/ML 2ML 2 MG/ML VIAL IV PRN (20:06)
[2019-02-19] MEDS: MORPHINE SULFATE INJ 4 MG/ML INJ 1ML IV PRN (20:08)
[2019-02-19] MEDS ORDERED: SODIUM CHLORIDE 0.9% 1000ML 1,000 ML IV ONE (21:00)
--- NOTE | 2019-02-19 21:25 | NUR ---
ER NURSE CALLED FOR ELEVATED LACTIC ACID. 1 L BOLUS GIVEN PER ER DOCTOR ORDER
[2019-02-19 21:30] VITALS: BP 157/78
--- NOTE | 2019-02-19 21:50 | NUR ---
SPOKE TO DR MEDEIROS ABOUT ELEVATED LACTIC ACID. NEW ORDER RECEIVED.
[2019-02-19 22:03] VITALS: BP 157/78
[2019-02-19] MEDS ORDERED: VANCOMYCIN 1GM/NS 250 ML 250 ML IV ONE (22:15)
--- NOTE | 2019-02-19 22:25 | NUR ---
NOTIFIED DR MEDEIROS PATIENT IS NEGATIVE FOR FLU. NO NEW ORDER AT THIS TIME
[2019-02-19] MEDS: METHYLPREDNISOLONE SOD SUCC 125 MG/2ML VIAL IV SCH (22:31)
[2019-02-19] MEDS ORDERED: SODIUM CHLORIDE 0.9% 250ML 250 ML ONE (22:34)
--- NOTE | 2019-02-19 23:00 | NUR ---
PATIENT IS OFF UNIT FOR CT
--- NOTE | 2019-02-19 23:17 | NUR ---
PCO2 84.7, NOTIFIED DR MEDEIROS. NEW ORDER TO TRANSFER TO ICU
[2019-02-19 23:19] LABS: ABG PH 7.28 (7.31-7.41)
[2019-02-19 23:20] LABS: ABG HCO3 40 mmol/L (23-28); ABG PCO2 85 mmHg (41-51); ABG PO2 80 mmHg (80-105)
[2019-02-19 23:25] LABS: CREATINE KINASE MB 2.4 ng/mL (0-5.0)
--- NOTE | 2019-02-19 23:45 | NUR ---
CALLED REPORT AND TRANSFERRED PATIENT TO ICU ROOM 193
--- NOTE | 2019-02-19 23:55 | Diagnostic Imaging Report ---
EXAM: CT Abdomen and Pelvis WITH contrast INDICATION: Pain. Sepsis. Fever. COMPARISON: None. TECHNIQUE: Abdomen and pelvis were scanned utilizing a multidetector helical scanner from the lung base to the pubic symphysis after administration of IV contrast. Coronal and sagittal reformations were obtained. Routine protocol was performed. Scan was performed when during portal venous phase. IV CONTRAST: 100 cc Isovue-370 ORAL CONTRAST: Water RADIATION DOSE: Total DLP: 674.29 mGy*cm Estimated effective dose: (DLP x 0.015 x size factor) mSv COMPLICATIONS: None FINDINGS: LINES and TUBES: None. LOWER THORAX: Patchy density in the right middle lobe and right lung base may represent atelectasis with mild elevation of the right hemidiaphragm. Coronary artery calcifications. Coronary artery calcifications. HEPATOBILIARY: Hepatic steatosis. Focal fatty infiltration about the gallbladder fossa on image 33, and adjacent to falciform ligament fissure on image 25 series 2.. No biliary ductal dilation. GALLBLADDER: Partially calcified calculus in the gallbladder neck on image 31 series 2. Mild irregularity of the gallbladder wall with mild hyperenhancement, however, significant pericholecystic inflammatory changes. No wall thickening. SPLEEN: Mildly enlarged measuring PANCREAS: No focal masses or ductal dilatation. ADRENALS: No adrenal nodules KIDNEYS/URETERS: Kidneys enhance symmetrically. No hydronephrosis. No cystic or solid mass lesions. No stones. GI TRACT: No abnormal distention, wall thickening, or evidence of bowel obstruction. Appendix is normal. PELVIC ORGANS/BLADDER: The uterus is absent. LYMPH NODES: No lymphadenopathy. VESSELS: There is moderate atherosclerotic disease in the aorta and major arterial branches. PERITONEUM / RETROPERITONEUM: No free air or fluid. BONES: Mild compression deformity of T12. SOFT TISSUES: Unremarkable. IMPRESSION: 1. Cholelithiasis. No biliary dilatation. 2. Mild splenomegaly. 3. Hepatic steatosis. Signed by: Dr. Anaid Diaz M.D. on 02/19/2019 11:52 PM
[2019-02-20] VITALS (25 sets, daily range): BP systolic 107–153; BP diastolic 53–96
[2019-02-20] MEDS ORDERED: INFLUENZA VIRUS VAC SPLIT INJ 0.5 ML SYR IM SCH (00:30)
[2019-02-20] MEDS: ONDANSETRON HCL INJ 2MG/ML 2ML 2 MG/ML VIAL IV PRN (00:35)
[2019-02-20] MEDS: MORPHINE SULFATE INJ 4 MG/ML INJ 1ML IV PRN ×3 (00:35→15:36)
[2019-02-20 02:43] LABS: CREATINE KINASE MB 3.2 ng/mL (0-5.0)
[2019-02-20 05:20] LABS: BASOPHILS % 0.1 % (0.0-1.0); HEMATOCRIT 33.6 % (34.2-44.1); HEMOGLOBIN 9.8 g/dL (12.0-16.0); LYMPHOCYTES # (AUTO) 0.4 (1.0-3.2); LYMPHOCYTES % 5.8 % (18.0-39.1); MEAN CORPUSCULAR HEMOGLOBIN 26.6 pg (28-32); MEAN CORPUSCULAR HGB CONC 29.2 g/dL (31-35); MEAN CORPUSCULAR VOLUME 91.3 fL (81-99); MONOCYTES # (AUTO) 0.1 (0.2-0.8); MONOCYTES % 0.8 % (4.4-11.3); NEUTROPHILS % 92.9 % (38.7-80.0); PLATELET COUNT 270 x10e3/uL (140-360); RED BLOOD COUNT 3.68 x10e6/uL (3.6-5.1); RED CELL DISTRIBUTION WIDTH 13.4 % (11.7-14.4)
[2019-02-20] MEDS: METHYLPREDNISOLONE SOD SUCC 125 MG/2ML VIAL IV SCH ×2 (05:38→16:59)
[2019-02-20 05:41] LABS: BLOOD UREA NITROGEN 16 mg/dL (7-26); BUN/CREATININE RATIO 33 (6-25); CALCIUM 8.8 mg/dL (8.4-10.2); CARBON DIOXIDE 38 mmol/L (22-29); CHLORIDE 97 mmol/L (98-107); CREATININE, SERUM 0.49 mg/dL (0.57-1.11); EST GLOMERULAR FILTRATION RATE > 60 ML/MIN (60-); GLUCOSE 161 mg/dL (74-118); SODIUM 141 mmol/L (136-145)
[2019-02-20 07:30] LABS: BILIRUBIN,URINE NEGATIVE (NEGATIVE); CLARITY,URINE CLEAR (CLEAR); COLOR,URINE YELLOW (YELLOW); KETONES,URINE NEGATIVE (NEGATIVE); LEUKOCYTE ESTERASE ,URINE NEGATIVE (NEGATIVE); NITRITE,URINE NEGATIVE (NEGATIVE); PROTEIN,URINE DIPSTICK NEGATIVE (NEGATIVE); URINE UROBILINOGEN 0.2 mg/dL (0.2 - 1)
[2019-02-20 07:42] LABS: EPITHELIAL CELLS,URINE FEW /LPF; MUCUS,URINE MODERATE (RARE); WBC,URINE (MAN) 0-5 /HPF (0-5)
[2019-02-20] MEDS: CEFTRIAXONE SOD 1 GM/NS 50 ML 50 ML IV SCH (08:11)
[2019-02-20] MEDS: NICOTINE 7 MG PATCH TOP SCH (08:11)
[2019-02-20 08:19] LABS: LYMPHOCYTES % (MANUAL) 2 % (19-48); MONOCYTES % (MANUAL) 2 % (3.4-9.0); NEUTROPHILS % (MANUAL) 96 % (40-74)
[2019-02-20 08:20] LABS: PLATELET ESTIMATE ADEQUATE
[2019-02-20 08:21] LABS: HYPOCHROMASIA SLIGHT; PLATELET MORPHOLOGY COMMENT NORMAL
[2019-02-20] MEDS ORDERED: HYDRALAZINE HCL 20 MG/ML VIAL IV PRN (08:45)
[2019-02-20] MEDS ORDERED: ACETAMINOPHEN 325 MG TAB PO PRN (08:45)
[2019-02-20] MEDS ORDERED: ALBUTEROL/IPRATROPIUM 3 ML NEB NEB PRN (08:45)
--- NOTE | 2019-02-20 08:56 | NUR ---
Consults called to Sangita Lee and Nisa
[2019-02-20] MEDS: ACETAMINOPHEN/CODEINE 300MG - 30MG TAB PO PRN (09:30)
[2019-02-20 10:04] LABS: CREATINE KINASE MB 3.5 ng/mL (0-5.0)
[2019-02-20] MEDS: ALBUTEROL/IPRATROPIUM 3 ML NEB NEB SCH ×4 (11:00→23:10)
[2019-02-20] MEDS ORDERED: IOPAMIDOL 370 MG/ML 200 ML INFUS..BTL INJ ONE ×2 (11:02→23:40)
[2019-02-20] MEDS ORDERED: SODIUM CHLORIDE 0.9% 50ML 50 ML ONE ×2 (11:02→23:40)
[2019-02-20] MEDS ORDERED: BUSPIRONE HCL 5 MG TAB PO PRN (11:15)
--- NOTE | 2019-02-20 13:11 | Consultation ---
DATE OF CONSULTATION: 02/20/2019 Pulmonary Consultation HISTORY OF PRESENT ILLNESS: Patient admitted by Dr. Dallas, well known to Pulmonary service. History of end-stage chronic obstructive pulmonary disease with chronic CO2 retention, obstructive sleep apnea, atrial arrhythmias in the past, admitted with fever, chills, and cough. ALLERGIES: PENICILLIN, IODINE, AND SHELLFISH. MEDICATIONS: Include Vicodin, DuoNeb, Norvasc, Buspar, metoprolol, Protonix, prednisone, Zoloft, theophylline, and tramadol. SOCIAL HISTORY: She says she has quit smoking and declines BiPAP. PAST SURGICAL HISTORY: She has no surgical history. The patient has been transfused in the past. Requesting jail placement. PHYSICAL EXAMINATION: VITAL SIGNS: Temperature 97.1, pulse 86, respirations 20, and blood pressure 107/57. GENERAL: Cushingoid. HEAD: Normocephalic, atraumatic. EYES: Extraocular movements intact. LUNGS: Diminished breath sounds. Few rhonchi. HEART: Regular rhythm. ABDOMEN: Obese. EXTREMITIES: Edematous. IMPRESSION: Acute exacerbation of chronic obstructive pulmonary disease, asymptomatic gallstones, poor social support. Requesting jail placement. CT of the chest is pending. We will resume home medications of bronchodilators, corticosteroid, empiric antibiotic therapy, ICU care, BiPAP at night. Thank you for this kind referral. MD CANDACE Diaz/JACQUE /[id number]
--- NOTE | 2019-02-20 13:57 | NUR ---
ORDER RECEIVED FOR MEDICAID SNF. 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 CURRENTLY PT HAS NO INCOME, STATED SHE SI WORKING ON HER DISABILITY BENEFITS. AGREEABLE TO ANY FACILITY THAT WILL ACCEPT HER. CASE DISCUSSED WITH DR. POST. SW TO FOLLOW UP ON FRIDAY
--- NOTE | 2019-02-20 14:41 | Consultation ---
DATE OF CONSULTATION: 02/20/2019 Pulmonary Consultation HISTORY OF PRESENT ILLNESS: Patient of Dr. Dallas, well known to Pulmonary service. History of severe chronic obstructive pulmonary disease with presumed asthmatic component, obstructive sleep apnea, chronic respiratory failure. She help from [facility]. She smoked for over 50 years, but quit. She was admitted with cough, fever, chills, and shortness of breath. She is requesting snf placement. Cough has been nonproductive. ALLERGIES: PENICILLIN, IODINE, BUT NOT CEPHALOSPORINS. HOME MEDICATIONS: Include Vicodin, DuoNeb, Norvasc, BuSpar, metoprolol, Protonix, prednisone, Zoloft, theophylline, and tramadol. She does have home oxygen and BiPAP. She did call an ambulance. She has had transfusions in the past. FAMILY HISTORY: She has a history of coronary artery disease in the family. She had urinary tract infections and pneumonia in the past. IMAGING: CT of the abdomen suggests a right lower lobe pneumonia, not visible on chest x-ray. PHYSICAL EXAMINATION: GENERAL: Cushingoid white female, anxious, but no acute distress. VITAL SIGNS: Temperature 97.1, pulse 86 and regular, respirations 20, and blood pressure 107/57. HEAD: Normocephalic, atraumatic. EYES: Extraocular movements are intact. LUNGS: Diminished breath sounds. Few rhonchi. HEART: Regular rhythm. ABDOMEN: Obese. EXTREMITIES: Nontender. CT of the abdomen suggests pneumonia, fatty liver and gallstones. No evidence of cholecystitis. PLAN: Plan is for bronchodilators, O2, CPAP or BiPAP, at night she requests a sleeping pill. Resume her theophylline and her metoprolol. Continue current empiric antibiotics. Cultures, sputum that can be obtained. She does have evidence of chronic respiratory failure. Baseline CO2 was 85, pH 7.28, PaO2 80 on supplemental oxygen. White count is normal. Hemoglobin 9.8. Thank you for this kind referral. MD CANDACE Diaz/MODL /[id number]
[2019-02-20] MEDS: METOPROLOL TARTRATE 25 MG TAB PO SCH (16:57)
[2019-02-20] MEDS: THEOPHYLLINE 200 MG TABCR PO SCH (16:59)
[2019-02-20] MEDS: AZITHROMYCIN 500MG/NS 250 ML 250 ML IV SCH (16:59)
--- NOTE | 2019-02-20 19:00 | NUR ---
Report received. Assumed care. Assessment done. See interventions.
[2019-02-20] MEDS: HEPARIN SOD (PORCINE) 5,000 UNIT/ML VIAL SC SCH (20:42)
[2019-02-20] MEDS: LORAZEPAM INJ 2 MG/ML VIAL IV PRN (22:58)
--- NOTE | 2019-02-20 22:59 | NUR ---
Ativan given for premed for CT per pt request.
--- NOTE | 2019-02-20 23:36 | NUR ---
c/o "a little itching" after CT. Call to Octavia PULIDO for Dr. Dallas. Orders for Ryan.
--- NOTE | 2019-02-20 23:39 | NUR ---
Benadryl 12.5mg IV given.
[2019-02-20] MEDS ORDERED: DIPHENHYDRAMINE HCL INJ 50 MG/ML VIAL ONE (23:41)
[2019-02-20] MEDS ORDERED: DIPHENHYDRAMINE HCL INJ 50 MG/ML VIAL IV PRN (23:45)
--- NOTE | 2019-02-20 23:50 | Diagnostic Imaging Report ---
EXAM: CT Chest WITH contrast 02/20/2019 8:00 AM INDICATION: COPD exacerbation. Shortness of breath. COMPARISON: None available in PACS. TECHNIQUE: Chest was scanned utilizing a multidetector helical scanner from the lung apex through the level of the adrenal glands without administration of IV contrast. Coronal and sagittal reformations were obtained. Routine protocol was performed. IV CONTRAST: 100 mL of Isovue-370 RADIATION DOSE: Total DLP: 516.07 mGy*cm Estimated effective dose: (DLP x 0.014 x size factor) mSv COMPLICATIONS: None FINDINGS: LINES/ TUBES: None. LUNGS AND AIRWAYS: Minimal bilateral upper lobe emphysematous changes. Right middle lobe and bibasilar pleural-parenchymal scarring.. Airways are normal. PLEURA: The pleural spaces are clear. HEART AND MEDIASTINUM: The thyroid gland is normal. No mediastinal, hilar or axillary lymphadenopathy. The heart is mildly enlarged. There appears to be thickening of the left ventricular myocardium. There is no pericardial effusion. There are mild atherosclerotic calcifications in the aorta and coronary arteries. The pulmonary trunk is mildly dilated measuring 3.5 cm in diameter. UPPER ABDOMEN: Limited non-contrast views of the upper abdomen show hepatic steatosis. Prominence of the main portal vein measuring 1.5 cm in diameter. The adrenal glands are normal. BONES: Remote right-sided rib fractures. Deformity of the mid sternum body on the sagittal reconstructions view may be developmental abnormality versus remote injury. SOFT TISSUES: Unremarkable. IMPRESSION: No acute thoracic abnormality. Signed by: Dr. Anaid Diaz M.D. on 02/20/2019 11:47 PM
[2019-02-21] VITALS (16 sets, daily range): BP systolic 116–156; BP diastolic 59–85
[2019-02-21] MEDS: ACETAMINOPHEN/CODEINE 300MG - 30MG TAB PO PRN (02:17)
--- NOTE | 2019-02-21 02:17 | NUR ---
Medicated for c/o back pain 12/19.
[2019-02-21] MEDS: ALBUTEROL/IPRATROPIUM 3 ML NEB NEB SCH ×6 (03:07→23:07)
--- NOTE | 2019-02-21 03:12 | NUR ---
Refused respiratory treatment at this time.
--- NOTE | 2019-02-21 05:00 | NUR ---
Complete bed bath given. Bed linens changed.
--- NOTE | 2019-02-21 05:30 | NUR ---
Up to bedside chair.
[2019-02-21] MEDS: METHYLPREDNISOLONE SOD SUCC 125 MG/2ML VIAL IV SCH ×2 (05:54→17:34)
[2019-02-21] MEDS: NICOTINE 7 MG PATCH TOP SCH (08:12)
[2019-02-21] MEDS: MORPHINE SULFATE INJ 4 MG/ML INJ 1ML IV PRN ×2 (08:30→15:48)
[2019-02-21] MEDS: PANTOPRAZOLE SOD 40 MG TABEC PO SCH (08:52)
[2019-02-21] MEDS: CEFTRIAXONE SOD 1 GM/NS 50 ML 50 ML IV SCH (08:53)
[2019-02-21] MEDS: SERTRALINE HCL 50 MG TAB PO SCH (08:53)
[2019-02-21] MEDS: THEOPHYLLINE 200 MG TABCR PO SCH ×2 (08:53→17:33)
[2019-02-21] MEDS: METOPROLOL TARTRATE 25 MG TAB PO SCH ×2 (08:53→17:33)
[2019-02-21] MEDS ORDERED: NICOTINE 7 MG SUBD SCH (09:00)
[2019-02-21 09:28] LABS: INR 0.94; PROTHROMBIN TIME 13.1 seconds (11.9-14.5)
[2019-02-21 09:54] LABS: PARTIAL THROMBOPLASTIN TIME 24.7 seconds (23.8-35.5)
[2019-02-21] MEDS: HEPARIN SOD (PORCINE) 5,000 UNIT/ML VIAL SC SCH ×2 (10:17→21:18)
--- NOTE | 2019-02-21 10:46 | NUR ---
Per Dr Lee, okay to move patient to IMCU with Bipap orders the same.
--- NOTE | 2019-02-21 11:45 | NUR ---
Received pt to IMCU 198. No complications noted.
--- NOTE | 2019-02-21 14:00 | Consultation ---
DATE OF CONSULTATION: 02/21/2019 Cardiology Consultation REQUESTING PHYSICIAN: Crispin Dallas MD. REASON FOR CONSULTATION: Ventricular arrhythmia. HISTORY OF PRESENT ILLNESS: Ms. Jean is a 53-year-old female with a pertinent past medical history of COPD, sleep apnea, atrial arrhythmias, and hypertension, who has been seen in this hospital multiple times usually under the care of Dr. Mckoy for COPD exacerbation and reports that she came into the ER due to worsening shortness of breath, inability to lay down or catch her breath and she did not want the matter to progress. She denied any fever or chills at the time of admission. She does endorse a cough, improved shortness of breath at this time. Denies dizziness, fever, chills, nausea, vomiting, or abdominal discomfort. She reports reason for her frequent admissions is due to lack of followup for lack of insurance and inability to afford her medication. We were consulted to the see this patient due to reported episode of a nonsustained VT. PAST MEDICAL HISTORY: As noted above. REVIEW OF SYSTEMS: Negative except as mentioned above. SOCIAL HISTORY: Former smoker. Reports she has quit smoking. Denies any illicit drug use. PAST SURGICAL HISTORY: Has no surgical history. PHYSICAL EXAMINATION: VITAL SIGNS: Temperature 98.4, pulse 110, respiratory rate 20, blood pressure 132/82, and oxygen saturation 92% on 5 L nasal cannula. GENERAL: Alert and oriented x3. Resting comfortably in bed. Does not appear to be in any acute distress. NECK: Supple. No JVD noted. CARDIOVASCULAR: Regular rate and rhythm. Tachycardic. No murmurs. No gallops. LUNGS: Diminished breath sounds throughout. No rhonchi, wheezing, or crackles at this time. ABDOMEN: Soft and nontender. EXTREMITIES: Lower extremity, no edema. 2+ pedal pulses. CARDIOVASCULAR MEDICATIONS: Metoprolol tartrate 25 mg p.o. b.i.d. and heparin 5000 units subcutaneous every 12 hours. LABORATORY DATA: Labs from yesterday; WBC 7.53, hemoglobin 9.8, hematocrit 33.6, and platelets 270. Sodium 141, potassium 4.0, BUN 16, creatinine 0.49, and glucose 161. CK-MB 3.50. Troponin 0.017. Creatine kinase 41. TSH 0.342. Chest x-ray on admission with no focal pneumonia or pulmonary edema. CT of the lungs from yesterday with no acute thoracic abnormality. CT of the abdomen and pelvis with cholelithiasis, no biliary dilation, mild splenomegaly and hepatic steatosis. TELEMETRY: Sinus tachycardia. IMPRESSION: 1. Chronic obstructive pulmonary disease exacerbation. 2. Gallstones noted on CT. 3. Sinus tachycardia. 4. History of atrial arrhythmias. 5. Hypertension. 6. Obesity. 7. Sleep apnea. RECOMMENDATIONS: Reported ventricular arrhythmia. EKG strip reviewed, appears to be artifact. The patient reported to be asymptomatic during this episode. Continue to monitor this patient on tele. Cardiac enzymes have been negative so far. We will continue to monitor this patient. Echocardiogram has been ordered, awaiting completion and review recommendations will follow. At this moment, continue beta-donnie and the rest of the above-listed cardiac medication. Continue to treat for COPD exacerbation. Continue to monitor closely. The patient is stable from a cardiac standpoint. Monitor potassium and magnesium closely to keep potassium greater than 4 and magnesium greater than 2. Thank you for this consultation. Dictated by Daria Awan NP MD MEEK VictoriaV/JACQUE /[id number]
[2019-02-21] MEDS ORDERED: CHLORASEPTIC SPRAY 177 ML BTL MM PRN (16:30)
[2019-02-21] MEDS: AZITHROMYCIN 500MG/NS 250 ML 250 ML IV SCH (17:34)
[2019-02-21] MEDS: MELATONIN 5 MG TABLET PO PRN (21:08)
[2019-02-21] MEDS: LORAZEPAM INJ 2 MG/ML VIAL IV PRN (21:08)
[2019-02-22] VITALS (8 sets, daily range): BP systolic 120–155; BP diastolic 64–87
[2019-02-22] MEDS: ALBUTEROL/IPRATROPIUM 3 ML NEB NEB SCH ×5 (03:10→23:05)
[2019-02-22] MEDS: ACETAMINOPHEN/CODEINE 300MG - 30MG TAB PO PRN (05:06)
[2019-02-22] MEDS: LORAZEPAM INJ 2 MG/ML VIAL IV PRN (05:19)
[2019-02-22 05:59] LABS: ANION GAP 11.1 mmol/L (8-16); BLOOD UREA NITROGEN 18 mg/dL (7-26); BUN/CREATININE RATIO 33 (6-25); CALCIUM 9.4 mg/dL (8.4-10.2); CHLORIDE 90 mmol/L (98-107); CREATININE, SERUM 0.55 mg/dL (0.57-1.11); EST GLOMERULAR FILTRATION RATE > 60 ML/MIN (60-); GLUCOSE 132 mg/dL (74-118); PHOSPHORUS 3.7 MG/DL (2.3-4.7); POTASSIUM 4.1 mmol/L (3.5-5.1); SODIUM 140 mmol/L (136-145)
[2019-02-22 06:03] LABS: BASOPHILS % 0.1 % (0.0-1.0); CARBON DIOXIDE 43 mmol/L (22-29); HEMATOCRIT 37.2 % (34.2-44.1); HEMOGLOBIN 10.9 g/dL (12.0-16.0); LYMPHOCYTES % 8.2 % (18.0-39.1); MEAN CORPUSCULAR HGB CONC 29.3 g/dL (31-35); MEAN CORPUSCULAR VOLUME 92.3 fL (81-99); MONOCYTES # (AUTO) 0.3 (0.2-0.8); MONOCYTES % 2.8 % (4.4-11.3); NEUTROPHILS # (AUTO) 10.5 (2.1-6.9); NEUTROPHILS % 88.2 % (38.7-80.0); PLATELET COUNT 297 x10e3/uL (140-360); RED BLOOD COUNT 4.03 x10e6/uL (3.6-5.1); RED CELL DISTRIBUTION WIDTH 13.7 % (11.7-14.4)
[2019-02-22] MEDS: METHYLPREDNISOLONE SOD SUCC 125 MG/2ML VIAL IV SCH (06:06)
[2019-02-22] MEDS: CEFTRIAXONE SOD 1 GM/NS 50 ML 50 ML IV SCH (08:34)
[2019-02-22] MEDS: THEOPHYLLINE 200 MG TABCR PO SCH ×2 (08:34→18:18)
[2019-02-22] MEDS: PANTOPRAZOLE SOD 40 MG TABEC PO SCH (08:34)
[2019-02-22] MEDS: METOPROLOL TARTRATE 25 MG TAB PO SCH ×2 (08:34→18:32)
[2019-02-22] MEDS: SERTRALINE HCL 50 MG TAB PO SCH ×2 (08:34→18:18)
[2019-02-22] MEDS: HEPARIN SOD (PORCINE) 5,000 UNIT/ML VIAL SC SCH ×2 (08:58→20:52)
--- NOTE | 2019-02-22 09:24 | NUR ---
WENT AND SPOKE WITH PT ABOUT DIGITAL IMAGING SPECIALIST PLACEMENT, ASKED HER ABOUT HER PRIOR APPOINTMENTS WITH [facility], SHE ADMITS SHE GOT A LETTER FROM DISABILITY BUT SET IT TO THE SIDE AND FORGOT ABOUT IT. POINTED OUT THAT IF YOU DO NOT FOLLOW THROUGH WITH WHAT THEY REQUEST IN THE TIME THEY REQUEST SHE WILL BE DENIED AND HAVE TO NOW START THAT PROCESS OVER. [facility] DID NOT GO TO [facility] FOR GOLD CARD APPOINTMENTS THAT WE MADE FOR HER BECAUSE SHE DIDN'T FEEL WELL ENOUGH. EXPLAINED TO HER THAT ROOM AND BOARD IS APPROXIMATELY 140 TO 250 A DAY AT A FACILITY ALONE NOT INCLUDING OXYGEN OR MEDIATIONS. SO ROUGHLY 6000 A MONTH , EDUCATED THE PROCESS TYPICALLY IS FACILITIES WILL NOT CONSIDER A PENDING WITH NO PAYOR SOURCE BECAUSE THEY HAVE TO ASSUME THE RESPONSIBILITY OF THE COST ON THE CHANCE THEY WILL BE REIMBURSED AND NOW MOST ARE REQUIRING THE MONEY UP FRONT TO BE REIMBURSED TO FAMILY. SHE STATES SHE HAS NO MONEY AND KNOWS SHE HAS BEEN DENIED DISABILITY. INFORMED HER THE OPTIONS FOR DISCHARGE ARE WITH HER SISTER OR A CARE HOME. SHE STATES SHE UNDERSTANDS AND WILL GO HOME WITH HER SISTER. HER SELF PAY PACKET IS ON HER BEDSIDE.
[2019-02-22] MEDS ORDERED: LORAZEPAM INJ 2 MG/ML VIAL INJ PRN (13:00)
[2019-02-22] MEDS ORDERED: LORAZEPAM 0.5 MG TAB PO PRN (13:00)
--- NOTE | 2019-02-22 13:21 | NUR ---
Nutrition Screen Note RD Recommendation for Physician: -Continue current diet per MD. Plan of Care: RD following, monitoring for tolerance and adequacy Nutrition reason for involvement: Nutrition Risk Trigger-allergy fish and shellfish Primary Diagnose(s):COPD exacerbation PMH: end-stage chronic obstructive pulmonary disease with chronic CO2 retention, obstructive sleep apnea, atrial arrhythmias in the past Ht: 64 in Wt: 190 lb BMI: 32.6 kg/m2 IBW: [address] Assessment: 02/22:53 YOF admitted for COPD with PMH listed above. Spoke about pt in rounds, pt is very familiar to this hospital. Pt reported that her appetite was in the middle of bad and good. She denied N/V/C/D/chewing or swallowing issues as well. LBM: 02/22. Pt verified her allergy to fish and shellfish and reported she can self select from the menu-allergy is documented with HT. Pt had no other questions regarding diet and denied diet education. Chart reviewed. Labs and meds reviewed. Pt is on oxygen. Pt is stable per cardiac standpoint, but they want K and Mg monitored closely. Pt has been consuming 75-100% of her meals per FS. Pt was 170 lbs in Dec, suggesting no weight loss. Will continue to monitor. Current Diet: cardiac Malnutrition Evaluation (02/22) The patient does not meet criteria for a specified degree of malnutrition at this time. Will re-evaluate at follow-up as appropriate. Diet Education Needs Assessment: Diet education indicated, pt declined. Nutrition Care Level: low Signed: Shaunna Dalton, RD, LD
[2019-02-22] MEDS: LORAZEPAM INJ 2 MG/ML VIAL IM PRN ×2 (14:47→20:52)
[2019-02-22] MEDS ORDERED: METHYLPREDNISOLONE SOD SUCC 125 MG/2ML VIAL IV SCH (18:00)
[2019-02-22] MEDS: AZITHROMYCIN 500MG/NS 250 ML 250 ML IV SCH (18:18)
[2019-02-22] MEDS: METHYLPREDNISOLONE SOD SUCC 40 MG/ML VIAL 1ML IV SCH (18:18)
--- NOTE | 2019-02-22 19:11 | NUR ---
Received report from day nurse. Patient sitting up on side of bed, no s/s of distress or c/o pain at this time. All safety measures in place. Will continue to monitor.
--- NOTE | 2019-02-22 20:21 | Consultation ---
DATE OF CONSULTATION: 02/22/2019 Psychiatric Consultation REASON FOR CONSULTATION: To evaluate the patient's anxiety and depression. HISTORY OF PRESENT ILLNESS: The patient is 53 years old female, admitted to the hospital for COPD exacerbation. Psychiatric consultation is called to evaluate the patient's mood. As per medical record, the patient has history of end-stage chronic obstructive pulmonary disease, CO2 retention, sleep apnea, and atrial arrhythmia. She takes Zoloft and BuSpar at home. Upon evaluation today, the patient was found to be lying in the bed. She is alert, awake, and oriented to self, place, and situation. She thinks the current year is 1999. She knows the president, which is Mary. She claims that she has been feeling depressed and anxious because she feels lonely and at times she feels hopeless and helpless, but denies any passive wish or suicidal ideation. She denies any hallucination. She denies any problem with sleep or appetite. The patient is in the room and has BiPAP machine next to her. PAST PSYCHIATRIC HISTORY: The patient denies past psychiatric history. Denies past suicide attempts. She denies alcohol and drug use. FAMILY HISTORY: Denies. SOCIAL HISTORY: The patient states she lives with her sister. MENTAL STATUS EXAM: The patient is middle-aged female, older than her stated age. She reports feeling anxious and depressed with congruent affect. She denies any suicidal or homicidal ideation. She denies any hallucination. Thought process is concrete. No delusion elicited. Insight and judgment are fair. Memory appears to be grossly impaired. CURRENT MEDICATIONS: 1. DuoNebs. 2. Heparin. 3. Theophylline. 4. Protonix. 5. Lopressor. 6. Ceftriaxone. 7. Tylenol No. 3. 8. Melatonin. 9. Azithromycin. 10. Benadryl. 11. Zofran. 12. Ativan p.r.n. IV as needed. 13. Zoloft 50 mg p.o. daily. 14. Senna. 15. Hydralazine. 16. Influenza vaccine one time. CURRENT LABORATORY DATA: WBCs 11.84, RBCs 4.03, hemoglobin 10.9, hematocrit 37.2, and platelets 297. Sodium 140, potassium 4.1, chloride 90, CO2 of 43, BUN 18, and creatinine 0.55. AST 18 and ALT 13. ASSESSMENT: 1. Adjustment disorder. 2. Mixed mood. 3. Depression, anxiety. 4. Rule out dementia. PLAN: 1. Increase Zoloft to 50 mg p.o. b.i.d. 2. Change Ativan IV to IM 0.5 q.6 hours as needed. 3. Ativan 0.5 mg p.o. q.6 hours as needed. 4. Discontinue Glucotrol p.r.n. 5. Continue metformin p.r.n. 6. Monitor for mood. 7. Supportive therapy. Dictated by Lynsey Xie PA-C MD TEGAN SargentV/JACQUE /[id number]
--- NOTE | 2019-02-22 20:47 | Progress Note ---
DATE: 02/22/2019 Cardiology Progress Note SUBJECTIVE: No major events overnight. OBJECTIVE: VITAL SIGNS: Temperature afebrile, pulse 91, respiratory rate 20, blood pressure 154/87, and saturating 99% on 5 L nasal cannula. GENERAL: Middle-aged female, in no acute distress. CARDIOVASCULAR: Regular rate and rhythm. No murmurs, rubs, or gallops. LUNGS: Scattered wheezing. ABDOMEN: Soft, nontender, and nondistended. NEURO AND PSYCH: Alert and oriented to person, place, and time. Normal affect. LABORATORY DATA: Reviewed. INPATIENT MEDICATIONS: Reviewed. TELEMETRY DATA: Shows sinus tachycardia. ASSESSMENT/PLAN: 1. Chronic obstructive pulmonary disease exacerbation. 2. Gallstones. 3. Sinus tachycardia. 4. History of atrial arrhythmias. 5. Hypertension. 6. Obesity. 7. Sleep apnea. RECOMMENDATIONS: Reported history of ventricular arrhythmias, however, EKG strips reviewed and appeared to be artifact. The patient appears to be asymptomatic. Cardiac enzymes negative. We will follow up on the echo results. Continue current medications. Thank you for this consult. We will continue to follow. MD SOPHIA Givens/JACQUE /[id number]
[2019-02-22] MEDS: MELATONIN 5 MG TABLET PO PRN (22:34)
[2019-02-23 00:18] VITALS: BP 156/81
[2019-02-23] MEDS: ALBUTEROL/IPRATROPIUM 3 ML NEB NEB SCH ×3 (03:10→10:21)
[2019-02-23] MEDS: ACETAMINOPHEN/CODEINE 300MG - 30MG TAB PO PRN (04:16)
[2019-02-23 04:17] VITALS: BP 162/87
[2019-02-23 05:12] LABS: BASOPHILS % 0.1 % (0.0-1.0); HEMATOCRIT 37.2 % (34.2-44.1); HEMOGLOBIN 10.8 g/dL (12.0-16.0); LYMPHOCYTES # (AUTO) 0.8 (1.0-3.2); LYMPHOCYTES % 8.2 % (18.0-39.1); MEAN CORPUSCULAR HEMOGLOBIN 26.7 pg (28-32); MEAN CORPUSCULAR VOLUME 91.9 fL (81-99); MONOCYTES # (AUTO) 0.4 (0.2-0.8); MONOCYTES % 4.1 % (4.4-11.3); NEUTROPHILS # (AUTO) 8.9 (2.1-6.9); NEUTROPHILS % 86.7 % (38.7-80.0); PLATELET COUNT 268 x10e3/uL (140-360); RED BLOOD COUNT 4.05 x10e6/uL (3.6-5.1); RED CELL DISTRIBUTION WIDTH 13.4 % (11.7-14.4)
[2019-02-23] MEDS: METHYLPREDNISOLONE SOD SUCC 40 MG/ML VIAL 1ML IV SCH (05:32)
[2019-02-23 05:43] LABS: ANION GAP 9.1 mmol/L (8-16); BLOOD UREA NITROGEN 19 mg/dL (7-26); BUN/CREATININE RATIO 36 (6-25); CALCIUM 9.3 mg/dL (8.4-10.2); CHLORIDE 87 mmol/L (98-107); CREATININE, SERUM 0.53 mg/dL (0.57-1.11); EST GLOMERULAR FILTRATION RATE > 60 ML/MIN (60-); GLUCOSE 135 mg/dL (74-118); POTASSIUM 4.1 mmol/L (3.5-5.1); SODIUM 138 mmol/L (136-145)
[2019-02-23 05:49] LABS: CARBON DIOXIDE 46 mmol/L (22-29)
[2019-02-23] MEDS ORDERED: ZOLOFT50 MG PO (05:49)
[2019-02-23] MEDS ORDERED: LOPRESSOR25 MG PO (05:49)
[2019-02-23] MEDS ORDERED: THEOPHYLLINE A200 MG PO (05:49)
[2019-02-23] MEDS ORDERED: ATIVAN0.5 MG PO (05:49)
[2019-02-23] MEDS ORDERED: Albuterol/Ipratropium Nebulize NEB (05:49)
[2019-02-23] MEDS ORDERED: PREDNISONE20 MG PO (05:49)
[2019-02-23] MEDS ORDERED: CEFTIN PO (05:49)
--- NOTE | 2019-02-23 05:50 | NUR ---
lab called for result, her CO2 this morning is 46; Yaima PULIDO aware.
[2019-02-23] MEDS ORDERED: NORVASC10 MG PO (05:51)
[2019-02-23] MEDS ORDERED: DIPHENHYDRAMINE HCL 30 GM TUBE TOP PRN (06:00)
--- NOTE | 2019-02-23 06:10 | NUR ---
per Yaima PULIDO, pls day shift nurse to call her for discharge order when news internship ok to discharge her and make sure for home O2 arranged.
[2019-02-23 07:32] VITALS: BP 197/103
--- NOTE | 2019-02-23 08:29 | NUR ---
WOUND CARE CONSULT DONE 02-22-19 FOR 53 YO FEMALE HX OF COPD GIANFRANCO 16 WITH MODERATE PUP ON ALTERNATING PRESSURE MATTRESS LABS: WBC- 11.84,HGB - 10.9,GLUCOSE - 132,HEM A1C -5.7 BLOOD CULTURE SHOWS NO GROWTH LFT GLUTEAL STAGE 2 DOCUMENTED ON WOUND FLOW SHEET RECOMMENDATIONS: NURSING TO CONTINUE TO REMIND AND ASSIST PATIENT TO TURN AND OFFLOAD TO PREVENT SKIN BREAKDOWN AND INJURY FOLLOWING MODERATE PUP GUIDELINES NURSING TO CONTINUE TO ASSIST PATIENT OUT OF BED FOR MEALS AND MUCH TOLERATED NURSING TO APPLY DAILY VENELEX OINTMENT TO LFT GLUTEAL STAGE 2 BLISTER COVER WITH ALLEVYN FOAM TO PREVENT SHEER TO AREA Addendum: 02/23/19 at 0840 by Jaime Gonsales RN Amended: Links added.
[2019-02-23] MEDS: CEFTRIAXONE SOD 1 GM/NS 50 ML 50 ML IV SCH (08:33)
[2019-02-23] MEDS: PANTOPRAZOLE SOD 40 MG TABEC PO SCH (08:33)
[2019-02-23] MEDS: METOPROLOL TARTRATE 25 MG TAB PO SCH (08:34)
[2019-02-23] MEDS: SERTRALINE HCL 50 MG TAB PO SCH (08:35)
[2019-02-23] MEDS: THEOPHYLLINE 200 MG TABCR PO SCH (08:35)
[2019-02-23] MEDS: HEPARIN SOD (PORCINE) 5,000 UNIT/ML VIAL SC SCH (08:35)
[2019-02-23 09:00] VITALS: BP 197/103
[2019-02-23] MEDS ORDERED: BALSAM PERU/CASTOR OIL 60 GM OINT...G. TP SCH (09:00)
[2019-02-23] MEDS ORDERED: AMLODIPINE BESYLATE 10 MG TAB PO SCH (09:00)
[2019-02-23] MEDS ORDERED: ONDANSETRON HCL 4 MG ORAL DISINTEGRATING TAB PO PRN ×2 (09:00)
[2019-02-23] MEDS ORDERED: PREDNISONE 20 MG TAB PO SCH (09:00)
[2019-02-23] MEDS ORDERED: ACETAZOLAMIDE 250 MG TAB PO SCH (09:00)
[2019-02-23 10:06] VITALS: BP 165/75
--- NOTE | 2019-02-23 10:38 | NUR ---
bp 165/75. discharge assessment completed. reviewed meds with pt. [facility] and [facility]. ems called per her request for transfer home.
--- NOTE | 2019-02-24 04:24 | Discharge Summary ---
ADMISSION DIAGNOSES: Acute exacerbation of chronic obstructive pulmonary disease with severe sepsis, anxiety, depression, chronic pain, obesity with a BMI of 32.8. DISCHARGE DIAGNOSES: Acute exacerbation of chronic obstructive pulmonary disease with severe sepsis, anxiety, depression, chronic pain, obesity with a BMI of 32.8, rule out bacteremia, rule out flu, rule out urinary tract infection, obstructive sleep apnea. HISTORY: The patient has a history of COPD, depression, anxiety, chronic pain, osteoarthritis, and asthma. SURGICAL HISTORY: Partial gastrectomy and hysterectomy. FAMILY HISTORY: The patient's mother and father both had a heart attack. SOCIAL HISTORY: The patient has a history of smoking, but says she quit about 4 or 5 years ago. HOSPITAL COURSE: A 53-year-old female admits with complaints of shortness of breath and wheezing for the last couple of days. She has associated wheezing with congestion. She denies cough and fever. She tried using her nebs with no relief. She uses 5 L nasal cannula at home at baseline. On admission, her lactic acid was 36.7. So, the patient was started on Zithromax, Rocephin, nebs, Solu-Medrol, and Pulmonology was consulted. Chest x-ray showed no focal pneumonia or pulmonary edema. To rule out any other source of sepsis, a CT of the abdomen and pelvis was done that showed cholelithiasis, no biliary dilatation, mild splenomegaly, hepatic steatosis. CT of the chest was done that showed no acute abnormality. Urine culture negative. Blood culture negative. Flu screen negative. RN called with an apparent ventricular arrhythmia, so Cardiology was consulted, but after looking at the EKG, it appeared to be artifact. After a few days of IV antibiotics, the patient is feeling much better. She will discharge home with new prescriptions for DuoNeb inhalers, Norvasc, Ceftin, lorazepam, metoprolol, prednisone, sertraline, and theophylline. The patient says she is not taking any home medicines as she can afford them. After speaking with case management, the patient appears to be frequently admitted for COPD and does not follow up even though she is given resources. Vital signs stable, the patient afebrile. The patient is feeling much better and has been cleared by Pulmonology to discharge. Dictated by Yaima Justin, ASHOK MD SAGAR Ornelas/JACQUE /[id number]
== END 2019-02-23 11:26 | disposition home or self-care (01) | DRG 872 ==
LOC: ER 13:02 → ERHOLD 17:10 → MED/SURG2 20:39 → OBSVTOIN 23:40 → ICU 23:45 → IMCU 02-21 11:15
PROVIDERS: ADMIT Internal Medicine; ATTEND Internal Medicine
DX: A41.9 Sepsis, unspecified organism (principal); J44.1 Chronic obstructive pulmonary disease with (acute) exacerbation; E87.2 Acidosis; J96.10 Chronic respiratory failure, unspecified whether with hypoxia or hypercapnia; R65.20 Severe sepsis without septic shock; I11.0 Hypertensive heart disease with heart failure; I50.9 Heart failure, unspecified; F32.9 Major depressive disorder, single episode, unspecified; E78.5 Hyperlipidemia, unspecified; F41.9 Anxiety disorder, unspecified; Z91.010 Allergy to peanuts; Z91.013 Allergy to seafood; Z82.49 Family history of ischemic heart disease and other diseases of the circulatory system; G47.33 Obstructive sleep apnea (adult) (pediatric); K80.20 Calculus of gallbladder without cholecystitis without obstruction; Z87.891 Personal history of nicotine dependence; R00.0 Tachycardia, unspecified; F43.23 Adjustment disorder with mixed anxiety and depressed mood; F03.90 Unspecified dementia, unspecified severity, without behavioral disturbance, psychotic disturbance, mood disturbance, and anxiety; G89.29 Other chronic pain
CPT/HCPCS: 36415; 36600; 71045; 71260; 74177; 80048; 80053; 80198; 81001; 82550; 82553; 82805; 83036; 83605; 83735; 83880; 84100; 84443; 84484; 85025; 85610; 85730; 87040; 87086; 87400; 93005; 93306; 94640; 94660; 97139; 99285; J0456; J0696; J1200; J1644; J2060; J2270; J2405; J2920; J2930; J3370; J7030; J7050; J7512; Q9967